=== PATIENT | female | born 1980 | race Caucasian/White ===

== ENCOUNTER 2016-06-05 13:15 | Observation (INO) | payer OTHER ==
[2016-06-05] MEDS ORDERED: ONDANSETRON 4 MG/2 ML VIAL IVP STA (13:43)
[2016-06-05] MEDS ORDERED: SODIUM CHLORIDE 0.9% 1,000 ML IV STA (13:43)
--- NOTE | 2016-06-05 13:45 | ED ---
Abdominal Pain HPI <Manan Hooper - Last Filed: 06/05/16 15:43> - General Source: patient, RN notes reviewed Mode of arrival: ambulatory Limitations: no limitations <Marcia Kerns - Last Filed: 06/05/16 15:47> - General Chief Complaint: Abdominal Pain Stated Complaint: Abd Pain Time Seen by Provider: 06/05/16 13:33 - History of Present Illness Initial Comments: 35-year-old female presents emergency Department chief complaint of right-sided abdominal pain. Patient states that this started this morning. Patient states she doesn't the Motrin did help with her pain but her pain continue to linger. Patient's pulse in the right side. Patient states that she does not believe that she is . Patient states she's had a little bit of nausea and burping with it. Patient states just started today. Patient denies any fever or chills. Patient states she was concerned due to the continued symptoms that she thought that she should be evaluated.Patient denies any recent fever, chills , shortness of breath, chest pain, back pain, vomiting, numbness or tingling, dysuria or hematuria, constipation or diarrhea, headaches or visual changes, or any other current symptoms. (Marcia Kerns) - Related Data Home Medications Medication Instructions Recorded Confirmed Cetirizine HCl [Zyrtec] 10 mg PO DAILY 03/05/16 06/05/16 Fluticasone Propionate [Flonase 1 spray EA NOSTRIL DAILY PRN 03/05/16 06/05/16 Allergy Relief] Lisinopril 40 mg PO DAILY 06/05/16 06/05/16 Naproxen [Naprosyn] 500 mg PO Q12HR PRN 06/05/16 06/05/16 Sertraline [Zoloft] 50 mg PO DAILY 06/05/16 06/05/16 metFORMIN HCL ER [Glucophage Xr] 1,000 mg PO AC-SUPPER 06/05/16 06/05/16 Allergies Allergy/AdvReac Type Severity Reaction Status Date / Time chick peas Allergy Swelling Uncoded 06/05/16 13:26 Review of Systems ROS Other: All systems not noted in ROS Statement are negative. <Manan Hooper - Last Filed: 06/05/16 15:43> ROS Other: All systems not noted in ROS Statement are negative. <Marcia Kerns - Last Filed: 06/05/16 15:47> ROS Statement: Those systems with pertinent positive or pertinent negative responses have been documented in the HPI. (Manan Hooper) (Marcia Kerns) Past Medical History Past Medical History: Diabetes Mellitus, Hypertension History of Any Multi-Drug Resistant Organisms: None Reported Additional Past Surgical History / Comment(s): foot surgery, Past Psychological History: Anxiety Smoking Status: Never smoker Past Alcohol Use History: None Reported Past Drug Use History: None Reported <Marcia Kerns - Last Filed: 06/05/16 15:47> General Exam <Manan Hooper - Last Filed: 06/05/16 15:43> Limitations: no limitations <Marcia Kerns - Last Filed: 06/05/16 15:47> - General Exam Comments Initial Comments: General: The patient is awake and alert, in no distress, and does not appear acutely ill. Eye: Pupils are equal, round and reactive to light, extra-ocular movements are intact; there is normal conjunctiva bilaterally. No signs of icterus. Ears, nose, mouth and throat: There are moist mucous membranes. Neck: The neck is supple, there is no tenderness. Cardiovascular: There is a regular rate and rhythm. No murmur, rub or gallop is appreciated. Respiratory: Lungs are clear to auscultation, respirations are non-labored, breath sounds are equal. No wheezes, stridor, rales, or rhonchi. Gastrointestinal: Soft, non-distended, minimal tenderness in left lower quadrant of the abdomen without masses or organomegaly noted. There is no rebound or guarding present. No CVA tenderness. Bowel sounds are unremarkable. Back: There is no tenderness to palpation in the midline. There is no obvious deformity. No rashes noted. Musculoskeletal: Normal ROM, no tenderness, There is no pedal edema. There is no calf tenderness or swelling. Sensation intact. Pulses equal bilaterally 2+. Neurological: CN II-XII intact, There are no obvious motor or sensory deficits. Coordination appears grossly intact. Speech is normal. Skin: Skin is warm and dry and no rashes or lesions are noted. Psychiatric: Cooperative, appropriate mood & affect, normal judgment. (Marcia Kerns) Medical Decision Making - Lab Data Result diagrams: 06/05/16 14:00 06/05/16 14:00 <Manan Hooper - Last Filed: 06/05/16 15:43> - Lab Data Result diagrams: 06/05/16 14:00 06/05/16 14:00 - Radiology Data Radiology results: report reviewed, image reviewed <Marcia Kerns - Last Filed: 06/05/16 15:47> - Medical Decision Making Patient reevaluated by myself, Dr. Hooper. Patient resting comfortably in bed. Patient does have mild tenderness right lower quadrant. Patient updated on results and plan. Case was discussed in detail with Dr. Luna, who will admit, nothing by mouth after midnight. (Manan Hooper) 35-year-old female presents emergency department chief complaint of right-sided abdominal pain. This time the patient does appear to have acute mild appendicitis. This time the case discussed with Dr. Luna and would like patient admitted started on antibiotics. We will put amputation and he'll admit discussed the patient is in agreement with the plan. (Marcia Kerns) - Lab Data Lab Results 06/05/16 06/05/16 06/05/16 Range/Units 14:00 14:00 14:00 WBC 14.8 H (3.8-10.6) k/uL RBC 4.72 (3.80-5.40) m/uL Hgb 15.0 (11.4-16.0) gm/dL Hct 42.2 (34.0-46.0) % MCV 89.4 (80.0-100.0) fL MCH 31.9 (25.0-35.0) pg MCHC 35.7 (31.0-37.0) g/dL RDW 13.3 (11.5-15.5) % Plt Count 191 (150-450) k/uL Neutrophils % 79 % Lymphocytes % 15 % Monocytes % 4 % Eosinophils % 1 % Basophils % 1 % Neutrophils # 11.7 H (1.3-7.7) k/uL Lymphocytes # 2.2 (1.0-4.8) k/uL Monocytes # 0.6 (0-1.0) k/uL Eosinophils # 0.2 (0-0.7) k/uL Basophils # 0.1 (0-0.2) k/uL Hyperchromasia Slight Sodium 141 (137-145) mmol/L Potassium 4.5 (3.5-5.1) mmol/L Chloride 105 (98-107) mmol/L Carbon Dioxide 23 (22-30) mmol/L Anion Gap 13 mmol/L BUN 9 (7-17) mg/dL Creatinine 0.61 (0.52-1.04) mg/dL Est GFR (MDRD) Af Amer >60 (>60 ml/min/1.73 sqM) Est GFR (MDRD) Non-Af >60 (>60 ml/min/1.73 sqM) Glucose 211 H (74-99) mg/dL Calcium 9.0 (8.4-10.2) mg/dL Total Bilirubin 0.7 (0.2-1.3) mg/dL AST 24 (14-36) U/L ALT 39 (9-52) U/L Alkaline Phosphatase 100 (38-126) U/L Total Protein 6.8 (6.3-8.2) g/dL Albumin 4.1 (3.5-5.0) g/dL Amylase <30 L (30-110) U/L Lipase 79 (23-300) U/L Urine Color Urine Appearance (Clear) Urine pH (5.0-8.0) Ur Specific Emerson (1.001-1.035) Urine Protein (Negative) Urine Glucose (UA) (Negative) Urine Ketones (Negative) Urine Blood (Negative) Urine Nitrate (Negative) Urine Bilirubin (Negative) Urine Urobilinogen (<2.0) mg/dL Ur Leukocyte Esterase (Negative) Urine RBC (0-5) /hpf Ur Squamous Epith Cells (0-4) /hpf Urine HCG, Qual Not Detected (Not Detectd) 06/05/16 Range/Units 14:00 WBC (3.8-10.6) k/uL RBC (3.80-5.40) m/uL Hgb (11.4-16.0) gm/dL Hct (34.0-46.0) % MCV (80.0-100.0) fL MCH (25.0-35.0) pg MCHC (31.0-37.0) g/dL RDW (11.5-15.5) % Plt Count (150-450) k/uL Neutrophils % % Lymphocytes % % Monocytes % % Eosinophils % % Basophils % % Neutrophils # (1.3-7.7) k/uL Lymphocytes # (1.0-4.8) k/uL Monocytes # (0-1.0) k/uL Eosinophils # (0-0.7) k/uL Basophils # (0-0.2) k/uL Hyperchromasia Sodium (137-145) mmol/L Potassium (3.5-5.1) mmol/L Chloride (98-107) mmol/L Carbon Dioxide (22-30) mmol/L Anion Gap mmol/L BUN (7-17) mg/dL Creatinine (0.52-1.04) mg/dL Est GFR (MDRD) Af Amer (>60 ml/min/1.73 sqM) Est GFR (MDRD) Non-Af (>60 ml/min/1.73 sqM) Glucose (74-99) mg/dL Calcium (8.4-10.2) mg/dL Total Bilirubin (0.2-1.3) mg/dL AST (14-36) U/L ALT (9-52) U/L Alkaline Phosphatase (38-126) U/L Total Protein (6.3-8.2) g/dL Albumin (3.5-5.0) g/dL Amylase (30-110) U/L Lipase (23-300) U/L Urine Color Colorless Urine Appearance Clear (Clear) Urine pH 5.0 (5.0-8.0) Ur Specific Emerson 1.001 (1.001-1.035) Urine Protein Negative (Negative) Urine Glucose (UA) Negative (Negative) Urine Ketones Negative (Negative) Urine Blood Small H (Negative) Urine Nitrate Negative (Negative) Urine Bilirubin Negative (Negative) Urine Urobilinogen <2.0 (<2.0) mg/dL Ur Leukocyte Esterase Negative (Negative) Urine RBC <1 (0-5) /hpf Ur Squamous Epith Cells <1 (0-4) /hpf Urine HCG, Qual (Not Detectd) (Manan Hooper) Disposition <Manan Hooper - Last Filed: 06/05/16 15:43> Time of Disposition: 15:47 Decision Date: 06/05/16 Decision Time: 15:47 <Marcia Kerns - Last Filed: 01/02/17 15:47> Clinical Impression: Acute appendicitis Disposition: ADMITTED IP TO THIS HOSP Condition: Stable
[2016-06-05 14:23] LABS: Appearance,Urine Clear (Clear); Bilirubin,Urine Negative (Negative); Glucose,Urine (UA) Negative (Negative); Ketones,Urine Negative (Negative); Leukocyte Esterase,Urine Negative (Negative); Nitrite,Urine Negative (Negative); Particle Count 552; Protein,Urine Negative (Negative); RBC,Urine <1 /hpf (0-5); Specific Gravity,Urine 1.001 (1.001-1.035); Squamous Epithelial Cell,Urine <1 /hpf (0-4); UA Billing (MACRO vs. MICRO) MICRO; Urobilinogen,Urine <2.0 mg/dL (<2.0)
[2016-06-05 14:24] LABS: Basophils # (A) 0.1 k/uL (0-0.2); Basophils % (A) 1 %; CH 33.3; CHCM 37.4; Eosinophils # (A) 0.2 k/uL (0-0.7); Eosinophils % (A) 1 %; HCT 42.2 % (34.0-46.0); Hyperchromasia Slight; Luc % (Auto) 1; Lymphocytes # (A) 2.2 k/uL (1.0-4.8); Lymphocytes % (A) 15 %; MCH 31.9 pg (25.0-35.0); MCHC 35.7 g/dL (31.0-37.0); MCV 89.4 fL (80.0-100.0); Mean Platelet Volume 7.2; Monocytes # (A) 0.6 k/uL (0-1.0); Monocytes % (A) 4 %; Neutrophils # (A) 11.7 k/uL (1.3-7.7); Neutrophils % (A) 79 %; RBC 4.72 m/uL (3.80-5.40); RDW 13.3 % (11.5-15.5); WBC 14.8 k/uL (3.8-10.6); WBC (Perox) 15.12
[2016-06-05] MEDS ORDERED: RX INFO: IV CONTRAST WAS GIVEN 1 EACH MISC MISCELLANE PRN (14:29)
[2016-06-05 14:30] LABS: ALT 39 U/L (9-52); AST 24 U/L (14-36); Alkaline Phosphatase 100 U/L (38-126); Amylase <30 U/L (30-110); Anion Gap 13 mmol/L; Blood Urea Nitrogen 9 mg/dL (7-17); Carbon Dioxide 23 mmol/L (22-30); Chloride 105 mmol/L (98-107); Glucose 211 mg/dL (74-99); Non-African American GFR(MDRD) >60 (>60 ml/min/1.73 sqM); Potassium 4.5 mmol/L (3.5-5.1); Sodium 141 mmol/L (137-145); Total Bilirubin 0.7 mg/dL (0.2-1.3); Total Protein 6.8 g/dL (6.3-8.2)
--- NOTE | 2016-06-05 15:31 | CT ---
EXAMINATION TYPE: CT abdomen pelvis w con DATE OF EXAM: 06/05/2016 3:07 PM COMPARISON: NONE HISTORY: 35 year-old female right sided abdominal pain and nausea TECHNIQUE: Contiguous axial scanning of the abdomen and pelvis following administration of 100 ml Omn ipaque 300 IV contrast. Delayed images through the kidneys and coronal/sagittal reconstructions perf ormed. CT DLP: 1959 mGycm Automated exposure control for dose reduction was used. FINDINGS: Heart is normal size without pericardial effusion. Nonspecific small 9 mm cyst in the left lower lobe . No pleural effusion. There appears to be low attenuation of the hepatic parenchyma in comparison to the spleen on portal v enous phase. The liver is enlarged measuring 21 cm craniocaudal. No focal liver lesion or biliary armando patel dilatation. Portal venous system is patent. Gallbladder, adrenal glands, kidneys, and pancreas appear within normal limits. Symmetric uptake and excretion of contrast by both kidneys. Spleen is enlarged measuring 15.2 cm craniocaudal. No dilated small bowel, free fluid, or free air. There is mild thickening of the appendix which is filled with fluid measuring up to 9 mm in caliber. There is also mild periappendiceal fat stranding extending inferiorly from the appendix, axial image 73 and 76. There is mild overall stool burden without pericolonic inflammatory change. No mesenteric or retroperitoneal lymphadenopathy. Bladder is urine distended. Uterus and ovaries are visualized. No abnormal fluid collection in the pe lvis or pelvic lymphadenopathy seen. Bones: There are mild degenerative changes at the hips and additional facet degenerative change in th e lower lumbar spine. No osseous destructive process. IMPRESSION: 1. FLUID-FILLED APPENDIX WITH MILD THICKENING AND MILD SURROUNDING FAT STRANDING. CORRELATE FOR MILD ACUTE APPENDICITIS. NO ABSCESS OR FREE AIR. 2. HEPATOMEGALY AND HEPATIC STEATOSIS. 3. MILD SPLENOMEGALY (15.2 CM). CLINICALLY CORRELATE. 4. THERE ARE SOME DEGENERATIVE CHANGES SEEN AT BOTH HIPS POSSIBLY SECONDARY TO PINCER-TYPE FEMORAL AC ETABULAR IMPINGEMENT SYNDROME. CLINICALLY CORRELATE.
[2016-06-05] MEDS ORDERED: HYDROmorphone 1 MG/ML 1 ML SYRINGE IVP STA (15:41)
[2016-06-05] MEDS ORDERED: AMPICILLIN-SULBACTAM 3 GM in SODIUM CHLORIDE 0.9% 100 ML IVPB STA (15:43)
[2016-06-05] MEDS ORDERED: ACETAMINOPHEN TAB 325 MG TAB PO PRN (15:44)
[2016-06-05] MEDS ORDERED: NALOXONE 0.4 MG/ML 1 ML VIAL IV PRN (15:44)
[2016-06-05] MEDS ORDERED: FLUTICASONE 50MCG/SPRAY NASAL 16GM EA NOSTRIL PRN (15:45)
[2016-06-05] MEDS ORDERED: NAPROXEN 250 MG TAB PO PRN (15:45)
[2016-06-05 16:42] LABS: Glucose,Whole Blood 142 mg/dL (75-99)
[2016-06-05] MEDS: metFORMIN 500 MG TAB PO SCH (17:45)
[2016-06-05] MEDS: SODIUM CHLORIDE 0.9% 1,000 ML IV SCH ×2 (17:48→23:15)
[2016-06-05] MEDS: INSULIN LISPRO (humaLOG) 300 UNIT/3 ML VIAL SQ SCH ×2 (17:48→20:06)
[2016-06-05] MEDS: HYDROmorphone 1 MG/ML 1 ML SYRINGE IV PRN (19:08)
[2016-06-05] MEDS: ONDANSETRON 4 MG/2 ML VIAL IVP PRN (19:08)
[2016-06-05 19:42] VITALS: RESP 16
[2016-06-05 19:56] LABS: Glucose,Whole Blood 196 mg/dL (75-99)
[2016-06-05] MEDS: FAMOTIDINE 20 MG TAB PO SCH (20:07)
[2016-06-05] MEDS ORDERED: METOCLOPRAMIDE 5 MG/ML 2 ML VIAL IVP STA (21:07)
[2016-06-05] MEDS: METOCLOPRAMIDE 5 MG/ML 2 ML VIAL IVP SCH (23:12)
[2016-06-05] MEDS: AMPICILLIN-SULBACTAM 3 GM in SODIUM CHLORIDE 0.9% 100 ML IVPB SCH (23:14)
[2016-06-06] MEDS: HYDROmorphone 1 MG/ML 1 ML SYRINGE IV PRN ×3 (00:03→08:54)
[2016-06-06 05:08] LABS: Hemoglobin A1C 6.2 % (4.2-6.1)
[2016-06-06] MEDS: METOCLOPRAMIDE 5 MG/ML 2 ML VIAL IVP SCH ×4 (05:13→23:07)
[2016-06-06 07:11] LABS: Glucose,Whole Blood 197 mg/dL (75-99)
[2016-06-06] MEDS: AMPICILLIN-SULBACTAM 3 GM in SODIUM CHLORIDE 0.9% 100 ML IVPB SCH ×3 (07:27→23:07)
[2016-06-06] MEDS: INSULIN LISPRO (humaLOG) 300 UNIT/3 ML VIAL SQ SCH ×4 (07:27→20:41)
[2016-06-06] MEDS: LISINOPRIL 20 MG TAB PO SCH (07:28)
[2016-06-06] MEDS: metFORMIN 500 MG TAB PO SCH ×2 (07:28→17:23)
[2016-06-06] MEDS: LORATADINE 10 MG TAB PO SCH (07:28)
[2016-06-06] MEDS: FAMOTIDINE 20 MG TAB PO SCH ×2 (07:28→20:41)
[2016-06-06] MEDS: SERTRALINE 50 MG TAB PO SCH (07:29)
[2016-06-06 07:53] LABS: Basophils # (A) 0.1 k/uL (0-0.2); Basophils % (A) 2 %; CH 32.7; CHCM 35.5; Eosinophils # (A) 0.1 k/uL (0-0.7); Eosinophils % (A) 2 %; HCT 38.8 % (34.0-46.0); HDW 3.29; HGB 13.1 gm/dL (11.4-16.0); Luc # (Auto) 0.15; Luc % (Auto) 2; Lymphocytes # (A) 2.3 k/uL (1.0-4.8); Lymphocytes % (A) 28 %; MCH 31.3 pg (25.0-35.0); MCHC 33.8 g/dL (31.0-37.0); MCV 92.7 fL (80.0-100.0); Mean Platelet Volume 7.4; Monocytes # (A) 0.5 k/uL (0-1.0); Monocytes % (A) 6 %; Neutrophils # (A) 5.1 k/uL (1.3-7.7); Neutrophils % (A) 61 %; RBC 4.19 m/uL (3.80-5.40); RDW 13.5 % (11.5-15.5); WBC 8.3 k/uL (3.8-10.6); WBC (Perox) 8.24
[2016-06-06 08:23] LABS: ALT 40 U/L (9-52); AST 18 U/L (14-36); Alkaline Phosphatase 80 U/L (38-126); Anion Gap 10 mmol/L; Blood Urea Nitrogen 11 mg/dL (7-17); Calcium 8.4 mg/dL (8.4-10.2); Carbon Dioxide 24 mmol/L (22-30); Chloride 106 mmol/L (98-107); Glucose 206 mg/dL (74-99); Non-African American GFR(MDRD) >60 (>60 ml/min/1.73 sqM); Potassium 4.4 mmol/L (3.5-5.1); Sodium 140 mmol/L (137-145); Total Bilirubin 0.6 mg/dL (0.2-1.3); Total Protein 5.8 g/dL (6.3-8.2)
--- NOTE | 2016-06-06 09:26 | P.GSHP ---
History of Present Illness H&P Date: 06/06/16 CHIEF COMPLAINT: Appendicitis. HISTORY OF PRESENT ILLNESS: The patient is a 35-year-old female who comes in with 24+hr history of right lower quadrant pain. She denies any previous pain like this before. Her history is significant for prior tubal ligation and ovarian cystectomy. She had leukocytosis. She also had a CT of the abdomen and pelvis that was consistent with acute appendicitis. PAST MEDICAL HISTORY: Please see list. PAST SURGICAL HISTORY: Please see list. MEDICATIONS: Please see list. ALLERGIES: Please see list. SOCIAL HISTORY: No illicit drug use FAMILY HISTORY: No reports of Crohn disease or ulcerative colitis. REVIEW OF ORGAN SYSTEMS: CONSTITUTIONAL: No reports of fevers or chills. PHYSICAL EXAM: VITAL SIGNS: Stable GENERAL: Well-developed pleasant in no acute distress. HEENT: No scleral icterus. Extraocular movements grossly intact. Moist buccal mucosa. NECK: Supple without lymphadenopathy. CHEST: Unlabored respirations. Equal bilateral excursions. CARDIOVASCULAR: Regular rate and rhythm. Distal 2+ pulses. ABDOMEN: Soft, nontender, nondistended. MUSCULOSKELETAL: No clubbing, cyanosis, or edema. ASSESSMENT: 1. Acute appendicitis. PLAN: 1. Recommend proceeding with a laparoscopic appendectomy possible open. Past Medical History Past Medical History: Diabetes Mellitus, Hypertension History of Any Multi-Drug Resistant Organisms: None Reported Past Surgical History: Section Additional Past Surgical History / Comment(s): tendon tear repair, 3 , tubal litigation, tubes and ovaries removed Additional Past Anesthesia/Blood Transfusion Reaction / Comment(s): gets angry when waking up after anesthetic Past Psychological History: Anxiety Smoking Status: Never smoker Past Alcohol Use History: None Reported Past Drug Use History: None Reported - Past Family History Mother Family Medical History: Hyperlipidemia Additional Family Medical History / Comment(s): hypothyroid Father Family Medical History: Diabetes Mellitus, Hypertension Medications and Allergies Home Medications Medication Instructions Recorded Confirmed Type Cetirizine HCl [Zyrtec] 10 mg PO DAILY 03/05/16 06/05/16 History Fluticasone Propionate [Flonase 1 spray EA NOSTRIL DAILY PRN 03/05/16 06/05/16 History Allergy Relief] Lisinopril 40 mg PO DAILY 06/05/16 06/05/16 History Naproxen [Naprosyn] 500 mg PO Q12HR PRN 06/05/16 06/05/16 History Sertraline [Zoloft] 50 mg PO DAILY 06/05/16 06/05/16 History metFORMIN HCL ER [Glucophage Xr] 1,000 mg PO AC-SUPPER 06/05/16 06/05/16 History Allergies Allergy/AdvReac Type Severity Reaction Status Date / Time chick peas Allergy Swelling Uncoded 06/05/16 13:26 Surgical - Exam Vital Signs Temp Pulse Resp BP Pulse Ox 97.1 F L 103 H 16 156/93 99 06/05/16 13:26 06/05/16 13:26 06/05/16 13:26 06/05/16 13:26 06/05/16 13:26 Results - Labs 06/06/16 07:27 06/06/16 07:23 Abnormal Lab Results - Last 24 Hours (Table) 06/05/16 06/05/16 06/06/16 Range/Units 16:38 19:55 07:10 Glucose (74-99) mg/dL POC Glucose (mg/dL) 142 H 196 H 197 H (75-99) mg/dL Total Protein (6.3-8.2) g/dL Albumin (3.5-5.0) g/dL 06/06/16 Range/Units 07:23 Glucose 206 H (74-99) mg/dL POC Glucose (mg/dL) (75-99) mg/dL Total Protein 5.8 L (6.3-8.2) g/dL Albumin 3.3 L (3.5-5.0) g/dL Diabetes panel 06/06/16 Range/Units 07:23 Sodium 140 (137-145) mmol/L Potassium 4.4 (3.5-5.1) mmol/L Chloride 106 (98-107) mmol/L Carbon Dioxide 24 (22-30) mmol/L BUN 11 (7-17) mg/dL Creatinine 0.65 (0.52-1.04) mg/dL Glucose 206 H (74-99) mg/dL Calcium 8.4 (8.4-10.2) mg/dL AST 18 (14-36) U/L ALT 40 (9-52) U/L Alkaline Phosphatase 80 (38-126) U/L Total Protein 5.8 L (6.3-8.2) g/dL Albumin 3.3 L (3.5-5.0) g/dL Calcium panel 06/06/16 Range/Units 07:23 Calcium 8.4 (8.4-10.2) mg/dL Albumin 3.3 L (3.5-5.0) g/dL Pituitary panel 06/06/16 Range/Units 07:23 Sodium 140 (137-145) mmol/L Potassium 4.4 (3.5-5.1) mmol/L Chloride 106 (98-107) mmol/L Carbon Dioxide 24 (22-30) mmol/L BUN 11 (7-17) mg/dL Creatinine 0.65 (0.52-1.04) mg/dL Glucose 206 H (74-99) mg/dL Calcium 8.4 (8.4-10.2) mg/dL Adrenal panel 06/06/16 Range/Units 07:23 Sodium 140 (137-145) mmol/L Potassium 4.4 (3.5-5.1) mmol/L Chloride 106 (98-107) mmol/L Carbon Dioxide 24 (22-30) mmol/L BUN 11 (7-17) mg/dL Creatinine 0.65 (0.52-1.04) mg/dL Glucose 206 H (74-99) mg/dL Calcium 8.4 (8.4-10.2) mg/dL Total Bilirubin 0.6 (0.2-1.3) mg/dL AST 18 (14-36) U/L ALT 40 (9-52) U/L Alkaline Phosphatase 80 (38-126) U/L Total Protein 5.8 L (6.3-8.2) g/dL Albumin 3.3 L (3.5-5.0) g/dL
[2016-06-06] MEDS: ONDANSETRON 4 MG/2 ML VIAL IVP PRN (11:12)
[2016-06-06] MEDS ORDERED: IV FLUID CONTINUATION 300 ML IV ONE (11:50)
[2016-06-06 12:19] LABS: Glucose,Whole Blood 200 mg/dL (75-99)
[2016-06-06] MEDS ORDERED: METOCLOPRAMIDE 5 MG/ML 2 ML VIAL IVP STA (12:27)
[2016-06-06] MEDS ORDERED: HEPARIN SODIUM,PORCINE 5,000 UNIT/ML 1 ML VIAL SQ ONE (12:42)
[2016-06-06] MEDS ORDERED: NEOSTIGMINE 1 MG/ML 10 ML VIAL ONE (12:48)
[2016-06-06] MEDS ORDERED: PROPOFOL 10 MG/ML 20 ML VIAL IV ONE (12:48)
[2016-06-06] MEDS ORDERED: fentaNYL (PF) 50 MCG/ML 2 ML AMP ONE (12:48)
[2016-06-06] MEDS ORDERED: MIDAZOLAM 2 MG/2 ML VIAL ONE (12:48)
[2016-06-06] MEDS ORDERED: ROCURONIUM BROMIDE 10 MG/ML 10 ML VIAL IV ONE (12:48)
[2016-06-06] MEDS ORDERED: SUCCINYLCHOLINE CHLORIDE VIAL 200 MG/10 ML VIAL IV ONE (12:48)
[2016-06-06] MEDS ORDERED: LIDOCAINE 1% INJ 10MG/ML (20 ML MDV) ONE (12:48)
[2016-06-06] MEDS ORDERED: GLYCOPYRROLATE 0.2 MG/ML 2 ML VIAL ONE (12:48)
[2016-06-06] MEDS: LACTATED RINGERS 1,000 ML IV ONE ×2 (13:01→15:33)
[2016-06-06] MEDS: ceFAZolin 2 GM in SODIUM CHLORIDE 0.9% 100 ML IVPB STA ×2 (13:01→15:33)
[2016-06-06] MEDS ORDERED: BUPIVACAIN-EPI 0.25%-1:200,000 30 ML VIAL SQ ONE (13:26)
--- NOTE | 2016-06-06 13:36 | P.OP ---
Date of Procedure: 06/06/16 Description of Procedure: SURGEON: MERLYN DRAPER MD LANDMEN: None. PREOPERATIVE DIAGNOSES: 1. Right lower quadrant abdominal pain. 2. Acute appendicitis. 3. Leukocytosis. 4. Diabetes type 2, [id number]. 5. Essential hypertension. 6. Obesity, BMI 34.5. 7. Anxiety. 8. Depression. 9. Seasonal ALLERGIES. POSTOPERATIVE DIAGNOSES: 1. Right lower quadrant abdominal pain. 2. Acute appendicitis without peritonitis. 3. Leukocytosis. 4. Diabetes type 2, [id number]. 5. Essential hypertension. 6. Obesity, BMI 34.5. 7. Anxiety. 8. Depression. 9. Seasonal ALLERGIES. PROCEDURES PERFORMED: 1. Laparoscopic appendectomy. ANESTHESIA: General with 30 mL 0.25% Marcaine with epinephrine. ESTIMATED BLOOD LOSS: 5 mL. SPECIMENS REMOVED: Appendix. COMPLICATIONS: None. OPERATIVE FINDINGS: 1. Acute appendicitis with dilation of the appendix. 2. Terminal ileum unremarkable. INDICATIONS: The patient is a 35-year-old female who presents with over a 24-hour history of right lower quadrant abdominal pain. CT of the abdomen and pelvis was obtained demonstrating findings consistent with acute appendicitis. Benefits and risks, including possibility of open technique were described at length. Informed consent was obtained. DESCRIPTION OR PROCEDURE: Patient was brought to the operating room, laid in supine position. After general induction, the abdomen was prepped and draped in standard sterile fashion. Prior to incision, a timeout protocol was confirmed with surgical team regarding patient's name including procedure to be performed. Preoperative antibiotics were given intraoperatively. Additionally, bilateral SCDs including heparin 5000 units was administered. A transverse infraumbilical incision was made after localizing the skin with anesthetic. A 0 degree 12 mm laparoscopic trocar entry was performed and entered into the peritoneal cavity. The abdomen was insufflated to 15 mmHg of pressure, which she tolerated well. Diagnostic laparoscopy demonstrated no injury to bowel, viscera or mesentery. A separate 5 mm port was placed at the pubis and left upper quadrant all under direct visualization. The patient was placed in Trendelenburg position with the right side up. The base of the cecum was without inflammation. The appendix was dilated consistent with acute appendicitis. A 45 mm Endo KIRTI echelon stapler was fired across using a shelby vascular load. The staple line was completely hemostatic. The specimen was removed from the abdominal cavity with a [place] through the 12 mm trocar. All instruments and pneumoperitoneum were evacuated from the abdominal cavity. The fascial defect was reapproximated using 0 Vicryl in a figure-of-8 fashion. A total of 30 mL 0.25% Marcaine with epinephrine was infiltrated in all wounds for postop analgesia. Dermabond was applied to the skin after reapproximating the incisions with 4-0 Monocryl as described. At the end of the procedure, needle, sponge, and instrument count was verified correct by rn surgical. The patient had tolerated the procedure well, was taken to the postanesthesia care unit in stable condition. Intraoperative abdominal films were described and discussed with her family who were overall pleased with her level of care. Length of surgery was 18 minutes. Patient was deemed an ASA 2.
--- NOTE | 2016-06-06 13:42 | P.DS ---
Providers Date of admission: 06/05/16 15:44 Expected date of discharge: 06/07/16 Attending physician: Makenna Persaud Primary care physician: Fadi Hernandez - Discharge Diagnosis(es) (1) Type 2 diabetes mellitus without complications Status: Chronic (2) Essential (primary) hypertension Status: Chronic (3) Obesity Status: Chronic (4) Body mass index (BMI) of 34.0-34.9 in adult Status: Chronic (5) Anxiety disorder Status: Chronic (6) Major depressive disorder, single episode Status: Chronic (7) Acute appendicitis Status: Acute Hospital Course: POSTOPERATIVE DIAGNOSES: 1. Right lower quadrant abdominal pain. 2. Acute appendicitis without peritonitis. 3. Leukocytosis. 4. Diabetes type 2, [id number]. 5. Essential hypertension. 6. Obesity, BMI 34.5. 7. Anxiety. 8. Depression. 9. Seasonal ALLERGIES. COURSE: The patient presents over a 24-hour history of right lower quadrant abdominal pain. CT of the abdomen and pelvis was obtained demonstrating findings consistent with acute appendicitis. Benefits and risks, including possibility of open technique were described at length. The patient was taken to the operating room. Postoperatively her pain was monitored. She also had postop nausea and vomiting. Prior to discharge, she was tolerating diet. Postoperative discharge instructions were reviewed. Pertinent Studies: CT of the abdomen and pelvis demonstrates acute appendicitis. Procedures: PROCEDURES PERFORMED: 1. Laparoscopic appendectomy. Patient Condition at Discharge: Stable Plan - Discharge Summary Discharge Medication List Cetirizine HCl [Zyrtec] 10 mg PO DAILY 03/05/16 [History] Fluticasone Propionate [Flonase Allergy Relief] 1 spray EA NOSTRIL DAILY PRN 07/20 [History] Lisinopril 40 mg PO DAILY 06/05/16 [History] Naproxen [Naprosyn] 500 mg PO Q12HR PRN 06/05/16 [History] Sertraline [Zoloft] 50 mg PO DAILY 06/05/16 [History] metFORMIN HCL ER [Glucophage Xr] 1,000 mg PO AC-SUPPER 06/05/16 [History] Cyclobenzaprine [Flexeril] 10 mg PO TID #12 tab 06/20/16 [Rx] traMADol HCl [Ultram] 50 mg PO Q6H PRN #12 tab 06/20/16 [Rx] Follow up Appointment(s)/Referral(s): aFdi Hernandez III, MD [Primary Care Provider] - 1-2 days (Office closed. Patient to call and schedule follow up appopintment.) Makenna Persaud MD [STAFF PHYSICIAN] - 06/13/16 11:20 am Patient Instructions/Handouts: Laparoscopic Appendectomy (DC) Activity/Diet/Wound Care/Special Instructions: No lifting over 4 pounds in 2 weeks. Do not return to work until cleared by surgeon. May shower. No bathtub soaks. Discharge Disposition: HOME SELF-CARE
[2016-06-06] MEDS ORDERED: KETOROLAC 30 MG/ML 1 ML VIAL IVP ONE (13:51)
[2016-06-06 14:00] LABS: Glucose,Whole Blood 235 mg/dL (75-99)
[2016-06-06] MEDS ORDERED: ACETAMINOPHEN IV (For NPO) 1,000 MG in EMPTY BAG 1 BAG IVPB ONE (14:00)
[2016-06-06] MEDS: SODIUM CHLORIDE 0.9% 1,000 ML IV SCH ×2 (15:32→20:52)
[2016-06-06 16:55] LABS: Glucose,Whole Blood 242 mg/dL (75-99)
[2016-06-06] MEDS: MAGNESIUM SULFATE-D5W PMX 1 GM in DEXTROSE/WATER 1 100ML.BAG IVPB SCH ×2 (19:16→20:42)
--- NOTE | 2016-06-06 19:19 | P.PN ---
Progress Note - Text Patient's pain is controlled. She reports some postop nausea. No emesis. She is tolerating liquid diet. Patient is clear for discharge. Follow-up as outpatient.
[2016-06-06] MEDS: HYDROcodone/APAP 5-325MG 1 EACH TAB PO PRN (20:45)
[2016-06-06 21:01] LABS: Glucose,Whole Blood 152 mg/dL (75-99)
[2016-06-07] MEDS: HYDROcodone/APAP 5-325MG 1 EACH TAB PO PRN ×2 (03:38→07:55)
[2016-06-07] MEDS: METOCLOPRAMIDE 5 MG/ML 2 ML VIAL IVP SCH (04:58)
[2016-06-07 06:51] LABS: Glucose,Whole Blood 203 mg/dL (75-99)
[2016-06-07] MEDS: INSULIN LISPRO (humaLOG) 300 UNIT/3 ML VIAL SQ SCH (07:51)
[2016-06-07] MEDS: metFORMIN 500 MG TAB PO SCH (07:55)
[2016-06-07] MEDS: SODIUM CHLORIDE 0.9% 1,000 ML IV SCH (08:00)
[2016-06-07] MEDS: FAMOTIDINE 20 MG TAB PO SCH (08:01)
[2016-06-07] MEDS: LORATADINE 10 MG TAB PO SCH (08:01)
[2016-06-07] MEDS: LISINOPRIL 20 MG TAB PO SCH (08:01)
[2016-06-07] MEDS: SERTRALINE 50 MG TAB PO SCH (08:02)
[2016-06-07] MEDS: AMPICILLIN-SULBACTAM 3 GM in SODIUM CHLORIDE 0.9% 100 ML IVPB SCH (10:19)
[2016-06-07 10:22] VITALS: BP 147/89; PULSE 70; TEMP 98.5
== END 2016-06-07 09:13 | disposition home or self-care (01) ==
LOC: EC 13:15 → 3SUR 15:44 → INTOOBSV 15:44
PROVIDERS: ADMIT Surgery Plastic and Reconstructive Surgery; ATTEND Surgery Plastic and Reconstructive Surgery
DX: K35.80 Unspecified acute appendicitis (principal); E11.9 Type 2 diabetes mellitus without complications; I10 Essential (primary) hypertension; E66.9 Obesity, unspecified; F41.9 Anxiety disorder, unspecified; F32.9 Major depressive disorder, single episode, unspecified; J30.2 Other seasonal allergic rhinitis; Z68.34 Body mass index [BMI] 34.0-34.9, adult; Z79.899 Other long term (current) drug therapy; Z79.84 Long term (current) use of oral hypoglycemic drugs; Z82.49 Family history of ischemic heart disease and other diseases of the circulatory system; Z83.3 Family history of diabetes mellitus
CPT/HCPCS: 96361 ×3; 96365 ×2; 96375 ×3; 99285 ×2; 36415; 81025 ×2; 88304; 80053 ×2; 82150; 83036; 83690; 83735; 85025 ×2; 81001; 87086; 74177; 44970; G0378 ×3; J2250; J0330; J1644; J2710; J2765 ×2; J2405 ×2; J2001; J3010; J1885; J1170 ×2; J3475; Q9967; J0295 ×2; J2704; 96366; 96376

== ENCOUNTER 2016-06-20 11:47 | Emergency (ER) | payer OTHER ==
[2016-06-20 12:03] VITALS: RESP 18
[2016-06-20] MEDS ORDERED: ORPHENADRINE 30 MG/ML 2 ML VIAL IM STA (13:06)
[2016-06-20] MEDS ORDERED: KETOROLAC 60 MG/2 ML VIAL IM STA (13:07)
--- NOTE | 2016-06-20 13:19 | ED ---
Fall HPI - General Chief Complaint: Fall Stated Complaint: Fell/back/arm pain/rib pain Time Seen by Provider: 06/20/16 12:57 Source: patient, RN notes reviewed, old records reviewed Mode of arrival: ambulatory - History of Present Illness Initial Comments: is a 35-year-old female presenting to the with skin complaint of right upper arm pain, right neck stiffness, and right rib pain with increased inspiration. Patient states that all the symptoms occurred after she fell on the ice today. Patient reports that she landed on the steps. She states that this happened earlier this morning. She reports that she had a recent appendectomy. Patient reports there've been no complications since her surgery. Patient also reports that she feels like she has bladder spasms. She states that this was only occurred today. Prior to the fall she denies any fever, chills, shortness of breath, chest pain, back pain, abdominal pain, nausea vomiting, numbness or tingling, dysuria or hematuria, constipation or diarrhea, headaches or visual changes, or any other current symptoms - Related Data Home Medications Medication Instructions Recorded Confirmed Cetirizine HCl [Zyrtec] 10 mg PO DAILY 03/05/16 06/20/16 Fluticasone Propionate [Flonase 1 spray EA NOSTRIL DAILY PRN 03/05/16 06/20/16 Allergy Relief] Lisinopril 40 mg PO DAILY 06/05/16 06/20/16 Naproxen [Naprosyn] 500 mg PO Q12HR PRN 06/05/16 06/20/16 Sertraline [Zoloft] 50 mg PO DAILY 06/05/16 06/20/16 metFORMIN HCL ER [Glucophage Xr] 1,000 mg PO AC-SUPPER 06/05/16 06/20/16 Hydrocodone/Acetaminophen [[place] 1 - 2 tab PO Q6HR PRN 06/20/16 06/20/16 5-325] Previous Rx's Medication Instructions Recorded Cyclobenzaprine [Flexeril] 10 mg PO TID #12 tab 06/20/16 traMADol HCl [Ultram] 50 mg PO Q6H PRN #12 tab 06/20/16 Allergies Allergy/AdvReac Type Severity Reaction Status Date / Time chick peas Allergy Swelling Uncoded 06/20/16 12:02 Review of Systems ROS Statement: Those systems with pertinent positive or pertinent negative responses have been documented in the HPI. ROS Other: All systems not noted in ROS Statement are negative. Past Medical History Past Medical History: Diabetes Mellitus, Hypertension History of Any Multi-Drug Resistant Organisms: None Reported Past Surgical History: Appendectomy, Section Additional Past Surgical History / Comment(s): tendon tear repair, 3 , tubal litigation, tubes and ovaries removed Additional Past Anesthesia/Blood Transfusion Reaction / Comment(s): gets angry when waking up after anesthetic Past Psychological History: Anxiety Smoking Status: Never smoker Past Alcohol Use History: None Reported Past Drug Use History: None Reported - Past Family History Mother Family Medical History: Hyperlipidemia Additional Family Medical History / Comment(s): hypothyroid Father Family Medical History: Diabetes Mellitus, Hypertension General Exam - General Exam Comments Initial Comments: Patient is a well-appearing 35-year-old female. She does not appear to be in any acute distress. Limitations: no limitations General appearance: alert, in no apparent distress Head exam: Present: atraumatic, normocephalic, normal inspection Eye exam: Present: normal appearance, PERRL, EOMI. Absent: scleral icterus, conjunctival injection, periorbital swelling ENT exam: Present: normal exam, mucous membranes moist Neck exam: Present: normal inspection, tenderness (Tenderness over the trapezius , specifically the right side. ), full ROM. Absent: meningismus, lymphadenopathy Respiratory exam: Present: normal lung sounds bilaterally, chest wall tenderness (patient reports mild right sided lower rib tenderness. ). Absent: respiratory distress, wheezes, rales, rhonchi, stridor Cardiovascular Exam: Present: regular rate, normal rhythm, normal heart sounds. Absent: systolic murmur, diastolic murmur, rubs, gallop, clicks GI/Abdominal exam: Present: soft, normal bowel sounds, other (Evidence of recent appendectomy surgical scars. They incision sites are healing well and no evidence of erythema or drainage. Patient has no tenderness over the abdomen.). Absent: distended, tenderness, guarding, rebound, rigid Extremities exam: Present: normal inspection, full ROM, normal capillary refill. Absent: tenderness, pedal edema, joint swelling, calf tenderness Left Shoulder Exam: Present: normal inspection, full ROM Upper Arm exam: Present: normal inspection, full ROM, tenderness (Reports tenderness over the bicep.) Elbow exam: Present: normal inspection, full ROM Forearm Wrist exam: Present: normal inspection, full ROM Hand Wrist exam: Present: normal inspection, full ROM Vascular: Present: normal capillary refill Back exam: Present: normal inspection, full ROM, other (Patient has tenderness over the trapezius bilaterally.) Neurological exam: Present: alert, oriented X3, CN II-XII intact, normal gait Psychiatric exam: Present: normal affect, normal mood Skin exam: Present: warm, dry, intact, normal color. Absent: rash Course Vital Signs 06/20/16 06/20/16 11:58 14:59 Temperature 97.3 F L 97.8 F Pulse Rate 79 68 Respiratory 18 18 Rate Blood Pressure 146/95 138/68 O2 Sat by Pulse 99 98 Oximetry Medical Decision Making - Medical Decision Making Patient is a 35-year-old female complaining of right arm pain pain right rib pain and bladder spasms for one day. Patient reports that all the symptoms happened prior to falling. She did have a recent appendectomy but denies any fever or chills or abdominal pain. She was given IM Norflex and Toradol. X- rays are obtained of the right arm and right chest x-ray with ribs. Patient does have normal breath sounds. Patient's urinalysis is negative for any signs of infectious process. There is 3+ glucose upper patient is diabetic and did not take her metformin today. Patient also x-rays were reviewed and are negative for any acute fracture. Patient will be discharged with a rib contusion and instructed to continue to take deep breaths to avoid getting a pneumonia. Patient will also be given a prescription for pain medications. Patient understands treatment plan will comply. - Lab Data Lab Results 06/20/16 Range/Units 13:15 Urine Color Light Yellow Urine Appearance Clear (Clear) Urine pH 5.0 (5.0-8.0) Ur Specific [place] 1.003 (1.001-1.035) Urine Protein Negative (Negative) Urine Glucose (UA) 3+ H (Negative) Urine Ketones Negative (Negative) Urine Blood Negative (Negative) Urine Nitrate Negative (Negative) Urine Bilirubin Negative (Negative) Urine Urobilinogen <2.0 (<2.0) mg/dL Ur Leukocyte Esterase Negative (Negative) - Radiology Data Radiology results: report reviewed Right humerus x-ray was reviewed and has no evidence of any acute fractures. Chest x-ray and rib x-ray show no evidence of any acute fractures or acute process. Disposition Clinical Impression: Fall, Rib contusion, Biceps strain Disposition: HOME SELF-CARE Condition: Good Instructions: Fall Prevention for Older Adults (ED), Rib Contusion (ED) Additional Instructions: Patient instructed take muscle relaxers and pain medication as directed. Follow -up with primary care symptoms continue to persist in 1-2 days. Return to the [facility] if any alarming signs or symptoms occur. Apply heat and ice to the affected areas. Prescriptions: Cyclobenzaprine [Flexeril] 10 mg PO TID #12 tab traMADol HCl [Ultram] 50 mg PO Q6H PRN #12 tab PRN Reason: Pain Referrals: Fadi Hernandez III, MD [Primary Care Provider] - 1-2 days Time of Disposition: 14:28
[2016-06-20 13:45] LABS: Appearance,Urine Clear (Clear); Bilirubin,Urine Negative (Negative); Glucose,Urine (UA) 3+ (Negative); Ketones,Urine Negative (Negative); Leukocyte Esterase,Urine Negative (Negative); Nitrite,Urine Negative (Negative); Protein,Urine Negative (Negative); Specific Gravity,Urine 1.003 (1.001-1.035); UA Billing (MACRO vs. MICRO) CHEM; Urobilinogen,Urine <2.0 mg/dL (<2.0)
--- NOTE | 2016-06-20 13:58 | XR ---
Right humerus HISTORY: Injury and pain 2 views of the right humerus No comparisons Bone mineralization, joint spaces and alignment are maintained IMPRESSION: No fracture or dislocation.
--- NOTE | 2016-06-20 14:02 | XR ---
Frontal chest x-ray with right RIBS HISTORY: Trauma and pain Frontal view of the chest and 4 views of the right ribs are submitted. Correlation to CT scan second June 2016 No displaced rib fracture is evident. There is a spinal curvature. Degenerative disc changes in the v isualized spine. Chest x-ray shows no acute abnormality. IMPRESSION: No acute abnormalities evident. Additional findings above, bone scan could be performed f or increased sensitivity as indicated.
[2016-06-20 15:00] VITALS: BP 138/68; PULSE 68; TEMP 97.8
== END 2016-06-20 15:00 | disposition home or self-care (01) ==
LOC: EC 11:47
DX: S46.211A Strain of muscle, fascia and tendon of other parts of biceps, right arm, initial encounter (principal); E11.9 Type 2 diabetes mellitus without complications; I10 Essential (primary) hypertension; F41.9 Anxiety disorder, unspecified; W00.0XXA Fall on same level due to ice and snow, initial encounter; Z79.899 Other long term (current) drug therapy; Z79.84 Long term (current) use of oral hypoglycemic drugs; Z91.018 Allergy to other foods
CPT/HCPCS: 99284; 96372 ×2; 81003; 71101; 73060; J2360; J1885

== ENCOUNTER 2016-06-23 17:48 | Emergency (ER) | payer OTHER ==
--- NOTE | 2016-06-23 20:10 | US ---
EXAMINATION TYPE: US venous doppler duplex UE RT DATE OF EXAM: 06/23/2016 7:49 PM COMPARISON: NONE CLINICAL HISTORY: [facility] Patient with pain, redness, and swelling at right forearm at former IV Site from hospitalization early June; patient also stated fell on ice last week with injury to right arm SIDE PERFORMED: right TECHNOLOGIST IMPRESSION: Right Arm: Negative for DVT. Right arm is positive for superficial thrombophlebitis as internal vein echoes are noted in right arm Cephalic Vein just distal to Brachial Fossa to upper arm at patient's c /o swelling and redness. At this location the Cephalic Vein is also noncompressible. Right arm Deep V eins in forearm are very small and are noted to stay separate to upper arm at axillary vein. IMPRESSION: The exam shows some superficial venous thrombus. No evidence of deep venous thrombosis in the right a rm.
--- NOTE | 2016-06-23 20:24 | ED ---
Extremity Problem HPI - General Chief complaint: Extremity Problem,Nontraumatic Stated complaint: RT ARM PAIN, SENT BY [facility] FOR POSS BLOODCLOT Time Seen by Provider: 06/23/16 20:04 Source: patient, RN notes reviewed Mode of arrival: ambulatory Limitations: no limitations - History of Present Illness Initial comments: Patient is 35-year-old female presents to the emergency room for evaluation of right arm pain and swelling. Patient states that she was here at the beginning of the month for appendicitis. Patient states she had an IV placed in her right arm. Patient states over the past 2 days she noticed swelling and pain at the same area where the IV was inserted. Patient states pain has been getting worse over the past 2 days. Patient states she went to [facility] and she was sent here to be ruled out for a blood clot in her right arm. Patient states the area on her feels very warm and tender. Patient denies numbness or tingling in her fingers. Patient denies any other symptoms or complaints at this time. Patient denies history of blood clots. Patient denies taking blood thinners. - Related Data Home Medications Medication Instructions Recorded Confirmed Cetirizine HCl [Zyrtec] 10 mg PO DAILY 03/05/16 06/23/16 Fluticasone Propionate [Flonase 1 spray EA NOSTRIL DAILY PRN 03/05/16 06/23/16 Allergy Relief] Lisinopril 40 mg PO DAILY 06/05/16 06/23/16 Naproxen [Naprosyn] 500 mg PO Q12HR PRN 06/05/16 06/23/16 Sertraline [Zoloft] 50 mg PO DAILY 06/05/16 06/23/16 metFORMIN HCL ER [Glucophage Xr] 1,000 mg PO AC-SUPPER 06/05/16 06/23/16 Previous Rx's Medication Instructions Recorded Cyclobenzaprine [Flexeril] 10 mg PO TID #12 tab 06/20/16 traMADol HCl [Ultram] 50 mg PO Q6H PRN #12 tab 06/20/16 Allergies Allergy/AdvReac Type Severity Reaction Status Date / Time chick peas Allergy Swelling Uncoded 06/23/16 18:29 Review of Systems ROS Statement: Those systems with pertinent positive or pertinent negative responses have been documented in the HPI. ROS Other: All systems not noted in ROS Statement are negative. Past Medical History Past Medical History: Diabetes Mellitus, Hypertension History of Any Multi-Drug Resistant Organisms: None Reported Past Surgical History: Appendectomy, Section Additional Past Surgical History / Comment(s): tendon tear repair, 3 , tubal ligation, tubes and ovaries removed Additional Past Anesthesia/Blood Transfusion Reaction / Comment(s): gets angry when waking up after anesthetic Past Psychological History: Anxiety Smoking Status: Former smoker Past Alcohol Use History: None Reported Past Drug Use History: None Reported - Past Family History Mother Family Medical History: Hyperlipidemia Additional Family Medical History / Comment(s): hypothyroid Father Family Medical History: Diabetes Mellitus, Hypertension General Exam - General Exam Comments Initial Comments: Sitting on exam chair in no acute distress. Limitations: no limitations General appearance: alert Head exam: Present: atraumatic Eye exam: Present: normal appearance ENT exam: Present: normal exam Neck exam: Present: normal inspection Respiratory exam: Present: normal lung sounds bilaterally. Absent: respiratory distress Cardiovascular Exam: Present: regular rate, normal rhythm, normal heart sounds Right Forearm Wrist exam: Present: full ROM, erythema (Erythema and edema over the proximal volar forearm. Tenderness on palpating over the area.). Absent: normal inspection Neuro motor exam: Present: wrist extension intact, thumb opposition intact, thumb IP flexion intact, thumb adduction intact, fingers 2-5 abduction intact Vascular: Present: normal capillary refill (Capillary refill less than 2 seconds.), radial pulse (2+), ulnar pulse (2+) Back exam: Present: normal inspection Neurological exam: Present: alert, oriented X3, CN II-XII intact, normal gait Psychiatric exam: Present: normal affect, normal mood Skin exam: Present: warm, dry. Absent: rash Course Vital Signs 06/23/16 06/23/16 18:25 20:29 Temperature 98.0 F 98 F Pulse Rate 88 80 Respiratory 18 20 Rate Blood Pressure 122/78 131/66 O2 Sat by Pulse 99 98 Oximetry Medical Decision Making - Medical Decision Making Patient is a 35-year-old female presents emergency room treatment evaluation of right arm pain and swelling. Patient was sent here from [facility] to rule out blood clot. Right arm penis Doppler ultrasound: Superficial venous thrombus. No evidence of deep venous thrombosis in the right arm. Advised patient to apply warm compresses and to take ibuprofen. Patient states she understands everything that was discussed with her. Return parameters discussed. Case discussed with Dr. Mazariegos. - Radiology Data Radiology results: report reviewed, image reviewed Disposition Clinical Impression: Superficial thrombophlebitis Disposition: HOME SELF-CARE Condition: Good Instructions: Superficial Thrombophlebitis (ED) Additional Instructions: Apply warm moist compresses. Take ibuprofen as needed for pain. Please follow up with primary care provider for reevaluation in 24-48 hours. If any new symptom arises, symptoms worsen or fever develops, return to ER as soon as possible. Referrals: Fadi Hernandez III, MD [Primary Care Provider] - 1-2 days Time of Disposition: 20:22
[2016-06-23 20:30] VITALS: BP 131/66; PULSE 80; RESP 20; TEMP 98
== END 2016-06-23 20:29 | disposition home or self-care (01) ==
LOC: EC 17:48
DX: I80.8 Phlebitis and thrombophlebitis of other sites (principal); Z79.899 Other long term (current) drug therapy; Z79.84 Long term (current) use of oral hypoglycemic drugs; F41.9 Anxiety disorder, unspecified; Z87.891 Personal history of nicotine dependence; I10 Essential (primary) hypertension; E11.9 Type 2 diabetes mellitus without complications
CPT/HCPCS: 99283

== ENCOUNTER 2016-07-05 07:38 | Day surgery (SDC) | payer OTHER ==
[2016-07-03 15:14] VITALS: BMI 35.5
[~2016-07-05 07:38] MED LIST: LACTATED RINGERS 1,000 ML IV SCH; LIDOCAINE 1% 20 ML VIAL (10MG/ML) FOR IV START INTRADERMA PRN
--- NOTE | 2016-07-05 07:51 | P.GSHP ---
History of Present Illness H&P Date: 07/05/16 CHIEF COMPLAINT: GERD HISTORY OF PRESENT ILLNESS: The patient is a 35-year-old female who presents reports gastroesophageal reflux disease. Upper endoscopy was offered for further evaluation and management. PAST MEDICAL HISTORY: Please see list. PAST SURGICAL HISTORY: Please see list. MEDICATIONS: Please see list. ALLERGIES: Please see list. SOCIAL HISTORY: No illicit drug use FAMILY HISTORY: No reports of Crohn disease or ulcerative colitis. REVIEW OF ORGAN SYSTEMS: CONSTITUTIONAL: No reports of fevers or chills. GI: Denies any blood in stools or constipation. PHYSICAL EXAM: VITAL SIGNS: Stable GENERAL: Well-developed and pleasant in no acute distress. HEENT: No scleral icterus. Extraocular movements grossly intact. Moist buccal mucosa. NECK: Supple without lymphadenopathy. CHEST: Unlabored respirations. Equal bilateral excursions. CARDIOVASCULAR: Regular rate and rhythm. Distal 2+ pulses. ABDOMEN: Soft, nondistended. MUSCULOSKELETAL: No clubbing, cyanosis, or edema. ASSESSMENT: 1. Gastroesophageal reflux disease PLAN: 1. Recommend proceeding with an upper endoscopy Past Medical History Past Medical History: Diabetes Mellitus, GERD/Reflux, Hypertension Additional Past Medical History / Comment(s): STATES HAS "SUPERFICIAL BLOOD CLOT IN RT ARM WHERE IV SITE WAS" History of Any Multi-Drug Resistant Organisms: None Reported Past Surgical History: Appendectomy, Section, Tubal Ligation Additional Past Surgical History / Comment(s): tendon tear repair LEFT FOOT, 3 c -section, SALPING/OOPHERECTOMY Past Anesthesia/Blood Transfusion Reactions: Postoperative Nausea & Vomiting ( PONV) Additional Past Anesthesia/Blood Transfusion Reaction / Comment(s): STATES gets angry when waking up after anesthetic Past Psychological History: Anxiety, Depression Smoking Status: Former smoker Past Alcohol Use History: None Reported Additional Past Alcohol Use History / Comment(s): QUIT SMOKING 2014, SMOKED LESS THAN 1PPD ON AND OFF SINCE AGE 18 (1998) Past Drug Use History: None Reported - Past Family History Mother Family Medical History: Hyperlipidemia Additional Family Medical History / Comment(s): hypothyroid Father Family Medical History: Diabetes Mellitus, Hypertension Sister(s) Family Medical History: Deep Vein Thrombosis (DVT), Pulmonary Embolus Medications and Allergies Home Medications Medication Instructions Recorded Confirmed Type Cetirizine HCl [Zyrtec] 10 mg PO DAILY 03/05/16 07/03/16 History Fluticasone Propionate [Flonase 1 spray EA NOSTRIL DAILY PRN 03/05/16 07/03/16 History Allergy Relief] Lisinopril 40 mg PO QAM 06/05/16 07/03/16 History Sertraline [Zoloft] 50 mg PO QAM 06/05/16 07/03/16 History metFORMIN HCL ER [Glucophage Xr] 1,000 mg PO AC-SUPPER 06/05/16 07/03/16 History Allergies Allergy/AdvReac Type Severity Reaction Status Date / Time adhesive tape Allergy BLISTERS Verified 07/03/16 15:04 hydrochlorothiazide AdvReac MUSCLE Verified 07/03/16 15:04 PAINS chick peas Allergy Swelling Uncoded 06/23/16 18:29
[2016-07-05 07:59] VITALS: TEMP 97.5
[2016-07-05 08:01] LABS: Glucose,Whole Blood 203 mg/dL (75-99)
[2016-07-05] MEDS ORDERED: MIDAZOLAM 2 MG/2 ML VIAL ONE (08:06)
[2016-07-05] MEDS ORDERED: fentaNYL (PF) 50 MCG/ML 2 ML AMP ONE (08:06)
[2016-07-05] MEDS ORDERED: PROPOFOL 10 MG/ML 20 ML VIAL IV ONE (08:06)
--- NOTE | 2016-07-05 08:19 | P.PCN ---
Date of Procedure: 07/05/16 Description of Procedure: PREOPERATIVE DIAGNOSIS: Gastroesophageal reflux disease. Morbid obesity. POSTOPERATIVE DIAGNOSIS: Morbid obesity. Gastritis. Gastroesophageal reflux disease. Gastric ulcer, superficial. Diaphragmatic hiatal hernia without obstruction. OPERATION: Esophagogastroduodenoscopy with biopsies along antrum. SURGEON: Makenna Persaud MD ANESTHESIA: MAC. INDICATIONS: The patient is a 35-year-old female who presents with a history of reflux disease. Benefits and risks of the procedure were described. Informed consent was obtained. DESCRIPTION: The patient was brought into the endoscopy suite and laid in the left lateral decubitus position. An Olympus gastroscope was passed along the posterior oropharynx down to the distal esophagus where the squamocolumnar junction was encountered at 38 cm from the incisors. The stomach was entered and no bile reflux was found. Additional findings are listed below. Biopsies with cold forceps were obtained of the antrum. The first through third portion of the duodenum was examined and unremarkable. Retroflexion of the scope confirmed Hill grade 4 lower esophageal valve. The squamocolumnar junction demostrated LA grade B erosive esophagitis. The stomach was desufflated. The patient tolerated the procedure well. FINDINGS: Squamocolumnar junction 38 cm from the incisors. Diaphragmatic hiatus at 39 cm. Hiatal hernia 1 cm. Hill grade 4 lower esophageal valve. LA grade B erosive esophagitis. No active duodenitis. Superficial gastric ulcer, antrum. RECOMMENDATIONS: Further recommendations pending results of pathology report. Upper endoscopy as needed. Plan - Discharge Summary Discharge Medication List Cetirizine HCl [Zyrtec] 10 mg PO DAILY 03/05/16 [History] Fluticasone Propionate [Flonase Allergy Relief] 1 spray EA NOSTRIL DAILY PRN 07/20 [History] Lisinopril 40 mg PO QAM 06/05/16 [History] Sertraline [Zoloft] 50 mg PO QAM 06/05/16 [History] metFORMIN HCL ER [Glucophage Xr] 1,000 mg PO AC-SUPPER 06/05/16 [History]
[2016-07-05 08:34] VITALS: RESP 16
[2016-07-05 08:53] VITALS: BP 122/79; PULSE 70
== END 2016-07-05 09:13 | disposition home or self-care (01) ==
LOC: ORWHC2ENDO 07:38
PROVIDERS: ATTEND Surgery Plastic and Reconstructive Surgery
DX: K29.50 Unspecified chronic gastritis without bleeding (principal); K22.10 Ulcer of esophagus without bleeding; K44.9 Diaphragmatic hernia without obstruction or gangrene; K25.9 Gastric ulcer, unspecified as acute or chronic, without hemorrhage or perforation; E66.01 Morbid (severe) obesity due to excess calories; Z68.35 Body mass index [BMI] 35.0-35.9, adult; Z87.891 Personal history of nicotine dependence; E11.9 Type 2 diabetes mellitus without complications; Z79.84 Long term (current) use of oral hypoglycemic drugs; I10 Essential (primary) hypertension; Z79.899 Other long term (current) drug therapy; F32.9 Major depressive disorder, single episode, unspecified; Z88.8 Allergy status to other drugs, medicaments and biological substances; Z91.018 Allergy to other foods; Z91.09 Other allergy status, other than to drugs and biological substances
CPT/HCPCS: 81025; 88305; 88342; 43239; J2250; J3010; J2704

== ENCOUNTER → 2017-01-17 | Outpatient (CLI) | payer OTHER ==
[2017-01-17 15:37] VITALS: BP 146/90; PULSE 93; RESP 16; TEMP 98.4; BMI 35.5
== END | disposition home or self-care (01) ==
LOC: BARWHC3 14:23
PROVIDERS: ATTEND Surgery Plastic and Reconstructive Surgery
DX: Z01.818 Encounter for other preprocedural examination (principal); E66.01 Morbid (severe) obesity due to excess calories; E88.81 Metabolic syndrome and other insulin resistance; D50.8 Other iron deficiency anemias; E44.0 Moderate protein-calorie malnutrition; E55.9 Vitamin D deficiency, unspecified; Z68.35 Body mass index [BMI] 35.0-35.9, adult; E11.9 Type 2 diabetes mellitus without complications; I11.9 Hypertensive heart disease without heart failure; F19.10 Other psychoactive substance abuse, uncomplicated; R53.83 Other fatigue; R06.83 Snoring
CPT/HCPCS: 99211

== ENCOUNTER → 2017-02-14 | Outpatient (CLI) | payer OTHER ==
[2017-02-14 13:51] VITALS: BP 128/94; PULSE 93; RESP 16; TEMP 98.4; BMI 35.8
--- NOTE | 2017-03-03 23:17 | P.PN ---
Progress Note - Text DATE OF SERVICE: 02/14/2017 CHIEF COMPLAINT: Bariatric evaluation. HISTORY OF PRESENT ILLNESS: Fozia Boucher is a 36-year-old female who initially presented to the bariatric center in January 2017. She has developed diabetes including hypertension and osteoarthritis as result of her obesity. At her height of 5 foot 5.25 inches, her highest weight was 239 pounds. Initial body mass index was 39.6. Today she comes weighing 217 pounds. Her present body mass index is 35.9. She has lost 22 pounds in the last 12 months on medical supervised weight loss. She has maintained 25% excess weight loss. [place] body weight is 149 pounds. She is 68 pounds overweight. She is on multiple medications to control her hypertension. Separately she has strong family history of morbid obesity also with her mother who has a gastric band. She reports severe gastroesophageal reflux disease. She is evaluating for a sleeve gastrectomy. PAST MEDICAL HISTORY: 1. Morbid obesity. 2. Body mass index initial of 39.6. 3. Diabetes type 2, [id number]. 4. Hypertensive heart disease. 5. Depression. 6. Seasonal ALLERGIES. 7. Panniculitis. 8. Gastroesophageal reflux disease. PAST SURGICAL HISTORY: 1. Appendectomy. 2. Tubal ligation. 3. 3. 4. Tendon repair. HOME MEDICATIONS: 1. Norvasc. 2. Zoloft. 3. Omeprazole. 4. Lisinopril. 5. Flonase. 6. Zyrtec. 7. Glipizide. ALLERGIES: 1. Adhesive tape. 2. Hydrochlorothiazide. SOCIAL HISTORY: Former tobacco use. No alcohol use. FAMILY HISTORY: Denies any DVTs, pulmonary embolisms in her family. Denies any ulcerative colitis disease or Crohn's. REVIEW OF ORGAN SYSTEMS: CONSTITUTIONAL: At her height of 5 foot 5.25 inches, her highest was 239 pounds. Initial body mass index was 39.6. Today she comes weighing 217 pounds. Her present body mass index is 35.9. [place] body weight is 149 pounds. She is 68 pounds overweight. HEENT: Denies any active troubles with vision or hearing. No dysphagia. ENDOCRINE: Has diabetes. No hypothyroidism. CARDIOVASCULAR: No reports of palpitations or heart attacks. No chest pain. RESPIRATORY: No recent asthma. No personal evaluation of sleep apnea. GI: Denies any bright red blood per rectum. Has gastroesophageal reflux disease. MUSCULOSKELETAL: Has generalized muscle aches. Has bilateral hip pain and knee pain. NEURO: No reports of headaches. No seizure disorder. No recent stroke. PSYCH: Has depression. No suicidal ideation. HEMATOLOGIC: Denies any abnormal bleeding or bruising. SKIN: Has panniculitis. No skin cancer. BREAST: No history of breast cancer. No history of breast lumps. PHYSICAL EXAM: VITAL SIGNS: Height 5 foot 5.25 inches, weight 217 pounds. BMI 35.9. Vital Signs Temp 98.4 F 02/14/17 13:36 Pulse 93 02/14/17 13:36 Resp 16 02/14/17 13:36 BP 128/94 02/14/17 13:36 Pulse Ox GENERAL: Well-developed female in no acute distress. HEENT: No scleral icterus. Extraocular movements grossly intact. Hears conversational speech. No nasal drainage. NECK: Supple without lymphadenopathy. CHEST: Nonlabored respirations with equal bilateral excursions. CARDIOVASCULAR: Regular rate. Distal 2+ pulses. ABDOMEN: Obese, soft, nontender, nondistended. MUSCULOSKELETAL: No clubbing, cyanosis, or edema. Gross strength 5/5 distal lower extremities. NEURO: No focal or lateralizing signs. Cranial nerves 2 through 12 grossly within normal limits. PSYCH: Appropriate affect. Alert and oriented to person, place and time. SKIN: Good skin turgor. Well perfused. LABS: Pending. EGD FINDINGS: Squamocolumnar junction 38 cm from the incisors. Diaphragmatic hiatus at 39 cm. Hiatal hernia 1 cm. Hill grade 4 lower esophageal valve. LA grade B erosive esophagitis. No active duodenitis. Superficial gastric ulcer, antrum. ASSESSMENT: 1. Morbid obesity. 2. Body mass index initial of 39.6 down to 35.9. 3. Diabetes type 2, [id number]. 4. Hypertensive heart disease. 5. Depression. 6. Seasonal ALLERGIES. 7. Panniculitis. 8. Gastroesophageal reflux disease. 9. Family history of morbid obesity. 10. Obstructive sleep apnea. 11. History of gastric ulcers. PLAN: 1. Recommend bariatric labs to evaluate for macro including micro-nutritional deficiencies. 2. She has a hiatal hernia for which she is fairly symptomatic. As she is evaluating for gastrectomy procedures she may benefit from initial repair as she is thinking between a sleeve and a gastric bypass. 3. With the severity of her reflux, she has potential of worsening reflux disease following a sleeve gastrectomy which was reviewed. 4. She tested positive for potential sleep apnea and recommended evaluation and management. 5. Recommend hiatal hernia repair given the severe symptomology of her reflux. Placement of mesh was reviewed. 6. DVT prophylaxis. 7. Antibiotic prophylaxis. 8. Inpatient hospitalization overnight for hiatal hernia repair with mesh placement. Thank you for this kind consultation.
== END ==
LOC: BARWHC3 13:20
PROVIDERS: ATTEND Surgery Plastic and Reconstructive Surgery
DX: E66.01 Morbid (severe) obesity due to excess calories (principal); E11.9 Type 2 diabetes mellitus without complications; I11.9 Hypertensive heart disease without heart failure; F32.9 Major depressive disorder, single episode, unspecified; J30.2 Other seasonal allergic rhinitis; M79.3 Panniculitis, unspecified; K21.9 Gastro-esophageal reflux disease without esophagitis; G47.33 Obstructive sleep apnea (adult) (pediatric); Z68.35 Body mass index [BMI] 35.0-35.9, adult
CPT/HCPCS: 99211

== ENCOUNTER → 2017-04-24 | Outpatient (CLI) | payer OTHER ==
[2017-04-24 14:40] LABS: EKG EKG PERFORMED
[2017-04-24 15:07] LABS: Basophils # (A) 0.1 k/uL (0-0.2); Basophils % (A) 1 %; CH 29.1; CHCM 34.5; Eosinophils # (A) 0.1 k/uL (0-0.7); Eosinophils % (A) 1 %; HCT 39.2 % (34.0-46.0); HDW 3.97; HGB 13.3 gm/dL (11.4-16.0); Luc # (Auto) 0.14; Luc % (Auto) 1; Lymphocytes # (A) 2.2 k/uL (1.0-4.8); Lymphocytes % (A) 23 %; MCH 28.8 pg (25.0-35.0); MCHC 33.9 g/dL (31.0-37.0); MCV 84.9 fL (80.0-100.0); Mean Platelet Volume 6.6; Monocytes # (A) 0.5 k/uL (0-1.0); Monocytes % (A) 5 %; Neutrophils # (A) 6.5 k/uL (1.3-7.7); Neutrophils % (A) 68 %; Poikilocytosis Slight; RBC 4.62 m/uL (3.80-5.40); RDW 14.1 % (11.5-15.5); WBC 9.6 k/uL (3.8-10.6); WBC (Perox) 9.97
[2017-04-24 15:30] LABS: ALT 40 U/L (9-52); AST 17 U/L (14-36); Alkaline Phosphatase 104 U/L (38-126); Anion Gap 9 mmol/L; Blood Urea Nitrogen 10 mg/dL (7-17); Carbon Dioxide 24 mmol/L (22-30); Chloride 103 mmol/L (98-107); Glucose 215 mg/dL (74-99); Non-African American GFR(MDRD) >60 (>60 ml/min/1.73 sqM); Potassium 4.3 mmol/L (3.5-5.1); Sodium 136 mmol/L (137-145); Total Bilirubin 0.4 mg/dL (0.2-1.3); Total Protein 6.6 g/dL (6.3-8.2)
== END | disposition home or self-care (01) ==
LOC: LABPAT 14:26
PROVIDERS: ATTEND Surgery Plastic and Reconstructive Surgery
DX: Z01.810 Encounter for preprocedural cardiovascular examination (principal); K44.9 Diaphragmatic hernia without obstruction or gangrene; Z01.812 Encounter for preprocedural laboratory examination
CPT/HCPCS: 36415; 80053; 85025; 93005

== ENCOUNTER → 2017-07-11 | Outpatient (CLI) | payer OTHER ==
[2017-07-11 13:57] VITALS: BP 135/89; PULSE 81; RESP 16; TEMP 98.7; BMI 37.0
--- NOTE | 2017-08-12 12:31 | P.PN ---
Subjective Progress Note Date: 07/11/17 DATE OF SERVICE: 07/11/2017 CHIEF COMPLAINT: Bariatric evaluation. HISTORY OF PRESENT ILLNESS: Fozia Boucher is a 36-year-old female who initially presented to the bariatric center in January 2017. Her last visit to the bariatric center was February 2017. She is now 5 months out. Since her last visit, she has gained 7 pounds. As a result of her morbid obesity, she has developed poorly controlled diabetes including hypertension and osteoarthritis as result of her obesity. At her height of 5 foot 5.25 inches, her highest weight was 239 pounds. Initial body mass index was 39.6. Today she comes weighing 224 pounds. Her present body mass index is 39.6. She has lost 15 pounds in the over 12 months on medical supervised weight loss. [place] body weight is 149 pounds. She is 75 pounds overweight. She is 2 months status post hiatal hernia repair. Despite her hiatal hernia repair, she still reports gastroesophageal reflux disease although improved. She also has baseline gastroparesis. Her symptoms are improved with Reglan. She still reports poorly controlled diabetes. PAST MEDICAL HISTORY: 1. Morbid obesity. 2. Body mass index initial of 39.6. 3. Diabetes type 2, [id number]. 4. Hypertensive heart disease. 5. Depression. 6. Seasonal ALLERGIES. 7. Panniculitis. 8. Gastroesophageal reflux disease. PAST SURGICAL HISTORY: 1. Appendectomy. 2. Tubal ligation. 3. 3. 4. Tendon repair. HOME MEDICATIONS: 1. Norvasc. 2. Zoloft. 3. Omeprazole. 4. Lisinopril. 5. Flonase. 6. Zyrtec. 7. Glipizide. ALLERGIES: 1. Adhesive tape. 2. Hydrochlorothiazide. SOCIAL HISTORY: Former tobacco use. No alcohol use. FAMILY HISTORY: Denies any DVTs, pulmonary embolisms in her family. Denies any ulcerative colitis disease or Crohn's. REVIEW OF ORGAN SYSTEMS: CONSTITUTIONAL: At her height of 5 foot 5.25 inches, her highest was 239 pounds. Initial body mass index was 39.6. Today she comes weighing 224 pounds. Her present body mass index is 37.0. [place] body weight is 149 pounds. She is 75 pounds overweight. Weight gain of 7 pounds in 5 months. HEENT: Denies any active troubles with vision or hearing. No dysphagia. ENDOCRINE: Has diabetes. No hypothyroidism. CARDIOVASCULAR: No reports of palpitations or heart attacks. No chest pain. RESPIRATORY: No recent asthma. No personal evaluation of sleep apnea. GI: Denies any bright red blood per rectum. Has gastroesophageal reflux disease. Has gastroparesis. MUSCULOSKELETAL: Has generalized muscle aches. Has bilateral hip pain and knee pain. NEURO: No reports of headaches. No seizure disorder. No recent stroke. PSYCH: Has depression. No suicidal ideation. HEMATOLOGIC: Denies any abnormal bleeding or bruising. SKIN: Has panniculitis. No skin cancer. BREAST: No history of breast cancer. No history of breast lumps. PHYSICAL EXAM: VITAL SIGNS: Height 5 foot 5.25 inches, weight 224 pounds. BMI 37.0. Vital Signs Temp 98.7 F 07/11/17 13:54 Pulse 81 07/11/17 13:54 Resp 16 07/11/17 13:54 BP 135/89 07/11/17 13:54 Pulse Ox GENERAL: Well-developed female in no acute distress. HEENT: No scleral icterus. Extraocular movements grossly intact. Hears conversational speech. No nasal drainage. NECK: Supple without lymphadenopathy. CHEST: Nonlabored respirations with equal bilateral excursions. CARDIOVASCULAR: Regular rate. Distal 2+ pulses. ABDOMEN: Obese, soft, nontender, nondistended. MUSCULOSKELETAL: No clubbing, cyanosis, or edema. Gross strength 5/5 distal lower extremities. NEURO: No focal or lateralizing signs. Cranial nerves 2 through 12 grossly within normal limits. PSYCH: Appropriate affect. Alert and oriented to person, place and time. SKIN: Good skin turgor. Well perfused. ASSESSMENT: 1. Morbid obesity. 2. Body mass index initial of 39.6 down to 37.0. 3. Diabetes type 2, [id number]. 4. Hypertensive heart disease. 5. Depression. 6. Seasonal ALLERGIES. 7. Panniculitis. 8. Gastroesophageal reflux disease. 9. Family history of morbid obesity. 10. Obstructive sleep apnea. 11. Gastroparesis PLAN: 1. Despite hiatal hernia repair, she still reports gastroesophageal reflux disease. This is secondary to her gastroparesis. She will continued with Reglan in the interim. 2. On review of her options, she is now considering the gastric bypass to address her reflux including gastroparesis and diabetes. 3. Recommend strict diabetic education as her blood sugars are over 200s.
== END | disposition home or self-care (01) ==
LOC: BARWHC3 13:01
PROVIDERS: ATTEND Surgery Plastic and Reconstructive Surgery
DX: E66.01 Morbid (severe) obesity due to excess calories (principal); E11.9 Type 2 diabetes mellitus without complications; F32.9 Major depressive disorder, single episode, unspecified; I11.0 Hypertensive heart disease with heart failure; J30.2 Other seasonal allergic rhinitis; M79.3 Panniculitis, unspecified; K21.9 Gastro-esophageal reflux disease without esophagitis; Z84.89 Family history of other specified conditions; G47.33 Obstructive sleep apnea (adult) (pediatric); K31.84 Gastroparesis; Z79.899 Other long term (current) drug therapy; Z79.51 Long term (current) use of inhaled steroids; Z79.84 Long term (current) use of oral hypoglycemic drugs; Z91.09 Other allergy status, other than to drugs and biological substances; Z88.8 Allergy status to other drugs, medicaments and biological substances; Z87.891 Personal history of nicotine dependence
CPT/HCPCS: 99211

== ENCOUNTER → 2017-07-16 | Outpatient (CLI) | payer OTHER ==
[2017-07-16 14:17] VITALS: BMI 36.8
== END | disposition home or self-care (01) ==
LOC: BARWHC3 08:45
PROVIDERS: ATTEND Surgery Plastic and Reconstructive Surgery
DX: E66.01 Morbid (severe) obesity due to excess calories (principal); Z68.36 Body mass index [BMI] 36.0-36.9, adult; Z71.3 Dietary counseling and surveillance
CPT/HCPCS: 97804

== ENCOUNTER → 2017-08-20 | Outpatient (CLI) | payer OTHER ==
--- NOTE | 2017-08-20 15:51 | CT ---
EXAMINATION TYPE: CT brain wo con DATE OF EXAM: 08/20/2017 COMPARISON: NONE HISTORY: Patient complains of chronic headaches. CT DLP: 811.7 mGycm. Automated Exposure Control for Dose Reduction was Utilized. TECHNIQUE: CT scan of the head is performed without contrast. FINDINGS: There is no acute intracranial hemorrhage, mass effect, or midline shift identified. The ventricles and sulci are within normal limits in size. The globes are intact and the visualized sin uses are clear. IMPRESSION: No acute intracranial hemorrhage, mass effect, or midline shift is seen.
== END | disposition home or self-care (01) ==
LOC: RADCTMAIN 15:17
PROVIDERS: ATTEND Family Medicine
DX: R51 Headache (principal)
CPT/HCPCS: 70450

== ENCOUNTER → 2017-12-12 | Outpatient (CLI) | payer OTHER ==
[2017-12-12 14:37] VITALS: BP 136/89; PULSE 77; RESP 16; TEMP 97.7
--- NOTE | 2017-12-12 15:40 | P.PN ---
Subjective Progress Note Date: 12/12/17 HPI: She has lost over 20 pounds. She has diabetic gastroparesis. She was placed on Adipex. Decreased risk of GERD. She had intolerance to cauliflower which caused indigestion. She was checked with her height of 5'5-1/4. Office notes reflect height of 62.5 inches and 206.2 pounds. Highest in office of 225 pounds. 10% weight loss requirement reviewed. PLAN: 1. She is looking to control for her diabetes and gastrectomy procedures are being reviewed. 2. Bypass and sleeve gastrectomy reviewed. 3. Expectations reviewed for surgery. 4. She is looking into the gastric bypass. Objective - Vital Signs Vital signs: Vital Signs Temp 97.7 F 12/12/17 14:28 Pulse 77 12/12/17 14:28 Resp 16 12/12/17 14:28 BP 136/89 12/12/17 14:28 Pulse Ox Intake & Output 12/11/17 12/12/17 12/12/17 18:59 06:59 18:59 Weight 92.108 kg
[2017-12-12 15:48] VITALS: BMI 33.5
== END | disposition home or self-care (01) ==
LOC: BARWHC3 14:12
PROVIDERS: ATTEND Surgery Plastic and Reconstructive Surgery
DX: E11.43 Type 2 diabetes mellitus with diabetic autonomic (poly)neuropathy (principal); K21.9 Gastro-esophageal reflux disease without esophagitis; K30 Functional dyspepsia; K90.49 Malabsorption due to intolerance, not elsewhere classified
CPT/HCPCS: 99211

== ENCOUNTER → 2018-04-03 | Outpatient (CLI) | payer OTHER ==
[2018-04-03 15:27] VITALS: BP 123/94; PULSE 71; RESP 16; TEMP 97.8; BMI 38.1
--- NOTE | 2018-04-03 15:43 | P.PN ---
Subjective Progress Note Date: 04/03/18 HPI: She reports fatigue and chronic nausea including right upper pain. She reports problems with her gallbladder. Highest 224 pounds. ABDOMEN: Pain along the right upper quadrant. ASSESSMENT: 1. Morbid obesity. 2. GERD. PLAN: 1. Consent reviewed in detail. 2. She reports gallbladder disorder. Will proceed with cholecystecomy. Objective - Vital Signs Vital signs: Vital Signs Temp 97.8 F 04/03/18 15:23 Pulse 71 04/03/18 15:23 Resp 16 04/03/18 15:23 BP 123/94 04/03/18 15:23 Pulse Ox Intake & Output 04/02/18 04/03/18 04/03/18 18:59 06:59 18:59 Weight 96.162 kg
== END | disposition home or self-care (01) ==
LOC: BARWHC3 14:14
PROVIDERS: ATTEND Surgery Plastic and Reconstructive Surgery
DX: E66.01 Morbid (severe) obesity due to excess calories (principal); K21.9 Gastro-esophageal reflux disease without esophagitis; K82.9 Disease of gallbladder, unspecified; R53.83 Other fatigue; R11.0 Nausea; R10.11 Right upper quadrant pain; Z68.38 Body mass index [BMI] 38.0-38.9, adult
CPT/HCPCS: 99211

== ENCOUNTER → 2018-04-05 | Outpatient (CLI) | payer OTHER ==
[2018-04-05 14:44] LABS: Basophils # (A) 0.1 k/uL (0-0.2); Basophils % (A) 1 %; Eosinophils # (A) 0.1 k/uL (0-0.7); Eosinophils % (A) 1 %; HCT 42.5 % (34.0-46.0); HGB 14.5 gm/dL (11.4-16.0); Lymphocytes # (A) 2.6 k/uL (1.0-4.8); Lymphocytes % (A) 26 %; Mean Platelet Volume 7.2; Monocytes # (A) 0.4 k/uL (0-1.0); Monocytes % (A) 4 %; Neutrophils # (A) 6.8 k/uL (1.3-7.7); Neutrophils % (A) 67 %; Platelet Count 173 k/uL (150-450); RBC 4.67 m/uL (3.80-5.40); RDW 13.4 % (11.5-15.5); WBC 10.1 k/uL (3.8-10.6)
[2018-04-05 14:58] LABS: ALT 31 U/L (9-52); AST 22 U/L (14-36); Albumin 4.3 g/dL (3.5-5.0); Alkaline Phosphatase 84 U/L (38-126); Anion Gap 13 mmol/L; Blood Urea Nitrogen 20 mg/dL (7-17); Calcium 9.9 mg/dL (8.4-10.2); Carbon Dioxide 23 mmol/L (22-30); Chloride 104 mmol/L (98-107); Glucose 265 mg/dL (74-99); Potassium 4.5 mmol/L (3.5-5.1); Sodium 140 mmol/L (137-145); Total Bilirubin 0.5 mg/dL (0.2-1.3)
== END | disposition home or self-care (01) ==
LOC: LABPAT 12:48
PROVIDERS: ATTEND Surgery Plastic and Reconstructive Surgery
DX: Z01.812 Encounter for preprocedural laboratory examination (principal)
CPT/HCPCS: 80053; 85025

== ENCOUNTER 2018-04-08 07:30 | Inpatient (IN) | payer OTHER ==
--- NOTE | 2018-04-07 19:11 | P.GSHP ---
History of Present Illness H&P Date: 04/08/18 DATE OF SERVICE: 04/08/2018 CHIEF COMPLAINT: Bariatric evaluation HISTORY OF PRESENT ILLNESS: Fozia Boucher is a 37-year-old female who as a result of her morbid obesity has developed poorly controlled diabetes including hypertension and osteoarthritis. At her height of 5 foot 5.25 inches, her highest weight was 239 pounds lifetime. Initial body mass index was 39.6. Today she comes weighing 212 pounds. Her highest body mass index was 39.6. She has lost 27 pounds. [place] body weight is 149 pounds. She reports fatigue and chronic nausea including right upper pain. She reports problems with her gallbladder. PAST MEDICAL HISTORY: 1. Morbid obesity. 2. Body mass index initial of 39.6. 3. Diabetes type 2, [id number]. 4. Hypertensive heart disease. 5. Depression. 6. Seasonal ALLERGIES. 7. Panniculitis. 8. Gastroesophageal reflux disease. PAST SURGICAL HISTORY: 1. Appendectomy. 2. Tubal ligation. 3. 3. 4. Tendon repair. HOME MEDICATIONS: 1. Norvasc. 2. Zoloft. 3. Omeprazole. 4. Lisinopril. 5. Flonase. 6. Zyrtec. 7. Glipizide. ALLERGIES: 1. Adhesive tape. 2. Hydrochlorothiazide. SOCIAL HISTORY: Former tobacco use. No alcohol use. FAMILY HISTORY: Denies any DVTs, pulmonary embolisms in her family. Denies any ulcerative colitis disease or Crohn's. REVIEW OF ORGAN SYSTEMS: CONSTITUTIONAL: At her height of 5 foot 5.25 inches, her highest weight was 239 pounds lifetime. Initial body mass index was 39.6. Her previous body mass index was 39.6. [place] body weight is 149 pounds. HEENT: Denies any active troubles with vision or hearing. No dysphagia. ENDOCRINE: Has diabetes. No hypothyroidism. CARDIOVASCULAR: No reports of palpitations or heart attacks. No chest pain. RESPIRATORY: No recent asthma. No personal evaluation of sleep apnea. GI: Denies any bright red blood per rectum. Has gastroesophageal reflux disease. Has gastroparesis. MUSCULOSKELETAL: Has generalized muscle aches. Has bilateral hip pain and knee pain. NEURO: No reports of headaches. No seizure disorder. No recent stroke. PSYCH: Has depression. No suicidal ideation. HEMATOLOGIC: Denies any abnormal bleeding or bruising. SKIN: Has panniculitis. No skin cancer. BREAST: No history of breast cancer. No history of breast lumps. PHYSICAL EXAM: VITAL SIGNS: Height 5 foot 5.25 inches, weight 212 pounds. BMI 35.0 Vital Signs Temp 97.8 F 04/03/18 15:23 Pulse 71 04/03/18 15:23 Resp 16 04/03/18 15:23 BP 123/94 04/03/18 15:23 Pulse Ox GENERAL: Well-developed female in no acute distress. HEENT: No scleral icterus. Extraocular movements grossly intact. Hears conversational speech. No nasal drainage. NECK: Supple without lymphadenopathy. CHEST: Nonlabored respirations with equal bilateral excursions. CARDIOVASCULAR: Regular rate. Distal 2+ pulses. ABDOMEN: Obese, soft, nondistended. Pain along the right upper quadrant. MUSCULOSKELETAL: No clubbing, cyanosis, or edema. Gross strength 5/5 distal lower extremities. NEURO: No focal or lateralizing signs. Cranial nerves 2 through 12 grossly within normal limits. PSYCH: Appropriate affect. Alert and oriented to person, place and time. SKIN: Good skin turgor. Well perfused. ASSESSMENT: 1. Morbid obesity. 2. Body mass index initial of 39.6, initial 3. Diabetes type 2, [id number]. 4. Hypertensive heart disease. 5. Depression. 6. Seasonal ALLERGIES. 7. Panniculitis. 8. Gastroesophageal reflux disease. 9. Family history of morbid obesity. 10. Obstructive sleep apnea. 11. Gastroparesis PLAN: 1. Consent reviewed in detail. 2. She reports gallbladder disorder. Will need potential cholecystecomy. 3. Bariatric options between a sleeve, band and a Tristen-en-Y gastric bypass were reviewed in detail. She is looking into the gastric bypass. Robotic assisted approach described. 4. An 8 page second-generation bariatric consent form was reviewed in detail including potential of bleeding, infection, leaks, adequate weight loss, nutritional deficiencies which he demonstrated understanding of the risks. 5. A 2 week high-protein low caloric 800 kcal diet described to address hepatomegaly. 6. Preoperative labs including complete metabolic panel and CBC with type and screen recommended. 7. DVT prophylaxis per [place] [facility]. 8. Antibiotic prophylaxis. 9. Inpatient hospitalization anticipated for more than 2 nights. 10. All questions and concerns were addressed with the patient. 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 History of Any Multi-Drug Resistant Organisms: None Reported Past Surgical History: Appendectomy, Section, Tubal Ligation Additional Past Surgical History / Comment(s): left foot tendon tear repair, 3 c -section, one ovary/tube removed, paraesophageal hernia repair Past Anesthesia/Blood Transfusion Reactions: Previous Problems w/ Anesthesia, Motion Sickness, Postoperative Nausea & Vomiting (PONV) Additional Past Anesthesia/Blood Transfusion Reaction / Comment(s): gets irritable when waking up after anesthetic, trouble urinating after anesthesia Smoking Status: Former smoker - Past Family History Mother Family Medical History: Hyperlipidemia Additional Family Medical History / Comment(s): hypothyroid Father Family Medical History: Diabetes Mellitus, Hypertension Sister(s) Family Medical History: Deep Vein Thrombosis (DVT), Pulmonary Embolus Medications and Allergies Home Medications Medication Instructions Recorded Confirmed Type Cetirizine HCl [Zyrtec] 10 mg PO DAILY PRN 03/05/16 04/05/18 History Lisinopril 40 mg PO QAM 06/05/16 04/05/18 History Sertraline [Zoloft] 50 mg PO QAM 06/05/16 04/05/18 History glipiZIDE [Glucotrol] 10 mg PO BID 01/17/17 04/05/18 History Metoprolol Succinate (ER) [Toprol 50 mg PO DAILY 05/01/17 04/05/18 History XL] sitaGLIPtin [Januvia] 100 mg PO DAILY 05/01/17 04/05/18 History Docusate [Colace] 100 mg PO DAILY PRN 04/02/18 04/05/18 History Allergies Allergy/AdvReac Type Severity Reaction Status Date / Time adhesive tape Allergy BLISTERS Verified 04/05/18 13:32 hydrochlorothiazide AdvReac MUSCLE Verified 04/05/18 13:32 PAINS chick peas Allergy Swelling Uncoded 04/05/18 13:32
[~2018-04-08 07:30] MED LIST changes: +HYDROmorphone 1 MG/ML 1 ML SYRINGE IVP PRN; -LACTATED RINGERS 1,000 ML IV SCH; +ONDANSETRON 4 MG/2 ML VIAL IVP ONE
[2018-04-08] MEDS ORDERED: CHLORHEXIDINE GLUCONATE 15 ML CUP MUCOUS MEM ONE (10:34)
[2018-04-08] MEDS ORDERED: PANTOPRAZOLE 40 MG/10 ML VIAL IV STA (10:34)
[2018-04-08] MEDS ORDERED: ENOXAPARIN 40 MG/0.4 ML SYRINGE SQ STA (10:34)
[2018-04-08] MEDS ORDERED: ceFAZolin IN SWFI 2 GM/20 ML SYRINGE IVP ONE (10:35)
[2018-04-08 10:52] LABS: Glucose,Whole Blood 218 mg/dL (75-99)
[2018-04-08] MEDS: LACTATED RINGERS 1,000 ML IV SCH (10:52)
[2018-04-08] MEDS ORDERED: DEXAMETHASONE SOD PHOSPHATE 10 MG/ML 1 ML VIAL IV ONE (10:55)
[2018-04-08] MEDS ORDERED: SCOPOLAMINE 1.5MG/72HR PATCH TRANSDERM ONE (10:56)
[2018-04-08] MEDS ORDERED: INSULIN ASPART 100 UNIT/ML 1 ML 10 ML VIAL SQ ONE ×2 (11:15→15:35)
[2018-04-08] MEDS ORDERED: KETAMINE 10 MG/ML 20 ML VIAL ONE (11:49)
[2018-04-08] MEDS ORDERED: SUCCINYLCHOLINE CHLORIDE 100 MG/5 ML SYR IV ONE (11:49)
[2018-04-08] MEDS ORDERED: HYDROmorphone (PF) 1 MG/ML ONE (11:49)
[2018-04-08] MEDS ORDERED: NEOSTIGMINE 1 MG/ML 10 ML VIAL ONE (11:49)
[2018-04-08] MEDS ORDERED: MIDAZOLAM 2 MG/2 ML VIAL ONE (11:49)
[2018-04-08] MEDS ORDERED: fentaNYL (PF) 50 MCG/ML 2 ML AMP ONE (11:49)
[2018-04-08] MEDS ORDERED: ROCURONIUM BROMIDE 10 MG/ML 10 ML VIAL IV ONE (11:49)
[2018-04-08] MEDS ORDERED: PROPOFOL 10 MG/ML 20 ML VIAL IV ONE (11:49)
[2018-04-08] MEDS ORDERED: LIDOCAINE 1% INJ 10MG/ML (20 ML MDV) ONE (11:49)
[2018-04-08] MEDS ORDERED: GLYCOPYRROLATE 0.2 MG/ML 2 ML VIAL ONE (11:49)
[2018-04-08] MEDS ORDERED: ePHEDrine SULFATE/0.9% NACL/PF 50 MG/5 ML SYRINGE IV ONE (11:49)
[2018-04-08] MEDS ORDERED: BUPIVACAIN-EPI 0.25%-1:200,000 30 ML VIAL SQ ONE (12:16)
[2018-04-08] MEDS ORDERED: LACTATED RINGERS 1,000 ML IV ONE (14:00)
[2018-04-08 15:46] LABS: Glucose,Whole Blood 319 mg/dL (75-99)
--- NOTE | 2018-04-08 15:48 | P.OP ---
Date of Procedure: 04/08/18 Description of Procedure: SURGEON: MERLYN DRAPER MD GREEN BUILDING ARCHITECT: 1. CRISTINE BURNETT PREOPERATIVE DIAGNOSES: 1. Morbid obesity due to excess calories. 2. Symptomatic gallstones POSTOPERATIVE DIAGNOSES: 1. Morbid obesity due to excess calories. 2. Symptomatic gallstones OPERATION: 1. Robotic-assisted da Mateo Xi laparoscopic cholecystectomy, multiport with FIREFLY 2. Robotic assisted da Mateo Xi laparoscopic Rubens-en-Y gastric bypass, 100 cm antecolic antegastric Rubens limb, with 25 mm EEA. 3. Intraoperative esophagogastrojejunoscopy. ANESTHESIA: GETA and local ESTIMATED BLOOD LOSS: 20 mL SPECIMENS REMOVED: Gallbladder COMPLICATIONS: NONE. INDICATIONS: The patient is a 37-year-old female who presents with history of long-standing morbid obesity. She now presents to undergo robotic assisted gastric bypass and cholecystectomy. A second-generation bariatric consent form was described in detail including the possibility of protein malnutrition, leaks , gastrojejunal stricture, venous thrombosis, need for further surgery for which she demonstrated understanding. Benefits and risks of the procedure were described at length. Informed consent was obtained. DESCRIPTION: The patient was brought into the operating room theater. She was placed supine. She had received Lovenox subcutaneously for DVT prophylaxis. Additionally she Peridex oral solution as an oral decontaminant was placed per anesthesia. After general induction, the abdomen was prepped and draped in standard sterile fashion. Ioban draping was placed along the abdomen. A robotic da Mateo Xi system was prepped and primed. The xiphoid to umbilicus was measured of 24 cm. Proposed port sites were marked with indelible marker along the anterior axillary line bilaterally, mid clavicular line bilaterally with each port marked 10 cm from each other. The retail event and sales assistant port was marked along the right lateral lower abdominal wall. The robotic stapler port was marked for the right midclavicular line including along the left midclavicular line. A 5 mm 0 degrees laparoscopic trocar entry was performed along the left upper quadrant. The abdomen was insufflated to 15 mmHg pressure, which she tolerated well. Diagnostic laparoscopy demonstrated no injury to bowel, viscera, or mesentery. The liver surface was sharp and unremarkable consistent with her 2 week high-protein low calorie diet. No large hiatal hernia was encountered. An 8 mm camera port was placed left lateral to the umbilicus at the epigastrium , 15 cm distal to the xiphoid. Next, 12-mm robot stapler port was placed along the right mid abdomen. An 12 mm port was exchanged along the left upper quadrant. An 8 mm port was placed on the left lateral abdominal wall under direct localization. Another 8-mm port was placed along the right upper lateral abdominal wall. Please note that the ports were placed 18 to 20 cm away from the target anatomy of the stomach. Care was taken to check that each robotic arm was safely away from collision with the bed or the patient. At the epigastrium, a medium sized Pool liver retractor was placed under direct visualization with the Iron Fly Winder placed under the right shoulder of the patient. The patient was repositioned in reverse Trendelenburg position at 14-degress after lowering the bed. The robot was docked over the patient. Using grasper for arm 3, a grasper for arm 1, including vessel sealer for arm 4 , the robotic system was docked and primed as described. Instruments were interchanged by the retail event and sales assistant including endoscissors, the needle escort car driver, and stapler. I had sat at the console. The patient was injected with indocyanine green. The gallbladder fundus was retracted over the dome of the liver. Initial attention was brought to the infundibulum which was gently retracted in the inferior lateral approach. Using a grasper, the cystic duct including the cystic artery was carefully skeletonized. FIREFLY was used to identify the cystic artery and cystic structures. Large PLASTIC clips were used throughout the entire case. Using a clip bag inspector 2 clips were placed proximally, and 1 clip was placed distally along the cystic duct and then cauterized with the cautery. Again care was taken to avoid any injury to the biliary tree as the common bile duct was clearly visualized during this portion of dissection. Next, the cystic artery was similarly clipped and cauterized. Electro-Bovie cautery was used to remove the gallbladder from the hepatic fossa. Hemostasis was checked and found to be adequate. The robot was undocked. The robotic arms were repositioned for the gastric bypass portion of the case. Next, the transverse mesocolon was reflected into the upper abdomen preparing for the jejunojejunostomy portion of the case. The ligament of Treitz was identified and measured 60 cm antegrade and marked using 3-0 Silk. The jejunum was divided at the 60 cm point using 45-mm white loads above the suture measurement. The biliopancreatic limb was held in place. The Rubens limb was measured 100 cm in an antegrade fashion to avoid tension along the proposed gastrojejunal anastomosis. At 100 cm along the anti-mesenteric border of the Rubens limb, a jejunojejunostomy was proposed whereby enterotomies were created along the biliopancreatic limb including the Rubens limb using a Bovie cautery. A stay suture of 3-0 Slik was placed to align and create the anastomosis. The enterotomies along the anti-mesenteric borders were created followed by unidirectional fire from the patient's right side using 2 - 45 mm white load XZERES technology robotic stapler. The jejunojejunostomy was found to be hemostatic. The enterotomy was closed after horizontal mattress stitch of 3-0 silk used to elevate the enterotomy followed by closure with the robotic stapler white load. The jejunal limb was temporarily tacked along the left upper quadrant. Attention was now brought to the creation of the gastrojejunostomy. Along the lesser curvature of the stomach between the second and third veins, dissection was made along the retrogastric space to allow first firing of the robotic staple. Blue loads of 6 - 45 mm staplers were used to divide the stomach to create the gastric pouch. The patient was then prepared for placement of a Orvil. The patient was Mallampati 2. A 25-mm Orvil was selected for placement by the nurse logging shovel operator. The Orvil tubing was placed anterior to the staple line of the gastric pouch and brought out through the left inferior lateral port. I re-scrubbed into the case. The robotic arms were temporarily undocked. The Orvil was then carefully and successfully navigated with the help of the nurse logging shovel operator into the gastric pouch. The sutures were identified and divided. The tubing was from the 25 mm anvil. As the Orvil had been placed, the blind jejunal limb was brought proximally into the upper abdomen. No torsion was found upon the Rubens limb. Mild tension was identified as the limb was brought along the upper abdomen. The blind jejunal limb was previously opened using endo -scissors with cautery. The 25-mm EEA stapler was brought through the left anterior lateral port site from the left side. The EEA stapler was brought through the open jejunal limb and its needle was deployed at the antimesenteric border where the anvil were mated for approximately 1 minute upon firing. The stapler was removed after irrigating the shaft of the instrument with warm normal saline. Donuts were found to be intact and on both sides. The da Mateo Xi robot arms were then re-docked. I sat at the console. The open jejunal limb defect was closed using 45 mm white loads after releasing any tension from the blind jejunal limb. Care was taken to avoid any long blind limb to avoid candycane syndrome. Reinforcement sutures were placed along the gastrojejunal anastomosis using 3-0 Vicryl. The Samson and jejunojejunostomy mesenteric defects were obliterated by her intra-abdominal fat. I then went to the head of the bed to perform the esophagogastrojejunoscopy and a leak test. An Olympus gastroscope was passed along the posterior oropharynx which was unremarkable for any injury to the vocal cords. The scope was passed down to the proximal portion of the pouch, whereby no active bleeding was encountered. Excellent visualization of the gastrojejunostomy anastomosis, including the Rubens limb was encountered with endoscopic image obtained. The anastomosis was found to be patent. The gastrointestinal tract was desufflated. No evidence of intraoperative leak was encountered as the gastric pouch and anastomosis were submerged under normal saline solution. The robot was then undocked. I then went back to the bedside of the patient, whereby with coordinated effort of the retail event and sales assistant, irrigation was aspirated from the upper abdominal cavity. Tisseel was placed circumferentially over the anastomosis of the gastrojejunostomy. The fascial defect of the EEA stapler was closed with her fascia and subcutaneous tissue. All instruments and pneumoperitoneum were evacuated from the abdominal cavity. The port correlating with the EEA stapler device was cleansed with normal saline solution and hydrogen peroxide. The rest of incisions were reapproximated using 4-0 Monocryl in an interrupted subcuticular fashion. Local anesthetic was infiltrated along the skin for postop analgesia. Liquid glue was applied to the skin. OptiFoam dressing was placed along the EEA stapler site. At the end of the procedure, needle, sponge and instrument count had been verified correct by the surgical asst. She had tolerated the procedure well and was extubated and taken to the postanesthesia unit in stable condition. Intraoperative findings were described to the patient's family who were very pleased with the level of care. Total console time 97 minutes for gastric bypass Total console time 22 minutes for cholecystectomy Operative Findings: 1. Biliopancreatic limb 60 cm 2. Bypass performed using 100 cm rubens limb secondary to avoid increased tension at 150 cm. 3. Sanford defect and jejunojejunostomy defect obliterated by moderate intra- abdominal fat. 4. Leak test negative with gastrojejunal anastomosis patent and hemostatic. 5. Reinforcement sutures were placed along the gastrojejunal anastomosis
[2018-04-08] MEDS ORDERED: NALOXONE 0.4 MG/ML 1 ML VIAL IV PRN (15:49)
[2018-04-08] MEDS ORDERED: ACETAMINOPHEN IV (For NPO) 1,000 MG in EMPTY BAG 1 BAG IVPB ONE (15:49)
[2018-04-08] MEDS ORDERED: diphenhydrAMINE 50 MG/ML 1 ML VIAL IVP PRN (15:49)
[2018-04-08] MEDS: ALBUTEROL NEBULIZED 2.5 MG/3 ML INHALATION SCH ×2 (17:10→19:48)
[2018-04-08 17:26] LABS: Glucose,Whole Blood 310 mg/dL (75-99)
[2018-04-08 18:26] VITALS: BMI 35.6
[2018-04-08 18:27] LABS: Hemoglobin A1C 7.5 % (4.0-6.0)
[2018-04-08] MEDS: AMPICILLIN-SULBACTAM 3 GM in SODIUM CHLORIDE 0.9% 100 ML IVPB SCH (18:31)
[2018-04-08] MEDS: 0.9% NACL WITH KCL 20 MEQ/L 1,000 ML IV SCH (18:32)
[2018-04-08] MEDS: SIMETHICONE 40 MG/0.6 ML DROPS 2,000 MG/30 ML BOTTLE PO SCH (18:34)
[2018-04-08] MEDS: INSULIN ASPART 100 UNIT/ML 1 ML 10 ML VIAL SQ SCH (19:32)
[2018-04-08 19:39] LABS: Glucose,Whole Blood 280 mg/dL (75-99)
[2018-04-08] MEDS: HYDROcodone/APAP 15 ML SOLUTION PO PRN (23:43)
[2018-04-09 00:02] LABS: Glucose,Whole Blood 281 mg/dL (75-99)
[2018-04-09] MEDS ORDERED: ONDANSETRON 4 MG/2 ML VIAL IVP PRN (00:56)
[2018-04-09] MEDS: INSULIN ASPART 100 UNIT/ML 1 ML 10 ML VIAL SQ SCH ×5 (01:17→23:52)
[2018-04-09] MEDS: SIMETHICONE 40 MG/0.6 ML DROPS 2,000 MG/30 ML BOTTLE PO SCH ×5 (01:17→23:52)
[2018-04-09] MEDS: AMPICILLIN-SULBACTAM 3 GM in SODIUM CHLORIDE 0.9% 100 ML IVPB SCH (01:17)
[2018-04-09] MEDS: 0.9% NACL WITH KCL 20 MEQ/L 1,000 ML IV SCH ×4 (01:18→20:13)
[2018-04-09] MEDS: HYDROcodone/APAP 15 ML SOLUTION PO PRN ×4 (02:45→20:13)
[2018-04-09] MEDS: LACTATED RINGERS 1,000 ML IV SCH (05:39)
[2018-04-09 06:07] LABS: Glucose,Whole Blood 249 mg/dL (75-99)
[2018-04-09 07:05] LABS: Basophils % (A) 0 %; Eosinophils % (A) 0 %; HCT 40.9 % (34.0-46.0); HGB 13.9 gm/dL (11.4-16.0); Lymphocytes # (A) 1.7 k/uL (1.0-4.8); Lymphocytes % (A) 11 %; MCH 30.8 pg (25.0-35.0); MCHC 33.9 g/dL (31.0-37.0); MCV 90.7 fL (80.0-100.0); Mean Platelet Volume 6.7; Monocytes # (A) 0.6 k/uL (0-1.0); Monocytes % (A) 4 %; Neutrophils # (A) 12.2 k/uL (1.3-7.7); Neutrophils % (A) 83 %; Platelet Count 169 k/uL (150-450); RBC 4.52 m/uL (3.80-5.40); RDW 13.6 % (11.5-15.5); WBC 14.7 k/uL (3.8-10.6)
[2018-04-09 07:21] LABS: Anion Gap 8 mmol/L; Blood Urea Nitrogen 9 mg/dL (7-17); Calcium 8.8 mg/dL (8.4-10.2); Carbon Dioxide 23 mmol/L (22-30); Chloride 108 mmol/L (98-107); Phosphorus 3.1 mg/dL (2.5-4.5); Sodium 139 mmol/L (137-145)
[2018-04-09] MEDS: ALBUTEROL NEBULIZED 2.5 MG/3 ML INHALATION SCH ×4 (07:56→19:33)
[2018-04-09] MEDS: METOPROLOL SUCCINATE (ER) 50 MG TAB.ER.24H PO SCH (09:29)
[2018-04-09] MEDS: LISINOPRIL 20 MG TAB PO SCH (09:29)
[2018-04-09] MEDS: PANTOPRAZOLE 40 MG/10 ML VIAL IV SCH (09:29)
[2018-04-09] MEDS: ENOXAPARIN 40 MG/0.4 ML SYRINGE SQ SCH (09:29)
[2018-04-09 12:22] LABS: Glucose,Whole Blood 266 mg/dL (75-99)
--- NOTE | 2018-04-09 14:46 | P.PN ---
<Bessy Sanders - Last Filed: 04/09/18 14:36> Subjective Progress Note Date: 04/09/18 37-year-old female seen at bedside. Patient indwelling Calderón catheter was removed early this morning and patient still has not voided yet abdomen is soft not distended surgical tenderness appropriate surgical dressing site dry patient states she doesn't feel like drinking. "Just have no appetite" no nausea sensation. Reports no nausea vomiting denies dizziness lightheadedness chest pain or shortness of breath states has been up ambulating in the room Afebrile white count 14.7 Done on April 08 Patient is postop Robotic-assisted da Mateo Xi laparoscopic cholecystectomy, multiport with FIREFLY Robotic assisted da Mateo Xi laparoscopic Tristen-en-Y gastric bypass, 100 cm antecolic antegastric Tristen limb, with 25 mm EEA. Intraoperative esophagogastrojejunoscopy. Objective - Vital Signs Vital signs: Vital Signs Temp 98.4 F 04/09/18 07:14 Pulse 85 04/09/18 12:30 Resp 16 04/09/18 12:30 BP 136/83 04/09/18 07:14 Pulse Ox 94 L 04/09/18 12:30 Intake & Output 04/08/18 04/09/18 04/09/18 18:59 06:59 18:59 Intake Total 1600 300 Output Total 670 1300 300 Balance 930 -1000 -300 Weight 94.3 kg 94.3 kg Intake: IV 1600 Intake, IV Titration 300 Amount 0.9% NaCl with KCl 20 Meq 300 /l 1,000 ml @ 100 mls/hr IV .Q10H [facility] Rx#: [id number] Output: Urine 650 1300 300 Uretheral (Calderón) 300 Estimated Blood Loss 20 Other: Voiding Method Indwelling Catheter Indwelling Catheter Indwelling Catheter - Exam Physical exam 37-year-old female sitting up in bed. Patient denies dizziness lightheadedness chest pain or shortness of breath states has been up ambulating in the room Lungs adequate air movement bilaterally on room air no shortness of breath no cough sats on room air 94% Heart S1-S2 audible regular heart rate in the 80s Abdomen obese soft nondistended surgical tenderness appropriate surgical dressing sites dry states not able to urinate reports of nausea sensation poor oral intake not passing gas no stool Extremity no edema - Labs CBC & Chem 7: 04/09/18 06:28 04/09/18 06:27 Labs: Abnormal Lab Results - Last 24 Hours (Table) 04/08/18 04/08/18 04/08/18 Range/Units 10:45 15:28 17:23 WBC (3.8-10.6) k/uL Neutrophils # (1.3-7.7) k/uL Chloride (98-107) mmol/L Creatinine (0.52-1.04) mg/dL POC Glucose (mg/dL) 319 H 310 H (75-99) mg/dL Hemoglobin A1c 7.5 H (4.0-6.0) % 04/08/18 04/08/18 04/09/18 Range/Units 19:26 23:51 05:54 WBC (3.8-10.6) k/uL Neutrophils # (1.3-7.7) k/uL Chloride (98-107) mmol/L Creatinine (0.52-1.04) mg/dL POC Glucose (mg/dL) 280 H 281 H 249 H (75-99) mg/dL Hemoglobin A1c (4.0-6.0) % 04/09/18 04/09/18 04/09/18 Range/Units 06:27 06:28 12:11 WBC 14.7 H (3.8-10.6) k/uL Neutrophils # 12.2 H (1.3-7.7) k/uL Chloride 108 H (98-107) mmol/L Creatinine 0.51 L (0.52-1.04) mg/dL POC Glucose (mg/dL) 266 H (75-99) mg/dL Hemoglobin A1c (4.0-6.0) % Assessment and Plan Assessment: Impression Morbid obesity due to excess calories Symptomatic gallstones Morbid obesity BMI 39 Type 2 diabetes [id number] Hypertensive heart disease Seasonal ALLERGIES Gastroesophageal reflux disease Family history of morbid obesity Obstructive sleep apnea Status post April 08 robotic-assisted lap cholecystectomy, Tristen-en-y gastric bypass for morbid obesity Plan Encourage ambulation Encourage the use of an incentive spirometer Pain control Continue postop bariatric care DVT and GI prophylaxis Bladder scan straight cath if greater than 700 Further recommendations pending The above impression and plan of care have been discussed and directed by signing physician. Bessy Sanders nurse practitioner acting as scribe for signing physician. <Makenna Persaud - Last Filed: 04/11/18 04:48> Objective - Vital Signs Vital signs: Vital Signs Temp 98.4 F 04/10/18 14:55 Pulse 97 04/10/18 14:55 Resp 15 04/10/18 14:55 BP 115/72 04/10/18 14:55 Pulse Ox 93 L 04/10/18 14:55 Intake & Output 04/10/18 04/10/18 04/11/18 06:59 18:59 06:59 Intake Total 1350 Output Total 650 Balance 700 Intake: IV 1000 0.9% NaCl with KCl 20 Meq 1000 /l 1,000 ml @ 100 mls/hr IV .Q10H [facility] Rx#: [id number] Intake, IV Titration 350 Amount 0.9% NaCl with KCl 20 Meq 350 /l 1,000 ml @ 100 mls/hr IV .Q10H [facility] Rx#: [id number] Output: Urine 650 Other: Voiding Method Toilet Toilet # Voids 1 3 - Labs CBC & Chem 7: 04/10/18 11:39 04/09/18 06:27 Labs: Abnormal Lab Results - Last 24 Hours (Table) 04/10/18 04/10/18 04/10/18 Range/Units 06:06 11:39 11:54 Plt Count 134 L (150-450) k/uL POC Glucose (mg/dL) 244 H 222 H (75-99) mg/dL 04/10/18 Range/Units 18:10 Plt Count (150-450) k/uL POC Glucose (mg/dL) 235 H (75-99) mg/dL
[2018-04-09 18:26] LABS: Glucose,Whole Blood 210 mg/dL (75-99)
[2018-04-10] LABS: Glucose,Whole Blood 231 mg/dL (75-99)
[2018-04-10] MEDS: HYDROcodone/APAP 15 ML SOLUTION PO PRN ×3 (02:40→13:34)
[2018-04-10] MEDS: 0.9% NACL WITH KCL 20 MEQ/L 1,000 ML IV SCH ×2 (05:25→14:24)
[2018-04-10] MEDS: LACTATED RINGERS 1,000 ML IV SCH (05:28)
[2018-04-10] MEDS: SIMETHICONE 40 MG/0.6 ML DROPS 2,000 MG/30 ML BOTTLE PO SCH ×3 (06:12→18:16)
[2018-04-10] MEDS: INSULIN ASPART 100 UNIT/ML 1 ML 10 ML VIAL SQ SCH ×3 (06:13→18:16)
[2018-04-10 06:18] LABS: Glucose,Whole Blood 244 mg/dL (75-99)
[2018-04-10] MEDS ORDERED: BISACODYL 5 MG TABLET.DR PO PRN (08:00)
[2018-04-10] MEDS: ENOXAPARIN 40 MG/0.4 ML SYRINGE SQ SCH (08:43)
[2018-04-10] MEDS: LISINOPRIL 20 MG TAB PO SCH (08:44)
[2018-04-10] MEDS: PANTOPRAZOLE 40 MG/10 ML VIAL IV SCH (08:44)
[2018-04-10] MEDS: METOPROLOL SUCCINATE (ER) 50 MG TAB.ER.24H PO SCH (08:44)
[2018-04-10] MEDS: ALBUTEROL NEBULIZED 2.5 MG/3 ML INHALATION SCH ×3 (08:50→16:48)
[2018-04-10 12:07] LABS: Glucose,Whole Blood 222 mg/dL (75-99)
[2018-04-10 12:10] LABS: Basophils % (A) 0 %; Eosinophils # (A) 0.1 k/uL (0-0.7); Eosinophils % (A) 1 %; HCT 36.3 % (34.0-46.0); HGB 12.4 gm/dL (11.4-16.0); Lymphocytes # (A) 1.8 k/uL (1.0-4.8); Lymphocytes % (A) 20 %; MCH 31.7 pg (25.0-35.0); MCHC 34.2 g/dL (31.0-37.0); MCV 92.5 fL (80.0-100.0); Mean Platelet Volume 6.7; Monocytes # (A) 0.5 k/uL (0-1.0); Monocytes % (A) 6 %; Neutrophils # (A) 6.7 k/uL (1.3-7.7); Neutrophils % (A) 72 %; Platelet Count 134 k/uL (150-450); RBC 3.92 m/uL (3.80-5.40); RDW 13.6 % (11.5-15.5); WBC 9.3 k/uL (3.8-10.6)
--- NOTE | 2018-04-10 12:46 | P.DS ---
Providers Date of admission: 04/08/18 10:18 Expected date of discharge: 04/10/18 Attending physician: Makenna Persaud Primary care physician: Fadi Yen [facility] Course: 37-year-old female presented to undergo an elective gastric bypass with symptomatic cholecystectomy done on April 08 patient has morbid obesity BMI 35.7 with symptomatic gallstones. result of her morbid obesity did develop type 2 diabetes hypertensive heart disease with esophageal reflex With obstructive sleep apnea the day of discharge patient was tolerating bariatric clear diet surgical dressings dry was up ambulating in the hallway passing gas no stool in urinating with no difficulty . Medication was effective for pain control and on room air sats are greater than 90% white count 9.3 Impression discharge diagnosis Robotic-assisted da Mateo Xi laparoscopic cholecystectomy, multiport with FIREFLY Robotic assisted da Mateo Xi laparoscopic Tristen-en-Y gastric bypass, 100 cm antecolic antegastric Tristen limb, with 25 mm EEA. . Intraoperative esophagogastrojejunoscopy. Morbid obesity due to excess calories Symptomatic gallstones Morbid obesity BMI 39 Type 2 diabetes [id number] Hypertensive heart disease Seasonal ALLERGIES Gastroesophageal reflux disease Family history of morbid obesity Obstructive sleep apnea Status post April 08 robotic-assisted lap cholecystectomy, Tristen-en-y gastric bypass for morbid obesity The above impression and plan of care have been discussed and directed by signing physician. Bessy Sanders nurse practitioner acting as scribe for signing physician. Plan - Discharge Summary Discharge Rx Participant: Yes New Discharge Prescriptions: New Bisacodyl [Dulcolax] 5 mg PO DAILY PRN #10 tablet. PRN Reason: Constipation HYDROcodone/APAP [Laneview Elixir 7.5-325Mg/15Ml] 15 ml PO Q4HR PRN #270 ml PRN Reason: Pain Omeprazole 40 mg PO DAILY #30 capsule. Ondansetron Odt [Zofran Odt] 4 mg PO Q8HR PRN #9 tab PRN Reason: Nausea Simethicone 40 mg/0.6 ml Drops [Mylicon Drops] 40 mg PO PCHS PRN #30 ml PRN Reason: Gas Continue Cetirizine HCl [Zyrtec] 10 mg PO DAILY PRN PRN Reason: Congestion Sertraline [Zoloft] 50 mg PO QAM Lisinopril 40 mg PO QAM sitaGLIPtin [Januvia] 100 mg PO DAILY Metoprolol Succinate (ER) [Toprol XL] 50 mg PO DAILY glipiZIDE [Glucotrol] 10 mg PO AC-BID Discontinued Docusate [Colace] 100 mg PO DAILY PRN PRN Reason: Constipation Discharge Medication List Cetirizine HCl [Zyrtec] 10 mg PO DAILY PRN 03/05/16 [History] Lisinopril 40 mg PO QAM 06/05/16 [History] Sertraline [Zoloft] 50 mg PO QAM 06/05/16 [History] Metoprolol Succinate (ER) [Toprol XL] 50 mg PO DAILY 05/01/17 [History] sitaGLIPtin [Januvia] 100 mg PO DAILY 05/01/17 [History] glipiZIDE [Glucotrol] 10 mg PO AC-BID 04/08/18 [History] Bisacodyl [Dulcolax] 5 mg PO DAILY PRN #10 tablet. 04/10/18 [Rx] HYDROcodone/APAP [Laneview Elixir 7.5-325Mg/15Ml] 15 ml PO Q4HR PRN #270 ml [Rx] Omeprazole 40 mg PO DAILY #30 capsule. 04/10/18 [Rx] Ondansetron Odt [Zofran Odt] 4 mg PO Q8HR PRN #9 tab 04/10/18 [Rx] Simethicone 40 mg/0.6 ml Drops [Mylicon Drops] 40 mg PO PCHS PRN #30 ml [Rx] Follow up Appointment(s)/Referral(s): [facility],. [NON-STAFF] - 04/12/18 10:00 am Patient Instructions/Handouts: Abdominal Binder (DC), Nutrition after Bariatric Surgery (DC), Tristen-en-Y Gastric Bypass (DC) Activity/Diet/Wound Care/Special Instructions: No lifting over 4 pounds in 4 weeks. May shower. No bathtub soaks. Check your blood sugar levels regularly. DO NOT TAKE BLOOD SUGAR MEDICATION FOR LEVELS UNDER 150. Discharge Disposition: HOME SELF-CARE
[2018-04-10] MEDS ORDERED: diphenhydrAMINE 25 MG CAP PO PRN (14:40)
[2018-04-10 14:56] VITALS: BP 115/72; PULSE 97; RESP 15; TEMP 98.4
[2018-04-10 18:21] LABS: Glucose,Whole Blood 235 mg/dL (75-99)
== END 2018-04-10 18:34 | disposition home or self-care (01) | DRG 621 ==
LOC: 2ORMAIN 10:18 → 4SSUR 15:15
PROVIDERS: ADMIT Surgery Plastic and Reconstructive Surgery; ATTEND Surgery Plastic and Reconstructive Surgery
PROC: 8E0W4CZ Robotic Assisted Procedure of Trunk Region, Percutaneous Endoscopic Approach (ICD-10-PCS; 2018-04-08)
PROC: 0DJ08ZZ Inspection of Upper Intestinal Tract, Via Natural or Artificial Opening Endoscopic (ICD-10-PCS; 2018-04-08)
PROC: 0D164ZA Bypass Stomach to Jejunum, Percutaneous Endoscopic Approach (ICD-10-PCS; principal; 2018-04-08 11:55)
PROC: 0FT44ZZ Resection of Gallbladder, Percutaneous Endoscopic Approach (ICD-10-PCS; 2018-04-08 11:55)
DX: E66.01 Morbid (severe) obesity due to excess calories (principal); E11.43 Type 2 diabetes mellitus with diabetic autonomic (poly)neuropathy; K31.84 Gastroparesis; I11.9 Hypertensive heart disease without heart failure; Z68.39 Body mass index [BMI] 39.0-39.9, adult; F32.9 Major depressive disorder, single episode, unspecified; G47.33 Obstructive sleep apnea (adult) (pediatric); J30.2 Other seasonal allergic rhinitis; K21.9 Gastro-esophageal reflux disease without esophagitis; K80.20 Calculus of gallbladder without cholecystitis without obstruction; M19.90 Unspecified osteoarthritis, unspecified site; M79.3 Panniculitis, unspecified; Z87.891 Personal history of nicotine dependence; Z79.84 Long term (current) use of oral hypoglycemic drugs; Z79.899 Other long term (current) drug therapy; Z98.51 Tubal ligation status; Z90.49 Acquired absence of other specified parts of digestive tract; Z88.8 Allergy status to other drugs, medicaments and biological substances; Z91.018 Allergy to other foods; Z91.048 Other nonmedicinal substance allergy status; Z83.3 Family history of diabetes mellitus; Z82.49 Family history of ischemic heart disease and other diseases of the circulatory system; Z87.898 Personal history of other specified conditions
CPT/HCPCS: 80051; 81025; 82310; 82565; 83036; 83735; 84100; 84520; 85025; 86850; 86900; 86901; 88304; 94640; 94760; 94762

== ENCOUNTER → 2018-04-19 | Outpatient (CLI) | payer OTHER ==
--- NOTE | 2018-04-19 13:00 | P.PN ---
Subjective Progress Note Date: 04/19/18 DATE OF SERVICE: 04/19/2018 CHIEF COMPLAINT: Status post gastric bypass HISTORY OF PRESENT ILLNESS: Fozia Boucher is a 37-year-old female who is status post gastric bypass 04/08/2018. She is 2 weeks post op. She is doing very well. Blood sugars are under 120 daily. She is no longer on insulin. At her height of 5 foot 5.25 inches, her highest weight was 239 pounds lifetime. Initial body mass index was 39.6. Today she comes weighing 200 pounds from 212 pounds, 2 weeks ago. She has lost 12 pounds in 2 weeks. Her highest body mass index was 39.6. She has lost 39 pounds lifetime. Riley body weight is 149 pounds. PHYSICAL EXAM: VITAL SIGNS: Height 5 foot 5.25 inches, weight 200 pounds. BMI 33.1 Vital Signs Temp 98.0 F 04/19/18 12:24 Pulse 79 04/19/18 12:24 Resp BP 124/85 04/19/18 12:24 Pulse Ox GENERAL: Well-developed female in no acute distress. HEENT: No scleral icterus. Extraocular movements grossly intact. Hears conversational speech. No nasal drainage. NECK: Supple without lymphadenopathy. CHEST: Nonlabored respirations with equal bilateral excursions. CARDIOVASCULAR: Regular rate. Distal 2+ pulses. ABDOMEN: Obese, soft, nondistended. Incisions are clean, dry, and intact. No infection. MUSCULOSKELETAL: No clubbing, cyanosis, or edema. NEURO: No focal or lateralizing signs. Cranial nerves 2 through 12 grossly within normal limits. PSYCH: Appropriate affect. Alert and oriented to person, place and time. SKIN: Good skin turgor. Well perfused. ASSESSMENT: 1. Morbid obesity. 2. Body mass index initial of 39.6, initial to 33.1 3. Diabetes type 2, [id number]. 4. Hypertensive heart disease. 5. Depression. 6. Seasonal ALLERGIES. 7. Panniculitis. 8. Gastroesophageal reflux disease. 9. Family history of morbid obesity. 10. Obstructive sleep apnea. 11. Gastroparesis 12. Status post gastric bypass. PLAN: 1. She is doing well. 2. Follow up 1 month postop.
[2018-04-19 13:47] VITALS: BP 124/85; PULSE 79; TEMP 98; BMI 33.0
== END ==
LOC: BARWHC3 12:13
PROVIDERS: ATTEND Surgery Plastic and Reconstructive Surgery
DX: Z48.815 Encounter for surgical aftercare following surgery on the digestive system (principal); E66.01 Morbid (severe) obesity due to excess calories; E11.43 Type 2 diabetes mellitus with diabetic autonomic (poly)neuropathy; K31.84 Gastroparesis; I11.9 Hypertensive heart disease without heart failure; F32.9 Major depressive disorder, single episode, unspecified; J30.2 Other seasonal allergic rhinitis; M79.3 Panniculitis, unspecified; K21.9 Gastro-esophageal reflux disease without esophagitis; G47.33 Obstructive sleep apnea (adult) (pediatric); Z68.33 Body mass index [BMI] 33.0-33.9, adult; Z98.84 Bariatric surgery status
CPT/HCPCS: 99211

== ENCOUNTER → 2018-05-08 | Outpatient (CLI) | payer OTHER ==
--- NOTE | 2018-05-08 16:12 | P.PN ---
Subjective Progress Note Date: 05/08/18 HPI: She reports burping. She has diarrhea. She is off her blood pressure medication. She is off her diabetic medication. ABDOMEN: No hernia. A/P: 1. Needs labs. 2. Change protein shake. 3. Follow up in 1 month. 4. EGD for stricture and dysphagia
[2018-05-08 18:10] VITALS: BP 127/86; PULSE 73; TEMP 97.9; BMI 31.4
== END | disposition home or self-care (01) ==
LOC: BARWHC3 14:46
PROVIDERS: ATTEND Surgery Plastic and Reconstructive Surgery
DX: R19.7 Diarrhea, unspecified (principal); E66.01 Morbid (severe) obesity due to excess calories; Z68.31 Body mass index [BMI] 31.0-31.9, adult
CPT/HCPCS: 97803; G0463; 99211

== ENCOUNTER → 2018-05-09 | Outpatient (CLI) | payer OTHER ==
[2018-05-09 10:35] LABS: HCT 41.5 % (34.0-46.0); HGB 14.7 gm/dL (11.4-16.0); MCH 31.6 pg (25.0-35.0); MCHC 35.3 g/dL (31.0-37.0); MCV 89.6 fL (80.0-100.0); Mean Platelet Volume 6.8; Platelet Count 171 k/uL (150-450); Poikilocytosis Slight; RBC 4.63 m/uL (3.80-5.40); RDW 14.8 % (11.5-15.5); WBC 7.5 k/uL (3.8-10.6)
[2018-05-09 10:51] LABS: Partial Thromboplastin Time 24.6 sec (22.0-30.0); Prothrombin Time 10.6 sec (9.0-12.0)
[2018-05-09 17:29] LABS: Parathyroid Hormone Intact 59.4 pg/mL (14.0-72.0)
[2018-05-09 18:40] LABS: Hemoglobin A1C 5.4 % (4.0-6.0)
[2018-05-09 18:58] LABS: Iron Saturation 32.83 (12.00-45.00)
[2018-05-09 18:59] LABS: Albumin 4.6 g/dL (3.80-4.90); Albumin/Globulin Ratio 2.71 (1.20-2.10); Anion Gap 9.7 mmol/L (4.00-12.00); Calcium 9.5 mg/dL (8.7-10.3); Carbon Dioxide 24.3 mmol/L (21.6-31.8); Globulin 1.7 g/dL (2.1-3.7); LDL Cholesterol,Calculated 54.2 mg/dL (0.0-131.0); Phosphorus 3.3 mg/dL (2.4-5.1); Total Bilirubin 0.8 mg/dL (0.3-1.2); Total Protein 6.3 g/dL (6.2-8.2); VLDL Calculation 23.8 mg/dL (5.00-40.00)
[2018-05-09 19:08] LABS: Vitamin D 25 Hydroxy 18.2 ng/mL (30.0-100.0)
[2018-05-09 19:09] LABS: Folate, Serum 13.1 ng/mL
== END | disposition home or self-care (01) ==
LOC: LABWHC1 09:31
PROVIDERS: ATTEND Surgery Plastic and Reconstructive Surgery
DX: E66.01 Morbid (severe) obesity due to excess calories (principal); E21.1 Secondary hyperparathyroidism, not elsewhere classified; E89.1 Postprocedural hypoinsulinemia; D50.9 Iron deficiency anemia, unspecified; K90.9 Intestinal malabsorption, unspecified; E55.9 Vitamin D deficiency, unspecified; K76.9 Liver disease, unspecified; N19 Unspecified kidney failure; K50.90 Crohn's disease, unspecified, without complications
CPT/HCPCS: 36415; 80053; 80061; 82306; 82525; 82607; 82728; 82746; 83036; 83540; 83550; 83735; 83970; 84100; 84134; 84255; 84425; 84443; 84590; 84630; 85027; 85610; 85730

== ENCOUNTER 2018-05-20 11:39 | Day surgery (SDC) | payer OTHER ==
[2018-05-17 08:47] VITALS: BMI 29.9
--- NOTE | 2018-05-19 17:14 | P.GSHP ---
History of Present Illness H&P Date: 05/20/18 CHIEF COMPLAINT: GERD HISTORY OF PRESENT ILLNESS: The patient is a 37-year-old female who presents reports gastroesophageal reflux disease. Upper endoscopy was offered for further evaluation and management. PAST MEDICAL HISTORY: Please see list. PAST SURGICAL HISTORY: Please see list. MEDICATIONS: Please see list. ALLERGIES: Please see list. SOCIAL HISTORY: No illicit drug use FAMILY HISTORY: No reports of Crohn disease or ulcerative colitis. REVIEW OF ORGAN SYSTEMS: CONSTITUTIONAL: No reports of fevers or chills. GI: Denies any blood in stools or constipation. PHYSICAL EXAM: VITAL SIGNS: Stable GENERAL: Well-developed and pleasant in no acute distress. HEENT: No scleral icterus. Extraocular movements grossly intact. Moist buccal mucosa. NECK: Supple without lymphadenopathy. CHEST: Unlabored respirations. Equal bilateral excursions. CARDIOVASCULAR: Regular rate and rhythm. Distal 2+ pulses. ABDOMEN: Soft, nondistended. MUSCULOSKELETAL: No clubbing, cyanosis, or edema. ASSESSMENT: 1. Gastroesophageal reflux disease PLAN: 1. 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, dysphagia, N/V recently History of Any Multi-Drug Resistant Organisms: None Reported Past Surgical History: Appendectomy, Bariatric Surgery, Section, Cholecystectomy, Tubal Ligation Additional Past Surgical History / Comment(s): left foot tendon tear repair, 3 c -section, one ovary/tube removed, paraesophageal hernia repair, gastric bypass 2017 Past Anesthesia/Blood Transfusion Reactions: Previous Problems w/ Anesthesia, Motion Sickness, Postoperative Nausea & Vomiting (PONV) Additional Past Anesthesia/Blood Transfusion Reaction / Comment(s): gets irritable when waking up after anesthetic, trouble urinating after anesthesia Smoking Status: Former smoker - Past Family History Mother Family Medical History: Hyperlipidemia Additional Family Medical History / Comment(s): hypothyroid Father Family Medical History: Diabetes Mellitus, Hypertension Sister(s) Family Medical History: Deep Vein Thrombosis (DVT), Pulmonary Embolus Medications and Allergies Home Medications Medication Instructions Recorded Confirmed Type Sertraline [Zoloft] 50 mg PO QAM 06/05/16 05/17/18 History Metoprolol Succinate (ER) [Toprol 25 mg PO DAILY 05/01/17 05/17/18 History XL] Omeprazole [PriLOSEC] 40 mg PO DAILY 05/17/18 05/17/18 History Allergies Allergy/AdvReac Type Severity Reaction Status Date / Time adhesive tape Allergy BLISTERS Verified 05/17/18 08:35 hydrochlorothiazide AdvReac MUSCLE Verified 05/17/18 08:35 PAINS ondansetron [From Zofran] AdvReac migraine Verified 05/17/18 08:47 headache chick peas Allergy Swelling Uncoded 05/17/18 08:35
[~2018-05-20 11:39] MED LIST changes: -HYDROmorphone 1 MG/ML 1 ML SYRINGE IVP PRN; +LACTATED RINGERS 1,000 ML IV SCH; -LIDOCAINE 1% 20 ML VIAL (10MG/ML) FOR IV START INTRADERMA PRN; -ONDANSETRON 4 MG/2 ML VIAL IVP ONE
[2018-05-20 12:06] VITALS: TEMP 97.6
[2018-05-20] MEDS ORDERED: LIDOCAINE 1% 20 ML VIAL (10MG/ML) FOR IV START INTRADERMA ONE (12:16)
[2018-05-20] MEDS ORDERED: PROPOFOL 10 MG/ML 20 ML VIAL IV ONE (12:27)
--- NOTE | 2018-05-20 12:49 | P.PCN ---
Date of Procedure: 05/20/18 Description of Procedure: PREOPERATIVE DIAGNOSIS: Dysphagia. Nausea with vomiting. POSTOPERATIVE DIAGNOSIS: Dysphagia. Nausea with vomiting. Gastrojejunal stricture without chronic ulcer without perforation OPERATION: Esophagogastrojejunoscopy with balloon dilatation from 10 to 15 mm. SURGEON: Makenna Persaud MD ANESTHESIA: MAC. INDICATIONS: The patient is a 37-year-old female who presents with a history of dysphagia, gastric bypass including dysphagia. Benefits and risks of the procedure were described. Informed consent was obtained. DESCRIPTION: The patient was brought into the endoscopy suite and laid in the left lateral decubitus position. After a timeout was confirmed, the procedure was initiated. An Olympus gastroscope was passed along the posterior oropharynx down to the distal esophagus where the squamocolumnar junction was unremarkable. The gastric pouch was entered. A gastrojejunal stricture of 10 mm was found as the adult gastroscope was 9.5 mm in size. A [employer] balloon dilator was placed through the scope. Final insufflation up to 20 mm was performed with a total of 2 minutes. The scope was advanced up to 60 cm from the incisors into the Tristen limb. The mucosa of the gastrojejunal anastomosis was intact. No chronic gastrojejunal marginal ulcer was encountered. No full-thickness injury was encountered. The GI tract was desufflated. The patient tolerated the procedure well. FINDINGS: Stricture of approximately 10 mm encountered. No chronic gastrojejunal ulceration encountered. Successful balloon dilatation to 15 mm. Gastric pouch 4 cm. RECOMMENDATIONS: Upper endoscopy as needed Plan - Discharge Summary New Discharge Prescriptions: No Action Sertraline [Zoloft] 50 mg PO QAM Metoprolol Succinate (ER) [Toprol XL] 25 mg PO DAILY Omeprazole [PriLOSEC] 40 mg PO DAILY Discharge Medication List Sertraline [Zoloft] 50 mg PO QAM 06/05/16 [History] Metoprolol Succinate (ER) [Toprol XL] 25 mg PO DAILY 05/01/17 [History] Omeprazole [PriLOSEC] 40 mg PO DAILY 05/17/18 [History]
[2018-05-20 13:22] VITALS: BP 122/78; PULSE 64; RESP 17
== END 2018-05-20 13:25 | disposition home or self-care (01) ==
LOC: ORWHC2ENDO 11:39
PROVIDERS: ATTEND Surgery Plastic and Reconstructive Surgery
DX: R13.10 Dysphagia, unspecified (principal); K31.89 Other diseases of stomach and duodenum; Z98.84 Bariatric surgery status; E11.9 Type 2 diabetes mellitus without complications; Z87.891 Personal history of nicotine dependence; Z79.899 Other long term (current) drug therapy; Z88.8 Allergy status to other drugs, medicaments and biological substances; Z91.018 Allergy to other foods
CPT/HCPCS: 81025; 43249; J2704; C1726

== ENCOUNTER → 2018-08-07 | Outpatient (CLI) | payer OTHER ==
[2018-08-07 13:01] VITALS: BP 137/91; PULSE 83; TEMP 97.6; BMI 28.5
--- NOTE | 2018-08-07 13:37 | P.PN ---
Subjective Progress Note Date: 08/07/18 DATE OF SERVICE: 08/07/2018 CHIEF COMPLAINT: Status post gastric bypass HISTORY OF PRESENT ILLNESS: Fozia Boucher is a 37-year-old female who is status post gastric bypass 04/08/2018. She is 4 month post op. No further reports of gastroesophageal reflux disease. She is off all diabetic medications. She is happy with her weight loss. She is down from dress size 18 to size 12. She is not taking Reglan or Omeprazole regularly. She reports foul smell and redness and pain along the belly button and skin apron. At her height of 5 foot 5.25 inches, her highest weight was 239 pounds lifetime. Initial body mass index was 39.6. Today she comes weighing 173 pounds from 190 pounds, 3 months ago. She has lost 17 pounds in 3 months. Her highest body mass index was 39.6. She has lost 66 pounds lifetime. [place] body weight is 149 pounds. Percent excess weight loss is 74 %. PHYSICAL EXAM: VITAL SIGNS: Height 5 foot 5.25 inches, weight 173 pounds. BMI 28.6 GENERAL: Well-developed female in no acute distress. HEENT: No scleral icterus. Extraocular movements grossly intact. Hears conversational speech. No nasal drainage. NECK: Supple without lymphadenopathy. CHEST: Nonlabored respirations with equal bilateral excursions. CARDIOVASCULAR: Regular rate. Distal 2+ pulses. ABDOMEN: Soft. Pannus hangs over 5 cm with redness along umbilicus and skin folds. No hernia MUSCULOSKELETAL: No clubbing, cyanosis, or edema. NEURO: No focal or lateralizing signs. Cranial nerves 2 through 12 grossly within normal limits. PSYCH: Appropriate affect. Alert and oriented to person, place and time. SKIN: Good skin turgor. Well perfused. ASSESSMENT: 1. Morbid obesity. 2. Body mass index initial of 39.6, initial to 28.6 3. Diabetes type 2, [id number], now resolved 4. Hypertensive heart disease. 5. Depression. 6. Seasonal ALLERGIES. 7. Panniculitis. 8. Gastroesophageal reflux disease. 9. Family history of morbid obesity. 10. Obstructive sleep apnea. 11. Gastroparesis 12. Status post gastric bypass. 13. Dysphagia PLAN: 1. Recommend bariatric labs. 2. She has no personal goals for her weight loss other than coming off her diabetic medications. Her diabetes is well controlled and she is off her diabetic medications. 3. She has panniculitis. Nystatin powder prescribed. Laboratory Last Values WBC 5.8 k/uL (3.8-10.6) 08/07/18 13:55 RBC 4.08 m/uL (3.80-5.40) 08/07/18 13:55 Hgb 12.1 gm/dL (11.4-16.0) 08/07/18 13:55 Hct 36.5 % (34.0-46.0) 08/07/18 13:55 MCV 89.5 fL (80.0-100.0) 08/07/18 13:55 MCH 29.7 pg (25.0-35.0) 08/07/18 13:55 MCHC 33.2 g/dL (31.0-37.0) 08/07/18 13:55 RDW 14.1 % (11.5-15.5) 08/07/18 13:55 Plt Count 221 k/uL (150-450) 08/07/18 13:55 Hypochromasia Slight 08/07/18 13:55 Poikilocytosis Moderate 08/07/18 13:55 PT 10.0 sec (9.0-12.0) 08/07/18 13:55 INR 0.9 (<1.2) 08/07/18 13:55 APTT 22.3 sec (22.0-30.0) 08/07/18 13:55 Sodium 142 mmol/L (135-145) 08/07/18 13:55 Potassium 4.1 mmol/L (3.5-5.5) 08/07/18 13:55 Chloride 110 mmol/L (96-109) H 08/07/18 13:55 Carbon Dioxide 27.7 mmol/L (21.6-31.8) 08/07/18 13:55 Anion Gap 4.30 mmol/L (4.00-12.00) 08/07/18 13:55 BUN 11.0 mg/dL (9.0-27.0) 08/07/18 13:55 Creatinine 0.6 mg/dL (0.6-1.5) 08/07/18 13:55 Est GFR (CKD-EPI)AfAm 135.9 (60.0-200.0) 08/07/18 13:55 Est GFR (CKD-EPI)NonAf 117.3 (60.0-200.0) 08/07/18 13:55 BUN/Creatinine Ratio 18.33 Ratio (12.00-20.00) 08/07/18 13:55 Glucose 120 mg/dL (70-110) H 08/07/18 13:[address] Glu mg/dL 82 08/07/18 13:55 Hemoglobin A1c 4.5 % (4.0-6.0) 08/07/18 13:55 Calcium 9.2 mg/dL (8.7-10.3) 08/07/18 13:55 Phosphorus 3.8 mg/dL (2.4-5.1) 08/07/18 13:55 Magnesium 2.1 mg/dL (1.5-2.4) 08/07/18 13:55 Iron 29 ug/dL (50-170) L 08/07/18 13:55 TIBC 280 ug/dL (228-460) 08/07/18 13:55 Iron Saturation 10.36 (12.00-45.00) L 08/07/18 13:55 Ferritin 13.1 ng/mL (10.0-291.0) 08/07/18 13:55 Total Bilirubin 0.6 mg/dL (0.3-1.2) 08/07/18 13:55 AST 58 U/L (13-35) H 08/07/18 13:55 ALT 133 U/L (8-44) H 08/07/18 13:55 Alkaline Phosphatase 131 U/L (41-126) H 08/07/18 13:55 Total Protein 6.1 g/dL (6.2-8.2) L 08/07/18 13:55 Albumin 4.20 g/dL (3.80-4.90) 08/07/18 13:55 Globulin 1.9 g/dL (1.6-3.3) 08/07/18 13:55 Albumin/Globulin Ratio 2.21 g/dL (1.60-3.17) 08/07/18 13:55 Prealbumin 15.0 mg/dL (18.0-42.0) L 08/07/18 13:55 Triglycerides 103.0 mg/dL (0.0-149.0) 08/07/18 13:55 Cholesterol 118 mg/dL (0-200) 08/07/18 13:55 LDL Cholesterol, Calc 57.4 mg/dL (0.0-131.0) 08/07/18 13:55 VLDL Cholesterol, Calc 20.60 mg/dL (5.00-40.00) 08/07/18 13:55 HDL Cholesterol 40.0 mg/dL (40.0-60.0) 08/07/18 13:55 Cholesterol/HDL Ratio 2.95 08/07/18 13:55 Vitamin A 35 ug/dL (38-106) L 08/07/18 13:55 Vitamin B1 57 ug/L (38-122) 08/07/18 13:55 Vitamin B12 529.0 pg/mL (200.0-944.0) 08/07/18 13:55 Vitamin D 25-Hydroxy 20.2 ng/mL (30.0-100.0) L 08/07/18 13:55 Folate 13.3 ng/mL 08/07/18 13:55 TSH 1.560 uIU/mL (0.350-5.500) 08/07/18 13:55 PTH Intact 51.9 pg/mL (14.0-72.0) 08/07/18 13:55 Copper 1282 ug/L (810-1990) 08/07/18 13:55 Selenium 96 mcg/L (63-160) 08/07/18 13:55 Zinc 95 ug/dL (60-130) 08/07/18 13:55 Iron is low Pre-albumin is low Vitamin A is low Vitamin D is low Objective - Vital Signs Vital signs: Vital Signs Temp 97.6 F 08/07/18 12:55 Pulse 83 08/07/18 12:55 Resp BP 137/91 08/07/18 12:55 Pulse Ox Intake & Output 08/06/18 08/07/18 08/07/18 18:59 06:59 18:59 Weight 78.471 kg - Labs CBC & Chem 7: 08/07/18 13:55 08/07/18 13:55
[2018-08-07 14:57] LABS: HCT 36.5 % (34.0-46.0); HGB 12.1 gm/dL (11.4-16.0); Hypochromasia Slight; MCH 29.7 pg (25.0-35.0); MCHC 33.2 g/dL (31.0-37.0); MCV 89.5 fL (80.0-100.0); Mean Platelet Volume 6.4; Platelet Count 221 k/uL (150-450); Poikilocytosis Moderate; RBC 4.08 m/uL (3.80-5.40); RDW 14.1 % (11.5-15.5); WBC 5.8 k/uL (3.8-10.6)
[2018-08-07 15:06] LABS: INR 0.9 (<1.2); Partial Thromboplastin Time 22.3 sec (22.0-30.0)
[2018-08-07 19:31] LABS: Parathyroid Hormone Intact 51.9 pg/mL (14.0-72.0)
[2018-08-07 19:35] LABS: Vitamin D 25 Hydroxy 20.2 ng/mL (30.0-100.0)
[2018-08-07 19:48] LABS: Albumin 4.2 g/dL (3.80-4.90); Albumin/Globulin Ratio 2.21 (1.60-3.17); Anion Gap 4.3 mmol/L (4.00-12.00); Calcium 9.2 mg/dL (8.7-10.3); Carbon Dioxide 27.7 mmol/L (21.6-31.8); Folate, Serum 13.3 ng/mL; Globulin 1.9 g/dL (1.6-3.3); Iron Saturation 10.36 (12.00-45.00); LDL Cholesterol,Calculated 57.4 mg/dL (0.0-131.0); Magnesium 2.1 mg/dL (1.5-2.4); Phosphorus 3.8 mg/dL (2.4-5.1); Potassium 4.1 mmol/L (3.5-5.5); Total Bilirubin 0.6 mg/dL (0.3-1.2); Total Protein 6.1 g/dL (6.2-8.2); VLDL Calculation 20.6 mg/dL (5.00-40.00)
[2018-08-07 21:35] LABS: Hemoglobin A1C 4.5 % (4.0-6.0)
[2018-08-08 15:43] LABS: Zinc, Serum 95 ug/dL (60-130)
[2018-08-09 09:39] LABS: Vitamin A 35 ug/dL (38-106)
[2018-08-09 21:26] LABS: Selenium 96 mcg/L (63-160)
[2018-08-12 08:45] LABS: Vit B1(Thiamine) 57 ug/L (38-122)
== END ==
LOC: BARWHC3 12:44
PROVIDERS: ATTEND Surgery Plastic and Reconstructive Surgery
DX: Z09 Encounter for follow-up examination after completed treatment for conditions other than malignant neoplasm (principal); E66.01 Morbid (severe) obesity due to excess calories; M79.3 Panniculitis, unspecified; I11.9 Hypertensive heart disease without heart failure; F32.9 Major depressive disorder, single episode, unspecified; J30.2 Other seasonal allergic rhinitis; K21.9 Gastro-esophageal reflux disease without esophagitis; K31.84 Gastroparesis; G47.33 Obstructive sleep apnea (adult) (pediatric); Z98.84 Bariatric surgery status; Z83.49 Family history of other endocrine, nutritional and metabolic diseases; Z68.28 Body mass index [BMI] 28.0-28.9, adult
CPT/HCPCS: 84255; 84134; 84425; 80061; 80053; 82607; 82728; 82525; 82746; 83540; 83550; 83735; 84100; 84443; 84590; 84630; 85027; 85610; 85730; 82306; 83970; 83036; 97803; G0463; 99211

== ENCOUNTER → 2018-11-13 | Outpatient (CLI) | payer OTHER ==
[2018-11-13 15:43] VITALS: BP 151/88; PULSE 89; TEMP 97.8; BMI 28.0
--- NOTE | 2018-11-13 16:21 | P.PN ---
Subjective Progress Note Date: 11/13/18 HPI: She has occasional dysphagia with dry foods. She reports blood sugar are under controlled. No GERD. She reports gasey foods. She also reports diarrhea. She has been eating various foods. ABDOMEN: Soft. She has panniculitis. ASSESSMENT: 1. Morbid obesity 2. Panniculitis PLAN: 1. Need food diary to identify triggers of food 2. Nystatin for panniculitis 3. Labs for today 4. Colonoscopy for colitis Objective - Vital Signs Vital signs: Vital Signs Temp 97.8 F 11/13/18 15:16 Pulse 89 11/13/18 15:16 Resp BP 151/88 11/13/18 15:16 Pulse Ox Intake & Output 11/12/18 11/13/18 11/13/18 18:59 06:59 18:59 Weight 76.975 kg
[2018-11-13 17:10] LABS: INR 0.9 (<1.2); Partial Thromboplastin Time 22.9 sec (22.0-30.0); Prothrombin Time 9.8 sec (9.0-12.0)
[2018-11-13 17:16] LABS: HCT 31.9 % (34.0-46.0); HGB 10.2 gm/dL (11.4-16.0); Hypochromasia Moderate; MCH 25.3 pg (25.0-35.0); MCHC 31.9 g/dL (31.0-37.0); MCV 79.1 fL (80.0-100.0); Platelet Count 247 k/uL (150-450); Poikilocytosis Slight; RBC 4.03 m/uL (3.80-5.40); RDW 15.4 % (11.5-15.5)
[2018-11-13 23:53] LABS: Vitamin D 25 Hydroxy 15.4 ng/mL (30.0-100.0)
[2018-11-14 00:04] LABS: Folate, Serum >24.0 ng/mL
[2018-11-14 00:05] LABS: African American GFR (CKD) 109.9 (60.0-200.0); Albumin 4.4 g/dL (3.80-4.90); Albumin/Globulin Ratio 2.2 (1.60-3.17); BUN/Creat Ratio 12.5 Ratio (12.00-20.00); Calcium 8.9 mg/dL (8.7-10.3); LDL Cholesterol,Calculated 71.4 mg/dL (0.0-131.0); Magnesium 2.1 mg/dL (1.5-2.4); Phosphorus 3.1 mg/dL (2.4-5.1); Potassium 3.9 mmol/L (3.5-5.5); Total Bilirubin 0.3 mg/dL (0.3-1.2); Total Protein 6.4 g/dL (6.2-8.2); VLDL Calculation 30.6 mg/dL (5.00-40.00)
[2018-11-14 00:08] LABS: Parathyroid Hormone Intact 97.7 pg/mL (14.0-72.0)
[2018-11-14 13:45] LABS: Zinc, Serum 54 ug/dL (60-130)
[2018-11-15 09:27] LABS: Vitamin A 36 ug/dL (38-106)
[2018-11-15 09:42] LABS: Vit B1(Thiamine) 68 ug/L (38-122)
[2018-11-16 19:21] LABS: Selenium 70 mcg/L (63-160)
== END | disposition home or self-care (01) ==
LOC: BARWHC3 14:44
PROVIDERS: ATTEND Surgery Plastic and Reconstructive Surgery
DX: E66.01 Morbid (severe) obesity due to excess calories (principal); M79.3 Panniculitis, unspecified; E21.1 Secondary hyperparathyroidism, not elsewhere classified; D50.9 Iron deficiency anemia, unspecified; K90.9 Intestinal malabsorption, unspecified; E55.9 Vitamin D deficiency, unspecified; K76.9 Liver disease, unspecified; N19 Unspecified kidney failure; K50.90 Crohn's disease, unspecified, without complications; Z68.28 Body mass index [BMI] 28.0-28.9, adult
CPT/HCPCS: 84255; 84134; 84425; 80061; 80053; 82607; 82728; 82525; 82746; 83540; 83550; 83735; 84100; 84443; 84590; 84630; 85027; 85610; 85730; 82306; 83970; 97803; 36415; G0463; 99211

== ENCOUNTER 2019-03-07 08:22 | Emergency (ER) | payer OTHER ==
[2019-03-07] MEDS ORDERED: SODIUM CHLORIDE 0.9% 1,000 ML IV STA (08:52)
[2019-03-07] MEDS ORDERED: MORPHINE SULFATE 4 MG/ML SYRINGE IV STA (08:52)
[2019-03-07] MEDS ORDERED: METOCLOPRAMIDE 5 MG/ML 2 ML VIAL IVP STA (08:52)
--- NOTE | 2019-03-07 08:56 | ED ---
General Adult HPI - General Chief complaint: Abdominal Pain Stated complaint: Abd Pain, Back Pain Time Seen by Provider: 03/07/19 08:37 Source: patient Mode of arrival: ambulatory Limitations: no limitations - History of Present Illness Initial comments: Dictation was produced using [employer] dictation software. please excuse any grammatical, word or spelling errors. Chief Complaint: 38-year-old female presents with abdominal pain. History of Present Illness: 8-year-old female she presents with abdominal pain. She has a history of bariatric surgery that was performed in April of last year. Primary surgeon is Dr. Luna. Since yesterday patient has been having diffuse abdominal pain worsen epigastric area. Patient did complain of some nausea however no vomiting. She did have a couple episodes of diarrhea. She localizes most of her pain to the epigastric area. She has not tried to tolerate by mouth after the onset of her symptoms. States her pain is constant with radiation to the back. States that the radiation episodes occur sporadically throughout the day. Denies any urinary symptoms. No fever, chills or night sweats. She has past medical history of fallopian tube removal, appendectomy, cholecystectomy and bariatric surgery. The ROS documented in this emergency department record has been reviewed and confirmed by me. Those systems with pertinent positive or negative responses have been documented in the HPI. All other systems are other negative and/or noncontributory. PHYSICAL EXAM: General Impression: Alert and oriented x3, mild distress secondary to pain HEENT: Normocephalic atraumatic, extra-ocular movements intact, pupils equal and reactive to light bilaterally, dry mucous membranes Cardiovascular: Heart regular rate and rhythm, S1&S2 audible, no murmurs, rubs or gallops Chest: Lungs clear to auscultation bilaterally, no rhonchi, no wheeze, no rales Abdomen: Bowel sounds present, abdomen soft, diffuse tenderness worse in the epigastric area, non-distended, no organomegaly, surgical site is clean dry and intact Musculoskeletal: Pulses present and equal in all extremities, no peripheral edema Motor: no focal deficits noted Neurological: CN II-XII grossly intact, no focal motor or sensory deficits noted Skin: Intact with no visualized rashes Psych: Normal affect and mood ED course: 38 yo female with past medical history of multiple abdominal surgeries presents with abdominal pain. Signs upon arrival are within acceptable limits. Laboratory evaluation obtained. No leukocytosis. Hemoglobin 8.6 which is slightly depressed from 4 months ago which was 10.2. Coag panel unremarkable. Metabolic panel is negative. Abdominal labs are negative. No Acidosis. Urinalysis negative. CT of the abdomen and pelvis was obtained with concern for possible ileus versus gastroenteritis. Patient tolerating by mouth at this time. Patient counseled on ileus management. She does have outpatient follow up with general surgeon. She and agreeable for discharge at this time. She is told to return to the emergency department with worsening pain, fevers, by mouth intolerance. Patient told to follow up with general surgeon upon discharge. Patient prescription for Colace. EKG interpretation: Ventricular rate 75, normal sinus rhythm, DC interval 150, care is 86, QTC 453. No DC prolongation, no QTC prolongation, no ST or T-wave changes noted. Overall, this EKG is unremarkable - Related Data Home Medications Medication Instructions Recorded Confirmed Ferrous Sulfate [Feosol] 325 mg PO DAILY 03/07/19 03/07/19 Multivitamins, Thera [Multivitamin 1 tab PO DAILY 03/07/19 03/07/19 (formulary)] Previous Rx's Medication Instructions Recorded Docusate [Colace] 100 mg PO BID 6 Days #12 capsule 03/07/19 Allergies Allergy/AdvReac Type Severity Reaction Status Date / Time adhesive tape Allergy BLISTERS Verified 03/07/19 08:53 hydrochlorothiazide AdvReac MUSCLE Verified 03/07/19 08:53 PAINS ondansetron [From Zofran] AdvReac migraine Verified 03/07/19 08:53 headache chick peas Allergy Swelling Uncoded 03/07/19 08:53 Review of Systems ROS Statement: Those systems with pertinent positive or pertinent negative responses have been documented in the HPI. ROS Other: All systems not noted in ROS Statement are negative. 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, dysphagia, N/V recently, "Internal Shingles" in Right ear (August 2017); hearing in Right ear has been affected) History of Any Multi-Drug Resistant Organisms: None Reported Past Surgical History: Appendectomy, Bariatric Surgery, Section, Cholecystectomy, Tubal Ligation Additional Past Surgical History / Comment(s): left foot tendon tear repair, 3 , one ovary/tube removed, paraesophageal hernia repair, gastric bypass 2017 Past Anesthesia/Blood Transfusion Reactions: Previous Problems w/ Anesthesia, Motion Sickness, Postoperative Nausea & Vomiting (PONV) Additional Past Anesthesia/Blood Transfusion Reaction / Comment(s): gets irritable when waking up after anesthetic, trouble urinating after anesthesia Past Psychological History: Anxiety Smoking Status: Former smoker Past Alcohol Use History: None Reported Past Drug Use History: None Reported - Past Family History Mother Family Medical History: Hyperlipidemia Additional Family Medical History / Comment(s): hypothyroid Father Family Medical History: Diabetes Mellitus, Hypertension Sister(s) Family Medical History: Deep Vein Thrombosis (DVT), Pulmonary Embolus General Exam Limitations: no limitations Course Vital Signs 03/07/19 03/07/19 08:33 08:36 Temperature 97.7 F 97.2 F L Pulse Rate 90 89 Respiratory 16 16 Rate Blood Pressure 140/88 145/100 O2 Sat by Pulse 100 99 Oximetry Medical Decision Making - Lab Data Result diagrams: 03/07/19 09:07 03/07/19 09:07 Lab Results 03/07/19 03/07/19 03/07/19 Range/Units 09:07 09:07 09:07 WBC 6.2 (3.8-10.6) k/uL RBC 3.77 L (3.80-5.40) m/uL Hgb 8.6 L (11.4-16.0) gm/dL Hct 28.3 L (34.0-46.0) % MCV 75.0 L (80.0-100.0) fL MCH 22.8 L (25.0-35.0) pg MCHC 30.4 L (31.0-37.0) g/dL RDW 15.9 H (11.5-15.5) % Plt Count 224 (150-450) k/uL Neutrophils % 74 % Lymphocytes % 21 % Monocytes % 4 % Eosinophils % 0 % Basophils % 0 % Neutrophils # 4.6 (1.3-7.7) k/uL Lymphocytes # 1.3 (1.0-4.8) k/uL Monocytes # 0.2 (0-1.0) k/uL Eosinophils # 0.0 (0-0.7) k/uL Basophils # 0.0 (0-0.2) k/uL Hypochromasia Marked Poikilocytosis Slight Microcytosis Slight PT 10.3 (9.0-12.0) sec INR 1.0 (<1.2) APTT 21.4 L (22.0-30.0) sec Sodium 140 (137-145) mmol/L Potassium 3.6 (3.5-5.1) mmol/L Chloride 107 (98-107) mmol/L Carbon Dioxide 22 (22-30) mmol/L Anion Gap 11 mmol/L BUN 9 (7-17) mg/dL Creatinine 0.68 (0.52-1.04) mg/dL Est GFR (CKD-EPI)AfAm >90 (>60 ml/min/1.73 sqM) Est GFR (CKD-EPI)NonAf >90 (>60 ml/min/1.73 sqM) Glucose 160 H (74-99) mg/dL Calcium 8.9 (8.4-10.2) mg/dL Total Bilirubin 0.5 (0.2-1.3) mg/dL AST 13 L (14-36) U/L ALT 25 (9-52) U/L Alkaline Phosphatase 119 (38-126) U/L Total Protein 7.2 (6.3-8.2) g/dL Albumin 4.3 (3.5-5.0) g/dL Lipase 122 (23-300) U/L Urine Color Urine Appearance (Clear) Urine pH (5.0-8.0) Ur Specific [place] (1.001-1.035) Urine Protein (Negative) Urine Glucose (UA) (Negative) Urine Ketones (Negative) Urine Blood (Negative) Urine Nitrite (Negative) Urine Bilirubin (Negative) Urine Urobilinogen (<2.0) mg/dL Ur Leukocyte Esterase (Negative) Urine HCG, Qual (Not Detectd) 03/07/19 03/07/19 Range/Units 11:55 11:55 WBC (3.8-10.6) k/uL RBC (3.80-5.40) m/uL Hgb (11.4-16.0) gm/dL Hct (34.0-46.0) % MCV (80.0-100.0) fL MCH (25.0-35.0) pg MCHC (31.0-37.0) g/dL RDW (11.5-15.5) % Plt Count (150-450) k/uL Neutrophils % % Lymphocytes % % Monocytes % % Eosinophils % % Basophils % % Neutrophils # (1.3-7.7) k/uL Lymphocytes # (1.0-4.8) k/uL Monocytes # (0-1.0) k/uL Eosinophils # (0-0.7) k/uL Basophils # (0-0.2) k/uL Hypochromasia Poikilocytosis Microcytosis PT (9.0-12.0) sec INR (<1.2) APTT (22.0-30.0) sec Sodium (137-145) mmol/L Potassium (3.5-5.1) mmol/L Chloride (98-107) mmol/L Carbon Dioxide (22-30) mmol/L Anion Gap mmol/L BUN (7-17) mg/dL Creatinine (0.52-1.04) mg/dL Est GFR (CKD-EPI)AfAm (>60 ml/min/1.73 sqM) Est GFR (CKD-EPI)NonAf (>60 ml/min/1.73 sqM) Glucose (74-99) mg/dL Calcium (8.4-10.2) mg/dL Total Bilirubin (0.2-1.3) mg/dL AST (14-36) U/L ALT (9-52) U/L Alkaline Phosphatase (38-126) U/L Total Protein (6.3-8.2) g/dL Albumin (3.5-5.0) g/dL Lipase (23-300) U/L Urine Color Yellow Urine Appearance Clear (Clear) Urine pH 6.0 (5.0-8.0) Ur Specific [place] >1.050 H (1.001-1.035) Urine Protein Negative (Negative) Urine Glucose (UA) Negative (Negative) Urine Ketones Negative (Negative) Urine Blood Negative (Negative) Urine Nitrite Negative (Negative) Urine Bilirubin Negative (Negative) Urine Urobilinogen <2.0 (<2.0) mg/dL Ur Leukocyte Esterase Negative (Negative) Urine HCG, Qual Not Detected (Not Detectd) Disposition Clinical Impression: Abdominal pain Disposition: HOME SELF-CARE Condition: Good Instructions (If sedation given, give patient instructions): Ileus (ED), Gastroenteritis (ED) Prescriptions: Docusate [Colace] 100 mg PO BID 6 Days #12 capsule Is patient prescribed a controlled substance at d/c from ED?: No Referrals: Fadi Hernandez III, MD [Primary Care Provider] - 1-2 days Makenna Persaud MD [Family Provider] - 1-2 days Time of Disposition: 13:04
[2019-03-07 09:25] LABS: Basophils % (A) 0 %; Eosinophils % (A) 0 %; HCT 28.3 % (34.0-46.0); HGB 8.6 gm/dL (11.4-16.0); Hypochromasia Marked; Lymphocytes # (A) 1.3 k/uL (1.0-4.8); Lymphocytes % (A) 21 %; MCH 22.8 pg (25.0-35.0); MCHC 30.4 g/dL (31.0-37.0); Mean Platelet Volume 5.9; Microcytosis Slight; Monocytes # (A) 0.2 k/uL (0-1.0); Monocytes % (A) 4 %; Neutrophils # (A) 4.6 k/uL (1.3-7.7); Neutrophils % (A) 74 %; Platelet Count 224 k/uL (150-450); Poikilocytosis Slight; RBC 3.77 m/uL (3.80-5.40); RDW 15.9 % (11.5-15.5); WBC 6.2 k/uL (3.8-10.6)
[2019-03-07 09:33] VITALS: TEMP 97.2
[2019-03-07 09:34] LABS: ALT 25 U/L (9-52); AST 13 U/L (14-36); African American GFR (CKD) >90 (>60 ml/min/1.73 sqM); Albumin 4.3 g/dL (3.5-5.0); Alkaline Phosphatase 119 U/L (38-126); Anion Gap 11 mmol/L; Blood Urea Nitrogen 9 mg/dL (7-17); Calcium 8.9 mg/dL (8.4-10.2); Carbon Dioxide 22 mmol/L (22-30); Chloride 107 mmol/L (98-107); Glucose 160 mg/dL (74-99); Potassium 3.6 mmol/L (3.5-5.1); Sodium 140 mmol/L (137-145); Total Bilirubin 0.5 mg/dL (0.2-1.3); Total Protein 7.2 g/dL (6.3-8.2)
[2019-03-07 09:49] LABS: Partial Thromboplastin Time 21.4 sec (22.0-30.0); Prothrombin Time 10.3 sec (9.0-12.0)
--- NOTE | 2019-03-07 10:41 | CT ---
EXAMINATION TYPE: CT abdomen pelvis w con DATE OF EXAM: 03/07/2019 COMPARISON: 06/05/2016 INDICATION: Abdominal pain with diarrhea. DLP: 1129.1 mGycm, Automated exposure control for dose reduction was used. CONTRAST: 100 mL of Isovue 300. Study performed without Oral Contrast TECHNIQUE: Axial images were obtained from above the diaphragm to the pubic rami in the axial plane a t 5 mm thick sections. Reconstructed images are reviewed on the computer in the coronal plane. FINDINGS: Limited CT sections are obtained the lung bases. The lung bases are clear. CT ABDOMEN: Liver: Normal Spleen: Normal Pancreas: Normal Adrenal glands: The adrenal glands are normal. Gallbladder: Not identified. Correlate with surgical history Kidneys: No masses are evident. No hydronephrosis is present. No cysts are present. No obstructing renal stones are evident. Delayed images were obtained through the kidneys which remain unremarkable . Aorta: Normal Inferior vena cava: Normal. CT PELVIS: Loops of bowel within the abdomen and pelvis are normal. This study is performed without oral con trast limiting bowel evaluation. Scattered air-fluid levels and fluid-filled small bowel loops are pr esent. Correlate for ileus. Post surgical changes are again left upper quadrant within small bowel. Appendix: Normal as visualized. Urinary bladder: Decompressed with limited evaluation Genitourinary structures: Uterus appears prominent. There may be a 1.4 cm cyst on the right ovary. No free fluid is within the pelvis. Osseous structures: No suspicious lytic or sclerotic lesions. Mild facet degenerative changes are low er lumbar spine. IMPRESSIONS: 1. Air-fluid levels with nondilated fluid-filled small bowel loops. Correlate for ileus. Gastroenter itis could be considered. 2. Otherwise, no suspicious acute changes within the abdomen and pelvis
[2019-03-07] MEDS ORDERED: MAG HYDROX/AL HYDROX/SIMETH 30 ML, HYOSCYAMINE ELIXIR 10 ML, CIMETIDINE HCL 300 MG, LID... PO STA ×4 (10:54)
[2019-03-07 12:28] LABS: Appearance,Urine Clear (Clear); Bilirubin,Urine Negative (Negative); Blood,Urine Negative (Negative); Color,Urine Yellow; Glucose,Urine (UA) Negative (Negative); Ketones,Urine Negative (Negative); Leukocyte Esterase,Urine Negative (Negative); Nitrite,Urine Negative (Negative); Protein,Urine Negative (Negative); Urobilinogen,Urine <2.0 mg/dL (<2.0)
[2019-03-07 12:38] LABS: Specific Gravity,Urine >1.050 (1.001-1.035)
[2019-03-07 13:18] VITALS: BP 140/78; PULSE 80; RESP 18
== END 2019-03-07 13:20 | disposition home or self-care (01) ==
LOC: EC 08:22
DX: R10.84 Generalized abdominal pain (principal); R71.8 Other abnormality of red blood cells; R11.0 Nausea; R19.7 Diarrhea, unspecified; M54.9 Dorsalgia, unspecified; Z87.891 Personal history of nicotine dependence; Z88.8 Allergy status to other drugs, medicaments and biological substances; Z91.018 Allergy to other foods; Z91.048 Other nonmedicinal substance allergy status; Z79.899 Other long term (current) drug therapy; Z87.19 Personal history of other diseases of the digestive system; Z90.49 Acquired absence of other specified parts of digestive tract; Z98.84 Bariatric surgery status; Z90.79 Acquired absence of other genital organ(s)
CPT/HCPCS: 36415; 93005; 80053; 83690; 85025; 85610; 85730; 81003; 81025; 74177; 99284; 96374; 96375; 96361; J2270; J2765; Q9967

== ENCOUNTER 2019-03-10 08:10 | Inpatient (IN) | payer OTHER ==
[2019-03-10] MEDS ORDERED: LORazepam 2 MG/ML INJ IV PRN (08:14)
[2019-03-10] MEDS ORDERED: NALOXONE 0.4 MG/ML 1 ML VIAL IV PRN (08:14)
[2019-03-10 08:46] LABS: Anisocytosis Slight; Basophils % (A) 1 %; Eosinophils # (A) 0.1 k/uL (0-0.7); Eosinophils % (A) 1 %; HCT 27.9 % (34.0-46.0); HGB 8.2 gm/dL (11.4-16.0); Hypochromasia Marked; Lymphocytes # (A) 1.3 k/uL (1.0-4.8); Lymphocytes % (A) 29 %; MCH 22.6 pg (25.0-35.0); MCHC 29.4 g/dL (31.0-37.0); MCV 76.6 fL (80.0-100.0); Mean Platelet Volume 7.6; Microcytosis Slight; Monocytes # (A) 0.2 k/uL (0-1.0); Monocytes % (A) 5 %; Neutrophils # (A) 2.7 k/uL (1.3-7.7); Neutrophils % (A) 62 %; Platelet Count 243 k/uL (150-450); Poikilocytosis Slight; RBC 3.65 m/uL (3.80-5.40); RDW 16.3 % (11.5-15.5); WBC 4.4 k/uL (3.8-10.6)
[2019-03-10] MEDS: SODIUM CHLORIDE 0.9% 2,000 ML IV SCH ×7 (08:47→23:14)
[2019-03-10 08:58] LABS: African American GFR (CKD) >90 (>60 ml/min/1.73 sqM); Anion Gap 8 mmol/L; Blood Urea Nitrogen 13 mg/dL (7-17); Calcium 8.9 mg/dL (8.4-10.2); Carbon Dioxide 25 mmol/L (22-30); Chloride 108 mmol/L (98-107); Glucose 151 mg/dL (74-99); Magnesium 2.2 mg/dL (1.6-2.3); Non-African American GFR(CKD) >90 (>60 ml/min/1.73 sqM); Potassium 3.3 mmol/L (3.5-5.1); Sodium 141 mmol/L (137-145)
[2019-03-10] MEDS ORDERED: PANTOPRAZOLE 40 MG/10 ML VIAL IV SCH (09:00)
[2019-03-10 10:31] VITALS: BMI 26.5
[2019-03-10] MEDS ORDERED: PROPOFOL 10 MG/ML 20 ML VIAL IV ONE (13:22)
[2019-03-10] MEDS ORDERED: LIDOCAINE 1% INJ 10MG/ML (20 ML MDV) ONE (13:22)
[2019-03-10] MEDS ORDERED: IV FLUID CONTINUATION 1,000 ML IV ONE (13:23)
[2019-03-10] MEDS ORDERED: LACTATED RINGERS 1,000 ML IV ONE (13:24)
--- NOTE | 2019-03-10 13:30 | P.GSHP ---
History of Present Illness H&P Date: 03/10/19 DATE OF SERVICE: 03/10/2019 CHIEF COMPLAINT: Status post gastric bypass HISTORY OF PRESENT ILLNESS: Fozia Boucher is a 37-year-old female who is status post gastric bypass 04/08/2018. She is 11 month post op. She initially presented to the emergency room 3 days ago with severe epigastric abdominal pain including pain extending to the back. She had missed multiple follow ups at the bariatric center despite being previously reached. She reports difficulty with oral intake including water. As a result, she came back to the ER with worsening abdominal pain including severe anemia. At her height of 5 foot 5.25 inches, her highest weight was 239 pounds lifetime. Initial body mass index was 39.6. Today she comes weighing 161 pounds from 169, 4 months ago. She has lost 8 pounds in 4 months. Her highest body mass index was 39.6. She has lost 78 pounds lifetime. [place] body weight is 149 pounds. Percent excess weight loss is over 80%. PAST MEDICAL HISTORY: 1. Morbid obesity. 2. Body mass index initial of 39.6. 3. Diabetes type 2, gls-ufumefh-mdrzyugzx, resolved 4. Hypertensive heart disease, resolved 5. Depression. 6. Seasonal ALLERGIES. 7. Panniculitis. 8. Gastroesophageal reflux disease. PAST SURGICAL HISTORY: 1. Appendectomy. 2. Tubal ligation. 3. 3. 4. Tendon repair. 5. Hiatal hernia repair 6. Gastric bypass HOME MEDICATIONS: ALLERGIES: 1. Adhesive tape. 2. Hydrochlorothiazide. SOCIAL HISTORY: Former tobacco use. No alcohol use. FAMILY HISTORY: Denies any DVTs, pulmonary embolisms in her family. Denies any ulcerative colitis disease or Crohn's. REVIEW OF ORGAN SYSTEMS: CONSTITUTIONAL: At her height of 5 foot 5.25 inches, her highest weight was 239 pounds lifetime. Initial body mass index was 39.6. Her previous body mass index was 39.6. [place] body weight is 149 pounds. HEENT: Denies any active troubles with vision or hearing. No dysphagia. ENDOCRINE: Has diabetes now resolved. No hypothyroidism. CARDIOVASCULAR: No reports of palpitations or heart attacks. No chest pain. RESPIRATORY: No recent asthma. No personal evaluation of sleep apnea. GI: Denies any bright red blood per rectum. Has gastroesophageal reflux disease now resolved. Has gastroparesis now resolved. Has change in bowel habits. MUSCULOSKELETAL: Has generalized muscle aches now improved. Has bilateral hip pain and knee pain now improved NEURO: No reports of headaches. No seizure disorder. No recent stroke. PSYCH: Has depression. No suicidal ideation. HEMATOLOGIC: Denies any abnormal bleeding or bruising. SKIN: Has panniculitis. No skin cancer. BREAST: No history of breast cancer. No history of breast lumps. PHYSICAL EXAM: VITAL SIGNS: Height 5 foot 5.25 inches, weight 162 pounds. BMI 26.5 GENERAL: Well-developed female in no acute distress. HEENT: No scleral icterus. Extraocular movements grossly intact. Hears conversational speech. No nasal drainage. Wears glasses. NECK: Supple without lymphadenopathy. CHEST: Nonlabored respirations with equal bilateral excursions. CARDIOVASCULAR: Regular rate. Distal 2+ pulses. ABDOMEN: Soft. Tender along epigastrium MUSCULOSKELETAL: No clubbing, cyanosis, or edema. NEURO: No focal or lateralizing signs. Cranial nerves 2 through 12 grossly within normal limits. PSYCH: Appropriate affect. Alert and oriented to person, place and time. SKIN: Pale in appearance. Good skin turgor. Well perfused. ASSESSMENT: 1. Gastrojejunal ulcer with stricture 2. Dysphagia 3. Epigastric abdominal pain 4. Gastroparesis 5. Status post gastric bypass. 6. Dysphagia 7. Moderate severe deficiency anemia PLAN: 1. Recommend immediate upper endoscopy for epigastric abdominal pain including gastrojejunal ulcer with stricture 2. IV fluid hydration 3. 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-n othing since, dysphagia, N/V recently, "Internal Shingles" in Right ear (August 2017); hearing in Right ear has been affected) History of Any Multi-Drug Resistant Organisms: None Reported Past Surgical History: Appendectomy, Bariatric Surgery, Section, Cholecystectomy, Tubal Ligation Additional Past Surgical History / Comment(s): left foot tendon tear repair, 3 , one ovary/tube removed, paraesophageal hernia repair, gastric bypass 2017 Past Anesthesia/Blood Transfusion Reactions: Previous Problems w/ Anesthesia, Motion Sickness, Postoperative Nausea & Vomiting (PONV) Additional Past Anesthesia/Blood Transfusion Reaction / Comment(s): gets irrita ble when waking up after anesthetic, trouble urinating after anesthesia Past Psychological History: Anxiety Smoking Status: Former smoker Past Alcohol Use History: None Reported Additional Past Alcohol Use History / Comment(s): quit smoking 3 yrs ago, smoked <ppd for 10 yrs. Past Drug Use History: None Reported - Past Family History Mother Family Medical History: Hyperlipidemia Additional Family Medical History / Comment(s): hypothyroid Father Family Medical History: Diabetes Mellitus, Hypertension Sister(s) Family Medical History: Deep Vein Thrombosis (DVT), Pulmonary Embolus Medications and Allergies Home Medications Medication Instructions Recorded Confirmed Type Acetaminophen Tab [Tylenol Tab] 650 mg PO Q4H PRN 03/10/19 03/10/19 History Calcium Carbonate [Tums] 1,000 mg PO TID PRN 03/10/19 03/10/19 History Allergies Allergy/AdvReac Type Severity Reaction Status Date / Time adhesive tape Allergy BLISTERS Verified 03/10/19 08:44 hydrochlorothiazide AdvReac MUSCLE Verified 03/10/19 08:44 PAINS ondansetron [From Zofran] AdvReac migraine Verified 03/10/19 08:44 headache chick peas Allergy Swelling Uncoded 03/07/19 08:53 Surgical - Exam Vital Signs Temp Pulse Resp BP Pulse Ox 97.8 F 95 16 140/92 100 03/10/19 08:13 03/10/19 08:13 03/10/19 08:13 03/10/19 08:13 03/10/19 08:13 Results - Labs 03/10/19 08:30 03/10/19 08:30 Abnormal Lab Results - Last 24 Hours (Table) 03/10/19 03/10/19 Range/Units 08:30 08:30 RBC 3.65 L (3.80-5.40) m/uL Hgb 8.2 L (11.4-16.0) gm/dL Hct 27.9 L (34.0-46.0) % MCV 76.6 L (80.0-100.0) fL MCH 22.6 L (25.0-35.0) pg MCHC 29.4 L (31.0-37.0) g/dL RDW 16.3 H (11.5-15.5) % Potassium 3.3 L (3.5-5.1) mmol/L Chloride 108 H (98-107) mmol/L Glucose 151 H (74-99) mg/dL Diabetes panel 03/10/19 Range/Units 08:30 Sodium 141 (137-145) mmol/L Potassium 3.3 L (3.5-5.1) mmol/L Chloride 108 H (98-107) mmol/L Carbon Dioxide 25 (22-30) mmol/L BUN 13 (7-17) mg/dL Creatinine 0.62 (0.52-1.04) mg/dL Glucose 151 H (74-99) mg/dL Calcium 8.9 (8.4-10.2) mg/dL Calcium panel 03/10/19 Range/Units 08:30 Calcium 8.9 (8.4-10.2) mg/dL Pituitary panel 03/10/19 Range/Units 08:30 Sodium 141 (137-145) mmol/L Potassium 3.3 L (3.5-5.1) mmol/L Chloride 108 H (98-107) mmol/L Carbon Dioxide 25 (22-30) mmol/L BUN 13 (7-17) mg/dL Creatinine 0.62 (0.52-1.04) mg/dL Glucose 151 H (74-99) mg/dL Calcium 8.9 (8.4-10.2) mg/dL Adrenal panel 03/10/19 Range/Units 08:30 Sodium 141 (137-145) mmol/L Potassium 3.3 L (3.5-5.1) mmol/L Chloride 108 H (98-107) mmol/L Carbon Dioxide 25 (22-30) mmol/L BUN 13 (7-17) mg/dL Creatinine 0.62 (0.52-1.04) mg/dL Glucose 151 H (74-99) mg/dL Calcium 8.9 (8.4-10.2) mg/dL Assessment and Plan (1) Gastrojejunal anastomotic stricture Current Visit: Yes Status: Acute Code(s): K91.89 - OTH POSTPROCEDURAL COMPLICATIONS AND DISORDERS OF DGSTV SYS SNOMED Code(s): 789120980 (2) Iron deficiency anemia due to chronic blood loss Current Visit: Yes Status: Acute Code(s): D50.0 - IRON DEFICIENCY ANEMIA SECONDARY TO BLOOD LOSS (CHRONIC) SNOMED Code(s): 984725157
--- NOTE | 2019-03-10 13:43 | P.PCN ---
Date of Procedure: 03/10/19 Description of Procedure: PREOPERATIVE DIAGNOSES: 1. Epigastric abdominal pain. 2. Nausea and vomiting. 3. History of gastric bypass. 4. History of gastric ulcers. POSTOPERATIVE DIAGNOSES: 1. Epigastric abdominal pain. 2. Nausea and vomiting. 3. Acute gastrojejunal ulcer without perforation PROCEDURE PERFORMED: Esophagogastrojejunoscopy. SURGEON: Makenna Persaud MD ANESTHESIA: MAC. INDICATIONS: The patient is a 38-year-old female with prior history of Tristen-en-Y gastric bypass. She presents with severe acute epigastric abdominal pain with risk of gastric ulcers including anemia. Upper endoscopy was offered for further evaluation and management. DESCRIPTION: Patient was brought to the endoscopy suite and laid in the left lateral decubitus position. After adequate IV sedation, a bite block was placed. An Olympus gastroscope was passed along the posterior oropharynx down to the distal esophagus where the squamocolumnar junction was found without erosive esophagitis. Along the anastomosis, marginal ulcer of 4 mm was identified. The scope was advanced 60 cm from the incisors. No evidence of foreign body was found. The GI tract was desufflated. The patient tolerated the procedure well. FINDINGS: 1. Acute gastrojejunal ulceration without hemorrhage or perforation 2. No foreign body found along the anastomosis. PLAN: 1. Start proton pump inhibitor including Carafate
[2019-03-10] MEDS ORDERED: SODIUM CHLORIDE 0.9% 1,000 ML with POTASSIUM CHLORIDE 40 MEQ IV SCH ×2 (13:45)
[2019-03-10] MEDS: 0.9% NACL WITH KCL 40 MEQ/L 1,000 ML IV SCH (15:15)
[2019-03-10] MEDS: HYDROmorphone 1 MG/ML 1 ML SYRINGE IVP PRN ×2 (16:06→21:57)
[2019-03-10] MEDS: PANTOPRAZOLE 40 MG TABLET PO SCH (16:07)
[2019-03-10] MEDS: SUCRALFATE 1 GM TAB PO SCH (16:07)
[2019-03-10] MEDS: POTASSIUM CITRATE 10 MEQ TABLET.ER PO SCH (17:29)
--- NOTE | 2019-03-10 18:48 | P.PN ---
Subjective Progress Note Date: 03/10/19 CHIEF COMPLAINT: Abdominal pain HISTORY OF PRESENT ILLNESS: The patient is a 38-year-old female who presented acutely with epigastric abdominal pain 3-4 days ago in the ER. She was admitted for persistent abdominal pain worsening. She reports unable to pass flatus and her pain has become 10 out of 10. She reports new abdominal distention. She reports nausea. After completion of her upper endoscopy, she still reports moderate pain despite finding of gastrojejunal ulcer. Separately, she reports heavy menses consistent with severe new anemia. ROS: Minimal flatus. No fevers or chills. No new chest pain. No productive sputum PHYSICAL EXAM: VITAL SIGNS: Reviewed CONSTITUTIONAL: Well developed and in no acute distress. EYES: Conjuctivae without sclera icterus. Extraocular movements grossly intact. HEAD, EARS, NOSE, THROAT: Moist buccal mucosa. Head is atraumatic, normocephalic. Hears conversational speech. No nasal drainage. NECK: Supple. No thyroidomegaly. RESPIRATORY: Non-labored respirations and equal bilateral excursions. CARDIOVASCULAR: Palpable 2+ radial pulses. Regular rate. Regular rhythm. ABDOMEN: Soft. Mildly distended. No diffuse peritonitis. MUSCULOSKELETAL: No gross deformity of the lower extremities noted. No clubbing. No cyanosis. SKIN: Good skin turgor. Well perfused. NEUROLOGIC: Cranial nerves I through XII grossly intact. No focal or later alizing signs. PSYCH: Appropriate affect. Alert and oriented to person, place and time. CLINCAL LABS: White blood cell count normal STUDIES: CT of the abdomen and pelvis of recent personal reviewed demonstrated minimal mesenteric swirl. No evidence of large bowel obstruction identified her small bowel obstruction identified. ASSESSMENT: 1. Gastrojejunal ulcer 2. New severe anemia, iron deficient secondary to menstrual blood loss 3. Generalized abdominal pain PLAN: 1. She has history of gastric bypass for risk of internal hernia. 2. Will repeat CT angiogram pelvis as her symptoms are worse. 3. Full inpatient admission for gastrojejunal ulcer and small bowel obstruction Objective - Vital Signs Vital signs: Vital Signs Temp 97.5 F L 03/10/19 14:14 Pulse 70 03/10/19 17:15 Resp 16 03/10/19 14:14 BP 144/71 03/10/19 17:15 Pulse Ox 100 03/10/19 14:14 Intake & Output 03/09/19 03/10/19 03/10/19 18:59 06:59 18:59 Intake Total 1125 Balance 1125 Weight 73.482 kg Intake: IV 125 Intake, IV Titration 1000 Amount Sodium Chloride 0.9% 2, 1000 000 ml @ 999 mls/hr IV . Q2H1M [facility] Rx#:[id number] Other: # Voids 1 - Labs CBC & Chem 7: 03/10/19 08:30 03/10/19 08:30 Labs: Abnormal Lab Results - Last 24 Hours (Table) 03/10/19 03/10/19 Range/Units 08:30 08:30 RBC 3.65 L (3.80-5.40) m/uL Hgb 8.2 L (11.4-16.0) gm/dL Hct 27.9 L (34.0-46.0) % MCV 76.6 L (80.0-100.0) fL MCH 22.6 L (25.0-35.0) pg MCHC 29.4 L (31.0-37.0) g/dL RDW 16.3 H (11.5-15.5) % Potassium 3.3 L (3.5-5.1) mmol/L Chloride 108 H (98-107) mmol/L Glucose 151 H (74-99) mg/dL Assessment and Plan (1) Gastrojejunal anastomotic stricture Current Visit: Yes Status: Acute Code(s): K91.89 - OTH POSTPROCEDURAL COMPLICATIONS AND DISORDERS OF DGSTV SYS SNOMED Code(s): 635101054 (2) Iron deficiency anemia due to chronic blood loss Current Visit: Yes Status: Acute Code(s): D50.0 - IRON DEFICIENCY ANEMIA SECONDARY TO BLOOD LOSS (CHRONIC) SNOMED Code(s): 497552826 (3) Gastrojejunal ulcer Current Visit: Yes Status: Acute Code(s): K28.9 - GASTROJEJUNAL ULCER, UNSP ACUTE OR CHR, W/O HEMOR OR PERF SNOMED Code(s): 26935204 (4) Small bowel obstruction Current Visit: Yes Status: Acute Code(s): K56.609 - UNSP INTESTNL OBST, UNSP TO PARTIAL VERSUS COMPLETE OBST SNOMED Code(s): 877007096
[2019-03-11] MEDS: SODIUM CHLORIDE 0.9% 2,000 ML IV SCH ×11 (00:52→22:30)
[2019-03-11] MEDS: HYDROmorphone 1 MG/ML 1 ML SYRINGE IVP PRN ×4 (02:31→21:37)
[2019-03-11] MEDS: 0.9% NACL WITH KCL 40 MEQ/L 1,000 ML IV SCH ×2 (07:06→16:45)
[2019-03-11] MEDS: PANTOPRAZOLE 40 MG TABLET PO SCH ×2 (07:23→17:02)
[2019-03-11] MEDS: SUCRALFATE 1 GM TAB PO SCH ×3 (07:23→17:02)
[2019-03-11] MEDS: POTASSIUM CITRATE 10 MEQ TABLET.ER PO SCH ×3 (07:23→18:19)
[2019-03-11] MEDS ORDERED: IOPAMIDOL CONTRAST (ORAL USE) VIAL PO PRN (08:27)
[2019-03-11] MEDS: ONDANSETRON 4 MG/2 ML VIAL IVP PRN ×2 (09:13→17:02)
--- NOTE | 2019-03-11 13:01 | P.PN ---
<Angelica Resendiz A - Last Filed: 03/11/19 12:55> Subjective Progress Note Date: 03/11/19 CHIEF COMPLAINT: Abdominal pain HISTORY OF PRESENT ILLNESS: Patient underwent EGD yesterday revealing acute gastrojejunal ulceration without hemorrhage or perforation. Patient was started on PPI and Carafate. Patient examined this morning at the bedside. She reports nausea and an episode of emesis this morning. She reports persistent abdominal pain. Her pain is mostly just above the umbilicus. She denies passing flatus or having bowel movements. PHYSICAL EXAM: VITAL SIGNS: Reviewed GENERAL: Well-developed in no acute distress. Pale. HEENT: No sclera icterus. Extraocular movements grossly intact. Moist buccal mucosa. Head is atraumatic, normocephalic. Hears conversational speech. No nasal drainage. NECK: Supple without lymphadenopathy. CHEST: Non-labored respirations and equal bilateral excursions. CARDIOVASCULAR: Regular rate with regular rhythm. Palpable 2+ radial pulses. ABDOMEN: Soft. Mildly distended. Tenderness upon palpation above umbilicus. Positive bowel sounds. No peritoneal signs. MUSCULOSKELETAL: No clubbing, cyanosis or edema. NEUROLOGIC: No focal or lateralizing signs. Cranial nerves II through XII grossly intact. PSYCH: Appropriate affect. Alert and oriented to person, place and time. SKIN: Well perfused. Good skin turgor. ASSESSMENT: 1. Gastrojejunal ulcer 2. New severe anemia, iron deficient secondary to menstrual blood loss 3. Generalized abdominal pain PLAN: 1. Liquid diet as tolerated. If patient continues to have episodes of emesis, downgrade diet to NPO with ice chips only 2. Monitor labs. Repeat CBC and BMP 3. Continue IV fluids 4. Continue Protonix and Carafate 5. Obtain CT abdomen pelvis with IV and oral contrast Nurse practitioner note has been reviewed by physician. Signing provider agrees with the documented findings, assessment, and plan of care. Objective - Vital Signs Vital signs: Vital Signs Temp 97.4 F L 03/11/19 07:00 Pulse 70 03/11/19 07:00 Resp 14 03/11/19 07:45 BP 137/76 03/11/19 07:00 Pulse Ox 100 03/11/19 07:00 Intake & Output 03/10/19 03/11/19 03/11/19 18:59 06:59 18:59 Intake Total 1125 Balance 1125 Weight 73.482 kg Intake: IV 125 Intake, IV Titration 1000 Amount Sodium Chloride 0.9% 2, 1000 000 ml @ 999 mls/hr IV . Q2H1M [facility] Rx#:[id number] Other: # Voids 1 - Labs CBC & Chem 7: 03/10/19 08:30 03/10/19 08:30 Assessment and Plan (1) Gastrojejunal ulcer Current Visit: Yes Status: Acute Code(s): K28.9 - GASTROJEJUNAL ULCER, UNSP ACUTE OR CHR, W/O HEMOR OR PERF SNOMED Code(s): 36873570 (2) Abdominal pain Current Visit: No Status: Acute Code(s): R10.9 - UNSPECIFIED ABDOMINAL PAIN SNOMED Code(s): 19650303 <Makenna Persaud N - Last Filed: 03/12/19 07:59> Subjective Patient seen and reevaluated in the evening. Patient has heavy hemorrhagic bleeding with history of heavy menstrual cycle. Hemoglobin had dropped [address] of the abdomen and pelvis studies reviewed now demonstrating possible internal hernia with dilated sigmoid colon. Otherwise, patient is wanting more to eat. Recommend full inpatient admission for internal hernia, acute blood loss anemia, internal hernia with bowel obstruction. Patient typed and screened for blood transfusion. Will need iron infusions. Likely surgical intervention for internal hernia with bowel obstruction. Consult gynecology for hemorrhagic bleeding advised. Objective - Vital Signs Vital signs: Vital Signs Temp 98.2 F 03/12/19 01:48 Pulse 65 03/12/19 01:48 Resp 18 03/12/19 01:48 BP 115/69 03/12/19 01:48 Pulse Ox 99 03/12/19 01:48 Intake & Output 03/11/19 03/12/19 03/12/19 18:59 06:59 18:59 Intake Total 600 Balance 600 Intake: Intake, IV Titration 600 Amount 0.9% NaCl with KCl 40 Meq 600 /l 1,000 ml @ 75 mls/hr IV .[id number] ALIA Rx#: [id number] Other: # Voids 2 - Labs CBC & Chem 7: 03/11/19 17:35 03/11/19 13:16 Labs: Abnormal Lab Results - Last 24 Hours (Table) 03/11/19 03/11/19 03/11/19 Range/Units 13:16 16:36 17:35 WBC 3.7 L 2.8 L (3.8-10.6) k/uL RBC 3.04 L 2.93 L (3.80-5.40) m/uL Hgb 6.7 L* D 6.5 L* (11.4-16.0) gm/dL Hct 23.3 L 23.0 L (34.0-46.0) % MCV 76.4 L 78.7 L (80.0-100.0) fL MCH 22.0 L 22.0 L (25.0-35.0) pg MCHC 28.8 L 28.0 L (31.0-37.0) g/dL RDW 16.0 H 16.4 H (11.5-15.5) % BUN 6 L (7-17) mg/dL Glucose 134 H (74-99) mg/dL Calcium 8.3 L (8.4-10.2) mg/dL Iron (50-170) ug/dL Iron Saturation (12.00-45.00) Ferritin (10.0-291.0) ng/mL 03/11/19 Range/Units 17:35 WBC (3.8-10.6) k/uL RBC (3.80-5.40) m/uL Hgb (11.4-16.0) gm/dL Hct (34.0-46.0) % MCV (80.0-100.0) fL MCH (25.0-35.0) pg MCHC (31.0-37.0) g/dL RDW (11.5-15.5) % BUN (7-17) mg/dL Glucose (74-99) mg/dL Calcium (8.4-10.2) mg/dL Iron 7 L (50-170) ug/dL Iron Saturation 2.45 L (12.00-45.00) Ferritin 8.4 L (10.0-291.0) ng/mL Assessment and Plan (1) Gastrojejunal anastomotic stricture Current Visit: Yes Status: Acute Code(s): K91.89 - OTH POSTPROCEDURAL COMPLICATIONS AND DISORDERS OF DGSTV SYS SNOMED Code(s): 879155874 (2) Iron deficiency anemia due to chronic blood loss Current Visit: Yes Status: Acute Code(s): D50.0 - IRON DEFICIENCY ANEMIA SECONDARY TO BLOOD LOSS (CHRONIC) SNOMED Code(s): 339453165 (3) Gastrojejunal ulcer Current Visit: Yes Status: Acute Code(s): K28.9 - GASTROJEJUNAL ULCER, UNSP ACUTE OR CHR, W/O HEMOR OR PERF SNOMED Code(s): 49970297 (4) Small bowel obstruction Current Visit: Yes Status: Acute Code(s): K56.609 - UNSP INTESTNL OBST, UNSP TO PARTIAL VERSUS COMPLETE OBST SNOMED Code(s): 717718693
[2019-03-11 13:58] LABS: African American GFR (CKD) >90 (>60 ml/min/1.73 sqM); Anion Gap 7 mmol/L; Blood Urea Nitrogen 6 mg/dL (7-17); Calcium 8.3 mg/dL (8.4-10.2); Carbon Dioxide 25 mmol/L (22-30); Chloride 105 mmol/L (98-107); Glucose 134 mg/dL (74-99); Non-African American GFR(CKD) >90 (>60 ml/min/1.73 sqM); Potassium 4.1 mmol/L (3.5-5.1); Sodium 137 mmol/L (137-145)
--- NOTE | 2019-03-11 14:40 | CT ---
EXAMINATION TYPE: CT abdomen pelvis w con DATE OF EXAM: 03/11/2019 COMPARISON: 03/07/2019 HISTORY: 38-year-old female Mid abdominal pain TECHNIQUE: Contiguous axial scanning of the abdomen and pelvis following administration of 100 ml Iso aleida 300 IV contrast. Delayed images through the kidneys and coronal/sagittal reconstructions perform ed. CT DLP: 1128.2 mGycm Automated exposure control for dose reduction was used. FINDINGS: Heart normal size without pericardial effusion. Lung bases clear without pleural effusion. Postsurgical changes of Tristen-en-Y gastric bypass. Prominent oral contrast distending the gastric pouch. No significant narrowing seen at the gastrojeju nostomy. No extension of contrast into the excluded portion of the stomach. Some focal fat along the anterior falciform ligament. Gallbladder surgically absent. Mild prominence to the biliary system likely chronic. It remains unchanged from the recent prior. Liver enlarged at 20.2 cm. Spleen is also enlarged at 15.9 cm craniocaudal on coronal series. Portal venous system is patent. Adrenal glands, kidneys, and pancreas show no gross body. No dilated small bowel, free fluid, or free air. Scattered nonenlarged mesenteric lymph nodes are unc hanged. A couple borderline sized lymph nodes left mid abdomen measure up to 8 mm. No dilated small bowel, free fluid, or free air. Surgical material in the right lower quadrant likely relating to prior appendectomy. Mild overall stool burden. The sigmoid colon is very redundant and narrows as it courses all the way to the right lower quadrant. Refer to coronal image 45, 44, and 35. This is a change in appearance as compared to 03/07/2019 and 06/05/2016. Bladder is nondistended. Uterus is retroverted. Suspect prior scar is. A tampon is present. [id number] right adnexal/cul-de-sac free fluid. Physiologic. Both ovaries are visualized. No pe lvic lymphadenopathy seen. Bones: Degenerative change of both hips and facet arthropathy lower lumbar spine. IMPRESSION: 1. VERY REDUNDANT SIGMOID COLON. IT IS NOW SEEN COURSING ALL THE WAY TO THE RIGHT LOWER QUADRANT WITH SEGMENTS OF NARROWING ALONG ITS COURSE (REFER TO CORONAL IMAGES 35, 44, AND 45). THIS IS A CHANGE COMPARED TO THE APPEARANCE ON 03/07/2019. CONSIDER A DEVELOPING INTERNAL HERNIA BUT WITHOUT EVIDENCE OF OBSTRUCTION. 2. HEPATOSPLENOMEGALY (LIVER 20.2 CM AND SPLEEN 15.9 CM). 3. STATUS POST TRISTEN-EN-Y GASTRIC BYPASS. PROMINENTLY DISTENDED GASTRIC POUCH THOUGH WITHOUT EVIDENT S TENOSIS AT THE GASTROJEJUNOSTOMY. 4. MILD TO MODERATE CUL-DE-SAC FREE FLUID PROBABLY PHYSIOLOGIC. RETROVERTED UTERUS.
[2019-03-11 16:54] LABS: Anisocytosis Slight; Basophils % (A) 1 %; Eosinophils % (A) 1 %; HCT 23.3 % (34.0-46.0); Hypochromasia Marked; Lymphocytes # (A) 1.3 k/uL (1.0-4.8); Lymphocytes % (A) 35 %; MCHC 28.8 g/dL (31.0-37.0); MCV 76.4 fL (80.0-100.0); Mean Platelet Volume 6.9; Microcytosis Slight; Monocytes # (A) 0.2 k/uL (0-1.0); Monocytes % (A) 5 %; Neutrophils # (A) 2.1 k/uL (1.3-7.7); Neutrophils % (A) 57 %; Platelet Count 167 k/uL (150-450); Poikilocytosis Slight; RBC 3.04 m/uL (3.80-5.40); WBC 3.7 k/uL (3.8-10.6)
[2019-03-11 16:56] LABS: HGB 6.7 gm/dL (11.4-16.0)
[2019-03-11 17:26] LABS: Poikilocytosis (M) Present; Rouleaux Present
[2019-03-11 17:43] LABS: Anisocytosis Slight; Hypochromasia Marked; MCV 78.7 fL (80.0-100.0); Mean Platelet Volume 6.5; Platelet Count 164 k/uL (150-450); Poikilocytosis Slight; RBC 2.93 m/uL (3.80-5.40); RDW 16.4 % (11.5-15.5); WBC 2.8 k/uL (3.8-10.6)
[2019-03-11 17:46] LABS: HGB 6.5 gm/dL (11.4-16.0)
[2019-03-12 00:47] LABS: Ferritin 8.4 ng/mL (10.0-291.0); Iron Saturation 2.45 (12.00-45.00)
[2019-03-12] MEDS: SODIUM CHLORIDE 0.9% 2,000 ML IV SCH ×8 (05:14→19:29)
[2019-03-12] MEDS: ONDANSETRON 4 MG/2 ML VIAL IVP PRN ×2 (08:03→17:45)
[2019-03-12] MEDS: SODIUM FERRIC GLUCONAT-SUCROSE 125 MG in SODIUM CHLORIDE 0.9% 100 ML IVPB SCH (08:03)
[2019-03-12] MEDS: POTASSIUM CITRATE 10 MEQ TABLET.ER PO SCH ×3 (08:03→17:46)
[2019-03-12] MEDS: SUCRALFATE 1 GM TAB PO SCH ×3 (08:03→17:46)
[2019-03-12] MEDS: PANTOPRAZOLE 40 MG TABLET PO SCH ×2 (08:03→17:47)
[2019-03-12] MEDS: 0.9% NACL WITH KCL 40 MEQ/L 1,000 ML IV SCH (08:04)
[2019-03-12] MEDS: HYDROmorphone 1 MG/ML 1 ML SYRINGE IVP PRN ×4 (08:04→22:28)
[2019-03-12] MEDS ORDERED: PHYTONADIONE ORAL 5 MG/5 ML ORAL.SYRG PO STA (10:18)
--- NOTE | 2019-03-12 11:12 | US ---
EXAMINATION TYPE: US transvaginal DATE OF EXAM: 03/12/2019 COMPARISON: NONE CLINICAL HISTORY: vaginal hemorrhage. Heavy bleeding. Left ovary removed. TECHNIQUE: Transvaginal (TV). EXAM MEASUREMENTS: Uterus: 8.7 x 6.1 x 8.1 cm Endometrial Stripe: .6 cm Right Ovary: 2.2 x 1.6 x 1.9 cm Left Ovary: Surgically absent cm 1. Uterus: Retroverted wnl 2. Endometrium: 2 mm of fluid seen within. 3. Right Ovary: Follicles seen. 4. Left Ovary: Surgically absent 5. Bilateral Adnexa: wnl 6. Posterior cul-de-sac: Small amount of fluid seen. IMPRESSION: 1. Heterogenous endometrium with central fluid related to this patient's dysfunctional uterine bleedi ng. Overall the endometrium however is within normal limits of size. 2. Small amount of free fluid in the posterior cul-de-sac, likely physiologic. 3. Surgical absence of the left ovary.
[2019-03-12 12:14] LABS: Anisocytosis Slight; HCT 21.8 % (34.0-46.0); Hypochromasia Marked; MCH 23.1 pg (25.0-35.0); MCHC 29.8 g/dL (31.0-37.0); MCV 77.6 fL (80.0-100.0); Mean Platelet Volume 6.3; Microcytosis Slight; Platelet Count 188 k/uL (150-450); Poikilocytosis Slight; RDW 16.1 % (11.5-15.5); WBC 3.7 k/uL (3.8-10.6)
[2019-03-12 12:20] LABS: HGB 6.5 gm/dL (11.4-16.0)
[2019-03-12 12:23] LABS: African American GFR (CKD) >90 (>60 ml/min/1.73 sqM); Anion Gap 5 mmol/L; Blood Urea Nitrogen 10 mg/dL (7-17); Calcium 8.8 mg/dL (8.4-10.2); Carbon Dioxide 26 mmol/L (22-30); Chloride 107 mmol/L (98-107); Glucose 112 mg/dL (74-99); Non-African American GFR(CKD) >90 (>60 ml/min/1.73 sqM); Potassium 4.3 mmol/L (3.5-5.1); Sodium 138 mmol/L (137-145)
[2019-03-12] MEDS: NORGESTIMATE-ETHINYL ESTRADIOL 1 EACH TABLET PO SCH ×2 (13:11→19:44)
--- NOTE | 2019-03-12 13:12 | P.PN ---
<Angelica Resendiz A - Last Filed: 03/12/19 13:09> Subjective Progress Note Date: 03/12/19 CHIEF COMPLAINT: Abdominal pain HISTORY OF PRESENT ILLNESS: Patient s/p EGD revealing acute gastrojejunal ulceration without hemorrhage or perforation. Patient was started on PPI and Carafate. Patient examined this morning at the bedside. She continues to report abdominal pain. She has been tolerating small amounts of regular diet. Denies further episodes of emesis. She reports continued heavy menstrual bleeding but states it is slightly improved from yesterday. Hemoglobin yesterday is 6.5. Patient received a dose of Vitamin K per Dr. Persaud. She is also receiving IV iron. PHYSICAL EXAM: VITAL SIGNS: Reviewed GENERAL: Well-developed in no acute distress. Pale. HEENT: No sclera icterus. Extraocular movements grossly intact. Moist buccal mucosa. Head is atraumatic, normocephalic. Hears conversational speech. No nasal drainage. NECK: Supple without lymphadenopathy. CHEST: Non-labored respirations and equal bilateral excursions. CARDIOVASCULAR: Regular rate with regular rhythm. Palpable 2+ radial pulses. ABDOMEN: Soft. Mildly distended. Tenderness upon palpation above umbilicus. Positive bowel sounds. No peritoneal signs. MUSCULOSKELETAL: No clubbing, cyanosis or edema. NEUROLOGIC: No focal or lateralizing signs. Cranial nerves II through XII grossly intact. PSYCH: Appropriate affect. Alert and oriented to person, place and time. SKIN: Well perfused. Good skin turgor. ASSESSMENT: 1. Gastrojejunal ulcer 2. New severe anemia, iron deficient secondary to menstrual blood loss 3. Generalized abdominal pain 4. Possible internal hernia PLAN: 1. Continue diet as tolerated 2. Monitor labs. Repeat hemoglobin. 3. Consult OBGYN for further evaluation of heavy menstrual bleeding 4. Continue Protonix and Carafate 5. Patient is tentatively scheduled for robotic lysis of adhesions, possible open tomorrow with Dr. Persaud Nurse practitioner note has been reviewed by physician. Signing provider agrees with the documented findings, assessment, and plan of care. Objective - Vital Signs Vital signs: Vital Signs Temp 98.5 F 03/12/19 07:00 Pulse 74 03/12/19 07:00 Resp 12 03/12/19 07:50 BP 123/80 03/12/19 07:00 Pulse Ox 98 03/12/19 07:00 Intake & Output 03/11/19 03/12/19 03/12/19 18:59 06:59 18:59 Intake Total 600 Balance 600 Intake: Intake, IV Titration 600 Amount 0.9% NaCl with KCl 40 Meq 600 /l 1,000 ml @ 75 mls/hr IV .[id number] [facility] Rx#: [id number] Other: # Voids 2 - Labs CBC & Chem 7: 03/12/19 11:33 03/12/19 11:33 Labs: Abnormal Lab Results - Last 24 Hours (Table) 03/11/19 03/11/19 03/11/19 Range/Units 13:16 16:36 17:35 WBC 3.7 L 2.8 L (3.8-10.6) k/uL RBC 3.04 L 2.93 L (3.80-5.40) m/uL Hgb 6.7 L* D 6.5 L* (11.4-16.0) gm/dL Hct 23.3 L 23.0 L (34.0-46.0) % MCV 76.4 L 78.7 L (80.0-100.0) fL MCH 22.0 L 22.0 L (25.0-35.0) pg MCHC 28.8 L 28.0 L (31.0-37.0) g/dL RDW 16.0 H 16.4 H (11.5-15.5) % BUN 6 L (7-17) mg/dL Glucose 134 H (74-99) mg/dL Calcium 8.3 L (8.4-10.2) mg/dL Iron (50-170) ug/dL Iron Saturation (12.00-45.00) Ferritin (10.0-291.0) ng/mL 03/11/19 Range/Units 17:35 WBC (3.8-10.6) k/uL RBC (3.80-5.40) m/uL Hgb (11.4-16.0) gm/dL Hct (34.0-46.0) % MCV (80.0-100.0) fL MCH (25.0-35.0) pg MCHC (31.0-37.0) g/dL RDW (11.5-15.5) % BUN (7-17) mg/dL Glucose (74-99) mg/dL Calcium (8.4-10.2) mg/dL Iron 7 L (50-170) ug/dL Iron Saturation 2.45 L (12.00-45.00) Ferritin 8.4 L (10.0-291.0) ng/mL Assessment and Plan (1) Gastrojejunal ulcer Current Visit: Yes Status: Acute Code(s): K28.9 - GASTROJEJUNAL ULCER, UNSP ACUTE OR CHR, W/O HEMOR OR PERF SNOMED Code(s): 21877853 (2) Abdominal pain Current Visit: No Status: Acute Code(s): R10.9 - UNSPECIFIED ABDOMINAL PAIN SNOMED Code(s): 54332179 <Makenna Persaud - Last Filed: 03/12/19 16:01> Subjective Patient seen and evaluated. In fact she reports feeling better today than yesterday. She does still report abdominal pain. Consultation to gynecology obtained with pelvic ultrasound. With history of prolonged malnutrition vitamin K started. Computed tomography scan demonstrated internal hernia with cause of abdominal pain, hence laparoscopic lysis of adhesions possible bowel resection was reviewed with her including possible open technique. Recommend blood transfusion for surgery for tomorrow and iron infusions Objective - Vital Signs Vital signs: Vital Signs Temp 98 F 03/12/19 15:49 Pulse 73 03/12/19 15:49 Resp 12 03/12/19 15:49 BP 134/80 03/12/19 15:49 Pulse Ox 100 03/12/19 15:49 Intake & Output 03/11/19 03/12/19 03/12/19 18:59 06:59 18:59 Intake Total 600 Balance 600 Intake: Intake, IV Titration 600 Amount 0.9% NaCl with KCl 40 Meq 600 /l 1,000 ml @ 75 mls/hr IV .[id number] [facility] Rx#: [id number] Other: # Voids 2 - Labs CBC & Chem 7: 03/12/19 11:33 03/12/19 11:33 Labs: Abnormal Lab Results - Last 24 Hours (Table) 03/11/19 03/11/19 03/11/19 Range/Units 16:36 17:35 17:35 WBC 3.7 L 2.8 L (3.8-10.6) k/uL RBC 3.04 L 2.93 L (3.80-5.40) m/uL Hgb 6.7 L* D 6.5 L* (11.4-16.0) gm/dL Hct 23.3 L 23.0 L (34.0-46.0) % MCV 76.4 L 78.7 L (80.0-100.0) fL MCH 22.0 L 22.0 L (25.0-35.0) pg MCHC 28.8 L 28.0 L (31.0-37.0) g/dL RDW 16.0 H 16.4 H (11.5-15.5) % Glucose (74-99) mg/dL Iron 7 L (50-170) ug/dL Iron Saturation 2.45 L (12.00-45.00) Ferritin 8.4 L (10.0-291.0) ng/mL 03/12/19 03/12/19 Range/Units 11:33 11:33 WBC 3.7 L (3.8-10.6) k/uL RBC 2.80 L (3.80-5.40) m/uL Hgb 6.5 L* (11.4-16.0) gm/dL Hct 21.8 L (34.0-46.0) % MCV 77.6 L (80.0-100.0) fL MCH 23.1 L (25.0-35.0) pg MCHC 29.8 L (31.0-37.0) g/dL RDW 16.1 H (11.5-15.5) % Glucose 112 H (74-99) mg/dL Iron (50-170) ug/dL Iron Saturation (12.00-45.00) Ferritin (10.0-291.0) ng/mL Assessment and Plan (1) Gastrojejunal anastomotic stricture Current Visit: Yes Status: Acute Code(s): K91.89 - OTH POSTPROCEDURAL COMPLICATIONS AND DISORDERS OF DGSTV SYS SNOMED Code(s): 651629772 (2) Iron deficiency anemia due to chronic blood loss Current Visit: Yes Status: Acute Code(s): D50.0 - IRON DEFICIENCY ANEMIA SECONDARY TO BLOOD LOSS (CHRONIC) SNOMED Code(s): 945946223 (3) Gastrojejunal ulcer Current Visit: Yes Status: Acute Code(s): K28.9 - GASTROJEJUNAL ULCER, UNSP ACUTE OR CHR, W/O HEMOR OR PERF SNOMED Code(s): 55037961 (4) Small bowel obstruction Current Visit: Yes Status: Acute Code(s): K56.609 - UNSP INTESTNL OBST, UNSP TO PARTIAL VERSUS COMPLETE OBST SNOMED Code(s): 616080877
--- NOTE | 2019-03-12 17:02 | P.OBCN ---
History of Present Illness Consult date: 03/12/19 Requesting physician: Makenna Persaud Reason for consult: menorrhagia Chief complaint: Severe abdominal pain. Heavy menstrual bleeding History of present illness: This is a 38 year old 3 para 3 woman she was admitted after several day history of worsening upper abdominal pain and difficulty eating. She has a history of a Tristen-en-Y procedure 1 year ago. During her evaluation for her pain she was found to be significantly anemic. Her initial admission hemoglobin was 8.2 and dropped the following day to 6.5. The patient reports she is currently menstruating on day 5 of this cycle. She was a long-standing history of heavy problematic menses for which she follows with Dr. Jenkins. They have discussed treatment options in the past. Periods occur every 28-30 days and last between 7 and 10 days. 4 or 5 days of those are extremely heavy requiring frequent changing of maxi pads and super tampons. She often bleeds through her clothing. She does not have breakthrough bleeding or spotting at other times of her cycle. She denies blood in the stool or urine. Her current menstrual flow she says is typical for her but she is feeling more exhausted than usual. Her bleeding today is less than it was yesterday. Her gynecologic history is significant for 3 previous low transverse sections the most recent was in 2011. She had a tubal ligation at that time. Later in 2011 she underwent an additional gynecologic procedure with removal of her left fallopian tube and left ovary. She believes this is because of her heavy bleeding and findings of fibroids possible ovarian cysts. Pelvic ultrasound done today shows uterus measuring 8.7 x 6.1 x 8.1 cm with an endometrial stripe thickness of 0.6 cm. Left ovary is surgically absent and the right ovary is small and normal. There is some physiologic fluid in the abdomen. Review of Systems Constitutional: Reports fatigue, Denies chills, Denies fever Breasts: absent: masses Cardiovascular: Reports lightheadedness, Denies chest pain, Denies shortness of breath Respiratory: Denies cough Gastrointestinal: Reports as per HPI, Reports abdominal pain, Reports heartburn, Reports nausea, Denies constipation, Denies diarrhea Genitourinary: Reports as per HPI, Reports dysmenorrhea, Reports menorrhagia, Denies dysuria, Denies genital sores, Denies hematuria, Denies vaginal discharge Menstruation: Reports as per HPI Musculoskeletal: Denies low back pain Neurological: Denies headaches Hematologic/Lymphatic: Denies easy bruising Past Medical History Past Medical History: Diabetes Mellitus, Deep Vein Thrombosis (DVT), GERD/Reflux, Hypertension Additional Past Medical History / Comment(s): 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- nothing since, dysphagia, N/V recently, "Internal Shingles" in Right ear (August 2017); hearing in Right ear has been affected) History of Any Multi-Drug Resistant Organisms: None Reported Past Surgical History: Appendectomy, Bariatric Surgery, Section, Cholecystectomy, Tubal Ligation Additional Past Surgical History / Comment(s): left foot tendon tear repair, 3 , one ovary/tube removed, paraesophageal hernia repair, gastric bypass 2017 Past Anesthesia/Blood Transfusion Reactions: Previous Problems w/ Anesthesia, Motion Sickness, Postoperative Nausea & Vomiting (PONV) Additional Past Anesthesia/Blood Transfusion Reaction / Comm: gets irritable when waking up after anesthetic, trouble urinating after anesthesia Past Psychological History: Anxiety Smoking Status: Former smoker Past Alcohol Use History: None Reported Additional Past Alcohol Use History / Comment(s): quit smoking 3 yrs ago, smoked <ppd for 10 yrs. Past Drug Use History: None Reported - Past Family History Mother Family Medical History: Hyperlipidemia Additional Family Medical History / Comment(s): hypothyroid Father Family Medical History: Diabetes Mellitus, Hypertension Sister(s) Family Medical History: Deep Vein Thrombosis (DVT), Pulmonary Embolus Medications and Allergies Home Medications Medication Instructions Recorded Confirmed Type Acetaminophen Tab [Tylenol Tab] 650 mg PO Q4H PRN 03/10/19 03/10/19 History Calcium Carbonate [Tums] 1,000 mg PO TID PRN 03/10/19 03/10/19 History Allergies Allergy/AdvReac Type Severity Reaction Status Date / Time adhesive tape Allergy BLISTERS Verified 03/10/19 08:44 hydrochlorothiazide AdvReac MUSCLE Verified 03/10/19 08:44 PAINS ondansetron [From Zofran] AdvReac migraine Verified 03/10/19 08:44 headache chick peas Allergy Swelling Uncoded 03/07/19 08:53 Exam Vital Signs Temp Pulse Resp BP Pulse Ox 03/12/19 15:49 98 F 73 12 134/80 100 03/12/19 07:50 12 03/12/19 07:00 98.5 F 74 12 123/80 98 03/12/19 01:48 98.2 F 65 18 115/69 99 03/11/19 18:57 97.7 F 68 18 107/54 99 Intake and Output 03/12/19 03/12/19 03/12/19 06:59 14:59 22:59 Intake Total 600 Balance 600 Intake: Intake, IV Titration 600 Amount 0.9% NaCl with KCl 40 Meq 600 /l 1,000 ml @ 75 mls/hr IV .[id number] [facility] Rx#: [id number] Other: # Voids 3 Targeted physical examination is performed. This is a pale appearing but pleasant female in no apparent distress. HEENT exam is visually unremarkable. Her breathing is unlabored and her heart is a regular rate and rhythm, not tachycardic. The abdomen is soft with surgical scars consistent wi th her history. She has some generalized upper abdominal and epigastric pain. There is no rebound no guarding and no flank pain. On pelvic examination she has on the pad and tampon in place with no active bleeding noted. Bimanual exam is deferred secondary to recent transvaginal ultrasound. The extremities are free of any edema, redness or pain. Her mood and affect are normal. Neurologically she is grossly intact. Results Result Diagrams: 03/12/19 11:33 03/12/19 11:33 Abnormal Lab Results - Last 24 Hours (Table) 03/11/19 03/11/19 03/11/19 Range/Units 16:36 17:35 17:35 WBC 3.7 L 2.8 L (3.8-10.6) k/uL RBC 3.04 L 2.93 L (3.80-5.40) m/uL Hgb 6.7 L* D 6.5 L* (11.4-16.0) gm/dL Hct 23.3 L 23.0 L (34.0-46.0) % MCV 76.4 L 78.7 L (80.0-100.0) fL MCH 22.0 L 22.0 L (25.0-35.0) pg MCHC 28.8 L 28.0 L (31.0-37.0) g/dL RDW 16.0 H 16.4 H (11.5-15.5) % Glucose (74-99) mg/dL Iron 7 L (50-170) ug/dL Iron Saturation 2.45 L (12.00-45.00) Ferritin 8.4 L (10.0-291.0) ng/mL 03/12/19 03/12/19 Range/Units 11:33 11:33 WBC 3.7 L (3.8-10.6) k/uL RBC 2.80 L (3.80-5.40) m/uL Hgb 6.5 L* (11.4-16.0) gm/dL Hct 21.8 L (34.0-46.0) % MCV 77.6 L (80.0-100.0) fL MCH 23.1 L (25.0-35.0) pg MCHC 29.8 L (31.0-37.0) g/dL RDW 16.1 H (11.5-15.5) % Glucose 112 H (74-99) mg/dL Iron (50-170) ug/dL Iron Saturation (12.00-45.00) Ferritin (10.0-291.0) ng/mL CT scan - abdomen: report reviewed CT scan - pelvis: report reviewed US - abdomen: report reviewed Assessment and Plan (1) Acute blood loss anemia Current Visit: Yes Status: Acute Code(s): D62 - ACUTE POSTHEMORRHAGIC ANEMIA SNOMED Code(s): 014059246 (2) Iron deficiency anemia due to chronic blood loss Current Visit: Yes Status: Acute Code(s): D50.0 - IRON DEFICIENCY ANEMIA SECONDARY TO BLOOD LOSS (CHRONIC) SNOMED Code(s): 760445877 (3) Menometrorrhagia Narrative/Plan: This is a 38-year-old 3 para 3 woman with chronic menometrorrhagia, currently bleeding. We reviewed her normal pelvic ultrasound. She is started on 35 g oral contraceptive pill twice a day 3 days then to continue on daily. She reports her bleeding is less than yesterday and her usual menstrual cycle typically is 7-9 days total, currently day 5. I anticipate her bleeding to continue to improve however she will need a long-term plan. Her primary g ynecologist has discussed with her options and I do believe she is a good candidate for a NovaSure endometrial ablation procedure at some point. If there are no other medical contraindications she can continue on the oral contraceptive pill for cycle management in the short-term which should give her some significant relief. There is a slight increased risk of thrombosis on higher dose estrogens and DVT prophylaxis should be maintained during her hospital stay. I will continue to follow along during her hospital stay. Patient has stated to contact me if you have any further questions regarding my recommendations. Current Visit: Yes Status: Acute Code(s): N92.1 - EXCESSIVE AND FREQUENT MENSTRUATION WITH IRREGULAR CYCLE SNOMED Code(s): 714407507 (4) Abdominal pain Current Visit: No Status: Acute Code(s): R10.9 - UNSPECIFIED ABDOMINAL PAIN SNOMED Code(s): 43058521
--- NOTE | 2019-03-12 18:12 | P.PN ---
Progress Note - Text Progress Note Date: 03/12/[address] Mendoza. Patient has acute blood loss anemia and still has moderate bleeding from her menstrual cycle. In agreement for ablation prior to laparoscopy and possible open surgery. In the meantime, blood transfusion for symptomatic, acute blood anemia Hgb < 7 with pre-op Hgb less than 9. Will continue with iron infusions as well. Robotic lysis of adhesions deferred pending endometrial ablation and blood transfusion.
[2019-03-12 20:20] LABS: Partial Thromboplastin Time 25.6 sec (22.0-30.0); Prothrombin Time 10.4 sec (9.0-12.0)
[2019-03-12] MEDS ORDERED: ONDANSETRON 4 MG/2 ML VIAL IVP ONE (21:38)
[2019-03-12] MEDS ORDERED: HYDROmorphone 0.5 MG/0.5 ML SYRINGE IVP PRN (21:38)
[2019-03-12] MEDS ORDERED: DEXAMETHASONE SOD PHOSPHATE 10 MG/ML 1 ML VIAL IV ONE (21:38)
[2019-03-12] MEDS ORDERED: SODIUM CHLORIDE 0.9% 2,000 ML IV ONE (22:24)
[2019-03-12] MEDS: METOCLOPRAMIDE 5 MG/ML 2 ML VIAL IVP PRN (22:36)
[2019-03-12] MEDS: LACTATED RINGERS 1,000 ML IV SCH (22:40)
[2019-03-13] MEDS: SODIUM CHLORIDE 0.9% 2,000 ML IV SCH ×4 (03:17→08:58)
[2019-03-13] MEDS: HYDROmorphone 1 MG/ML 1 ML SYRINGE IVP PRN ×4 (07:38→22:44)
[2019-03-13] MEDS: ONDANSETRON 4 MG/2 ML VIAL IVP PRN ×2 (07:40→22:44)
--- NOTE | 2019-03-13 08:26 | P.PN ---
Subjective Progress Note Date: 03/13/19 Principal diagnosis: Abdominal pain, menorrhagia She reports significant decrease in bleeding overnight. Scant blood on her pad this morning which was in place the entire night. She denies cramping. Still having consistent up or abdominal pain however reports she is quite hungry. Mild nausea but no episodes of vomiting. Objective - Vital Signs Vital signs: Vital Signs Temp 98.3 F 03/13/19 07:59 Pulse 90 03/13/19 07:59 Resp 16 03/13/19 07:59 BP 133/63 03/13/19 07:59 Pulse Ox 100 03/13/19 07:59 Intake & Output 03/12/19 03/13/19 03/13/19 18:59 06:59 18:59 Intake Total 2310 Balance 2310 Intake: Intake, IV Titration 2000 Amount Sodium Chloride 0.9% 2, 2000 000 ml @ 999 mls/hr IV . Q2H1M [facility] Rx#:[id number] Blood Product 310 Rc As-1 Unit 310 [id number] Other: Voiding Method Toilet # Voids 3 - Constitutional General appearance: Present: average body habitus, cooperative, no acute distress - Gastrointestinal General gastrointestinal: Absent: distended, tenderness - Genitourinary Genitourinary Comment(s): Scant vaginal bleeding on pad - Psychiatric Psychiatric: Present: appropriate affect - Labs CBC & Chem 7: 03/12/19 11:33 03/12/19 11:33 Labs: Abnormal Lab Results - Last 24 Hours (Table) 03/11/19 03/12/19 03/12/19 Range/Units 17:35 11:33 11:33 WBC 3.7 L (3.8-10.6) k/uL RBC 2.80 L (3.80-5.40) m/uL Hgb 6.5 L* (11.4-16.0) gm/dL Hct 21.8 L (34.0-46.0) % MCV 77.6 L (80.0-100.0) fL MCH 23.1 L (25.0-35.0) pg MCHC 29.8 L (31.0-37.0) g/dL RDW 16.1 H (11.5-15.5) % Glucose 112 H (74-99) mg/dL Crossmatch See Detail Assessment and Plan (1) Acute blood loss anemia Current Visit: Yes Status: Acute Code(s): D62 - ACUTE POSTHEMORRHAGIC ANEMIA SNOMED Code(s): 771222324 (2) Iron deficiency anemia due to chronic blood loss Current Visit: Yes Status: Acute Code(s): D50.0 - IRON DEFICIENCY ANEMIA SECONDARY TO BLOOD LOSS (CHRONIC) SNOMED Code(s): 084386587 (3) Menometrorrhagia Current Visit: Yes Status: Acute Code(s): N92.1 - EXCESSIVE AND FREQUENT MENSTRUATION WITH IRREGULAR CYCLE SNOMED Code(s): 663266962 (4) Abdominal pain Current Visit: No Status: Acute Code(s): R10.9 - UNSPECIFIED ABDOMINAL PAIN SNOMED Code(s): 32587587 Plan: Significant improvement in vaginal bleeding overnight on oral estrogen and progesterone. No current active heavy bleeding. Hemoglobin pending for this a.m. She is asymptomatic at this time with ambulation and vital signs are stable. I discussed with her endometrial ablation for retirement control of her menorrhagia. Procedure and anticipated recovery were reviewed. Risks include ongoing bleeding, infection, uterine perforation with possible damage to pelvic and/or abdominal structures.
[2019-03-13] MEDS: PANTOPRAZOLE 40 MG TABLET PO SCH ×2 (08:51→17:54)
[2019-03-13] MEDS: SUCRALFATE 1 GM TAB PO SCH ×3 (08:51→17:54)
[2019-03-13] MEDS: NORGESTIMATE-ETHINYL ESTRADIOL 1 EACH TABLET PO SCH (08:52)
[2019-03-13] MEDS: POTASSIUM CITRATE 10 MEQ TABLET.ER PO SCH ×3 (08:52→17:54)
[2019-03-13] MEDS: SODIUM FERRIC GLUCONAT-SUCROSE 125 MG in SODIUM CHLORIDE 0.9% 100 ML IVPB SCH (09:15)
[2019-03-13 09:23] LABS: Anisocytosis Slight; HCT 26.3 % (34.0-46.0); HGB 7.7 gm/dL (11.4-16.0); Hypochromasia Marked; MCHC 29.2 g/dL (31.0-37.0); MCV 78.8 fL (80.0-100.0); Mean Platelet Volume 6.6; Microcytosis Slight; Platelet Count 191 k/uL (150-450); Poikilocytosis Moderate; RBC 3.34 m/uL (3.80-5.40); RDW 16.8 % (11.5-15.5); WBC 4.4 k/uL (3.8-10.6)
--- NOTE | 2019-03-13 14:09 | P.PN ---
<Angelica Resendiz - Last Filed: 03/13/19 13:51> Subjective Progress Note Date: 03/13/19 CHIEF COMPLAINT: Abdominal pain HISTORY OF PRESENT ILLNESS: Patient examined this morning at the bedside with Dr. Persaud. Patient reports nausea overnight but denies emesis. She is requesting to have her diet advanced however she continues to report abdominal pain. Patient received 1 unit RBC yesterday. Repeat hemoglobin is 7.7. Patient continues to have heavy menstrual bleeding but she does state it has improved some in comparison to yesterday. PHYSICAL EXAM: VITAL SIGNS: Reviewed GENERAL: Well-developed in no acute distress. HEENT: No sclera icterus. Extraocular movements grossly intact. Moist buccal mucosa. Head is atraumatic, normocephalic. Hears conversational speech. No nasal drainage. NECK: Supple without lymphadenopathy. CHEST: Non-labored respirations and equal bilateral excursions. CARDIOVASCULAR: Regular rate with regular rhythm. Palpable 2+ radial pulses. ABDOMEN: Soft. Nondistended. Tenderness upon palpation above umbilicus. Pos itive bowel sounds. No peritoneal signs. MUSCULOSKELETAL: No clubbing, cyanosis or edema. NEUROLOGIC: No focal or lateralizing signs. Cranial nerves II through XII grossly intact. PSYCH: Appropriate affect. Alert and oriented to person, place and time. SKIN: Well perfused. Good skin turgor. ASSESSMENT: 1. Gastrojejunal ulcer, s/p EGD 2. New severe anemia, iron deficient secondary to menstrual blood loss 3. Generalized abdominal pain 4. Internal hernia PLAN: 1. NPO 2. Monitor hemoglobin 3. Continue Protonix and Carafate 4. Patient scheduled for diagnostic hysteroscopy, dilation and curretage, and endometrial ablation today with Dr. Mendoza 5. May have ice chips and popsicles after procedure with Dr. Mendoza. Do not advance diet unless approved by Dr. Persaud 6. Patient will tentatively be scheduled for robotic lysis of adhesions, possible open on Sunday with Dr. Persaud Nurse practitioner note has been reviewed by physician. Signing provider agrees with the documented findings, assessment, and plan of care. Objective - Vital Signs Vital signs: Vital Signs Temp 98.3 F 03/13/19 07:59 Pulse 90 03/13/19 07:59 Resp 16 03/13/19 07:59 BP 133/63 03/13/19 07:59 Pulse Ox 100 03/13/19 07:59 Intake & Output 03/12/19 03/13/19 03/13/19 18:59 06:59 18:59 Intake Total 2310 Balance 2310 Intake: Intake, IV Titration 2000 Amount Sodium Chloride 0.9% 2, 2000 000 ml @ 999 mls/hr IV . Q2H1M [facility] Rx#:[id number] Blood Product 310 Rc As-1 Unit 310 [id number] Other: Voiding Method Toilet Toilet # Voids 3 1 - Labs CBC & Chem 7: 03/13/19 08:58 03/12/19 11:33 Labs: Abnormal Lab Results - Last 24 Hours (Table) 03/11/19 03/13/19 Range/Units 17:35 08:58 RBC 3.34 L (3.80-5.40) m/uL Hgb 7.7 L (11.4-16.0) gm/dL Hct 26.3 L (34.0-46.0) % MCV 78.8 L (80.0-100.0) fL MCH 23.0 L (25.0-35.0) pg MCHC 29.2 L (31.0-37.0) g/dL RDW 16.8 H (11.5-15.5) % Crossmatch See Detail Assessment and Plan (1) Gastrojejunal ulcer Current Visit: Yes Status: Acute Code(s): K28.9 - GASTROJEJUNAL ULCER, UNSP ACUTE OR CHR, W/O HEMOR OR PERF SNOMED Code(s): 15451557 (2) Abdominal pain Current Visit: No Status: Acute Code(s): R10.9 - UNSPECIFIED ABDOMINAL PAIN SNOMED Code(s): 05643945 <Makenna Persaud N - Last Filed: 03/13/19 18:12> Subjective As above. With patient persistent bleeding and possible need for open surgery, ablation advised. Will monitor for 24 hours for improvement of bleeding prior to exploratory laparotomy following ablation of the uterus Objective - Vital Signs Vital signs: Vital Signs Temp 97.5 F L 03/13/19 16:40 Pulse 62 03/13/19 17:18 Resp 16 03/13/19 17:18 BP 129/87 03/13/19 17:18 Pulse Ox 97 03/13/19 17:18 Intake & Output 03/12/19 03/13/19 03/13/19 18:59 06:59 18:59 Intake Total 2310 700 Output Total 60 Balance 2310 640 Intake: IV 700 Intake, IV Titration 2000 Amount Sodium Chloride 0.9% 2, 2000 000 ml @ 999 mls/hr IV . Q2H1M [facility] Rx#:[id number] Blood Product 310 Rc As-1 Unit 310 [id number] Output: Urine 50 Estimated Blood Loss 10 Other: Voiding Method Toilet Toilet # Voids 3 1 - Labs CBC & Chem 7: 03/13/19 08:58 03/12/19 11:33 Labs: Abnormal Lab Results - Last 24 Hours (Table) 03/11/19 03/13/19 Range/Units 17:35 08:58 RBC 3.34 L (3.80-5.40) m/uL Hgb 7.7 L (11.4-16.0) gm/dL Hct 26.3 L (34.0-46.0) % MCV 78.8 L (80.0-100.0) fL MCH 23.0 L (25.0-35.0) pg MCHC 29.2 L (31.0-37.0) g/dL RDW 16.8 H (11.5-15.5) % Crossmatch See Detail Assessment and Plan (1) Gastrojejunal anastomotic stricture Current Visit: Yes Status: Acute Code(s): K91.89 - OTH POSTPROCEDURAL COMPLICATIONS AND DISORDERS OF DGSTV SYS SNOMED Code(s): 701688730 (2) Iron deficiency anemia due to chronic blood loss Current Visit: Yes Status: Acute Code(s): D50.0 - IRON DEFICIENCY ANEMIA SECONDARY TO BLOOD LOSS (CHRONIC) SNOMED Code(s): 601311469 (3) Gastrojejunal ulcer Current Visit: Yes Status: Acute Code(s): K28.9 - GASTROJEJUNAL ULCER, UNSP ACUTE OR CHR, W/O HEMOR OR PERF SNOMED Code(s): 86661825 (4) Small bowel obstruction Current Visit: Yes Status: Acute Code(s): K56.609 - UNSP INTESTNL OBST, UNSP TO PARTIAL VERSUS COMPLETE OBST SNOMED Code(s): 638145040
[2019-03-13] MEDS: METOCLOPRAMIDE 5 MG/ML 2 ML VIAL IVP PRN (14:36)
[2019-03-13] MEDS ORDERED: IV FLUID CONTINUATION 1,000 ML IV ONE (15:04)
[2019-03-13] MEDS ORDERED: LIDOCAINE 1% 20 ML VIAL (10MG/ML) FOR IV START INTRADERMA ONE (15:08)
[2019-03-13] MEDS: LACTATED RINGERS 1,000 ML IV ONE (15:15)
[2019-03-13] MEDS: ONDANSETRON 4 MG/2 ML VIAL IVP ONE (15:22)
[2019-03-13] MEDS: DEXAMETHASONE SOD PHOSPHATE 10 MG/ML 1 ML VIAL IV ONE (15:23)
[2019-03-13] MEDS: SCOPOLAMINE 1.5MG/72HR PATCH TRANSDERM ONE (15:23)
[2019-03-13] MEDS ORDERED: LIDOCAINE 1%-EPI 1:100,000 20 ML VIAL SQ ONE ×2 (15:30)
[2019-03-13] MEDS ORDERED: LIDOCAINE 1% INJ 10MG/ML (20 ML MDV) ONE (15:59)
[2019-03-13] MEDS ORDERED: PROPOFOL 10 MG/ML 20 ML VIAL IV ONE (15:59)
[2019-03-13] MEDS ORDERED: fentaNYL (PF) 50 MCG/ML 2 ML AMP ONE (15:59)
[2019-03-13] MEDS ORDERED: SUCCINYLCHOLINE CHLORIDE 100 MG/5 ML SYR IV ONE (15:59)
[2019-03-13] MEDS ORDERED: MIDAZOLAM 2 MG/2 ML VIAL ONE (15:59)
[2019-03-13] MEDS ORDERED: LACTATED RINGERS 1,000 ML IV ONE (16:19)
--- NOTE | 2019-03-13 16:47 | P.OP ---
Date of Procedure: 03/13/19 Preoperative Diagnosis: Menometrorrhagia Acute blood loss anemia Upper abdominal pain Possible bowel obstruction Postoperative Diagnosis: Same Procedure(s) Performed: Diagnostic hysteroscopy with dilation and curettage, NovaSure endometrial ablation Anesthesia: STEPHANIE Surgeon: Taylor Mendoza Estimated Blood Loss (ml): 10 IV fluids (ml): 400 Urine output (ml): 50 Pathology: other (Endometrial curettings) Condition: stable Disposition: PACU Operative Findings: Retroverted uterus. Fluffy endometrium with moderate clot and debris obscuring visualization of the bilateral tubal ostia Description of Procedure: After the patient and her family were met in the preoperative holding area and the procedure was again reviewed in detail and all questions were answered, she was taken the operating room anesthetic was administered without incident. test was confirmed negative. Appropriate timeout procedure was undertaken. She was positioned, prepped and draped in the dorsal lithotomy position. Exam under anesthetic was undertaken. Bladder was drained for approximately 50 mL of clear urine. The cervix was grasped with single-tooth tenaculum and the uterus was sounded to approximately 9 cm. The cervix was sequentially dilated with Hegar dilators to allow for passage of the diagnostic hysteroscope. Hysteroscope was introduced and a very fluffy endometrium with some debris was noted. No active bleeding was appreciated. The hysteroscope was removed and the cervix was further dilated to allow for passage of a small sharp banjo curet. Circumferential curettage was undertaken to obtain a automotive leasing sales representative specimen. The curet was removed and the NovaSure endometrial ablation device was inserted. The length of the uterus was 5.5 cm width was 4.7 centimeters. The cavity assessment test was passed and the device was enabled. Treatment cycle timeout was 87 seconds with a power of 142 W. The device did stop working at the several occasions due to vacuum malfunction. Each time the vacuum appeared to be working appropriately and the device was re-enabled and the treatment cycle continued. After approximately 90 seconds of the device was removed and the diagnostic hysteroscope was reintroduced. Complete and appropriate desiccation of the endometrium was appreciated. Hysteroscope was removed. Paracervical block was placed in the cervix for postoperative pain control. Cervix was inspected and no bleeding was noted from the cervix with a tenaculum sites. Speculum was removed. Patient was awoken from anesthetic without incident and transported recovery area in stable condition. All counts reported to me as correct by the operating room staff.
[2019-03-13] MEDS: LACTATED RINGERS 1,000 ML IV SCH (18:12)
[2019-03-14] MEDS: HYDROmorphone 1 MG/ML 1 ML SYRINGE IVP PRN ×4 (03:02→22:15)
[2019-03-14] MEDS: PANTOPRAZOLE 40 MG TABLET PO SCH ×2 (07:20→19:26)
[2019-03-14] MEDS: SUCRALFATE 1 GM TAB PO SCH ×3 (07:20→19:26)
[2019-03-14 07:59] LABS: Anisocytosis Slight; Basophils % (A) 1 %; Eosinophils % (A) 0 %; HCT 27.4 % (34.0-46.0); HGB 8.3 gm/dL (11.4-16.0); Hypochromasia Marked; Lymphocytes % (A) 31 %; MCH 23.6 pg (25.0-35.0); MCHC 30.2 g/dL (31.0-37.0); Microcytosis Slight; Monocytes # (A) 0.4 k/uL (0-1.0); Monocytes % (A) 6 %; Neutrophils # (A) 3.7 k/uL (1.3-7.7); Neutrophils % (A) 59 %; Platelet Count 201 k/uL (150-450); Poikilocytosis Moderate; RBC 3.51 m/uL (3.80-5.40); RDW 16.6 % (11.5-15.5); WBC 6.2 k/uL (3.8-10.6)
[2019-03-14] MEDS: POTASSIUM CITRATE 10 MEQ TABLET.ER PO SCH ×3 (08:55→21:32)
--- NOTE | 2019-03-14 09:59 | P.PN ---
Progress Note - Text Progress Note Date: 03/14/19 Fozia reports she is feeling well this morning. Minimal cramping or pelvic pain. Scant vaginal discharge, no active bleeding. Operative findings reviewed with the patient in detail. Anticipated postprocedure bleeding profile in the short and long-term reviewed. Recommend she follow up with me in 3-4 weeks in the office. No intercourse, nothing in the vagina for 4 weeks.
[2019-03-14] MEDS: SODIUM FERRIC GLUCONAT-SUCROSE 125 MG in SODIUM CHLORIDE 0.9% 100 ML IVPB SCH (11:00)
[2019-03-14] MEDS ORDERED: IV FLUID CONTINUATION 1,000 ML IV ONE (15:19)
[2019-03-14] MEDS: DEXAMETHASONE SOD PHOSPHATE 10 MG/ML 1 ML VIAL IV ONE (15:35)
[2019-03-14] MEDS: ONDANSETRON 4 MG/2 ML VIAL IVP ONE (15:35)
[2019-03-14] MEDS: SCOPOLAMINE 1.5MG/72HR PATCH TRANSDERM ONE (15:35)
[2019-03-14] MEDS: LACTATED RINGERS 1,000 ML IV ONE (15:35)
[2019-03-14] MEDS ORDERED: MIDAZOLAM 2 MG/2 ML VIAL IVP ONE ×2 (15:47→15:50)
--- NOTE | 2019-03-14 15:53 | P.HPADDEND ---
H&P Addendum H&P Addendum Date: 03/14/19 Patient hemoglobin improved after ablation. Abdominal pain and pelvic pain improved. We'll proceed with robotic lysis of adhesions for internal hernia and small bowel obstruction.
[2019-03-14] MEDS ORDERED: SUCCINYLCHOLINE CHLORIDE 100 MG/5 ML SYR IV ONE (15:59)
[2019-03-14] MEDS ORDERED: PROPOFOL 10 MG/ML 20 ML VIAL IV ONE (15:59)
[2019-03-14] MEDS ORDERED: ROCURONIUM BROMIDE 10 MG/ML 10 ML VIAL IV ONE (15:59)
[2019-03-14] MEDS ORDERED: HYDROmorphone (PF) 1 MG/ML ONE (15:59)
[2019-03-14] MEDS ORDERED: ROPIVACAINE 5 MG/ML 30 ML VIAL ONE (15:59)
[2019-03-14] MEDS ORDERED: LIDOCAINE 1% INJ 10MG/ML (20 ML MDV) ONE (15:59)
[2019-03-14] MEDS ORDERED: NEOSTIGMINE 1 MG/ML 10 ML VIAL ONE (15:59)
[2019-03-14] MEDS ORDERED: GLYCOPYRROLATE 0.2 MG/ML 2 ML VIAL ONE (15:59)
[2019-03-14] MEDS ORDERED: LABETALOL 5 MG/ML VIAL MDV ONE (15:59)
[2019-03-14] MEDS ORDERED: fentaNYL (PF) 50 MCG/ML 2 ML AMP ONE (15:59)
[2019-03-14] MEDS ORDERED: MIDAZOLAM 2 MG/2 ML VIAL ONE (15:59)
[2019-03-14] MEDS ORDERED: SODIUM CHLORIDE 0.9% 50 ML with ceFAZolin 2,000 MG IV ONE ×2 (16:31)
[2019-03-14] MEDS ORDERED: LIDOCAINE 1%-EPI 1:100,000 20 ML VIAL SQ ONE (16:34)
[2019-03-14] MEDS ORDERED: LACTATED RINGERS 1,000 ML IV ONE (16:43)
[2019-03-14] MEDS ORDERED: HYDROcodone/APAP 5-325MG 1 EACH TAB PO PRN (18:29)
[2019-03-14] MEDS ORDERED: ACETAMINOPHEN IV (For NPO) 1,000 MG in EMPTY BAG 1 BAG IVPB ONE (18:29)
--- NOTE | 2019-03-14 18:44 | P.OP ---
Date of Procedure: 03/14/19 Description of Procedure: SURGEON: MERLYN DRAPER MD PREOPERATIVE DIAGNOSES: 1. Epigastric abdominal pain 2. Abnormal computed tomography scan with internal hernia 3. History of gastric bypass 4. Small bowel obstruction 5. Acute blood loss anemia due to metromenorrhagia 6. 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 Epigastric abdominal pain 2. Abnormal computed tomography scan with internal hernia 3. History of gastric bypass 4. Small bowel obstruction 5. Acute blood loss anemia due to metromenorrhagia 6. Internal hernia with small bowel volvulus 7. Sigmoid volvulus 8. 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 Robotic-assisted da Mateo Xi laparoscopic with extensive lysis of adhesions over 1 hr minutes. ESTIMATED BLOOD LOSS: 5 mL. SPECIMENS REMOVED: None. COMPLICATIONS: None. OPERATIVE FINDINGS: 1. No ventral hernias identified. 2. Adhesions along the epigastrium, left upper quarant 3. Long mesentery of the small bowel with small bowel volvulus reduced 4. Complete scarring of Sanford defect and jejunojejunostomy mesenteric defect 5. Adhesion of gastrojejunal anastomosis to the anterior abdominal wall released 6. Moderate gaseous distention of sigmoid colon, redundant with sigmoid volvulus reduced 7. Abnormal adhesions of biliopancreatic limb jejunostomy to rubens limb divided 8. Normal terminal ileum and cecum unremarkable. INDICATIONS: The patient is a 38-year-old female who presents with epigastric abdominal pain including left upper quadrant abdominal pain. Surgical intervention with diagnostic laparoscopy, lysis of adhesions were described. Informed consent was obtained. Robotic assisted laparoscopic approach was described. Benefits and risks of the procedure including but not limited to bleeding, infection, injury to the small bowel was described. Informed consent was obtained. DESCRIPTION OF PROCEDURE: Patient was brought to the operating room, placed in supine position. After general induction, the abdomen had been prepped and draped in standard sterile fashion. The robotic da Mateo XI system was primed. After a timeout protocol was performed, the patient had been prepped and draped in standard sterile fashion. The robot was docked along the right lateral abdomen. The patient was repositioned in with right side up. Please note prior to docking of the robot; however, a 5 mm 0 degrees laparoscopic trocar entry was performed along the left upper quadrant. The abdomen was insufflated to 15 mmHg pressure which she tolerated well. Diagnostic laparoscopy was performed. Next, three 8 mm robotic ports were placed along the right lateral abdominal wall. The camera 8-mm port was maintained along mid-lateral abdomen. Please note that the ports were placed at least 10 to 15 cm away from the target anatomy. Instruments including graspers and vessel sealer were interchanged by the assistant professor of communication. I had sat at the console. No evidence of incisional hernia was identified. The rest of the abdomen was unremarkable for small bowel pathology. The small bowel from the rubens limb to distal ileum was inspected. The small bowel was investigated from the terminal ileum to the ligament of Treitz with finding of redundant mesentery with active small bowel volvulus involving the jejunum to the jejunojejunostomy mesenteric defect. Abnormal adhesions to the jejunojejunostomy was identified and divided. The mesentery small bowel volvulus were reduced. Adhesions along the epigastrium linvolving the transverse colon to the rubens limb with an active internal hernia was lysed using vessel sealer. No herniation of bowel was found along the Sanford defect or jejunojejunostomy mesenteric defect. Adhesion of gastrojejunal anastomosis to the anterior abdominal wall was released. Moderate gaseous distention of sigmoid colon was identified with an active sigmoid volvulus similarly reduced secondary to highly redundant colon. The terminal ileum and cecum was unremarkable. Extensive lysis of adhesions over 1 hr was performed. The small bowel was viable.The robot was undocked. All pneumoperitoneum instruments were evacuated from the abdominal cavity. The incisions were reapproximated using 4-0 Monocryl in an interrupted subcuticular fashion. Please note along the trocar sites, local anesthetic was placed as a field block prior to insertion of all instruments. Exofin was applied to the skin. At the end of the procedure needle, sponge, and instrument count had been verified correct by the surgical resident. The patient was transferred to postanesthesia care unit in stable condition.
[2019-03-14] MEDS: LACTATED RINGERS 1,000 ML IV SCH (21:27)
[2019-03-14] MEDS: SODIUM CHLORIDE 0.9% 1,000 ML IV SCH (21:32)
[2019-03-15] MEDS: BENZOCAINE/MENTHOL LOZENG 1 EACH LOZENGE MUCOUS MEM PRN ×2 (00:20→08:21)
[2019-03-15] MEDS: HYDROmorphone 1 MG/ML 1 ML SYRINGE IVP PRN ×3 (02:14→10:45)
[2019-03-15 06:49] LABS: Anisocytosis Slight; Basophils % (A) 0 %; Eosinophils % (A) 0 %; HCT 28.2 % (34.0-46.0); HGB 8.6 gm/dL (11.4-16.0); Hypochromasia Marked; Lymphocytes % (A) 27 %; MCH 23.8 pg (25.0-35.0); MCHC 30.3 g/dL (31.0-37.0); MCV 78.5 fL (80.0-100.0); Mean Platelet Volume 6.1; Microcytosis Slight; Monocytes # (A) 0.4 k/uL (0-1.0); Monocytes % (A) 5 %; Neutrophils # (A) 4.8 k/uL (1.3-7.7); Neutrophils % (A) 65 %; Platelet Count 213 k/uL (150-450); Poikilocytosis Moderate; RDW 16.9 % (11.5-15.5); WBC 7.3 k/uL (3.8-10.6)
--- NOTE | 2019-03-15 06:58 | US ---
EXAMINATION TYPE: US venous doppler duplex UE RT DATE OF EXAM: 03/14/2019 COMPARISON: US 2017 CLINICAL HISTORY: r/o dvt. R/O DVT. Hx clot in cephalic vein. Patient does not take blood thinners. SIDE PERFORMED: Right Right Arm: Internal echoes seen within cephalic vein mid forearm extending to elbow area. Vein does n ot compress in this segment. Radial and ulnar veins stay separate to upper arm. No evidence of DVT in veins imaged. There is venous flow demonstrated in the right subclavian axillary and brachial veins. IMPRESSION: There is minimal superficial vein thrombosis in the cephalic vein. No evidence of deep ve nous thrombosis in the right arm.
[2019-03-15 07:00] LABS: African American GFR (CKD) >90 (>60 ml/min/1.73 sqM); Anion Gap 8 mmol/L; Blood Urea Nitrogen 6 mg/dL (7-17); Calcium 9.1 mg/dL (8.4-10.2); Carbon Dioxide 26 mmol/L (22-30); Chloride 105 mmol/L (98-107); Glucose 94 mg/dL (74-99); Non-African American GFR(CKD) >90 (>60 ml/min/1.73 sqM); Potassium 3.8 mmol/L (3.5-5.1); Sodium 139 mmol/L (137-145)
[2019-03-15 07:37] VITALS: BP 153/79; PULSE 86; RESP 16; TEMP 97.8
[2019-03-15] MEDS: PANTOPRAZOLE 40 MG TABLET PO SCH (08:21)
[2019-03-15] MEDS: SUCRALFATE 1 GM TAB PO SCH ×2 (08:21→13:15)
[2019-03-15] MEDS: POTASSIUM CITRATE 10 MEQ TABLET.ER PO SCH ×2 (08:21→13:15)
[2019-03-15] MEDS: SODIUM CHLORIDE 0.9% 1,000 ML IV SCH (08:25)
[2019-03-15] MEDS ORDERED: NORGESTIMATE-ETHINYL ESTRADIOL 1 EACH TABLET PO SCH (09:00)
[2019-03-15] MEDS ORDERED: ENOXAPARIN 40 MG/0.4 ML SYRINGE SQ SCH (09:00)
[2019-03-15] MEDS: SODIUM FERRIC GLUCONAT-SUCROSE 125 MG in SODIUM CHLORIDE 0.9% 100 ML IVPB SCH (09:15)
--- NOTE | 2019-03-15 11:30 | P.DS ---
Providers Date of admission: 03/12/19 10:31 Attending physician: Makenna Persaud Consults: 03/12/19 08:10 Consult Physician Routine Consulting Provider: Taylor Mendoza Consult Reason/Comments: Acute anemia with vaginal bleeding Do you want consulting provider notified?: Yes Primary care physician: Fadi Yen David - Discharge Diagnosis(es) (1) Gastrojejunal anastomotic stricture Status: Acute (2) Iron deficiency anemia due to chronic blood loss Status: Acute (3) Gastrojejunal ulcer Status: Acute (4) Small bowel obstruction Status: Acute (5) History of gastric bypass Status: Acute (6) Small bowel volvulus Status: Acute (7) Sigmoid volvulus Status: Acute (8) Peritoneal adhesions with obstruction Status: Acute (9) Abdominal pain Status: Acute (10) Acute blood loss anemia Status: Acute (11) Menometrorrhagia Status: Acute (12) Blood transfusion during current hospitalization Status: Acute Hospital Course: POSTOPERATIVE DIAGNOSES: 1. Epigastric abdominal pain 2. Abnormal computed tomography scan with internal hernia 3. History of gastric bypass 4. Small bowel obstruction 5. Acute blood loss anemia due to metromenorrhagia 6. Internal hernia with small bowel volvulus 7. Sigmoid volvulus 8. 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 Urinating. Abdominal pain improved. She is urinating. Hgb improved. Agreeable for discharge COURSE: The patient is a 38-year-old female who presented acutely with epigastric abdominal pain 3-4 days prior to going to the ER. She was admitted for persistent abdominal pain worsening. She had upper endoscopy showing gastrojejunal ulcer. She developed acute blood loss anemia from heavy menses. She had uterine ablation by the it application architect. She had additional studies showing internal hernia with small bowel obstruction. She underwent lysis of adhesions with reduction of small bowel volvulus, sigmoid volvulus and adhesions. Prior to discharge, she was tolerating diet and passing flatus. She was feeling much better. PHYSICAL EXAM: VITAL SIGNS: Reviewed CONSTITUTIONAL: Well developed and in no acute distress. EYES: Conjuctivae without sclera icterus. Extraocular movements grossly intact. HEAD, EARS, NOSE, THROAT: Moist buccal mucosa. Head is atraumatic, normocephalic. Hears conversational speech. No nasal drainage. NECK: Supple. No thyroidomegaly. RESPIRATORY: Non-labored respirations and equal bilateral excursions. CARDIOVASCULAR: Palpable 2+ radial pulses. Regular rate. Regular rhythm. ABDOMEN: Incisions, clean dry and intact MUSCULOSKELETAL: No gross deformity of the lower extremities noted. No clubbing. No cyanosis. SKIN: Good skin turgor. Well perfused. NEUROLOGIC: Cranial nerves I through XII grossly intact. No focal or lateralizing signs. PSYCH: Appropriate affect. Alert and oriented to person, place and time. ASSESSMENT: 1. Gastrojejunal ulcer 2. New severe anemia, iron deficient secondary to menstrual blood loss 3. Generalized abdominal pain PLAN: 1. Discharge with follow up in the bariatric center in 5 days. Vital Signs Temp 97.8 F 03/15/19 07:00 Pulse 86 03/15/19 07:00 Resp 16 03/15/19 07:00 BP 153/79 03/15/19 07:00 Pulse Ox 100 03/15/19 07:00 Intake & Output 03/14/19 03/15/19 03/15/19 18:59 06:59 18:59 Intake Total 1650 925 Output Total 555 1525 Balance 1095 -600 Weight 73.482 kg Intake: IV 1650 Intake, IV Titration 925 Amount ACETAMINOPHEN IV (For NPO 100 ) 1,000 mg In Empty Bag 1 bag @ 400 mls/hr IVPB ONCE ONE Rx#:[id number] Sodium Chloride 0.9% 1, 825 000 ml @ 75 mls/hr IV . [id number] Rx#:[id number] Output: Urine 550 1525 Estimated Blood Loss 5 Other: Voiding Method Toilet Indwelling Catheter # Voids 2 Laboratory Last Values WBC 7.3 k/uL (3.8-10.6) 03/15/19 06:18 RBC 3.60 m/uL (3.80-5.40) L 03/15/19 06:18 Hgb 8.6 gm/dL (11.4-16.0) L 03/15/19 06:18 Hct 28.2 % (34.0-46.0) L 03/15/19 06:18 MCV 78.5 fL (80.0-100.0) L 03/15/19 06:18 MCH 23.8 pg (25.0-35.0) L 03/15/19 06:18 MCHC 30.3 g/dL (31.0-37.0) L 03/15/19 06:18 RDW 16.9 % (11.5-15.5) H 03/15/19 06:18 Plt Count 213 k/uL (150-450) 03/15/19 06:18 Neutrophils % 65 % 03/15/19 06:18 Lymphocytes % 27 % 03/15/19 06:18 Monocytes % 5 % 03/15/19 06:18 Eosinophils % 0 % 03/15/19 06:18 Basophils % 0 % 03/15/19 06:18 Neutrophils # 4.8 k/uL (1.3-7.7) 03/15/19 06:18 Lymphocytes # 2.0 k/uL (1.0-4.8) 03/15/19 06:18 Monocytes # 0.4 k/uL (0-1.0) 03/15/19 06:18 Eosinophils # 0.0 k/uL (0-0.7) 03/15/19 06:18 Basophils # 0.0 k/uL (0-0.2) 03/15/19 06:18 Manual Slide Review Performed 03/11/19 16:36 Hypochromasia Marked 03/15/19 06:18 Poikilocytosis Moderate 03/15/19 06:18 Poikilocytosis (manual Present 03/11/19 16:36 Anisocytosis Slight 03/15/19 06:18 Microcytosis Slight 03/15/19 06:18 Rouleaux Present 03/11/19 16:36 PT 10.4 sec (9.0-12.0) 03/12/19 19:08 INR 1.0 (<1.2) 03/12/19 19:08 APTT 25.6 sec (22.0-30.0) 03/12/19 19:08 Fibrinogen 263 mg/dL (200-500) 03/12/19 19:08 Sodium 139 mmol/L (137-145) 03/15/19 06:18 Potassium 3.8 mmol/L (3.5-5.1) 03/15/19 06:18 Chloride 105 mmol/L (98-107) 03/15/19 06:18 Carbon Dioxide 26 mmol/L (22-30) 03/15/19 06:18 Anion Gap 8 mmol/L 03/15/19 06:18 BUN 6 mg/dL (7-17) L 03/15/19 06:18 Creatinine 0.63 mg/dL (0.52-1.04) 03/15/19 06:18 Est GFR (CKD-EPI)AfAm >90 (>60 ml/min/1.73 sqM) 03/15/19 06:18 Est GFR (CKD-EPI)NonAf >90 (>60 ml/min/1.73 sqM) 03/15/19 06:18 Glucose 94 mg/dL (74-99) 03/15/19 06:18 Calcium 9.1 mg/dL (8.4-10.2) 03/15/19 06:18 Magnesium 2.2 mg/dL (1.6-2.3) 03/10/19 08:30 Iron 7 ug/dL (50-170) L 03/11/19 17:35 TIBC 286 ug/dL (228-460) 03/11/19 17:35 Iron Saturation 2.45 (12.00-45.00) L 03/11/19 17:35 Ferritin 8.4 ng/mL (10.0-291.0) L 03/11/19 17:35 Urine HCG, Qual Not Detected (Not Detectd) 03/13/19 11:00 Blood Type A Positive 03/11/19 17:35 Blood Type Recheck A Pos 03/11/19 17:35 Bld Type Recheck Status No 03/11/19 17:35 Antibody Screen NEGATIVE 03/11/19 17:35 Crossmatch See Detail 03/11/19 17:35 Spec Expiration Date 03/14/2019 - 8676 03/11/19 17:35 Procedures: OPERATION: 1. Robotic-assisted da Mateo Xi laparoscopic with extensive lysis of adhesions over 1 hr minutes. ESTIMATED BLOOD LOSS: 5 mL. SPECIMENS REMOVED: None. COMPLICATIONS: None. Patient Condition at Discharge: Stable Plan - Discharge Summary Discharge Rx Participant: Yes New Discharge Prescriptions: New Bisacodyl [Dulcolax] 5 mg PO DAILY PRN #10 tablet. PRN Reason: Constipation Simethicone 40 mg/0.6 ml Drops [Mylicon Drops] 40 mg PO PCHS PRN #30 ml PRN Reason: Gas Ondansetron Odt [Zofran Odt] 4 mg PO Q8HR PRN #9 tab PRN Reason: Nausea HYDROcodone/APAP 5-325MG [[place] 5-325] 1 tab PO Q6HR PRN 3 Days #10 tab PRN Reason: Pain Omeprazole 40 mg PO DAILY #30 capsule. Acetaminophen Tab [Tylenol Tab] 500 mg PO Q6H PRN #30 tablet PRN Reason: Pain Continue Calcium Carbonate [Tums] 1,000 mg PO TID PRN PRN Reason: Heartburn Discontinued Acetaminophen Tab [Tylenol Tab] 650 mg PO Q4H PRN PRN Reason: Pain Or Fever > 100.5 Discharge Medication List Calcium Carbonate [Tums] 1,000 mg PO TID PRN 03/10/19 [History] Acetaminophen Tab [Tylenol Tab] 500 mg PO Q6H PRN #30 tablet 03/15/19 [Rx] Bisacodyl [Dulcolax] 5 mg PO DAILY PRN #10 tablet. 03/15/19 [Rx] HYDROcodone/APAP 5-325MG [[place] 5-325] 1 tab PO Q6HR PRN 3 Days #10 tab 03/15/19 [Rx] Omeprazole 40 mg PO DAILY #30 capsule. 03/15/19 [Rx] Ondansetron Odt [Zofran Odt] 4 mg PO Q8HR PRN #9 tab 03/15/19 [Rx] Simethicone 40 mg/0.6 ml Drops [Mylicon Drops] 40 mg PO PCHS PRN #30 ml 03/15/19 [Rx] Follow up Appointment(s)/Referral(s): Taylor Mendoza MD [STAFF PHYSICIAN] - 4 Weeks (office closed at time of discharge please call to make appointment) Makenna Persaud MD [STAFF PHYSICIAN] [facility] [place] [place] - 03/19/19 (Keep your current appointment) Patient Instructions/Handouts: *[facility] - ([facility]) Endometrial Ablation Post-Op Instructions, Lysis of Abdominal Adhesions (DC), Lysis of Abdominal Adhesions (IP), Endometrial Ablation (DC) Activity/Diet/Wound Care/Special Instructions: May shower. No bathtubs soaks for 10 days, March 25, 2019. No lifting over 10 pounds for 10 days, March 25, 2019. Advance diet as tolerated. Discharge Disposition: HOME SELF-CARE
[2019-03-15 14:11] LABS: Hemoglobin A1C 5.4 % (4.0-6.0)
--- NOTE | 2019-03-19 14:15 | CDI ---
Documentation Clarification Form Date: 03/19/2019 1:57:53 PM From: CHEO Dejesus; Lisa Chaudhry, Physician Office Specialist Phone: If you have any questions about this query, please contact Lisa Chaudhry, at [phone] between 8 am and 5 pm. Admit Date: 03/12/2019 10:31:00 AM Patient Name: Fozia Boucher Visit Number: [id number] Discharge Date: 03/15/2019 1:43:00 PM ATTENTION: The Clinical Documentation Specialists (CDI) and [facility] Coding Staff appreciate your assistance in clarifying documentation. Please respond to the clarification below the line at the bottom and electronically sign. The CDI & [facility] Coding staff will review the response and follow-up if needed. Please note: Queries are made part of the Legal Health Record. If you have any questions, please contact the author of this message via ITS. Dr. Makenna Persaud The patient presented with a gastrojejunal ulcer with stricture. History/Risk Factors: Status post bariatric surgery. Clinical Indicators: Dysphagia, epigastric abdominal pain. Vital Signs: temp 97.8, pulse 95, resp 16 BP 140/92 Treatment: Lysis of adhesions/released gastrojejunal anastomosis from abdominal wall. In your professional opinion, can you please clarify? Gastrojejunal ulcer is complication of bariatric surgery Other, please specify Unable to determine Gastrojejunal ulcer is inherent to gastric bypass patient's especially with prior history of gastric ulcers, NSAID use, H. pylori, and over-acid production. In this case, her ulcer is not a complication of surgery KM 03/19/19 17:48 MTDD
== END 2019-03-15 13:43 | disposition home or self-care (01) | DRG 326 ==
LOC: EC 08:10 → EDSTATUS 09:22 → 4SSUR 09:26 → OBSVTOIN 03-12 10:31
PROVIDERS: ADMIT Surgery Plastic and Reconstructive Surgery; ATTEND Surgery Plastic and Reconstructive Surgery
PROC: 0DJ08ZZ Inspection of Upper Intestinal Tract, Via Natural or Artificial Opening Endoscopic (ICD-10-PCS; 2019-03-10)
PROC: 30233N1 Transfusion of Nonautologous Red Blood Cells into Peripheral Vein, Percutaneous Approach (ICD-10-PCS; 2019-03-12)
PROC: 0U5B8ZZ Destruction of Endometrium, Via Natural or Artificial Opening Endoscopic (ICD-10-PCS; 2019-03-13)
PROC: 0DN Gastrointestinal System, Release (ICD-10-PCS; principal; 2019-03-14 16:45)
PROC: 0DNL4ZZ Release Transverse Colon, Percutaneous Endoscopic Approach (ICD-10-PCS; principal; 2019-03-14 16:45)
PROC: 0DN84ZZ Release Small Intestine, Percutaneous Endoscopic Approach (ICD-10-PCS; principal; 2019-03-14 16:45)
PROC: 0DNN4ZZ Release Sigmoid Colon, Percutaneous Endoscopic Approach (ICD-10-PCS; principal; 2019-03-14 16:45)
DX: K28.3 Acute gastrojejunal ulcer without hemorrhage or perforation (principal); K56.2 Volvulus; D62 Acute posthemorrhagic anemia; K56.50 Intestinal adhesions [bands], unspecified as to partial versus complete obstruction; D53.9 Nutritional anemia, unspecified; E11.43 Type 2 diabetes mellitus with diabetic autonomic (poly)neuropathy; K31.84 Gastroparesis; F41.9 Anxiety disorder, unspecified; I11.9 Hypertensive heart disease without heart failure; K21.9 Gastro-esophageal reflux disease without esophagitis; K46.9 Unspecified abdominal hernia without obstruction or gangrene; N85.4 Malposition of uterus; R13.10 Dysphagia, unspecified; Z82.49 Family history of ischemic heart disease and other diseases of the circulatory system; Z83.3 Family history of diabetes mellitus; Z87.11 Personal history of peptic ulcer disease; Z87.891 Personal history of nicotine dependence; Z90.721 Acquired absence of ovaries, unilateral; Z98.84 Bariatric surgery status; Z90.49 Acquired absence of other specified parts of digestive tract; Z98.51 Tubal ligation status
CPT/HCPCS: 36415; 43239; 64488; 74177; 76830; 80048; 81025; 82728; 83036; 83540; 83550; 83735; 85025; 85027; 85384; 85610; 85730; 86850; 86900; 86901; 86920; 88305

== ENCOUNTER → 2019-03-19 | Outpatient (CLI) | payer OTHER ==
--- NOTE | 2019-03-08 11:52 | P.PN ---
Progress Note - Text Progress Note Date: 03/08/19 Patient called regarding epigastric abdominal pain to back ongoing for several days. Diarrhea on going for months. Patient failed to follow up from outpatient visit since November, 4 months ago. She went to ER Mar 07, yesterday, told she had ileus versus enteritis. Told her to keep hydrated. Will likely need upper endoscopy for gastrojejunal ulcer and stricture by clinical history. She is directed to proceed to the ER for work-up of abdominal pain and scope
[2019-03-19 14:59] VITALS: BP 144/89; PULSE 99; TEMP 98; BMI 26.7
--- NOTE | 2019-03-19 15:38 | P.PN ---
Subjective Progress Note Date: 03/19/19 HPI: She has severe irion deficiency with picca of ice and salt. She reports no further abdominal papin. She is passing flatus and having bowel movements. Recommend iron infusion. She will follow up with mill dresser. Follow up April Objective - Vital Signs Vital signs: Vital Signs Temp 98.0 F 03/19/19 14:51 Pulse 99 03/19/19 14:51 Resp BP 144/89 03/19/19 14:51 Pulse Ox Intake & Output 03/18/19 03/19/19 03/19/19 18:59 06:59 18:59 Weight 73.482 kg
== END | disposition home or self-care (01) ==
LOC: BARWHC3 14:02
PROVIDERS: ATTEND Surgery Plastic and Reconstructive Surgery
DX: E66.01 Morbid (severe) obesity due to excess calories (principal); K28.9 Gastrojejunal ulcer, unspecified as acute or chronic, without hemorrhage or perforation; K92.89 Other specified diseases of the digestive system; E61.1 Iron deficiency; R19.7 Diarrhea, unspecified; Z68.26 Body mass index [BMI] 26.0-26.9, adult
CPT/HCPCS: 97803; G0463; 99211

== ENCOUNTER 2019-03-20 07:14 | Inpatient (IN) | payer OTHER ==
[2019-03-20] MEDS ORDERED: MORPHINE SULFATE 4 MG/ML SYRINGE IV STA (07:32)
[2019-03-20] MEDS ORDERED: SODIUM CHLORIDE 0.9% 1,000 ML IV STA (07:32)
[2019-03-20] MEDS ORDERED: ONDANSETRON ODT 8 MG TAB.RAPDIS PO STA (07:32)
[2019-03-20] MEDS ORDERED: HYDROmorphone 1 MG/ML 1 ML SYRINGE IVP STA (07:43)
[2019-03-20] MEDS ORDERED: MAG HYDROX/AL HYDROX/SIMETH 30 ML, HYOSCYAMINE ELIXIR 10 ML, CIMETIDINE HCL 300 MG, LID... PO STA ×4 (07:48)
--- NOTE | 2019-03-20 07:50 | ED ---
General Adult HPI - General Chief complaint: Abdominal Pain Stated complaint: Abd Pain, Vomiting, Post Op Time Seen by Provider: 03/20/19 07:32 Source: patient, family Mode of arrival: ambulatory Limitations: no limitations - History of Present Illness Initial comments: Dictation was produced using Sponge dictation software. please excuse any grammatical, word or spelling errors. Chief Complaint: 38-year-old female with past medical history diabetes, bariatric surgery, peptic ulcer disease presents today with abdominal pain. History of Present Illness: 88-year-old female presents today with worsening abdominal pain. Patient has chronic abdominal pain. Patient recently had robotic laparoscopic surgery for intra-abdominal adhesions. She is also recently had uterine ablation for dysfunctional uterine bleeding. Patient is approximately one week postop from both procedures. Chart review shows that patient had robotic laparoscopic assisted surgery for internal hernia. Patient states that the surgery did not help with her symptoms. Patient's symptoms were allegedly believed to be secondary to multiple intra-abdominal abnormalities. Patient reports that her symptoms improved slightly after the surgery. Patient also had EGD showing gastrojejunal ulcers. She states that she continues to have recurrence of pain to the epigastric area. She is pain is constant without any radiation. She states that she feels like there is air trapped in her belly. Patient also had EGD showing acute gastrojejunal ulcer perforation. The ROS documented in this emergency department record has been reviewed and confirmed by me. Those systems with pertinent positive or negative responses have been documented in the HPI. All other systems are other negative and/or noncontributory. PHYSICAL EXAM: General Impression: Alert and oriented x3, acute distress secondary to pain HEENT: Normocephalic atraumatic, extra-ocular movements intact, pupils equal and reactive to light bilaterally, mucous membranes moist. Cardiovascular: Heart regular rate and rhythm, S1&S2 audible, no murmurs, rubs or gallops Chest: Lungs clear to auscultation bilaterally, no rhonchi, no wheeze, no rales Abdomen: Bowel sounds present, abdomen soft, epigastric tenderness, worse with palpation, tympany to percussion focal to the epigastric area. Musculoskeletal: Pulses present and equal in all extremities, no peripheral edema Motor: no focal deficits noted Neurological: CN II-XII grossly intact, no focal motor or sensory deficits noted Skin: Intact with no visualized rashes Psych: Normal affect and mood ED course: 38 y Old female presents with persistent abdominal pain localized to the epigastric area. Patient is 7 days postop from EGD and robotic laparoscopic assisted surgery. Ends upon arrival shows heart rate of 1 week, worse vital signs within acceptable limits. Patient was found to have multiple findings. Received a call from patient's surgeon Dr. Luna who requests that patient should get a CT via bariatric protocol and that patient should have 2 L normal saline bolus. Dr. Persaud also expresses that she has a low threshold for admission for the patient. Laboratory evaluation obtained. Mild leukocytosis of 13.0. Unclear etiology of what is causing leukocytosis of her likely secondary to stress. Coag panel unremarkable. Metabolic panel shows mild anion gap acidosis likely secondary to starvation acidosis. Rest of labs are grossly unremarkable. Urinalysis is negative. CT of the abdomen and pelvis shows ileus versus small bowel instruction without any clear transition point. These findings were discussed with Dr. Luna. Patient will be admitted. She is nothing by mouth at this time. Patient given maintenance IV fluids. Patient is understandable agreeable to disposition. EKG interpretation: Ventricular rate 89, normal sinus rhythm,. Interval 140, care is 86, QTC 467. No WA prolongation, no QTC prolongation, no ST or T-wave changes noted. EKG compared to 03/07/2019 showing no changes. Overall, this EKG is unremarkable - Related Data Home Medications Medication Instructions Recorded Confirmed Multivitamins, Thera [Multivitamin 1 tab PO DAILY 03/20/19 03/20/19 (formulary)] Omeprazole Magnesium [PriLOSEC OTC] 20 mg PO HS 03/20/19 03/20/19 Previous Rx's Medication Instructions Recorded Acetaminophen Tab [Tylenol Tab] 500 mg PO Q6H PRN #30 tablet 03/15/19 Ondansetron Odt [Zofran Odt] 4 mg PO Q8HR PRN #9 tab 03/15/19 Allergies Allergy/AdvReac Type Severity Reaction Status Date / Time adhesive tape Allergy BLISTERS Verified 03/20/19 08:45 hydrochlorothiazide AdvReac MUSCLE Verified 03/20/19 08:45 PAINS chick peas Allergy Swelling Uncoded 03/20/19 08:45 Review of Systems ROS Statement: Those systems with pertinent positive or pertinent negative responses have been documented in the HPI. ROS Other: All systems not noted in ROS Statement are negative. Past Medical History Past Medical History: Diabetes Mellitus, Deep Vein Thrombosis (DVT), GERD/Reflux, Hypertension Additional Past Medical History / Comment(s): 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- nothing since, dysphagia, N/V recently, "Internal Shingles" in Right ear (August 2017); hearing in Right ear has been affected) History of Any Multi-Drug Resistant Organisms: None Reported Past Surgical History: Appendectomy, Bariatric Surgery, Section, Cholecystectomy, Tubal Ligation Additional Past Surgical History / Comment(s): left foot tendon tear repair, 3 , one ovary/tube removed, paraesophageal hernia repair, gastric bypass 2017. March 2019: Uterine ablation & Lysis of abdominal adhesions Past Anesthesia/Blood Transfusion Reactions: Previous Problems w/ Anesthesia, Motion Sickness, Postoperative Nausea & Vomiting (PONV) Additional Past Anesthesia/Blood Transfusion Reaction / Comment(s): gets irritable when waking up after anesthetic, trouble urinating after anesthesia Past Psychological History: Anxiety Smoking Status: Former smoker Past Alcohol Use History: None Reported Past Drug Use History: None Reported - Past Family History Mother Family Medical History: Hyperlipidemia Additional Family Medical History / Comment(s): hypothyroid Father Family Medical History: Diabetes Mellitus, Hypertension Sister(s) Family Medical History: Deep Vein Thrombosis (DVT), Pulmonary Embolus General Exam Limitations: no limitations Course Vital Signs 03/20/19 03/20/19 07:22 08:44 Temperature 97.4 F L Pulse Rate 108 H 87 Respiratory 22 18 Rate Blood Pressure 130/87 138/96 O2 Sat by Pulse 100 100 Oximetry Medical Decision Making - Lab Data Result diagrams: 03/20/19 07:52 03/20/19 07:52 Lab Results 03/20/19 03/20/19 03/20/19 Range/Units 07:52 07:52 07:52 WBC 13.0 H (3.8-10.6) k/uL RBC 5.14 (3.80-5.40) m/uL Hgb 12.3 D (11.4-16.0) gm/dL Hct 42.7 (34.0-46.0) % MCV 83.2 (80.0-100.0) fL MCH 23.9 L (25.0-35.0) pg MCHC 28.7 L (31.0-37.0) g/dL RDW 22.3 H (11.5-15.5) % Plt Count 242 (150-450) k/uL Neutrophils % 85 % Lymphocytes % 10 % Monocytes % 3 % Eosinophils % 0 % Basophils % 1 % Neutrophils # 11.1 H (1.3-7.7) k/uL Lymphocytes # 1.3 (1.0-4.8) k/uL Monocytes # 0.4 (0-1.0) k/uL Eosinophils # 0.1 (0-0.7) k/uL Basophils # 0.1 (0-0.2) k/uL Hypochromasia Marked Poikilocytosis Slight Anisocytosis Moderate Microcytosis Slight PT 10.0 (9.0-12.0) sec INR 0.9 (<1.2) APTT 22.7 (22.0-30.0) sec Sodium 144 (137-145) mmol/L Potassium 4.3 (3.5-5.1) mmol/L Chloride 110 H (98-107) mmol/L Carbon Dioxide 20 L (22-30) mmol/L Anion Gap 14 mmol/L BUN 12 (7-17) mg/dL Creatinine 0.63 (0.52-1.04) mg/dL Est GFR (CKD-EPI)AfAm >90 (>60 ml/min/1.73 sqM) Est GFR (CKD-EPI)NonAf >90 (>60 ml/min/1.73 sqM) Glucose 216 H (74-99) mg/dL Calcium 9.9 (8.4-10.2) mg/dL Total Bilirubin 1.0 (0.2-1.3) mg/dL AST 28 (14-36) U/L ALT 77 H (9-52) U/L Alkaline Phosphatase 177 H (38-126) U/L Troponin I (0.000-0.034) ng/mL Total Protein 8.3 H (6.3-8.2) g/dL Albumin 5.0 (3.5-5.0) g/dL Lipase 148 (23-300) U/L Urine Color Urine Appearance (Clear) Urine pH (5.0-8.0) Ur Specific [place] (1.001-1.035) Urine Protein (Negative) Urine Glucose (UA) (Negative) Urine Ketones (Negative) Urine Blood (Negative) Urine Nitrite (Negative) Urine Bilirubin (Negative) Urine Urobilinogen (<2.0) mg/dL Ur Leukocyte Esterase (Negative) Urine RBC (0-5) /hpf Urine WBC (0-5) /hpf Ur Squamous Epith Cells (0-4) /hpf Calcium Oxalate Crystal (None) /hpf Amorphous Sediment (None) /hpf Urine Bacteria (None) /hpf Hyaline Casts (0-2) /lpf Urine Mucus (None) /hpf Urine HCG, Qual (Not Detectd) 03/20/19 03/20/19 03/20/19 Range/Units 07:52 07:58 07:58 WBC (3.8-10.6) k/uL RBC (3.80-5.40) m/uL Hgb (11.4-16.0) gm/dL Hct (34.0-46.0) % MCV (80.0-100.0) fL MCH (25.0-35.0) pg MCHC (31.0-37.0) g/dL RDW (11.5-15.5) % Plt Count (150-450) k/uL Neutrophils % % Lymphocytes % % Monocytes % % Eosinophils % % Basophils % % Neutrophils # (1.3-7.7) k/uL Lymphocytes # (1.0-4.8) k/uL Monocytes # (0-1.0) k/uL Eosinophils # (0-0.7) k/uL Basophils # (0-0.2) k/uL Hypochromasia Poikilocytosis Anisocytosis Microcytosis PT (9.0-12.0) sec INR (<1.2) APTT (22.0-30.0) sec Sodium (137-145) mmol/L Potassium (3.5-5.1) mmol/L Chloride (98-107) mmol/L Carbon Dioxide (22-30) mmol/L Anion Gap mmol/L BUN (7-17) mg/dL Creatinine (0.52-1.04) mg/dL Est GFR (CKD-EPI)AfAm (>60 ml/min/1.73 sqM) Est GFR (CKD-EPI)NonAf (>60 ml/min/1.73 sqM) Glucose (74-99) mg/dL Calcium (8.4-10.2) mg/dL Total Bilirubin (0.2-1.3) mg/dL AST (14-36) U/L ALT (9-52) U/L Alkaline Phosphatase (38-126) U/L Troponin I <0.012 (0.000-0.034) ng/mL Total Protein (6.3-8.2) g/dL Albumin (3.5-5.0) g/dL Lipase (23-300) U/L Urine Color Yellow Urine Appearance Cloudy H (Clear) Urine pH 5.0 (5.0-8.0) Ur Specific [place] 1.028 (1.001-1.035) Urine Protein 1+ H (Negative) Urine Glucose (UA) Trace H (Negative) Urine Ketones Trace H (Negative) Urine Blood Moderate H (Negative) Urine Nitrite Negative (Negative) Urine Bilirubin Negative (Negative) Urine Urobilinogen 3.0 (<2.0) mg/dL Ur Leukocyte Esterase Negative (Negative) Urine RBC 5 (0-5) /hpf Urine WBC 3 (0-5) /hpf Ur Squamous Epith Cells 2 (0-4) /hpf Calcium Oxalate Crystal Rare H (None) /hpf Amorphous Sediment Rare H (None) /hpf Urine Bacteria Rare H (None) /hpf Hyaline Casts 3 H (0-2) /lpf Urine Mucus Many H (None) /hpf Urine HCG, Qual Not Detected (Not Detectd) Disposition Clinical Impression: Ileus Disposition: ADMITTED IP TO THIS [facility] Condition: Fair Referrals: Fadi Hernandez III, MD [Primary Care Provider] - 1-2 days Decision Time: 10:24
[2019-03-20] MEDS ORDERED: MAG HYDROX/AL HYDROX/SIMETH 30 ML, HYOSCYAMINE ELIXIR 10 ML, LIDOCAINE VISCOUS 2% 10 ML PO STA ×3 (07:56)
[2019-03-20 08:10] LABS: Anisocytosis Moderate; Basophils # (A) 0.1 k/uL (0-0.2); Basophils % (A) 1 %; Eosinophils # (A) 0.1 k/uL (0-0.7); Eosinophils % (A) 0 %; HCT 42.7 % (34.0-46.0); Hypochromasia Marked; Lymphocytes # (A) 1.3 k/uL (1.0-4.8); Lymphocytes % (A) 10 %; MCH 23.9 pg (25.0-35.0); MCHC 28.7 g/dL (31.0-37.0); MCV 83.2 fL (80.0-100.0); Mean Platelet Volume 6.8; Microcytosis Slight; Monocytes # (A) 0.4 k/uL (0-1.0); Monocytes % (A) 3 %; Neutrophils # (A) 11.1 k/uL (1.3-7.7); Neutrophils % (A) 85 %; Platelet Count 242 k/uL (150-450); Poikilocytosis Slight; RBC 5.14 m/uL (3.80-5.40); RDW 22.3 % (11.5-15.5)
[2019-03-20 08:13] LABS: HGB 12.3 gm/dL (11.4-16.0)
[2019-03-20 08:20] LABS: INR 0.9 (<1.2); Partial Thromboplastin Time 22.7 sec (22.0-30.0)
[2019-03-20] MEDS ORDERED: METOCLOPRAMIDE 5 MG/ML 2 ML VIAL IVP STA (08:20)
[2019-03-20 08:22] LABS: ALT 77 U/L (9-52); AST 28 U/L (14-36); African American GFR (CKD) >90 (>60 ml/min/1.73 sqM); Alkaline Phosphatase 177 U/L (38-126); Anion Gap 14 mmol/L; Blood Urea Nitrogen 12 mg/dL (7-17); Calcium 9.9 mg/dL (8.4-10.2); Carbon Dioxide 20 mmol/L (22-30); Chloride 110 mmol/L (98-107); Glucose 216 mg/dL (74-99); Potassium 4.3 mmol/L (3.5-5.1); Sodium 144 mmol/L (137-145); Total Protein 8.3 g/dL (6.3-8.2)
[2019-03-20 08:27] LABS: Amorphous Sediment,Urine Rare /hpf; Appearance,Urine Cloudy (Clear); Bacteria,Urine Rare /hpf; Bilirubin,Urine Negative (Negative); Blood,Urine Moderate (Negative); Calcium Oxalate Crystals,Urine Rare /hpf; Color,Urine Yellow; Glucose,Urine (UA) Trace (Negative); Hyaline Casts,Urine 3 /lpf (0-2); Ketones,Urine Trace (Negative); Leukocyte Esterase,Urine Negative (Negative); Mucus,Urine Many /hpf; Nitrite,Urine Negative (Negative); Protein,Urine 1+ (Negative); RBC,Urine 5 /hpf (0-5); Specific Gravity,Urine 1.028 (1.001-1.035); Squamous Epithelial Cell,Urine 2 /hpf (0-4); WBC,Urine 3 /hpf (0-5)
[2019-03-20] MEDS ORDERED: IOPAMIDOL CONTRAST (ORAL USE) VIAL PO PRN (08:38)
--- NOTE | 2019-03-20 10:03 | CT ---
EXAMINATION TYPE: CT abdomen pelvis w con DATE OF EXAM: 03/20/2019 COMPARISON: 03/11/2019 INDICATION: Mid abdominal pain. Bariatric prep. (3ml of oral contrast) DLP: 1110.1 mGycm, Automated exposure control for dose reduction was used. CONTRAST: 100 mL of Isovue 300. Study performed without Oral Contrast TECHNIQUE: Axial images were obtained from above the diaphragm to the pubic rami in the axial plane a t 5 mm thick sections. Reconstructed images are reviewed on the computer in the coronal plane. FINDINGS: Patient is status post gastric sleeve. Limited CT sections are obtained the lung bases. The lung bases are clear. CT ABDOMEN: Liver: Normal Spleen: Spleen is enlarged measuring 15.7 cm. Pancreas: Normal Adrenal glands: The adrenal glands are normal. Gallbladder: Normal Kidneys: No masses are evident. No hydronephrosis is present. No cysts are present. Delayed images were obtained through the kidneys, which remain unremarkable. Aorta: Vascular calcification is within the aorta. Inferior vena cava: Normal. CT PELVIS: Free fluid is within the pelvis. There are multiple dilated small bowel loops containing fluid. This extends to the distal small bowel . Fluid-filled colon is present. Findings could be related to ileus or partial small bowel obstructio n. This is an interval change from 03/11/2019. Very little oral contrast passes beyond the proximal st omach. Appendix: The appendix appears to be surgically absent. Urinary bladder: Decompressed, Limited evaluation Genitourinary structures: Uterus is prominent. There is thick low density endometrial. Correlate with the menstrual cycle stage. Osseous structures: No suspicious lytic or sclerotic lesions. IMPRESSIONS: 1. Clinical correlation recommended for ileus versus partial small bowel obstruction. Gastroenteriti s could be considered in the proper clinical setting. Report called and case discussed with the [facility] room physician by Dr. Saucedo by telephone at [phone] hours 03/20/2019
[2019-03-20] MEDS ORDERED: NALOXONE 0.4 MG/ML 1 ML VIAL IV PRN ×3 (10:20→20:45)
[2019-03-20] MEDS ORDERED: SODIUM CHLORIDE 0.9% 1,000 ML IV ONE ×4 (10:51→20:46)
--- NOTE | 2019-03-20 10:55 | P.GSHP ---
History of Present Illness H&P Date: 03/20/19 DATE OF SERVICE: 03/20/2019 CHIEF COMPLAINT: Small bowel obstruction HISTORY OF PRESENT ILLNESS: Fozia Boucher is a 38-year-old female who is status post lysis of adhesions 03/14/2019. She was recently admitted 2 weeks ago for gastrojejunal ulcer and menorrhagia with acute blood loss anemia. She was discharged 6 days ago and was doing well. She was passing flatus and having bowel movements. In fact she was seen in the bariatric center yesterday where she denied any abdominal pain. No reports of nausea and vomiting at her recent appointment. She reports leaving her appointment and later on the evening after 9 pm eating a pepperoni pizza. She reports acute onset epigastric crampy left upper quadrant abdominal pain similar to her prior admission. She has abdominal bloat with intractable bilious emesis. She is not able to pass flatus. Additional studies including computed tomography scan now demonstrates small bowel obstruction hence her admission. PAST MEDICAL HISTORY: 1. Morbid obesity. 2. Body mass index initial of 39.6. 3. Diabetes type 2, [id number], resolved 4. Hypertensive heart disease, resolved 5. Depression. 6. Seasonal ALLERGIES. 7. Panniculitis. 8. Gastroesophageal reflux disease. PAST SURGICAL HISTORY: 1. Appendectomy. 2. Tubal ligation. 3. 3. 4. Tendon repair. 5. Hiatal hernia repair 6. Gastric bypass 7. Cholecystectomy 8. EGD 9. Lysis of adhesions. HOME MEDICATIONS: See list ALLERGIES: See list SOCIAL HISTORY: Former tobacco use. No alcohol use. FAMILY HISTORY: Denies any DVTs, pulmonary embolisms in her family. Denies any ulcerative colitis disease or Crohn's. REVIEW OF ORGAN SYSTEMS: CONSTITUTIONAL: At her height of 5 foot 5.25 inches, her highest weight was 239 pounds lifetime. Initial body mass index was 39.6. Her previous body mass index was 39.6. [place] body weight is 149 pounds. HEENT: Denies any active troubles with vision or hearing. No dysphagia. ENDOCRINE: Has diabetes now resolved. No hypothyroidism. CARDIOVASCULAR: No reports of palpitations or heart attacks. No chest pain. RESPIRATORY: No recent asthma. No personal evaluation of sleep apnea. GI: Denies any bright red blood per rectum. Has gastroesophageal reflux disease now resolved. Has gastroparesis now resolved. Has change in bowel habits. MUSCULOSKELETAL: Has generalized muscle aches now improved. Has bilateral hip pain and knee pain now improved NEURO: No reports of headaches. No seizure disorder. No recent stroke. PSYCH: Has depression. No suicidal ideation. HEMATOLOGIC: Denies any abnormal bleeding or bruising. SKIN: Has panniculitis. No skin cancer. BREAST: No history of breast cancer. No history of breast lumps. PHYSICAL EXAM: VITAL SIGNS: Height 5 foot 5.25 inches, weight 162 pounds. BMI 26.5 GENERAL: Well-developed female in no acute distress. HEENT: No scleral icterus. Extraocular movements grossly intact. Hears conversational speech. No nasal drainage. Wears glasses. NECK: Supple without lymphadenopathy. CHEST: Nonlabored respirations with equal bilateral excursions. CARDIOVASCULAR: Regular rate. Distal 2+ pulses. ABDOMEN: Soft. Tender diffusely. Abdominal distention. MUSCULOSKELETAL: No clubbing, cyanosis, or edema. NEURO: No focal or lateralizing signs. Cranial nerves 2 through 12 grossly within normal limits. PSYCH: Appropriate affect. Alert and oriented to person, place and time. SKIN: Pale in appearance. Good skin turgor. Well perfused. STUDIES: CT of the abdomen and pelvis independently reviewed now demonstrating new small bowel obstruction with diffuse gas pattern ASSESSMENT: 1. Small bowel obstruction. PLAN: 1. Exploratory laparotmy described with possible small bowel resection reviewed including benefits and risks. 2. Inpatient hospitalization reviewed. Past Medical History Past Medical History: Diabetes Mellitus, Deep Vein Thrombosis (DVT), GERD/Reflux, Hypertension Additional Past Medical History / Comment(s): 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-nothing since, dysphagia, N/V recently, "Internal Shingles" in Right ear (August 2017); hearing in Right ear has been affected) History of Any Multi-Drug Resistant Organisms: None Reported Past Surgical History: Appendectomy, Bariatric Surgery, Section, Cholecystectomy, Tubal Ligation Additional Past Surgical History / Comment(s): left foot tendon tear repair, 3 , one ovary/tube removed, paraesophageal hernia repair, gastric bypass 2017. March 2019: Uterine ablation & Lysis of abdominal adhesions Past Anesthesia/Blood Transfusion Reactions: Previous Problems w/ Anesthesia, Motion Sickness, Postoperative Nausea & Vomiting (PONV) Additional Past Anesthesia/Blood Transfusion Reaction / Comment(s): gets irritable when waking up after anesthetic, trouble urinating after anesthesia Past Psychological History: Anxiety Smoking Status: Former smoker Past Alcohol Use History: None Reported Past Drug Use History: None Reported - Past Family History Mother Family Medical History: Hyperlipidemia Additional Family Medical History / Comment(s): hypothyroid Father Family Medical History: Diabetes Mellitus, Hypertension Sister(s) Family Medical History: Deep Vein Thrombosis (DVT), Pulmonary Embolus Medications and Allergies Home Medications Medication Instructions Recorded Confirmed Type Acetaminophen Tab [Tylenol Tab] 500 mg PO Q6H PRN #30 tablet 03/15/19 03/20/19 Rx Ondansetron Odt [Zofran Odt] 4 mg PO Q8HR PRN #9 tab 03/15/19 03/20/19 Rx Multivitamins, Thera [Multivitamin 1 tab PO DAILY 03/20/19 03/20/19 History (formulary)] Omeprazole Magnesium [PriLOSEC OTC] 20 mg PO HS 03/20/19 03/20/19 History Allergies Allergy/AdvReac Type Severity Reaction Status Date / Time adhesive tape Allergy BLISTERS Verified 03/20/19 08:45 hydrochlorothiazide AdvReac MUSCLE Verified 03/20/19 08:45 PAINS chick peas Allergy Swelling Uncoded 03/20/19 08:45 Surgical - Exam Vital Signs Temp Pulse Resp BP Pulse Ox 97.4 F L 108 H 22 130/87 100 03/20/19 07:22 03/20/19 07:22 03/20/19 07:22 03/20/19 07:22 03/20/19 07:22 Results - Labs 03/20/19 07:52 03/20/19 07:52 Abnormal Lab Results - Last 24 Hours (Table) 03/20/19 03/20/19 03/20/19 Range/Units 07:52 07:52 07:58 WBC 13.0 H (3.8-10.6) k/uL MCH 23.9 L (25.0-35.0) pg MCHC 28.7 L (31.0-37.0) g/dL RDW 22.3 H (11.5-15.5) % Neutrophils # 11.1 H (1.3-7.7) k/uL Chloride 110 H (98-107) mmol/L Carbon Dioxide 20 L (22-30) mmol/L Glucose 216 H (74-99) mg/dL ALT 77 H (9-52) U/L Alkaline Phosphatase 177 H (38-126) U/L Total Protein 8.3 H (6.3-8.2) g/dL Urine Appearance Cloudy H (Clear) Urine Protein 1+ H (Negative) Urine Glucose (UA) Trace H (Negative) Urine Ketones Trace H (Negative) Urine Blood Moderate H (Negative) Calcium Oxalate Crystal Rare H (None) /hpf Amorphous Sediment Rare H (None) /hpf Urine Bacteria Rare H (None) /hpf Hyaline Casts 3 H (0-2) /lpf Urine Mucus Many H (None) /hpf Diabetes panel 03/20/19 Range/Units 07:52 Sodium 144 (137-145) mmol/L Potassium 4.3 (3.5-5.1) mmol/L Chloride 110 H (98-107) mmol/L Carbon Dioxide 20 L (22-30) mmol/L BUN 12 (7-17) mg/dL Creatinine 0.63 (0.52-1.04) mg/dL Glucose 216 H (74-99) mg/dL Calcium 9.9 (8.4-10.2) mg/dL AST 28 (14-36) U/L ALT 77 H (9-52) U/L Alkaline Phosphatase 177 H (38-126) U/L Total Protein 8.3 H (6.3-8.2) g/dL Albumin 5.0 (3.5-5.0) g/dL Calcium panel 03/20/19 Range/Units 07:52 Calcium 9.9 (8.4-10.2) mg/dL Albumin 5.0 (3.5-5.0) g/dL Pituitary panel 03/20/19 Range/Units 07:52 Sodium 144 (137-145) mmol/L Potassium 4.3 (3.5-5.1) mmol/L Chloride 110 H (98-107) mmol/L Carbon Dioxide 20 L (22-30) mmol/L BUN 12 (7-17) mg/dL Creatinine 0.63 (0.52-1.04) mg/dL Glucose 216 H (74-99) mg/dL Calcium 9.9 (8.4-10.2) mg/dL Adrenal panel 10/17/19 Range/Units 07:52 Sodium 144 (137-145) mmol/L Potassium 4.3 (3.5-5.1) mmol/L Chloride 110 H (98-107) mmol/L Carbon Dioxide 20 L (22-30) mmol/L BUN 12 (7-17) mg/dL Creatinine 0.63 (0.52-1.04) mg/dL Glucose 216 H (74-99) mg/dL Calcium 9.9 (8.4-10.2) mg/dL Total Bilirubin 1.0 (0.2-1.3) mg/dL AST 28 (14-36) U/L ALT 77 H (9-52) U/L Alkaline Phosphatase 177 H (38-126) U/L Total Protein 8.3 H (6.3-8.2) g/dL Albumin 5.0 (3.5-5.0) g/dL
[2019-03-20] MEDS: PANTOPRAZOLE 40 MG/10 ML VIAL IV SCH (11:27)
[2019-03-20] MEDS: SODIUM CHLORIDE 0.9% 1,000 ML IV SCH ×2 (11:30→21:45)
[2019-03-20] MEDS ORDERED: HYDROmorphone 0.5 MG/0.5 ML SYRINGE IVP PRN (13:35)
[2019-03-20] MEDS ORDERED: ONDANSETRON 4 MG/2 ML VIAL IVP PRN ×2 (13:42→16:00)
[2019-03-20] MEDS ORDERED: DEXAMETHASONE SOD PHOS (MDV) 100 MG/10 ML VIAL IVP ONE (16:16)
[2019-03-20] MEDS ORDERED: IV FLUID CONTINUATION 500 ML IV ONE (16:16)
[2019-03-20] MEDS ORDERED: SCOPOLAMINE 1.5MG/72HR PATCH TRANSDERM ONE (16:17)
[2019-03-20] MEDS ORDERED: ONDANSETRON 4 MG/2 ML VIAL IVP ONE ×2 (16:17→18:59)
[2019-03-20] MEDS ORDERED: fentaNYL (PF) 50 MCG/ML 2 ML AMP ONE (16:31)
[2019-03-20] MEDS ORDERED: GLYCOPYRROLATE 0.2 MG/ML 2 ML VIAL ONE (16:31)
[2019-03-20] MEDS ORDERED: HEPARIN SODIUM,PORCINE 5,000 UNIT/ML 1 ML VIAL ONE (16:31)
[2019-03-20] MEDS ORDERED: NEOSTIGMINE 1 MG/ML 10 ML VIAL ONE (16:31)
[2019-03-20] MEDS ORDERED: LIDOCAINE 1% INJ 10MG/ML (20 ML MDV) ONE (16:31)
[2019-03-20] MEDS ORDERED: ROCURONIUM BROMIDE 10 MG/ML 10 ML VIAL IV ONE (16:31)
[2019-03-20] MEDS ORDERED: HYDROmorphone (PF) 1 MG/ML ONE (16:31)
[2019-03-20] MEDS ORDERED: MIDAZOLAM 2 MG/2 ML VIAL ONE (16:31)
[2019-03-20] MEDS ORDERED: SUCCINYLCHOLINE CHLORIDE 100 MG/5 ML SYR IV ONE (16:31)
[2019-03-20] MEDS ORDERED: PROPOFOL 10 MG/ML 20 ML VIAL IV ONE (16:31)
[2019-03-20] MEDS ORDERED: LACTATED RINGERS 1,000 ML IV ONE ×2 (17:26)
[2019-03-20] MEDS ORDERED: HYDROmorphone 1 MG/ML 1 ML SYRINGE IVP ONE ×2 (19:00→19:14)
[2019-03-20] MEDS ORDERED: ACETAMINOPHEN IV (For NPO) 1,000 MG in EMPTY BAG 1 BAG IVPB ONE (19:23)
[2019-03-20] MEDS ORDERED: diphenhydrAMINE 50 MG/ML 1 ML VIAL IVP PRN (19:23)
--- NOTE | 2019-03-20 19:32 | P.OP ---
Date of Procedure: 03/20/19 Description of Procedure: SURGEON: MERLYN DRAPER MD PREOPERATIVE DIAGNOSES: 1. Small bowel obstruction 2. Abnormal computed tomography scan with internal hernia 3. History of gastric bypass 4. History of prior surgery with risk of peritoneal adhesion 5. Iron deficiency anemia POSTOPERATIVE DIAGNOSES: 1. Small bowel obstruction 2. Abnormal computed tomography scan with internal hernia 3. History of gastric bypass 4. History of prior surgery with risk of peritoneal adhesion 5. Iron deficiency anemia 6. Small bowel volvulus due to internal hernia OPERATION: 1. Open laparotomy for reduction of small bowel volvulus and internal hernia, Sanford's and jejunojejunostomy defects 2. Application of PREVENA incisional wound VAC system, 20 cm ESTIMATED BLOOD LOSS: 50 mL. SPECIMENS REMOVED: None COMPLICATIONS: None. OPERATIVE FINDINGS: 1. Internal hernia involving Petersons defect and jejunojejunostomy defect 2. Small bowel volvulus reduced with laparotomy with all bowel viable INDICATIONS: The patient is a 38-year-old female who presents with small bowel obstruction including computed tomography scan consistent with internal hernia. Clinical symptoms were consistent with bowel obstruction. Surgical intervention with lysis of adhesions possible bowel resection and possible laparotomy were described. Informed consent was obtained. Robotic assisted laparoscopic approach was described. Benefits and risks of the procedure including but not limited to bleeding, infection, need for further surgery was described. Informed consent was obtained. DESCRIPTION OF PROCEDURE: Patient was brought to the operating room, placed in supine position. After general induction, the abdomen had been prepped and draped in standard sterile fashion using Ioban dresssing. A midline incision from the xiphoid to the lower abdomen was made using #10 blade. The midline was entered via the peritoneum. A Bookwalter system was placed for optimal exposure of the field. Along the midline, the mesentery of the small bowel to jejunum was twisted more than 180 in a clockwise direction consistent with small bowel volvulus involving the jejunojejunostomy defect. From the ileocecal valve proximally the small bowel was found twisted in an internal hernia found along the jejunojejunostomy defect. The small bowel was viable as it was reduced from the internal hernia. Two defects were confirmed including the Petersons defect and jejunojejunostomy defect. The defects were oversewn using 3-0 silk from the root of the jejunum mesentery to the window of the transverse mesocolon, Tristen limb, and separately of the jejunojejunostomy. Hemostasis was checked. The midline incision was closed using #1 double stranded PDS. The midline skin was re-approximated running suture of 3-0 Vicryl. The skin was cleansed using dilute hydrogen peroxide. A PREVENA 20-cm incisional wound VAC system was placed. An abdominal binder was placed. At the end of the procedure needle, sponge, and instrument count had been verified correct by the neurosurgical nurse. The patient was transferred to postanesthesia care unit in stable condition.
[2019-03-20] MEDS: LACTATED RINGERS 1,000 ML IV SCH (21:27)
[2019-03-20] MEDS: HYDROmorphone PCA 10 MG/50 ML BAG IV PRN (21:31)
[2019-03-20] MEDS: SIMETHICONE 40 MG/0.6 ML DROPS 2,000 MG/30 ML BOTTLE PO SCH (21:46)
[2019-03-20] MEDS: SODIUM FERRIC GLUCONAT-SUCROSE 125 MG in SODIUM CHLORIDE 0.9% 100 ML IVPB SCH (22:11)
[2019-03-20] MEDS: HEPARIN SODIUM,PORCINE 5,000 UNIT/ML 1 ML VIAL SQ SCH (23:18)
[2019-03-21] MEDS: 0.9% NACL WITH KCL 20 MEQ/L 1,000 ML IV SCH ×2 (00:20→03:38)
[2019-03-21] MEDS: SIMETHICONE 40 MG/0.6 ML DROPS 2,000 MG/30 ML BOTTLE PO SCH ×5 (00:51→23:46)
[2019-03-21] MEDS: ONDANSETRON 4 MG/2 ML VIAL IVP SCH ×5 (00:51→23:46)
[2019-03-21] MEDS: SODIUM CHLORIDE 0.9% 1,000 ML IV SCH ×5 (03:38→21:54)
[2019-03-21] MEDS ORDERED: 0.9% NACL WITH KCL 20 MEQ/L 1,000 ML IV SCH (08:00)
[2019-03-21] MEDS: HYDROmorphone 1 MG/ML 1 ML SYRINGE IVP PRN ×2 (08:11→10:47)
[2019-03-21] MEDS: HEPARIN SODIUM,PORCINE 5,000 UNIT/ML 1 ML VIAL SQ SCH ×2 (08:13→21:45)
[2019-03-21] MEDS: PANTOPRAZOLE 40 MG/10 ML VIAL IV SCH (08:13)
[2019-03-21 08:54] LABS: Anisocytosis Moderate; Basophils % (A) 0 %; Eosinophils # (A) 0.2 k/uL (0-0.7); Eosinophils % (A) 2 %; HCT 36.6 % (34.0-46.0); HGB 10.7 gm/dL (11.4-16.0); Hypochromasia Marked; Lymphocytes # (A) 1.6 k/uL (1.0-4.8); Lymphocytes % (A) 15 %; MCH 25.1 pg (25.0-35.0); MCHC 29.1 g/dL (31.0-37.0); MCV 86.1 fL (80.0-100.0); Macrocytosis Slight; Mean Platelet Volume 7.4; Monocytes # (A) 0.6 k/uL (0-1.0); Monocytes % (A) 5 %; Neutrophils # (A) 8.5 k/uL (1.3-7.7); Neutrophils % (A) 77 %; Platelet Count 206 k/uL (150-450); Poikilocytosis Slight; RBC 4.25 m/uL (3.80-5.40); RDW 22.5 % (11.5-15.5)
[2019-03-21 09:11] LABS: African American GFR (CKD) >90 (>60 ml/min/1.73 sqM); Anion Gap 8 mmol/L; Blood Urea Nitrogen 5 mg/dL (7-17); Calcium 8.1 mg/dL (8.4-10.2); Carbon Dioxide 18 mmol/L (22-30); Chloride 113 mmol/L (98-107); Magnesium 1.8 mg/dL (1.6-2.3); Phosphorus 3.6 mg/dL (2.5-4.5); Potassium 4.4 mmol/L (3.5-5.1); Sodium 139 mmol/L (137-145)
[2019-03-21] MEDS: SODIUM FERRIC GLUCONAT-SUCROSE 125 MG in SODIUM CHLORIDE 0.9% 100 ML IVPB SCH (09:26)
--- NOTE | 2019-03-21 10:11 | P.PN ---
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 she has more post-op pain. hgb improved Objective - Vital Signs Vital signs: Vital Signs Temp 97.9 F 03/21/19 07:18 Pulse 101 H 03/21/19 07:18 Resp 12 03/21/19 07:18 BP 148/95 03/21/19 07:18 Pulse Ox 96 03/21/19 07:18 Intake & Output 03/20/19 03/21/19 03/21/19 18:59 06:59 18:59 Intake Total 1200 150 300 Output Total 450 750 60 Balance 750 -600 240 Weight 73.482 kg Intake: IV 1200 150 Oral 300 Output: Urine 400 750 60 Uretheral (Calderón) 700 Estimated Blood Loss 50 Other: Voiding Method Indwelling Catheter # Voids 2 - Labs CBC & Chem 7: 03/21/19 08:06 03/21/19 08:06 Labs: Abnormal Lab Results - Last 24 Hours (Table) 03/21/19 03/21/19 Range/Units 08:06 08:06 WBC 11.0 H (3.8-10.6) k/uL Hgb 10.7 L (11.4-16.0) gm/dL MCHC 29.1 L (31.0-37.0) g/dL RDW 22.5 H (11.5-15.5) % Neutrophils # 8.5 H (1.3-7.7) k/uL Chloride 113 H (98-107) mmol/L Carbon Dioxide 18 L (22-30) mmol/L BUN 5 L (7-17) mg/dL Creatinine 0.49 L (0.52-1.04) mg/dL Calcium 8.1 L (8.4-10.2) mg/dL
[2019-03-21] MEDS ORDERED: diphenhydrAMINE 25 MG CAP PO PRN (12:23)
[2019-03-21] MEDS: LACTATED RINGERS 1,000 ML IV SCH (14:34)
[2019-03-21] MEDS ORDERED: TAMSULOSIN 0.4 MG CAP.ER.24H PO STA (16:10)
[2019-03-21 17:25] VITALS: BMI 26.9
[2019-03-21] MEDS: METOCLOPRAMIDE 5 MG/ML 2 ML VIAL IVP SCH ×2 (17:29→22:53)
[2019-03-21] MEDS: GABAPENTIN 300 MG CAP PO SCH (21:45)
[2019-03-21] MEDS: HYDROmorphone PCA 10 MG/50 ML BAG IV PRN (23:34)
[2019-03-22] MEDS: SODIUM CHLORIDE 0.9% 1,000 ML IV SCH ×5 (03:43→21:45)
[2019-03-22] MEDS: SIMETHICONE 40 MG/0.6 ML DROPS 2,000 MG/30 ML BOTTLE PO SCH ×4 (05:21→23:23)
[2019-03-22] MEDS: ONDANSETRON 4 MG/2 ML VIAL IVP SCH ×4 (05:22→23:23)
[2019-03-22] MEDS: METOCLOPRAMIDE 5 MG/ML 2 ML VIAL IVP SCH ×4 (05:22→23:23)
[2019-03-22] MEDS ORDERED: BISACODYL 5 MG TABLET.DR PO PRN (08:00)
[2019-03-22] MEDS: GABAPENTIN 300 MG CAP PO SCH ×3 (10:27→21:52)
[2019-03-22] MEDS: TAMSULOSIN 0.4 MG CAP.ER.24H PO SCH (10:27)
[2019-03-22] MEDS: PANTOPRAZOLE 40 MG/10 ML VIAL IV SCH (10:27)
[2019-03-22] MEDS: HEPARIN SODIUM,PORCINE 5,000 UNIT/ML 1 ML VIAL SQ SCH ×2 (10:27→21:52)
--- NOTE | 2019-03-22 11:50 | P.PN ---
Progress Note - Text Progress Note Date: 03/22/19 The patient resting comfortably in her bed. She has had minimal flatus. She denies any significant abdominal pain. She has a mild incisional pain. On exam her vital signs are stable. Her abdomen soft. Patient will continue clear liquid diet. We will follow with you
[2019-03-22] MEDS: SODIUM FERRIC GLUCONAT-SUCROSE 125 MG in SODIUM CHLORIDE 0.9% 100 ML IVPB SCH (12:53)
[2019-03-23] MEDS: SIMETHICONE 40 MG/0.6 ML DROPS 2,000 MG/30 ML BOTTLE PO SCH ×4 (06:31→23:30)
[2019-03-23] MEDS: METOCLOPRAMIDE 5 MG/ML 2 ML VIAL IVP SCH ×4 (06:33→23:31)
[2019-03-23] MEDS: ONDANSETRON 4 MG/2 ML VIAL IVP SCH ×4 (06:33→23:31)
[2019-03-23] MEDS: SODIUM CHLORIDE 0.9% 1,000 ML IV SCH ×5 (06:42→21:15)
[2019-03-23] MEDS: HYDROmorphone PCA 10 MG/50 ML BAG IV PRN ×2 (07:44→22:42)
--- NOTE | 2019-03-23 10:41 | P.PN ---
Progress Note - Text Progress Note Date: 03/23/19 The patient feels well. She's had no significant bowel function. She denies any nausea. On exam her vital signs are stable. Her abdomen soft. Incision site is clean dry tach. Patient will have her diet advanced to full liquid diet.
[2019-03-23] MEDS: GABAPENTIN 300 MG CAP PO SCH ×3 (11:06→21:14)
[2019-03-23] MEDS: PANTOPRAZOLE 40 MG/10 ML VIAL IV SCH (11:06)
[2019-03-23] MEDS: HEPARIN SODIUM,PORCINE 5,000 UNIT/ML 1 ML VIAL SQ SCH ×2 (11:06→21:14)
[2019-03-23] MEDS: TAMSULOSIN 0.4 MG CAP.ER.24H PO SCH (11:07)
[2019-03-24] MEDS: SODIUM CHLORIDE 0.9% 1,000 ML IV SCH ×3 (05:27→20:51)
[2019-03-24] MEDS: SIMETHICONE 40 MG/0.6 ML DROPS 2,000 MG/30 ML BOTTLE PO SCH ×4 (05:30→23:50)
[2019-03-24] MEDS: ONDANSETRON 4 MG/2 ML VIAL IVP SCH ×4 (05:31→23:51)
[2019-03-24] MEDS: METOCLOPRAMIDE 5 MG/ML 2 ML VIAL IVP SCH ×4 (05:31→23:51)
[2019-03-24] MEDS: PANTOPRAZOLE 40 MG/10 ML VIAL IV SCH (08:19)
[2019-03-24] MEDS: GABAPENTIN 300 MG CAP PO SCH ×3 (08:19→21:14)
[2019-03-24] MEDS: TAMSULOSIN 0.4 MG CAP.ER.24H PO SCH (08:20)
[2019-03-24] MEDS: HEPARIN SODIUM,PORCINE 5,000 UNIT/ML 1 ML VIAL SQ SCH ×2 (08:20→21:14)
--- NOTE | 2019-03-24 13:44 | P.PN ---
Subjective Progress Note Date: 03/24/19 CHIEF COMPLAINT: Abdominal pain HISTORY OF PRESENT ILLNESS: Patient is status post open laparotomy for reduction of small bowel volvulus and internal hernia performed on 03/20/2019. Patient examined this morning the bedside. She reports feeling unwell this morning. She complains of abdominal pain, but states it is tolerable. She is utilizing a PIPE FITTER MAINTENANCE pump. Patient denies passing flatus or having a bowel movement since surgery. She reports belching. She is tolerating small amounts of full liquids. PHYSICAL EXAM: VITAL SIGNS: Reviewed. GENERAL: Well-developed in no acute distress. HEENT: No sclera icterus. Extraocular movements grossly intact. Moist buccal mucosa. Head is atraumatic, normocephalic. ABDOMEN: Soft. Nondistended. Nontender. PREVENA wound vac intact. NEUROLOGIC: Alert and oriented. Cranial nerves II through XII grossly intact. ASSESSMENT: 1. Small bowel volvulus and internal hernia, status post open laparotomy PLAN: 1. Continue liquid diet. Await bowel function 2. Pain control 3. Increase activity 4. Incentive spirometer Nurse practitioner note has been reviewed by physician. Signing provider agrees with the documented findings, assessment, and plan of care. Objective - Vital Signs Vital signs: Vital Signs Temp 98.5 F 03/24/19 07:00 Pulse 90 03/24/19 07:00 Resp 16 03/24/19 07:00 BP 147/84 03/24/19 07:00 Pulse Ox 97 03/24/19 07:00 Intake & Output 03/23/19 03/24/19 03/24/19 18:59 06:59 18:59 Other: Voiding Method Toilet Toilet - Labs CBC & Chem 7: 03/21/19 08:06 03/21/19 08:06
[2019-03-24] MEDS ORDERED: BISACODYL 5 MG TABLET.DR PO PRN (21:21)
[2019-03-25] MEDS: SODIUM CHLORIDE 0.9% 1,000 ML IV SCH ×3 (04:09→23:45)
[2019-03-25] MEDS: METOCLOPRAMIDE 5 MG/ML 2 ML VIAL IVP SCH ×4 (05:34→22:35)
[2019-03-25] MEDS: ONDANSETRON 4 MG/2 ML VIAL IVP SCH ×4 (05:34→23:44)
[2019-03-25] MEDS: SIMETHICONE 40 MG/0.6 ML DROPS 2,000 MG/30 ML BOTTLE PO SCH ×4 (05:35→23:43)
[2019-03-25] MEDS: TAMSULOSIN 0.4 MG CAP.ER.24H PO SCH (08:17)
[2019-03-25] MEDS: PANTOPRAZOLE 40 MG/10 ML VIAL IV SCH (08:17)
[2019-03-25] MEDS: GABAPENTIN 300 MG CAP PO SCH ×3 (08:17→21:04)
[2019-03-25] MEDS: HEPARIN SODIUM,PORCINE 5,000 UNIT/ML 1 ML VIAL SQ SCH ×2 (08:18→21:03)
[2019-03-25 10:03] LABS: African American GFR (CKD) >90 (>60 ml/min/1.73 sqM); Anion Gap 10 mmol/L; Blood Urea Nitrogen 2 mg/dL (7-17); Carbon Dioxide 21 mmol/L (22-30); Chloride 104 mmol/L (98-107); Glucose 118 mg/dL (74-99); Magnesium 1.5 mg/dL (1.6-2.3); Potassium 3.4 mmol/L (3.5-5.1); Sodium 135 mmol/L (137-145)
[2019-03-25 10:27] LABS: Anisocytosis Moderate; Basophils % (A) 0 %; Eosinophils # (A) 0.1 k/uL (0-0.7); Eosinophils % (A) 1 %; HCT 31.5 % (34.0-46.0); HGB 9.7 gm/dL (11.4-16.0); Hypochromasia Marked; Lymphocytes # (A) 0.6 k/uL (1.0-4.8); Lymphocytes % (A) 6 %; MCH 26.2 pg (25.0-35.0); MCHC 30.7 g/dL (31.0-37.0); MCV 85.2 fL (80.0-100.0); Mean Platelet Volume 6.1; Monocytes # (A) 0.4 k/uL (0-1.0); Monocytes % (A) 4 %; Neutrophils # (A) 8.9 k/uL (1.3-7.7); Neutrophils % (A) 88 %; Platelet Count 258 k/uL (150-450); Poikilocytosis Slight; RBC 3.69 m/uL (3.80-5.40); RDW 22.2 % (11.5-15.5); WBC 10.2 k/uL (3.8-10.6)
[2019-03-25] MEDS: POTASSIUM CHLORIDE ER 20 MEQ TAB.ER PO SCH ×3 (10:54→16:58)
[2019-03-25] MEDS: MAGNESIUM SULFATE-D5W PMX 1 GM in DEXTROSE/WATER 1 100ML.BAG IVPB SCH ×3 (10:55→14:14)
[2019-03-25 11:43] LABS: Appearance,Urine Clear (Clear); Bilirubin,Urine Negative (Negative); Blood,Urine Small (Negative); Color,Urine Light Yellow; Glucose,Urine (UA) Negative (Negative); Ketones,Urine 4+ (Negative); Leukocyte Esterase,Urine Negative (Negative); Mucus,Urine Rare /hpf; Nitrite,Urine Negative (Negative); Protein,Urine Negative (Negative); RBC,Urine 3 /hpf (0-5); Specific Gravity,Urine 1.007 (1.001-1.035); Squamous Epithelial Cell,Urine <1 /hpf (0-4); Urobilinogen,Urine <2.0 mg/dL (<2.0); WBC,Urine 1 /hpf (0-5)
[2019-03-25] MEDS: HYDROcodone/APAP 5-325MG 1 EACH TAB PO PRN ×3 (14:14→22:35)
--- NOTE | 2019-03-25 15:56 | P.PN ---
Subjective Progress Note Date: 03/25/19 CHIEF COMPLAINT: Abdominal pain HISTORY OF PRESENT ILLNESS: Patient is status post open laparotomy for reduction of small bowel volvulus and internal hernia performed on 03/20/2019. Patient examined this morning the bedside. She appears to be feeling better today compared to yesterday. She reports feeling bloated this morning that has improved with passing flatus. Tolerating full liquid diet. Denies nausea or vomiting. She reports some burning with urination this morning. She has been ambulating in the hallways. PHYSICAL EXAM: VITAL SIGNS: Reviewed. GENERAL: Well-developed in no acute distress. HEENT: No sclera icterus. Extraocular movements grossly intact. Moist buccal mucosa. Head is atraumatic, normocephalic. ABDOMEN: Soft. Nondistended. Mild tenderness. PREVENA wound vac intact. NEUROLOGIC: Alert and oriented. Cranial nerves II through XII grossly intact. ASSESSMENT: 1. Small bowel volvulus and internal hernia, status post open laparotomy PLAN: 1. Continue liquid diet. Await bowel function 2. Pain control 3. Increase activity as tolerated 4. Incentive spirometer 5. Replace potassium and magnesium 6. Obtain UA 7. Discontinue FIELD SALES ASSOCIATE pump 8. If patient does not show improvement by tomorrow, will obtain CT abdomen pelvis Nurse practitioner note has been reviewed by physician. Signing provider agrees with the documented findings, assessment, and plan of care. Objective - Vital Signs Vital signs: Vital Signs Temp 98.0 F 03/25/19 14:22 Pulse 102 H 03/25/19 14:22 Resp 18 03/25/19 14:22 BP 144/88 03/25/19 14:22 Pulse Ox 93 L 03/25/19 14:22 Intake & Output 03/24/19 03/25/19 03/25/19 18:59 06:59 18:59 Intake Total 750 210 Balance 750 210 Weight 73.482 kg Intake: Intake, IV Titration 750 Amount Sodium Chloride 0.9% 1, 750 000 ml @ 75 mls/hr IV . [id number] [facility] Rx#:[id number] Oral 210 Other: Voiding Method Toilet # Voids 3 - Labs CBC & Chem 7: 03/25/19 09:26 03/25/19 09:26 Labs: Abnormal Lab Results - Last 24 Hours (Table) 03/25/19 03/25/19 03/25/19 Range/Units 09:26 09:26 10:17 RBC 3.69 L (3.80-5.40) m/uL Hgb 9.7 L (11.4-16.0) gm/dL Hct 31.5 L (34.0-46.0) % MCHC 30.7 L (31.0-37.0) g/dL RDW 22.2 H (11.5-15.5) % Neutrophils # 8.9 H (1.3-7.7) k/uL Lymphocytes # 0.6 L (1.0-4.8) k/uL Sodium 135 L (137-145) mmol/L Potassium 3.4 L (3.5-5.1) mmol/L Carbon Dioxide 21 L (22-30) mmol/L BUN 2 L (7-17) mg/dL Creatinine 0.46 L (0.52-1.04) mg/dL Glucose 118 H (74-99) mg/dL Calcium 8.0 L (8.4-10.2) mg/dL Magnesium 1.5 L (1.6-2.3) mg/dL Urine Ketones 4+ H (Negative) Urine Blood Small H (Negative) Urine Mucus Rare H (None) /hpf
[2019-03-26] MEDS: HYDROcodone/APAP 5-325MG 1 EACH TAB PO PRN ×5 (02:46→21:47)
[2019-03-26] MEDS: METOCLOPRAMIDE 5 MG/ML 2 ML VIAL IVP SCH ×4 (05:31→23:51)
[2019-03-26] MEDS: ONDANSETRON 4 MG/2 ML VIAL IVP SCH ×4 (05:31→23:51)
[2019-03-26] MEDS: SIMETHICONE 40 MG/0.6 ML DROPS 2,000 MG/30 ML BOTTLE PO SCH ×4 (05:31→23:51)
[2019-03-26] MEDS: PANTOPRAZOLE 40 MG/10 ML VIAL IV SCH (07:33)
[2019-03-26] MEDS: TAMSULOSIN 0.4 MG CAP.ER.24H PO SCH (07:34)
[2019-03-26] MEDS: HEPARIN SODIUM,PORCINE 5,000 UNIT/ML 1 ML VIAL SQ SCH ×2 (07:34→21:48)
[2019-03-26] MEDS: GABAPENTIN 300 MG CAP PO SCH ×3 (07:34→21:48)
[2019-03-26 09:32] LABS: Anisocytosis Moderate; Basophils % (A) 0 %; Eosinophils # (A) 0.2 k/uL (0-0.7); Eosinophils % (A) 4 %; Hypochromasia Marked; Lymphocytes # (A) 1.2 k/uL (1.0-4.8); Lymphocytes % (A) 22 %; MCH 26.6 pg (25.0-35.0); MCHC 31.1 g/dL (31.0-37.0); MCV 85.7 fL (80.0-100.0); Mean Platelet Volume 6.2; Microcytosis Slight; Monocytes # (A) 0.3 k/uL (0-1.0); Monocytes % (A) 5 %; Neutrophils # (A) 3.8 k/uL (1.3-7.7); Neutrophils % (A) 67 %; Platelet Count 239 k/uL (150-450); Poikilocytosis Slight; RBC 3.39 m/uL (3.80-5.40); RDW 22.9 % (11.5-15.5); WBC 5.6 k/uL (3.8-10.6)
[2019-03-26 09:57] LABS: African American GFR (CKD) >90 (>60 ml/min/1.73 sqM); Anion Gap 7 mmol/L; Blood Urea Nitrogen 3 mg/dL (7-17); Calcium 7.8 mg/dL (8.4-10.2); Carbon Dioxide 23 mmol/L (22-30); Chloride 107 mmol/L (98-107); Glucose 97 mg/dL (74-99); Magnesium 1.8 mg/dL (1.6-2.3); Potassium 3.5 mmol/L (3.5-5.1); Sodium 137 mmol/L (137-145)
[2019-03-26] MEDS: IOPAMIDOL CONTRAST (ORAL USE) VIAL PO PRN ×2 (11:16→12:27)
[2019-03-26] MEDS: MAGNESIUM SULFATE-D5W PMX 1 GM in DEXTROSE/WATER 1 100ML.BAG IVPB SCH ×2 (11:36→13:45)
--- NOTE | 2019-03-26 13:38 | CT ---
EXAMINATION TYPE: CT abdomen pelvis w con DATE OF EXAM: 03/26/2019 HISTORY: Abd bloating, nausea. Ileus versus small bowel obstruction. Recent hernia repair surgery. CT DLP: 1235.4mGycm Automated Exposure Control for Dose Reduction was Utilized. CONTRAST: CT scan of the abdomen and pelvis is performed with oral and with IV Contrast, patient injected with 100 mL of Isovue 300. COMPARISON: CT abdomen and pelvis 6 days ago and older study March 11, 2019. FINDINGS: LUNG BASES: There are new small bilateral pleural effusions. There is new patchy bibasilar consolidat ion and/or atelectasis. LIVER/GB: Gallbladder not seen and presumed surgically absent. Small amount of adjacent ascites surro unds the liver. Liver somewhat small in size. PANCREAS: No significant abnormality is seen. SPLEEN: Is splenomegaly redemonstrated measuring 16.3 cm long axis coronal image 67 with trace surrou nding ascites. ADRENALS: No significant abnormality is seen. KIDNEYS: No significant abnormality is seen. BOWEL: Oral contrast does not reach the level of the terminal ileum. Surgical changes from gastric by pass procedure epigastric region redemonstrated. There is persistent dilated gastric body and duodena l sweep with contrast and air-fluid level on current study. This suggests retrograde flow of contrast at site of small bowel anastomosis or possible leak there are sutures in the epigastric region. More dense contrast is noted in duodenal sweep favoring retrograde flow. There are prominent contrast zulema led jejunal loops throughout the left abdomen. There is mild to moderate mesenteric edema. Fecal mate rial is seen in nondistended colon. Terminal ileum is decompressed in the right lower quadrant and pe lvis. There is gradual transition into nondilated contrast filled pelvic loops in the pelvis. UTERUS/ADNEXA: Some prominence of central endometrial fluid in the uterus remains present with slight arcuate type morphology noted on coronal image 64. Moderate to severe amount of free fluid in the pe lvic cul-de-sac with overall moderate pelvic ascites increased from prior. Small amount of fluid left paracolic and infracolic gutter with additional fluid right paracolic gutter slightly less prominent . No pneumoperitoneum presumed postsurgical anterior to liver image 18. LYMPH NODES: No greater than 1cm abdominal or pelvic lymph nodes are appreciated. OSSEOUS STRUCTURES: No significant abnormality is seen. OTHER: There is overlying drainage catheter in the anterior abdominal wall which does not penetrate t he skin surface. There is no vertical scar noted in the midline of the anterior abdominal wall with s ome mild subcutaneous fluid. IMPRESSION: 1. Interval hernia repair surgery since most recent CT. Overall nonspecific bowel gas pattern current ly. Findings favor some residual partial small bowel obstruction. There is dilated and prominent prox imal small bowel loops with transition into contrast-filled nondilated distal loops making complete o bstruction unlikely. 2. New pneumoperitoneum and small to moderate amount of abdominal and pelvic ascites with small bilat eral pleural effusions is suspected product of recent surgery and desired fluid overload state. 3. Persistent splenomegaly which may warrant further clinical workup. 4. Overlying drainage catheter of uncertain significance as to penetrate skin surface in the visualiz ed abdomen or pelvis. 5. Gastric bypass changes with suspected reflux of contrast into the afferent loop.
[2019-03-26] MEDS: SODIUM CHLORIDE 0.9% 1,000 ML IV SCH (13:45)
[2019-03-26] MEDS: POTASSIUM CHLORIDE ER 20 MEQ TAB.ER PO SCH ×2 (13:45→17:40)
--- NOTE | 2019-03-26 14:06 | P.PN ---
Subjective Progress Note Date: 03/26/19 CHIEF COMPLAINT: Abdominal pain HISTORY OF PRESENT ILLNESS: Patient is status post open laparotomy for reduction of small bowel volvulus and internal hernia performed on 03/20/2019. Patient examined this morning the bedside. Patient denies passing flatus. Denies BM. She reports eating some oatmeal this morning. Unable to tolerate protein shakes due to nausea. No emesis. Pain controlled. She reports feeling bloated. Hemoglobin 9.0. Potassium 3.5. Magnesium 1.8. PHYSICAL EXAM: VITAL SIGNS: Reviewed. GENERAL: Well-developed in no acute distress. HEENT: No sclera icterus. Extraocular movements grossly intact. Moist buccal mucosa. Head is atraumatic, normocephalic. ABDOMEN: Soft. Nondistended. Mild tenderness. PREVENA wound vac intact. NEUROLOGIC: Alert and oriented. Cranial nerves II through XII grossly intact. ASSESSMENT: 1. Small bowel volvulus and internal hernia, status post open laparotomy PLAN: 1. Continue liquid diet. Await bowel function 2. Pain control 3. Increase activity as tolerated 4. Incentive spirometer 5. Replace potassium and magnesium 6. Obtain CT abdomen pelvis with oral contrast Nurse practitioner note has been reviewed by physician. Signing provider agrees with the documented findings, assessment, and plan of care. Objective - Vital Signs Vital signs: Vital Signs Temp 97.9 F 03/26/19 07:00 Pulse 77 03/26/19 07:00 Resp 16 03/26/19 07:00 BP 124/78 03/26/19 07:00 Pulse Ox 96 03/26/19 07:00 Intake & Output 03/25/19 03/26/19 03/26/19 18:59 06:59 18:59 Intake Total 210 Balance 210 Weight 73.482 kg Intake: Oral 210 Other: Voiding Method Toilet Toilet - Labs CBC & Chem 7: 03/26/19 08:14 03/26/19 08:14 Labs: Abnormal Lab Results - Last 24 Hours (Table) 03/26/19 03/26/19 Range/Units 08:14 08:14 RBC 3.39 L (3.80-5.40) m/uL Hgb 9.0 L (11.4-16.0) gm/dL Hct 29.0 L (34.0-46.0) % RDW 22.9 H (11.5-15.5) % BUN 3 L (7-17) mg/dL Creatinine 0.41 L (0.52-1.04) mg/dL Calcium 7.8 L (8.4-10.2) mg/dL
[2019-03-26] MEDS ORDERED: NA PHOS,M-B/NA PHOS,DI-BA 133 ML ENEMA RECTAL ONE (21:00)
[2019-03-27] MEDS: HYDROcodone/APAP 5-325MG 1 EACH TAB PO PRN ×5 (02:11→20:02)
[2019-03-27] MEDS: SIMETHICONE 40 MG/0.6 ML DROPS 2,000 MG/30 ML BOTTLE PO SCH ×4 (05:36→23:11)
[2019-03-27] MEDS: ONDANSETRON 4 MG/2 ML VIAL IVP SCH ×4 (05:36→23:11)
[2019-03-27] MEDS: METOCLOPRAMIDE 5 MG/ML 2 ML VIAL IVP SCH ×4 (05:36→23:12)
[2019-03-27 08:04] LABS: Anisocytosis Moderate; Basophils % (A) 0 %; Eosinophils # (A) 0.3 k/uL (0-0.7); Eosinophils % (A) 5 %; HCT 30.6 % (34.0-46.0); HGB 9.1 gm/dL (11.4-16.0); Hypochromasia Marked; Lymphocytes # (A) 1.1 k/uL (1.0-4.8); Lymphocytes % (A) 21 %; MCH 25.5 pg (25.0-35.0); MCHC 29.6 g/dL (31.0-37.0); MCV 85.9 fL (80.0-100.0); Mean Platelet Volume 6.2; Microcytosis Slight; Monocytes # (A) 0.2 k/uL (0-1.0); Monocytes % (A) 5 %; Neutrophils # (A) 3.4 k/uL (1.3-7.7); Neutrophils % (A) 67 %; Platelet Count 270 k/uL (150-450); Poikilocytosis Slight; RBC 3.56 m/uL (3.80-5.40); RDW 23.3 % (11.5-15.5); WBC 5.1 k/uL (3.8-10.6)
[2019-03-27 08:19] LABS: African American GFR (CKD) >90 (>60 ml/min/1.73 sqM); Anion Gap 7 mmol/L; Blood Urea Nitrogen 2 mg/dL (7-17); Carbon Dioxide 26 mmol/L (22-30); Chloride 107 mmol/L (98-107); Glucose 77 mg/dL (74-99); Potassium 3.6 mmol/L (3.5-5.1); Sodium 140 mmol/L (137-145)
[2019-03-27] MEDS: TAMSULOSIN 0.4 MG CAP.ER.24H PO SCH (08:36)
[2019-03-27] MEDS: PANTOPRAZOLE 40 MG/10 ML VIAL IV SCH (08:37)
[2019-03-27] MEDS: HEPARIN SODIUM,PORCINE 5,000 UNIT/ML 1 ML VIAL SQ SCH ×2 (08:37→20:02)
[2019-03-27] MEDS: GABAPENTIN 300 MG CAP PO SCH ×3 (08:37→23:11)
[2019-03-27] MEDS ORDERED: BISACODYL 10 MG SUPP RECTAL STA (10:49)
[2019-03-27] MEDS: MAGNESIUM HYDROXIDE 2,400 MG/10 ML CUP PO SCH (11:02)
--- NOTE | 2019-03-27 14:13 | P.PN ---
Subjective Progress Note Date: 03/27/19 CHIEF COMPLAINT: Abdominal pain HISTORY OF PRESENT ILLNESS: Patient is status post open laparotomy for reduction of small bowel volvulus and internal hernia performed on 03/20/2019. Patient examined this morning the bedside. Patient reports her pain is controlled on oral medications. She is passing flatus this morning. Denies bowel movement. Denies nausea or vomiting. WBC 5.1. Hemoglobin 9.1. PHYSICAL EXAM: VITAL SIGNS: Reviewed. GENERAL: Well-developed in no acute distress. HEENT: No sclera icterus. Extraocular movements grossly intact. Moist buccal mucosa. Head is atraumatic, normocephalic. ABDOMEN: Soft. Nondistended. Nontender. Positive bowel sounds. NEUROLOGIC: Alert and oriented. Cranial nerves II through XII grossly intact. ASSESSMENT: 1. Small bowel volvulus and internal hernia, status post open laparotomy PLAN: 1. Continue liquid diet. Await bowel function. Continue Reglan. Dulcolax suppository 1. Begin Milk of magnesia daily. Possible advancement of diet this afternoon. 2. Pain control 3. Increase activity as tolerated 4. Incentive spirometer 5. Prevena DC at the bedside. Patient may shower. RN to place Optifoam to incision after patient showers 5. Possible discharge home tomorrow pending if patient has a bowel movement and is tolerating advancement of diet Nurse practitioner note has been reviewed by physician. Signing provider agrees with the documented findings, assessment, and plan of care. Objective - Vital Signs Vital signs: Vital Signs Temp 97.8 F 03/27/19 08:53 Pulse 75 03/27/19 08:53 Resp 16 03/27/19 08:53 BP 135/84 03/27/19 08:53 Pulse Ox 97 03/27/19 08:53 Intake & Output 03/26/19 03/27/19 03/27/19 18:59 06:59 18:59 Intake Total 180 Balance 180 Intake: Oral 180 Other: Voiding Method Toilet Toilet - Labs CBC & Chem 7: 03/27/19 07:12 03/27/19 07:12 Labs: Abnormal Lab Results - Last 24 Hours (Table) 03/27/19 03/27/19 Range/Units 07:12 07:12 RBC 3.56 L (3.80-5.40) m/uL Hgb 9.1 L (11.4-16.0) gm/dL Hct 30.6 L (34.0-46.0) % MCHC 29.6 L (31.0-37.0) g/dL RDW 23.3 H (11.5-15.5) % BUN 2 L (7-17) mg/dL Creatinine 0.47 L (0.52-1.04) mg/dL Calcium 8.0 L (8.4-10.2) mg/dL
[2019-03-27] MEDS: SODIUM CHLORIDE 0.9% 1,000 ML IV SCH ×2 (15:49→20:22)
[2019-03-28] MEDS: HYDROcodone/APAP 5-325MG 1 EACH TAB PO PRN ×4 (00:01→13:09)
[2019-03-28] MEDS: SIMETHICONE 40 MG/0.6 ML DROPS 2,000 MG/30 ML BOTTLE PO SCH ×2 (05:41→11:42)
[2019-03-28] MEDS: ONDANSETRON 4 MG/2 ML VIAL IVP SCH ×2 (05:41→11:40)
[2019-03-28] MEDS: METOCLOPRAMIDE 5 MG/ML 2 ML VIAL IVP SCH ×2 (05:41→11:43)
[2019-03-28] MEDS: PANTOPRAZOLE 40 MG/10 ML VIAL IV SCH (07:31)
[2019-03-28] MEDS: GABAPENTIN 300 MG CAP PO SCH ×2 (07:31→15:22)
[2019-03-28] MEDS: TAMSULOSIN 0.4 MG CAP.ER.24H PO SCH (07:31)
[2019-03-28] MEDS: MAGNESIUM HYDROXIDE 2,400 MG/10 ML CUP PO SCH (07:31)
[2019-03-28] MEDS: HEPARIN SODIUM,PORCINE 5,000 UNIT/ML 1 ML VIAL SQ SCH (07:31)
[2019-03-28 08:41] LABS: African American GFR (CKD) >90 (>60 ml/min/1.73 sqM); Anion Gap 9 mmol/L; Blood Urea Nitrogen 4 mg/dL (7-17); Calcium 8.5 mg/dL (8.4-10.2); Carbon Dioxide 27 mmol/L (22-30); Chloride 104 mmol/L (98-107); Glucose 113 mg/dL (74-99); Magnesium 2.1 mg/dL (1.6-2.3); Potassium 3.6 mmol/L (3.5-5.1); Sodium 140 mmol/L (137-145)
[2019-03-28 08:52] LABS: Anisocytosis Moderate; Basophils % (A) 1 %; Eosinophils # (A) 0.3 k/uL (0-0.7); Eosinophils % (A) 5 %; HCT 36.9 % (34.0-46.0); HGB 11.3 gm/dL (11.4-16.0); Hypochromasia Marked; Lymphocytes # (A) 1.5 k/uL (1.0-4.8); Lymphocytes % (A) 24 %; MCH 26.8 pg (25.0-35.0); MCHC 30.6 g/dL (31.0-37.0); MCV 87.7 fL (80.0-100.0); Mean Platelet Volume 5.7; Monocytes # (A) 0.3 k/uL (0-1.0); Monocytes % (A) 4 %; Neutrophils # (A) 3.9 k/uL (1.3-7.7); Neutrophils % (A) 64 %; Platelet Count 368 k/uL (150-450); Poikilocytosis Slight; RDW 22.2 % (11.5-15.5)
[2019-03-28] MEDS: SODIUM CHLORIDE 0.9% 1,000 ML IV SCH (11:45)
[2019-03-28 14:33] VITALS: BP 136/84; PULSE 83; RESP 15; TEMP 98.1
--- NOTE | 2019-03-28 14:33 | P.DS ---
Providers Date of admission: 03/20/19 10:20 Expected date of discharge: 03/28/19 Attending physician: Makenna Persaud Consults: 03/20/19 10:49 Consult Physician Routine Consulting Provider: [facility] Consult Reason/Comments: [facility] Do you want consulting provider notified?: Yes Primary care physician: Fadi Yen [facility] Course: Patient underwent open laparotomy for reduction of small bowel volvulus and internal hernia performed on 03/20/2019. She had a slow course postoperatively in regards to her bowels. She was started on clear liquid diet and advanced as tolerated. Eventually, patient began having flatus and bowel movements. Pain has been well controlled. Vital signs stable. She is stable for discharge home today. Please see EMR for further hospital course details. Discharge Diagnosis: 1. Small bowel volvulus and internal hernia, status post open laparotomy Nurse practitioner note has been reviewed by physician. Signing provider agrees with the documented findings, assessment, and plan of care. Patient Condition at Discharge: Stable Plan - Discharge Summary Discharge Rx Participant: No New Discharge Prescriptions: New HYDROcodone/APAP 5-325MG [[place] 5-325] 1 tab PO Q4HR PRN 3 Days #18 tab PRN Reason: Pain Bisacodyl [Dulcolax] 5 mg PO DAILY PRN #10 tablet. PRN Reason: Constipation Simethicone 40 mg/0.6 ml Drops [Mylicon Drops] 40 mg PO PCHS PRN #30 ml PRN Reason: Gas Ondansetron Odt [Zofran Odt] 4 mg PO Q8HR PRN #9 tab PRN Reason: Nausea Omeprazole 40 mg PO DAILY #30 capsule. Discontinued Omeprazole Magnesium [PriLOSEC OTC] 20 mg PO HS No Action Ondansetron Odt [Zofran Odt] 4 mg PO Q8HR PRN #9 tab PRN Reason: Nausea Acetaminophen Tab [Tylenol Tab] 500 mg PO Q6H PRN #30 tablet PRN Reason: Pain Multivitamins, Thera [Multivitamin (formulary)] 1 tab PO DAILY Discharge Medication List Acetaminophen Tab [Tylenol Tab] 500 mg PO Q6H PRN #30 tablet 03/15/19 [Rx] Ondansetron Odt [Zofran Odt] 4 mg PO Q8HR PRN #9 tab 03/15/19 [Rx] Multivitamins, Thera [Multivitamin (formulary)] 1 tab PO DAILY 03/20/19 [History] Bisacodyl [Dulcolax] 5 mg PO DAILY PRN #10 tablet. 03/21/19 [Rx] HYDROcodone/APAP 5-325MG [[place] 5-325] 1 tab PO Q4HR PRN 3 Days #18 tab 03/21/19 [Rx] Omeprazole 40 mg PO DAILY #30 capsule. 03/21/19 [Rx] Ondansetron Odt [Zofran Odt] 4 mg PO Q8HR PRN #9 tab 03/21/19 [Rx] Simethicone 40 mg/0.6 ml Drops [Mylicon Drops] 40 mg PO PCHS PRN #30 ml 03/21/19 [Rx] Follow up Appointment(s)/Referral(s): Fadi Hernandez III, MD [Primary Care Provider] - 04/03/19 2:00 pm [facility], [NON-STAFF] - 1 Week Bariatric [place], [place] [NON-STAFF] - 04/02/19 2:40 pm Patient Instructions/Handouts: Bowel Obstruction (DC), Abdominal Binder (DC) Activity/Diet/Wound Care/Special Instructions: No lifting over 4 pounds in 4 weeks, until April 20. May shower. No soaking in bath tubs until April 20. Continue to use incentive spirometry to prevent pneumonias. Please continue to ambulate at home to prevent blood clots in her legs. Discharge Disposition: HOME SELF-CARE
== END 2019-03-28 16:52 | disposition home health service (06) | DRG 356 ==
LOC: EC 07:14 → 4SSUR 10:20
PROVIDERS: ADMIT Surgery Plastic and Reconstructive Surgery; ATTEND Surgery Plastic and Reconstructive Surgery
PROC: 0DQV0ZZ Repair Mesentery, Open Approach (ICD-10-PCS; principal; 2019-03-20 07:30)
DX: K46.0 Unspecified abdominal hernia with obstruction, without gangrene (principal); K56.2 Volvulus; E87.2 Acidosis; K56.50 Intestinal adhesions [bands], unspecified as to partial versus complete obstruction; D50.9 Iron deficiency anemia, unspecified; D72.829 Elevated white blood cell count, unspecified; F41.9 Anxiety disorder, unspecified; G89.29 Other chronic pain; K21.9 Gastro-esophageal reflux disease without esophagitis; Z82.49 Family history of ischemic heart disease and other diseases of the circulatory system; Z83.3 Family history of diabetes mellitus; Z87.11 Personal history of peptic ulcer disease; Z87.891 Personal history of nicotine dependence; Z98.84 Bariatric surgery status; Z79.899 Other long term (current) drug therapy; Z88.8 Allergy status to other drugs, medicaments and biological substances; Z91.018 Allergy to other foods; E66.01 Morbid (severe) obesity due to excess calories; Z68.27 Body mass index [BMI] 27.0-27.9, adult
CPT/HCPCS: 36415; 74177; 80048; 80051; 80053; 81001; 81025; 82310; 82565; 83690; 83735; 84100; 84484; 84520; 85025; 85610; 85730; 86850; 86900; 86901; 93005; 94760; 94762; 96361; 96374; 96375; 99285

== ENCOUNTER → 2019-04-02 | Outpatient (CLI) | payer OTHER ==
[2019-04-02 15:26] VITALS: BP 139/92; PULSE 81; RESP 16; TEMP 98; BMI 25.4
--- NOTE | 2019-04-02 16:08 | P.PN ---
Subjective Progress Note Date: 04/02/19 She had a bowel movement. She has chronic constipation. Has fiber required. "I feel great" Reviewed of internal hernia pictures and described. She is doing much better. Dressing is removed. Objective - Vital Signs Vital signs: Vital Signs Temp 98 F 04/02/19 15:24 Pulse 81 04/02/19 15:24 Resp 16 04/02/19 15:24 BP 139/92 04/02/19 15:24 Pulse Ox Intake & Output 04/01/19 04/02/19 04/02/19 18:59 06:59 18:59 Weight 69.853 kg
== END | disposition home or self-care (01) ==
LOC: BARWHC3 14:36
PROVIDERS: ATTEND Surgery Plastic and Reconstructive Surgery
DX: K59.00 Constipation, unspecified (principal); K46.9 Unspecified abdominal hernia without obstruction or gangrene
CPT/HCPCS: 99211

== ENCOUNTER → 2019-04-16 | Outpatient (CLI) | payer OTHER ==
--- NOTE | 2019-04-16 13:26 | P.PN ---
Subjective Progress Note Date: 04/16/19 DATE OF SERVICE: 04/16/2019 CHIEF COMPLAINT: Bowel obstruction HISTORY OF PRESENT ILLNESS: Fozia Boucher is a 38-year-old female who is status post gastric bypass 04/08/2018. She is over 1 year out. She is status post lysis of adhesions, 03/14/19 and laparotomy 03/20/19. She reports feeling much better. No further abdominal pain. She is 1 month. Continue to wear abdominal binder. She can lift over 20 pounds. At her height of 5 foot 5.25 inches, her highest weight was 239 pounds lifetime. Initial body mass index was 39.6. Today she comes weighing 154 pounds unchanged, 2 weeks ago. Her BMI is 25.4. She has lost 85 pounds lifetime. [place] body weight is 149 pounds. Percent excess weight loss is 95 %. PHYSICAL EXAM: VITAL SIGNS: Height 5 foot 5.25 inches, weight 154 pounds. BMI 25.4 Vital Signs Temp 98.2 F 04/16/19 13:40 Pulse 90 04/16/19 13:40 Resp BP 185/111 04/16/19 13:40 Pulse Ox GENERAL: Well-developed female in no acute distress. HEENT: No scleral icterus. Extraocular movements grossly intact. Hears conversational speech. No nasal drainage. NECK: Supple without lymphadenopathy. CHEST: Nonlabored respirations with equal bilateral excursions. CARDIOVASCULAR: Regular rate. Distal 2+ pulses. ABDOMEN: Soft. Non-distended. Incisions is granulated. MUSCULOSKELETAL: No clubbing, cyanosis, or edema. NEURO: No focal or lateralizing signs. Cranial nerves 2 through 12 grossly within normal limits. PSYCH: Appropriate affect. Alert and oriented to person, place and time. SKIN: Good skin turgor. Well perfused. ASSESSMENT: 1. Morbid obesity due to excess calories 2. Body mass index initial of 39.6 to 25.4 3. Diabetes type 2, [id number], now resolved 4. Hypertensive heart disease. 5. Depression. 6. Seasonal ALLERGIES. 7. Panniculitis. 8. Gastroesophageal reflux disease. 9. Family history of morbid obesity. 10. Obstructive sleep apnea. 11. Gastroparesis 12. Status post gastric bypass. 13. Dysphagia 14. Panniculitis 15. Colitis 16. Vitamin A deficiency 17. Vitamin D deficiency 18. Secondary hyperparathyroidism secondary to an adequate calcium intake 19. Peritoneal adhesions. 20. Acute blood loss anemia 21. Severe iron deficiency anemia 22. Bowel obstruction PLAN: 1. Continue to wear abdominal binder. 2. She can lift over 20 pounds.
--- NOTE | 2019-04-16 13:31 | P.PN ---
Progress Note - Text Progress Note Date: 04/16/19 To whom it may concern: Fozia Boucher is under my surgical care. She may return to work without restrictions Sunday, April 21, 2019. Regards, Makenna Persaud MD FACS
[2019-04-16 13:42] VITALS: BP 185/111; PULSE 90; TEMP 98.2; BMI 25.4
== END | disposition home or self-care (01) ==
LOC: BARWHC3 13:03
PROVIDERS: ATTEND Surgery Plastic and Reconstructive Surgery
DX: E66.01 Morbid (severe) obesity due to excess calories (principal); F32.9 Major depressive disorder, single episode, unspecified; I11.9 Hypertensive heart disease without heart failure; M79.3 Panniculitis, unspecified; K21.9 Gastro-esophageal reflux disease without esophagitis; G47.33 Obstructive sleep apnea (adult) (pediatric); E11.43 Type 2 diabetes mellitus with diabetic autonomic (poly)neuropathy; K52.9 Noninfective gastroenteritis and colitis, unspecified; E50.9 Vitamin A deficiency, unspecified; E55.9 Vitamin D deficiency, unspecified; N25.81 Secondary hyperparathyroidism of renal origin; K66.0 Peritoneal adhesions (postprocedural) (postinfection); D62 Acute posthemorrhagic anemia; D50.9 Iron deficiency anemia, unspecified; K56.609 Unspecified intestinal obstruction, unspecified as to partial versus complete obstruction; R13.10 Dysphagia, unspecified; Z68.25 Body mass index [BMI] 25.0-25.9, adult; Z91.048 Other nonmedicinal substance allergy status; Z84.89 Family history of other specified conditions; Z98.84 Bariatric surgery status
CPT/HCPCS: 99211

== ENCOUNTER → 2020-04-12 | Outpatient (CLI) | payer OTHER | END | disposition home or self-care (01) | LOC: LABWHC1 12:57 | PROVIDERS: ATTEND Family Medicine | DX: R09.81 Nasal congestion (principal) | CPT/HCPCS: U0003; C9803 ==

== ENCOUNTER → 2021-05-24 | Outpatient (CLI) | payer OTHER | END | disposition home or self-care (01) | LOC: LABWHC1 13:15 | PROVIDERS: ATTEND Family Medicine | DX: Z20.822 Contact with and (suspected) exposure to COVID-19 (principal) | CPT/HCPCS: U0003; C9803 ==

== ENCOUNTER 2021-12-26 06:47 | Day surgery (SDC) | payer OTHER ==
[2021-12-23 11:23] VITALS: BMI 26.6
[2021-12-26] MEDS ORDERED: LACTATED RINGERS 1,000 ML IV SCH (07:22)
[2021-12-26 07:33] VITALS: TEMP 96.7
[2021-12-26] MEDS ORDERED: ONDANSETRON 4 MG/2 ML VIAL ONE (07:33)
--- NOTE | 2021-12-26 07:36 | P.GSHP ---
History of Present Illness H&P Date: 12/26/21 CHIEF COMPLAINT: GERD and colon screen HISTORY OF PRESENT ILLNESS: The patient is a 41-year-old female who presents with gastroesophageal reflux disease and need for colon screen. Upper and lower endoscopy were offered for further evaluation and management. PAST MEDICAL HISTORY: Please see list. PAST SURGICAL HISTORY: Please see list. MEDICATIONS: Please see list. ALLERGIES: Please see list. SOCIAL HISTORY: No illicit drug use FAMILY HISTORY: No reports of Crohn disease or ulcerative colitis. REVIEW OF ORGAN SYSTEMS: CONSTITUTIONAL: No reports of fevers or chills. GI: Denies any blood in stools or constipation. PHYSICAL EXAM: VITAL SIGNS: Stable GENERAL: Well-developed pleasant in no acute distress. HEENT: No scleral icterus. Extraocular movements grossly intact. Moist buccal mucosa. NECK: Supple without lymphadenopathy. CHEST: Unlabored respirations. Equal bilateral excursions. CARDIOVASCULAR: Regular rate and rhythm. Distal 2+ pulses. ABDOMEN: Soft, nondistended. MUSCULOSKELETAL: No clubbing, cyanosis, or edema. ASSESSMENT: 1. Gastroesophageal reflux disease 2. Colon screen. PLAN: 1. 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 , states diabetes resolved with wt loss and now "pre-diabetic , hx gastroparesis., neuropathy feet, UTI's, shingelles R ear with some hearing loss, seizure with fever as child., Iron def anemia., back pain, hx blood clot in her arm., diarrhea. History of Any Multi-Drug Resistant Organisms: None Reported Past Surgical History: Appendectomy, Bariatric Surgery, Bowel Resection, Section, Cholecystectomy, Hernia Repair, Tubal Ligation, Uterine Ablation Additional Past Surgical History / Comment(s): 03/13/19 hysteroscopy endometrial ablation D&C, 03/14/19 robotic lap lysis of adhesions/reduction small bowel volulus/reduction sigmoid volvulus and takedown internal hernia, 04/2018 rubens-e n-y gastric bypass, EGDs, EGD with dilation, EGD with hiatal hernia repair, L foot tendon repair, removal of one ovary/tube Past Anesthesia/Blood Transfusion Reactions: Previous Problems w/ Anesthesia, Motion Sickness, Postoperative Nausea & Vomiting (PONV) Additional Past Anesthesia/Blood Transfusion Reaction / Comment(s): Pt gets irritable when waking up after anesthetic, trouble urinating after anesthesia. Pt has received blood without reaction. Son -anaphylactic shock received propanol and versed thought he aspirated. ([facility] ) Past Psychological History: Anxiety Additional Psychological History / Comment(s): . Smoking Status: Former smoker Past Alcohol Use History: None Reported Additional Past Alcohol Use History / Comment(s): Pt started smoking in 2005 and quit in 2015. , hx of 1 ppd. Past Drug Use History: None Reported - Past Family History Mother Family Medical History: Hyperlipidemia, Thyroid Disorder Additional Family Medical History / Comment(s): hypothyroid Father Family Medical History: Diabetes Mellitus, Hypertension Sister(s) Family Medical History: Deep Vein Thrombosis (DVT), Pulmonary Embolus Additional Family Medical History / Comment(s): Arm and leg DVTs Medications and Allergies Home Medications Medication Instructions Recorded Confirmed Type Ondansetron Odt [Zofran Odt] 4 mg PO Q8HR PRN #9 tab 03/15/19 12/23/21 Rx Losartan Potassium 100 mg PO DAILY 11/23/21 12/23/21 History Omeprazole 20 mg PO DAILY 11/23/21 12/23/21 History Semaglutide [Ozempic] 0.5 mg SQ WEEKLY 11/23/21 12/23/21 History amLODIPine [Norvasc] 5 mg PO DAILY 11/23/21 12/23/21 History Acetaminophen [Tylenol Extra 1,000 mg PO DIRECTED PRN 12/23/21 12/23/21 History Strength] Bariatric Vitamin 1 dose PO DAILY 12/23/21 History Bismuth Subsalicylate 1 dose PO ONCE 12/23/21 12/23/21 History [Pepto-Bismol] Loperamide [Imodium] 2 mg PO DIRECTED PRN 12/23/21 12/23/21 History Allergies Allergy/AdvReac Type Severity Reaction Status Date / Time adhesive tape Allergy BLISTERS Verified 12/26/21 07:26 hydrochlorothiazide AdvReac MUSCLE Verified 12/26/21 07:26 PAINS chick peas Allergy Swelling Uncoded 12/26/21 07:26 Surgical - Exam Vital Signs Temp Pulse Resp BP Pulse Ox 96.7 F L 85 16 140/98 99 12/26/21 07:25 12/26/21 07:25 12/26/21 07:25 12/26/21 07:25 12/26/21 07:25
[2021-12-26] MEDS ORDERED: LIDOCAINE 1% (10MG/ML) FOR IV START INTRADERMA ONE (07:38)
[2021-12-26] MEDS ORDERED: ONDANSETRON 4 MG/2 ML VIAL IVP ONE (07:39)
[2021-12-26] MEDS ORDERED: PROPOFOL 10 MG/ML 20 ML VIAL IV ONE (07:42)
[2021-12-26] MEDS ORDERED: LIDOCAINE 2% INJ 20 MG/ML (2 ML VIAL) ONE (07:42)
--- NOTE | 2021-12-26 07:42 | P.HPADDEND ---
H&P Addendum H&P Addendum Date: 12/26/21 Patient reports chronic diarrhea including anemia for 1 year. Colonoscopy diagnostic. Patient also reports dysphagia. Upper endoscopy with dilation reviewed.
[2021-12-26 07:43] LABS: Glucose,Whole Blood 119 mg/dL (70-110)
--- NOTE | 2021-12-26 08:24 | P.PCN ---
Date of Procedure: 12/26/21 Description of Procedure: PREOPERATIVE DIAGNOSIS: Change in bowel habits Chronic diarrhea POSTOPERATIVE DIAGNOSIS: Poor prep Change in bowel habits Chronic diarrhea OPERATION: Colonoscopy with termination to the splenic flexure Colonoscopy with cold forceps biopsies for descending colon, sigmoid colon or colitis SURGEON: Makenna Persaud MD. ANESTHESIA: MAC. INDICATIONS: The patient is a 41-year-old female who presents with change in bowel habits. Benefits and risks were described and informed consent was obtained. DESCRIPTION OF PROCEDURE: The patient had undergone Miralax prep. The patient had been brought into the operating room and laid in the left lateral decubitus position. After adequate intravenous sedation, the rectum was examined with 2% lidocaine jelly. External hemorrhoids were encountered. The rectal tone was within normal limits. No lesions were palpated in the rectal vault. Semisolid stool was emanated from the rectum. An Olympus colonoscope was advanced to a tortuous sigmoid colon up to the splenic flexure. The prep was poor with semisolid stool. Cold forceps biopsies obtained of the remnant colon involving the descending and sigmoid colon. Retroflexion of the scope demonstrated grade 2 internal hemorrhoids without active bleeding or inflammation. The colon was desufflated. The patient had tolerated the procedure well. Withdrawal time was over 6 minutes. FINDINGS: Aronchick preparation quality scale 4 (1-5) Internal hemorrhoids, grade 2 External prolapsed hemorrhoids, grade 3 Unable to assess for arteriovenous malformations for the rest of the colon Unable to assess for adenomatous polyps for the rest of the colon. Random biopsies obtained of descending and sigmoid colon RECOMMENDATIONS: Extremely poor prep. Recommend three-day colonoscopy prep Recommend repeat colonoscopy for adequate diagnostic exam in 3 months, March 2022 Plan - Discharge Summary New Discharge Prescriptions: Continue Ondansetron Odt [Zofran ODT] 4 mg PO Q8HR PRN #9 tab PRN Reason: Nausea Semaglutide [Ozempic] 0.5 mg SQ WEEKLY Bariatric Vitamin 1 dose PO DAILY Omeprazole 20 mg PO DAILY amLODIPine [Norvasc] 5 mg PO DAILY Losartan Potassium 100 mg PO DAILY Bismuth Subsalicylate [Pepto-Bismol] 1 dose PO ONCE Loperamide [Imodium] 2 mg PO DIRECTED PRN PRN Reason: Diarrhea Acetaminophen [Tylenol Extra Strength] 1,000 mg PO DIRECTED PRN PRN Reason: Pain Discharge Medication List Ondansetron Odt [Zofran ODT] 4 mg PO Q8HR PRN #9 tab 03/15/19 [Rx] Losartan Potassium 100 mg PO DAILY 11/23/21 [History] Omeprazole 20 mg PO DAILY 11/23/21 [History] Semaglutide [Ozempic] 0.5 mg SQ WEEKLY 11/23/21 [History] amLODIPine [Norvasc] 5 mg PO DAILY 11/23/21 [History] Acetaminophen [Tylenol Extra Strength] 1,000 mg PO DIRECTED PRN 12/23/21 [History] Bariatric Vitamin 1 dose PO DAILY 12/23/21 [History] Bismuth Subsalicylate [Pepto-Bismol] 1 dose PO ONCE 12/23/21 [History] Loperamide [Imodium] 2 mg PO DIRECTED PRN 12/23/21 [History] [facility] up [facility]ment(s[facility] [place] [facility] [place] [facility] Patient Instructions/Handouts: *[facility] - (Anesthesia) Endoscopy Discharge Instructions, Colonoscopy (DC) Activity/Diet/Wound Care/Special Instructions: CAN HAVE ZOFRAN AGAIN AT 340PM Discharge Disposition: HOME SELF-CARE
--- NOTE | 2021-12-26 08:27 | P.PCN ---
Date of Procedure: 12/26/21 Description of Procedure: PREOPERATIVE DIAGNOSES: 1. Dysphagia 2. Nausea and vomiting. 3. History of gastric bypass. 4. History of gastric ulcers. 5. Epigastric abdominal pain POSTOPERATIVE DIAGNOSES: 1. Dysphagia 2. Nausea and vomiting. 3. History of gastric bypass. 4. History of gastric ulcers. 5. Epigastric abdominal pain 6. Foreign body, staple anastomosis PROCEDURE PERFORMED: 1. Esophagogastrojejunoscopy with cold forceps biopsies jejunum/gastric pouch SURGEON: Makenna Persaud MD ANESTHESIA: MAC. INDICATIONS: The patient is a 41-year-old male with prior history of Tristen-en-Y gastric bypass. She has intermittent nausea and vomiting, particularly of the epigastric abdominal pain. With history of Tristen-en-Y gastric bypass, upper endoscopy was offered for further evaluation and management. DESCRIPTION: Patient was brought to the endoscopy suite and laid in the left lateral decubitus position. After adequate IV sedation, a bite block was placed. An Olympus gastroscope was passed along the posterior oropharynx down to the distal esophagus where the squamocolumnar junction was found at approximately 38 cm from the incisors. Anastomosis was found at 44 cm, consistent with approximately 6 cm gastric pouch. The scope was advanced 60 cm from the incisors. A small staple was found along the anastomosis unable to be removed despite attempts. No gastrojejunal ulcerations were encountered. The GI tract was desufflated. The patient tolerated the procedure well. FINDINGS: 1. No acute gastrojejunal ulceration. 2. Gastric pouch, 6 cm 3. Anastomosis with remnant staple 4. Cold forceps biopsies obtained of jejunum and gastric pouch PLAN: 1. Recommend upper endoscopy as needed. 2. Recommend additional studies such as computed tomography scan of the abdomen and pelvis
[2021-12-26 08:36] VITALS: BP 136/85; PULSE 62; RESP 18
== END 2021-12-26 08:51 | disposition home or self-care (01) ==
LOC: ORWHC2ENDO 06:47
PROVIDERS: ATTEND Surgery Plastic and Reconstructive Surgery
DX: K95.89 Other complications of other bariatric procedure (principal); Q43.8 Other specified congenital malformations of intestine; K64.1 Second degree hemorrhoids; K64.4 Residual hemorrhoidal skin tags; K29.50 Unspecified chronic gastritis without bleeding; A04.8 Other specified bacterial intestinal infections; K52.9 Noninfective gastroenteritis and colitis, unspecified; K21.9 Gastro-esophageal reflux disease without esophagitis; H91.90 Unspecified hearing loss, unspecified ear; I10 Essential (primary) hypertension; R73.03 Prediabetes; E13.40 Other specified diabetes mellitus with diabetic neuropathy, unspecified; Z87.440 Personal history of urinary (tract) infections; Z86.19 Personal history of other infectious and parasitic diseases; D50.9 Iron deficiency anemia, unspecified; Z90.49 Acquired absence of other specified parts of digestive tract; Z98.891 History of uterine scar from previous surgery; Z98.51 Tubal ligation status; Z98.890 Other specified postprocedural states; F41.9 Anxiety disorder, unspecified; Z87.891 Personal history of nicotine dependence; Z83.438 Family history of other disorder of lipoprotein metabolism and other lipidemia; Z83.49 Family history of other endocrine, nutritional and metabolic diseases; Z83.3 Family history of diabetes mellitus; Z82.49 Family history of ischemic heart disease and other diseases of the circulatory system; Z79.899 Other long term (current) drug therapy; Z88.8 Allergy status to other drugs, medicaments and biological substances; Z91.018 Allergy to other foods; Z91.09 Other allergy status, other than to drugs and biological substances
CPT/HCPCS: 81025; 88305; 45380; 43239; J2405; J2704; J2001

== ENCOUNTER 2021-12-26 09:37 | Emergency (ER) | payer OTHER ==
[2021-12-26 09:41] VITALS: RESP 18
[2021-12-26 11:53] LABS: Albumin 4.6 g/dL (3.5-5.0); Carbon Dioxide 24 mmol/L (22-30); Chloride 107 mmol/L (98-107); Total Protein 7.3 g/dL (6.3-8.2)
[2021-12-26 11:54] LABS: ALT 24 U/L (4-34); African American GFR (CKD) >90 (>60 ml/min/1.73 sqM); Anion Gap 9 mmol/L; Blood Urea Nitrogen 6 mg/dL (7-17); Calcium 8.9 mg/dL (8.4-10.2); Glucose 124 mg/dL (74-99); Non-African American GFR(CKD) >90 (>60 ml/min/1.73 sqM); Sodium 140 mmol/L (137-145)
[2021-12-26 11:59] LABS: AST 35 U/L (14-36); Alkaline Phosphatase 104 U/L (38-126); Potassium 3.9 mmol/L (3.5-5.1)
[2021-12-26 12:08] LABS: Anisocytosis Slight; Basophils # (A) 0.1 k/uL (0-0.2); Basophils % (A) 1 %; Eosinophils # (A) 0.1 k/uL (0-0.7); Eosinophils % (A) 1 %; HGB 14.8 gm/dL (11.4-16.0); Lymphocytes # (A) 1.7 k/uL (1.0-4.8); Lymphocytes % (A) 20 %; MCH 30.4 pg (25.0-35.0); MCHC 33.6 g/dL (31.0-37.0); MCV 90.4 fL (80.0-100.0); Mean Platelet Volume 7.9; Monocytes # (A) 0.5 k/uL (0-1.0); Monocytes % (A) 6 %; Neutrophils # (A) 5.8 k/uL (1.3-7.7); Neutrophils % (A) 71 %; Platelet Count 198 k/uL (150-450); RBC 4.87 m/uL (3.80-5.40); RDW 16.1 % (11.5-15.5); WBC 8.2 k/uL (3.8-10.6)
[2021-12-26 13:05] VITALS: BP 131/91; PULSE 66; TEMP 97.9
--- NOTE | 2021-12-26 13:05 | CT ---
EXAMINATION TYPE: CT abdomen pelvis w con DATE OF EXAM: 12/26/2021 COMPARISON: CT 03/26/2019 HISTORY: Abdominal pain CT DLP: 1106.9 mGycm Automated exposure control for dose reduction was used. TECHNIQUE: Helical acquisition of images from the lung bases through the pelvis have been completed. CONTRAST: Performed without Oral Contrast and with IV Contrast, patient injected with 100 mL of Isovue 300. FINDINGS: Postop changes are noted to the stomach. Anterior abdominal wall hernia in the supraumbilic al location containing fat, laxity along the fashion 2. Is noted, colon is present at this level LUNG BASES: No significant abnormality is appreciated. AORTA: No significant abnormality is appreciated. LIVER/GB: Liver is enlarged. Patient is status post cholecystectomy. PANCREAS: No significant abnormality is seen. SPLEEN: Enlarged, suspect some varices in the hilum. ADRENALS: No significant abnormality is seen. KIDNEYS: No significant abnormality is seen. REPRODUCTIVE ORGANS: Uterus is somewhat bulky BOWEL: Postop changes are noted. Patient is post appendectomy. Fluid-filled loops of bowel are noted . (. FREE AIR: No Free Air visible. ASCITES: None visible. PELVIC ADENOPATHY: None visualized. RETROPERITONEAL ADENOPATHY: No Retroperitoneal Adenopathy visible. URINARY BLADDER: No significant abnormality is seen. OSSEOUS STRUCTURES: There is a spinal curvature. Degenerative disc changes in the left visualized sp ine. IMPRESSION: POSTOP CHANGES AND ADDITIONAL NONSPECIFIC FINDINGS DESCRIBED ABOVE. CORRELATE FOR HISTORY OF GASTRIC BYPASS. PERSISTENT SPLENOMEGALY. INTERVAL RESOLUTION OF PATIENT'S ASCITES. CORRELATE TO EXCLUDE ENTER ITIS. ABDOMINAL WALL HERNIAS DESCRIBED.
--- NOTE | 2021-12-26 13:27 | ED ---
General Adult HPI - General Chief complaint: Recheck/Abnormal Lab/Rx Stated complaint: Needs CT Time Seen by Provider: 12/26/21 10:05 Source: patient Mode of arrival: ambulatory Limitations: no limitations - History of Present Illness Initial comments: 41-year-old female with past history of gastric bypass, diabetes, small bowel obstruction presents to the emergency department from postop. She had an EGD colonoscopy with Dr. Luna earlier today. After the procedure was completed Dr. Luna stated that she would benefit from a CT of her abdomen and pelvis for further workup of her chronic anemia, chronic nausea and abdominal pain. She did not states that this study needed to be completed immediately however the patient figured that since she was artery at hospital that she would come to the emergency department for imaging. Colonoscopy was not adequate due to poor prep. She denies any current abdominal pain. No fevers. No constipation or diarrhea. No other alleviating, precipitating or modifying factors - Related Data Home Medications Medication Instructions Recorded Confirmed Losartan Potassium 100 mg PO DAILY 11/23/21 12/26/21 Omeprazole 20 mg PO DAILY 11/23/21 12/26/21 Semaglutide [Ozempic] 0.5 mg SQ WEEKLY 11/23/21 12/26/21 amLODIPine [Norvasc] 5 mg PO DAILY 11/23/21 12/26/21 Acetaminophen [Tylenol Extra 1,000 mg PO DIRECTED PRN 12/23/21 12/26/21 Strength] Bariatric Vitamin 1 dose PO DAILY 12/23/21 12/26/21 Bismuth Subsalicylate 1 dose PO ONCE 12/23/21 12/26/21 [Pepto-Bismol] Loperamide [Imodium] 2 mg PO DIRECTED PRN 12/23/21 12/26/21 Previous Rx's Medication Instructions Recorded Ondansetron Odt [Zofran ODT] 4 mg PO Q8HR PRN #9 tab 03/15/19 Allergies Allergy/AdvReac Type Severity Reaction Status Date / Time adhesive tape Allergy BLISTERS Verified 12/26/21 09:41 hydrochlorothiazide AdvReac MUSCLE Verified 12/26/21 09:41 PAINS chick peas Allergy Swelling Uncoded 12/26/21 09:41 Review of Systems ROS Statement: Those systems with pertinent positive or pertinent negative responses have been documented in the HPI. ROS Other: All systems not noted in ROS Statement are negative. 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 , states diabetes resolved with wt loss and now "pre-diabetic , hx gastroparesis., neuropathy feet, UTI's, shingelles R ear with some hearing loss, seizure with fever as child., Iron def anemia., back pain, hx blood clot in her arm., diarrhea. History of Any Multi-Drug Resistant Organisms: None Reported Past Surgical History: Appendectomy, Bariatric Surgery, Bowel Resection, Section, Cholecystectomy, Hernia Repair, Tubal Ligation, Uterine Ablation Additional Past Surgical History / Comment(s): 03/13/19 hysteroscopy endometrial ablation D&C, 03/14/19 robotic lap lysis of adhesions/reduction small bowel volulus/reduction sigmoid volvulus and takedown internal hernia, 04/2018 rubens-en-y gastric bypass, EGDs, EGD with dilation, EGD with hiatal hernia repair, L foot tendon repair, removal of one ovary/tube Past Anesthesia/Blood Transfusion Reactions: Previous Problems w/ Anesthesia, Motion Sickness, Postoperative Nausea & Vomiting (PONV) Additional Past Anesthesia/Blood Transfusion Reaction / Comment(s): Pt gets irritable when waking up after anesthetic, trouble urinating after anesthesia. Pt has received blood without reaction. Son -anaphylactic shock received propanol and versed thought he aspirated. ([facility] ) Past Psychological History: Anxiety Smoking Status: Former smoker Past Alcohol Use History: None Reported Past Drug Use History: None Reported - Past Family History Mother Family Medical History: Hyperlipidemia, Thyroid Disorder Additional Family Medical History / Comment(s): hypothyroid Father Family Medical History: Diabetes Mellitus, Hypertension Sister(s) Family Medical History: Deep Vein Thrombosis (DVT), Pulmonary Embolus Additional Family Medical History / Comment(s): Arm and leg DVTs General Exam Limitations: no limitations General appearance: alert, in no apparent distress Head exam: Present: atraumatic, normocephalic, normal inspection Eye exam: Present: normal appearance, PERRL, EOMI. Absent: scleral icterus, conjunctival injection, periorbital swelling ENT exam: Present: normal exam, mucous membranes moist Neck exam: Present: normal inspection. Absent: tenderness, meningismus, lymphadenopathy Respiratory exam: Present: normal lung sounds bilaterally. Absent: respiratory distress, wheezes, rales, rhonchi, stridor Cardiovascular Exam: Present: regular rate, normal rhythm, normal heart sounds. Absent: systolic murmur, diastolic murmur, rubs, gallop, clicks GI/Abdominal exam: Present: soft, normal bowel sounds. Absent: distended, tenderness, guarding, rebound, rigid Extremities exam: Present: normal inspection, full ROM, normal capillary refill. Absent: tenderness, pedal edema, joint swelling, calf tenderness Back exam: Present: normal inspection Neurological exam: Present: alert, oriented X3, CN II-XII intact Psychiatric exam: Present: normal affect, normal mood Skin exam: Present: warm, dry, intact, normal color. Absent: rash Course Vital Signs 12/26/21 12/26/21 09:38 13:05 Temperature 97.7 F 97.9 F Pulse Rate 67 66 Respiratory 18 18 Rate Blood Pressure 135/93 131/91 O2 Sat by Pulse 100 97 Oximetry Medical Decision Making - Medical Decision Making Upon arrival patient was placed into room 16. A thorough history and physical exam was performed. Laboratory studies were conducted and patient went for a CT for abdomen and pelvis which demonstrates postop changes however no acute abnormality. Patient will be discharged home. Instructed that Dr. Luna will have access to the results to further manage her condition. She is to return for any new or worsening symptoms. Patient agreed to the treatment plan she was discharged home in stable condition - Lab Data Result diagrams: 12/26/21 10:49 12/26/21 10:49 Lab Results 12/26/21 12/26/21 12/26/21 Range/Units 10:49 10:49 10:49 WBC 8.2 (3.8-10.6) k/uL RBC 4.87 (3.80-5.40) m/uL Hgb 14.8 (11.4-16.0) gm/dL Hct 44.0 (34.0-46.0) % MCV 90.4 (80.0-100.0) fL MCH 30.4 (25.0-35.0) pg MCHC 33.6 (31.0-37.0) g/dL RDW 16.1 H (11.5-15.5) % Plt Count 198 (150-450) k/uL MPV 7.9 Neutrophils % 71 % Lymphocytes % 20 % Monocytes % 6 % Eosinophils % 1 % Basophils % 1 % Neutrophils # 5.8 (1.3-7.7) k/uL Lymphocytes # 1.7 (1.0-4.8) k/uL Monocytes # 0.5 (0-1.0) k/uL Eosinophils # 0.1 (0-0.7) k/uL Basophils # 0.1 (0-0.2) k/uL Anisocytosis Slight Sodium 140 (137-145) mmol/L Potassium 3.9 (3.5-5.1) mmol/L Chloride 107 (98-107) mmol/L Carbon Dioxide 24 (22-30) mmol/L Anion Gap 9 mmol/L BUN 6 L (7-17) mg/dL Creatinine 0.62 (0.52-1.04) mg/dL Est GFR (CKD-EPI)AfAm >90 (>60 ml/min/1.73 sqM) Est GFR (CKD-EPI)NonAf >90 (>60 ml/min/1.73 sqM) Glucose 124 H (74-99) mg/dL Plasma Lactic Acid Dyllan 1.1 (0.7-2.0) mmol/L Calcium 8.9 (8.4-10.2) mg/dL Total Bilirubin 1.0 (0.2-1.3) mg/dL AST 35 (14-36) U/L ALT 24 (4-34) U/L Alkaline Phosphatase 104 (38-126) U/L Total Protein 7.3 (6.3-8.2) g/dL Albumin 4.6 (3.5-5.0) g/dL Disposition Clinical Impression: Obesity, Abdominal pain Disposition: HOME SELF-CARE Condition: Stable Instructions (If sedation given, give patient instructions): Abdominal Pain (ED) Additional Instructions: Please follow-up with Dr. Persaud for further management of your symptoms. Return for any new or worsening symptoms Is patient prescribed a controlled substance at d/c from ED?: No Referrals: Fadi Hernandez III, MD [Primary Care Provider] - 1-2 days Makenna Persaud MD [STAFF PHYSICIAN] - 1-2 days Time of Disposition: 13:27
== END 2021-12-26 13:40 | disposition home or self-care (01) ==
LOC: EC 09:37
DX: R10.9 Unspecified abdominal pain (principal); E66.9 Obesity, unspecified; E11.9 Type 2 diabetes mellitus without complications; K21.9 Gastro-esophageal reflux disease without esophagitis; I10 Essential (primary) hypertension; F41.9 Anxiety disorder, unspecified; Z87.891 Personal history of nicotine dependence; Z88.8 Allergy status to other drugs, medicaments and biological substances; Z88.2 Allergy status to sulfonamides; Z91.018 Allergy to other foods; Z79.899 Other long term (current) drug therapy
CPT/HCPCS: 36415; 80053; 83605; 85025; 74177; 99283; Q9967

== ENCOUNTER 2022-06-09 10:52 | Emergency (ER) | payer OTHER ==
[2022-06-09 10:56] VITALS: BP 131/88; PULSE 86; RESP 20; TEMP 98.4
--- NOTE | 2022-06-09 12:07 | XR ---
EXAMINATION TYPE: XR foot complete RT DATE OF EXAM: 06/09/2022 11:58 AM INDICATION: Patient age:Female; 41 years old; Reason for study: injury, swelling; PHH. COMPARISON: None TECHNIQUE: The right foot was examined in the AP, oblique, and lateral projections. FINDINGS: No evidence of any acute osseous pathology. Mild soft tissue swelling of the lateral aspect of the m idfoot. No gas identified. No radiopaque foreign body. Joints are preserved. Incidental note is made of symphalangism of the fifth distal interphalangeal joint. Posterior calcaneal enthesophyte. IMPRESSION: 1. No evidence of acute fracture. 2. Mild soft tissue swelling of the lateral aspect of the midfoot.
--- NOTE | 2022-06-09 12:07 | XR ---
EXAMINATION TYPE: XR ankle complete RT DATE OF EXAM: 06/09/2022 COMPARISON: NONE HISTORY: Pain FINDINGS: Three views of the ankle demonstrate the ankle mortise to be intact and symmetric. The joint spaces are preserved. The osseous structures are intact. Small calcaneal spur noted. IMPRESSION: 1. No definite acute fracture or dislocation, if symptoms persist follow-up study in 7 to 10 days wou ld be suggested.
--- NOTE | 2022-06-09 12:09 | XR ---
EXAMINATION TYPE: XR tibia fibula RT DATE OF EXAM: 06/09/2022 COMPARISON: NONE HISTORY: Pain TECHNIQUE: Two views are submitted. FINDINGS: The osseous structures are intact. The joint spaces are preserved. Mild narrowing of the medial and lateral compartments of the knee. IMPRESSION: 1. No acute osseous abnormality.
--- NOTE | 2022-06-09 13:08 | ED ---
General Adult HPI - General Chief complaint: Extremity Injury, Lower Stated complaint: Foot Injury Time Seen by Provider: 06/09/22 12:53 Source: patient Mode of arrival: ambulatory Limitations: no limitations - History of Present Illness Initial comments: Patient is a 41-year-old female presenting with chief complaint of right foot and ankle pain. Patient states that she injured herself on 05/28/22. Patient states that she fell wrong on her ankle. She states that on 05/31 she was seen at urgent care, was determined to have a sprain. Patient states pain is been worsening, there is bruising to the medial aspect of the foot. Patient also notices a bump near her jara. She is concerned because she has had a blood clot in the past. No swelling to the lower extremity. No chest pain or difficulty breathing. No discoloration of the extremity. No numbness or tingling. No joint redness or swelling. She admits to pain with weightbearing and a mbulation. - Related Data Home Medications Medication Instructions Recorded Confirmed Losartan Potassium 100 mg PO DAILY 11/23/21 02/15/22 Omeprazole 20 mg PO DAILY 11/23/21 02/15/22 Semaglutide [Ozempic] 0.5 mg SQ WEEKLY 11/23/21 02/15/22 amLODIPine [Norvasc] 5 mg PO DAILY 11/23/21 02/15/22 Acetaminophen [Tylenol Extra 1,000 mg PO DIRECTED PRN 12/23/21 02/15/22 Strength] Loperamide [Imodium] 2 mg PO DIRECTED PRN 12/23/21 02/15/22 Previous Rx's Medication Instructions Recorded Ondansetron Odt [Zofran ODT] 4 mg PO Q8HR PRN #9 tab 03/15/19 Nystatin 100,000 Unit/gm Powd 1 applic TOPICAL BID #60 gm 02/15/22 [Mycostatin Powder] Allergies Allergy/AdvReac Type Severity Reaction Status Date / Time adhesive tape Allergy BLISTERS Verified 12/26/21 09:41 NSAIDS (Non-Steroidal Allergy Unknown Verified 06/09/22 10:56 Anti-Inflamma hydrochlorothiazide AdvReac MUSCLE Verified 12/26/21 09:41 PAINS chick peas Allergy Swelling Uncoded 12/26/21 09:41 Review of Systems ROS Statement: Those systems with pertinent positive or pertinent negative responses have been documented in the HPI. ROS Other: All systems not noted in ROS Statement are negative. 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 , states diabetes resolved with wt loss and now "pre-diabetic , hx gastroparesis., neuropathy feet, UTI's, shingelles R ear with some hearing loss, seizure with fever as child., Iron def anemia., back pain, hx blood clot in her arm., diarrhea. History of Any Multi-Drug Resistant Organisms: None Reported Past Surgical History: Appendectomy, Bariatric Surgery, Bowel Resection, Section, Cholecystectomy, Hernia Repair, Tubal Ligation, Uterine Ablation Additional Past Surgical History / Comment(s): 03/13/19 hysteroscopy endometrial ablation D&C, 03/14/19 robotic lap lysis of adhesions/reduction small bowel volulus/reduction sigmoid volvulus and takedown internal hernia, 04/2018 rubnes-en-y gastric bypass, EGDs, EGD with dilation, EGD with hiatal hernia repair, L foot tendon repair, removal of one ovary/tube Past Anesthesia/Blood Transfusion Reactions: Previous Problems w/ Anesthesia, Motion Sickness, Postoperative Nausea & Vomiting (PONV) Additional Past Anesthesia/Blood Transfusion Reaction / Comment(s): Pt gets irritable when waking up after anesthetic, trouble urinating after anesthesia. Pt has received blood without reaction. Son -anaphylactic shock received propanol and versed thought he aspirated. ([facility] ) Past Psychological History: Anxiety Smoking Status: Former smoker Past Alcohol Use History: None Reported Past Drug Use History: None Reported - Past Family History Mother Family Medical History: Hyperlipidemia, Thyroid Disorder Additional Family Medical History / Comment(s): hypothyroid Father Family Medical History: Diabetes Mellitus, Hypertension Sister(s) Family Medical History: Deep Vein Thrombosis (DVT), Pulmonary Embolus Additional Family Medical History / Comment(s): Arm and leg DVTs General Exam Limitations: no limitations General appearance: alert, in no apparent distress Head exam: Present: atraumatic, normocephalic, normal inspection Eye exam: Present: normal appearance Neck exam: Present: normal inspection Extremities exam: Present: full ROM Right Ankle exam: Present: full ROM, tenderness, swelling (Swollen bump near the jara) Foot/Toe exam: Present: tenderness, swelling, ecchymosis Neurological exam: Present: alert, oriented X3, CN II-XII intact Psychiatric exam: Present: normal affect, normal mood Skin exam: Present: warm, dry, intact, normal color. Absent: rash Course Vital Signs 06/09/22 10:53 Temperature 98.4 F Pulse Rate 86 Respiratory 20 Rate Blood Pressure 131/88 O2 Sat by Pulse 100 Oximetry Medical Decision Making - Medical Decision Making Was pt. sent in by a medical professional or institution (, PA, CAFETERIA HELPER, urgent care, hospital, or care home...) When possible be specific @ -[No] Did you speak to anyone other than the patient for history (EMS, parent, family, police, friend...)? What history was obtained from this source @ -[No] Did you review nursing and triage notes (agree or disagree)? Why? @ -[I reviewed and agree with nursing and triage notes] Were old charts reviewed (outside hosp., previous admission, EMS record, old EKG, old radiological studies, urgent care reports/EKG's, care home records)? Report findings @ -[No old charts were reviewed] Differential Diagnosis (chest pain, altered mental status, abdominal pain women, abdominal pain men, vaginal bleeding, weakness, fever, dyspnea, syncope, he adache, dizziness, GI bleed, back pain, seizure, CVA, palpatations, mental health)? @ -Differential includes fracture, sprain, DVT, strain EKG interpreted by me (3pts min.). @ -None X-rays interpreted by me (1pt min.). @ -Yes, no acute fracture or dislocation CT interpreted by me (1pt min.). @ -[None done] U/S interpreted by me (1pt. min.). @ -No, radiologist report reviewed. Negative for DVT. There is a fluid collection that could represent a hematoma. States that small abscess or seroma is not excluded. What testing was considered but not performed or refused? (CT, X-rays, U/S, labs)? Why? @ -[None] What meds were considered but not given or refused? Why? @ -[None] Did you discuss the management of the patient with other professionals (professionals i.e. DrLisa, PA, CAFETERIA HELPER, lab, RT, psych nurse, vp digital marketing social media and crm, spray painting machine operator, teacher, inshore undersea warfare officer, family service caseworker)? Give summary @ -[No] Was smoking cessation discussed for >3mins.? @ -[No] Was critical care preformed (if so, how long)? @ -[No] Were there social determinants of health that impacted care today? How? (Homelessness, low income, unemployed, alcoholism, drug addiction, transportation, low edu. Level, literacy, decrease access to med. care, [facility], rehab)? @ -[No] Was there de-escalation of care discussed even if they declined (Discuss DNR or withdrawal of care, Hospice)? DNR status @ -[No] What co-morbidities impacted this encounter? (DM, HTN, Smoking, COPD, CAD, Cancer, CVA, ARF, Chemo, Hep., AIDS, mental health diagnosis, sleep apnea, morbid obesity)? @ -[None] Was patient admitted / discharged? Hospital course, mention meds given and route, prescriptions, significant lab abnormalities, going to OR and other pertinent info. @ -Patient presented to the ER for reevaluation of ankle injury. She is concerned due to continuing pain and a bump that has developed to the right lower leg. On physical examination there is some bruising and swelling noted. Patient has good range of motion. There is a small area of swelling. X-ray and ultrasound are ordered. X-ray shows no acute fracture or dislocation. U ltrasound shows no evidence of DVT, the area of swelling is likely a hematoma. I educated the patient on these findings. Educated on supportive treatment with rest, ice, compression, and elevation. Patient states that she has an upcoming appointment with orthopedics scheduled. I encouraged her to keep that appointment. Provided her with ankle stirrup splint. Discharged home. Follow- up with PCP. Report back to ER with any new or worsening symptoms. Discussed return parameters and answered all questions. Patient conveyed verbal understanding and agreed to the plan. I discussed this case in detail with my attending Dr. Hooper Undiagnosed new problem with uncertain prognosis? @ -[No] Drug Therapy requiring intensive monitoring for toxicity (Heparin, Nitro, Insulin, Cardizem)? @ -[No] Were any procedures done? @ -[No] Diagnosis/symptom? @ -[default] Acute, or Chronic, or Acute on Chronic? @ -[default] Uncomplicated (without systemic symptoms) or Complicated (systemic symptoms)? @ -[default] Side effects of treatment? @ -[No] Exacerbation, Progression, or Severe Exacerbation? @ -[No] Poses a threat to life or bodily function? How? (Chest pain, [place], [place], pneumonia, PE, COPD, DKA, ARF, appy, cholecystitis, CVA, Diverticulitis, Homicidal, Gentile icidal, threat to staff... and all critical care pts) @ -[No] Disposition Clinical Impression: Ankle sprain Disposition: HOME SELF-CARE Condition: Good Instructions (If sedation given, give patient instructions): Ankle Sprain (ED) Additional Instructions: Follow-up with PCP and orthopedics. Report back to ER with any new or worsening symptoms. Take Motrin and Tylenol as needed for pain control. Rest, ice, compress, and elevate the foot. Is patient prescribed a controlled substance at d/c from ED?: No Referrals: Fadi Hernandez III, MD [Primary Care Provider] - 1-2 days Time of Disposition: 13:56
--- NOTE | 2022-06-09 13:33 | US ---
EXAMINATION TYPE: US venous doppler duplex LE RT DATE OF EXAM: 06/09/2022 1:26 PM COMPARISON: CLINICAL HISTORY: injury, swelling. Patient states she tripped and felt a pop. No redness or swellin g. Patient states she feel a bulge at ankle. SIDE PERFORMED: Right TECHNIQUE: The lower extremity deep venous system is examined utilizing real time linear array sonog sahara with graded compression, doppler sonography and color-flow sonography. VESSELS IMAGED: Common Femoral Vein Deep Femoral Vein Greater Saphenous Vein * Femoral Vein Popliteal Vein Small Saphenous Vein * Proximal Calf Veins (* superficial vessels) Right Leg: Negative for DVT. Area of concern scanned at medial ankle, fluid collection seen = 2.8 x 1.8 x 0.5 cm IMPRESSION: 1. Grayscale, color doppler, spectral doppler imaging performed of the deep veins of the lower extrem ities. There is normal flow, compressibility, vascular waveforms. 2. Small 2.8 cm nonspecific fluid collection adjacent to the ankle correlate clinically. Could be on the basis of a hematoma. Small abscess or seroma not excluded
[2022-06-09] MEDS ORDERED: DEXAMETHASONE SOD PHOSPHATE 10 MG/ML 1 ML VIAL IM STA (13:59)
== END 2022-06-09 14:19 | disposition home or self-care (01) ==
LOC: EC 10:52
DX: S93.401A Sprain of unspecified ligament of right ankle, initial encounter (principal); E11.9 Type 2 diabetes mellitus without complications; K21.9 Gastro-esophageal reflux disease without esophagitis; I10 Essential (primary) hypertension; F41.9 Anxiety disorder, unspecified; Z87.891 Personal history of nicotine dependence; Z88.8 Allergy status to other drugs, medicaments and biological substances; Z91.018 Allergy to other foods; Z79.899 Other long term (current) drug therapy; W01.0XXA Fall on same level from slipping, tripping and stumbling without subsequent striking against object, initial encounter
CPT/HCPCS: 73590; 73610; 73630; 93971; 99283; 96372; J1100

== ENCOUNTER → 2023-06-01 | Outpatient (CLI) | payer OTHER, SELFPAY ==
--- NOTE | 2023-06-01 17:30 | XR ---
EXAMINATION TYPE: XR elbow limited RT DATE OF EXAM: 06/01/2023 5:07 PM CLINICAL INDICATION:Female, 42 years old with history of M54.2, M25.519, M25.521; [facility] COMPARISON: 06/20/2016 TECHNIQUE: XR elbow limited RT; elbow was examined in AP, lateral, and oblique projections. FINDINGS: No evidence of any acute osseous pathology, joint dislocation, or soft tissue swelling is n oted. No evidence of joint effusion is present. IMPRESSION: No evidence of acute fracture.
--- NOTE | 2023-06-01 17:59 | XR ---
EXAMINATION TYPE: XR cervical spine limited DATE OF EXAM: 06/01/2023 5:07 PM CLINICAL INDICATION:Female, 42 years old with history of M54.2, M25.519, M25.521; [facility] COMPARISON: None TECHNIQUE: The cervical spine was imaged in frontal, lateral, and odontoid. FINDINGS: The osseous structures show normal alignment without evidence of an acute fracture. There our small o steophytes noted throughout the cervical spine on the anterior and lateral aspects of the vertebral b odies. The intervertebral disk spaces are narrowed at multiple levels Pedicles are intact. Soft tiss ues are within normal limits. The odontoid appears intact. IMPRESSION: 1. No fracture or dislocation. 2. Mild degenerative disc disease changes of the cervical spine.
--- NOTE | 2023-06-01 18:04 | XR ---
EXAMINATION TYPE: XR shoulder limited RT DATE OF EXAM: 06/01/2023 5:07 PM CLINICAL INDICATION:Female, 42 years old with history of M54.2, M25.519, M25.521; [facility] COMPARISON: 06/20/2016. TECHNIQUE: XR shoulder limited RT; shoulder was examined in AP, internally rotated and scapular Y pr ojections. FINDINGS: No evidence of acute osseous pathology, joint dislocation, or soft tissue swelling. The remaining po rtions of the visualized chest are unremarkable. IMPRESSION: No acute osseous pathology.
--- NOTE | 2023-06-02 15:33 | MR ---
EXAMINATION TYPE: MR cervical spine wo con DATE OF EXAM: 06/01/2023 COMPARISON: None HISTORY: Neck pain, numbness into right shoulder and down arm to fingers since 2022 due to a n automatic entrance door at [employer] closing on right arm. CONTRAST: Performed utilizing 0 mL intravenous Gadavist gadolinium contrast. TECHNIQUE: Multiplanar multiecho imaging on a 3.0 Dana magnet is performed through the cervical spin e. FINDINGS: The craniovertebral junction is normal. Vertebral body alignment is normal. C7-T1: No focal disc herniation or significant disc bulge is evident. No spinal canal stenosis or n eural foraminal stenosis is present. C6-7: Broad-based disc bulge has mild to moderate anterior thecal sac compression. No cord contact is evident. No spinal canal stenosis is present. Severe left foraminal stenosis appears to be present.. C5-6: Disc bulge has mild anterior thecal sac compression. This is more focal in the right paracentra l region. This comes in close approximation with the spinal cord. No contact is evident although some flattening appears to be present. Neural foramen are patent.. C4-5: There is a large left paracentral disc protrusion with moderate anterior thecal sac compression . Cord contact and mild cord flattening is present. No AP spinal canal stenosis is present. Neural fo ramen are patent.. C3-4: There is a moderate size central protrusion with moderate anterior thecal sac compression. Cord contact is evident. Cord deformity is not clearly evident. Neural foramen are patent.. C2-3: There is a small left paracentral protrusion with anterior thecal sac compression. No cord cont act or spinal canal stenosis is present. Neural foramen are patent.. IMPRESSION: 1. Large broad paracentral disc protrusions. This includes moderate sized C3-4 Central protrusion wit h cord contact, large left paracentral protrusion see 45 with cord contact and cord flattening mild r ight paracentral C5-6 protrusion without cord contact although some cord flattening may be present 2. Central protrusion without cord contact C6-7, C2-3. 3. Severe left foraminal stenosis is present C6-7
--- NOTE | 2023-06-03 23:04 | MR ---
EXAMINATION TYPE: MR shoulder RT wo con DATE OF EXAM: 06/01/2023 COMPARISON: None HISTORY: Neck pain, numbness into right shoulder and down arm to fingers since 2022 due to a n automatic entrance door at [employer] closing on right arm. TECHNIQUE: Multiplanar, multisequence imaging of the right shoulder is performed without contrast. FINDINGS: SUPRASPINATUS: Mild increased signal in the supraspinatus, relating to tendinosis. No tear. INFRASPINATUS: Intact. SUBSCAPULARIS: Intact. TERES MINOR: Intact. BICEPS: Intact. Normal signal. Normal anchor in the supraglenoid tubercle. Extra-articular portion is appropriately positioned within the bicipital groove. GLENOHUMERAL JOINT: Normal alignment and joint space. Normal cartilage. No effusion. ACROMIOCLAVICULAR JOINT: Normal alignment and joint space. Normal subacromial space. No effusion. Inc reased signal involving the conoid ligament of the coracoclavicular joint, relates to grade 1 sprain. LABRUM: Normal, given the limitations of a non-arthrographic exam. SUBDELTOID BURSA: Normal. No increased fluid. MUSCLES: Normal. BONE MARROW: Normal. OTHER: No additional significant abnormality is appreciated. IMPRESSION: 1. Supraspinatus tendinosis. 2. Low-grade sprain of the conoid ligament of the coracoclavicular joint
--- NOTE | 2023-06-03 23:08 | MR ---
EXAMINATION TYPE: MR elbow RT wo con DATE OF EXAM: 06/01/2023 COMPARISON: Right elbow radiograph 06/01/2023 HISTORY: Neck pain, numbness into right shoulder and down arm to fingers since 2022 due to a n automatic entrance door at [employer] closing on right arm. TECHNIQUE: Multiplanar, multisequence images of the right elbow were acquired without contrast. FINDINGS: BONES/JOINTS: Slight degenerative subchondral cystic change in the ulna coronoid process and tiny mar ginal osteophytes in the ulnotrochlear joint. Joint spaces are maintained. Articular cartilage is nor mal. No joint effusion. LIGAMENTS: The medial ligamentous structures, including the ulnar collateral ligament, are intact. La teral ligamentous structures are intact. TENDONS: The distal biceps tendon and brachialis tendon are intact. Distal triceps tendon is intact. The common extensor tendon is normal. The common flexor tendon is normal. NEUROVASCULAR: Normal neurovascular structures. Cubital tunnel is normal. SOFT TISSUES: Normal. No bursal distention. IMPRESSION: Mild degenerative changes at the ulnotrochlear joint.
== END | disposition home or self-care (01) ==
LOC: RADMRIMAIN 16:29
PROVIDERS: ATTEND Physician Assistant
DX: M50.30 Other cervical disc degeneration, unspecified cervical region (principal); M99.71 Connective tissue and disc stenosis of intervertebral foramina of cervical region; M50.21 Other cervical disc displacement, high cervical region; M67.813 Other specified disorders of tendon, right shoulder; M24.811 Other specific joint derangements of right shoulder, not elsewhere classified; M19.021 Primary osteoarthritis, right elbow
CPT/HCPCS: 72040; 72141

== ENCOUNTER 2023-06-19 18:26 | Emergency (ER) | payer SELFPAY ==
[2023-06-19 18:59] VITALS: TEMP 96.7
--- NOTE | 2023-06-19 19:26 | ED ---
Dizziness HPI - General Chief Complaint: Dizziness Stated Complaint: Dizziness,Left Side Ear pain Time Seen by Provider: 06/19/23 19:26 Source: patient Mode of arrival: ambulatory Limitations: no limitations - History of Present Illness Initial Comments: Patient is a 42-year-old female presenting with chief complaint of dizziness. Patient has been experiencing congestion and headache since Sunday. Headache is located in the left parietal region and patient also admits to left-sided ear pain. She admits to dizziness with head motions. Patient states she was concerned because she has previously had shingles affecting the ear which resulted in some transient hearing loss. She denies any fever, chills, rash, chest pain, difficulty breathing, nausea, vomiting, abdominal pain, vision or hearing changes, numbness, tingling, weakness. - Related Data Home Medications Medication Instructions Recorded Confirmed Losartan Potassium 100 mg PO DAILY 11/23/21 03/20/23 Omeprazole 20 mg PO DAILY 11/23/21 03/20/23 Semaglutide [Ozempic] 0.5 mg SQ WEEKLY 11/23/21 03/20/23 amLODIPine [Norvasc] 5 mg PO DAILY 11/23/21 03/20/23 Acetaminophen [Tylenol Extra 1,000 mg PO DIRECTED PRN 12/23/21 03/20/23 Strength] Loperamide [Imodium] 2 mg PO DIRECTED PRN 12/23/21 03/20/23 Cyanocobalamin [Vitamin B-12 1,000 mcg SQ WEEKLY 11/28/22 03/20/23 Injection] methocarbamoL [Robaxin] 500 mg PO DIRECTED PRN 03/20/23 03/20/23 valACYclovir HCL [Valtrex] 500 mg PO DIRECTED 03/20/23 03/20/23 Previous Rx's Medication Instructions Recorded Ondansetron Odt [Zofran ODT] 4 mg PO Q8HR PRN #9 tab 03/15/19 Nystatin 100,000 Unit/gm Powd 1 applic TOPICAL BID #60 gm 02/15/22 [Mycostatin Powder] Acyclovir [Zovirax] 800 mg PO 5XD 7 Days #35 tab 06/19/23 Meclizine [Antivert] 25 mg PO BID PRN #20 tab 06/19/23 Allergies Allergy/AdvReac Type Severity Reaction Status Date / Time adhesive tape Allergy BLISTERS Verified 06/19/23 18:50 NSAIDS (Non-Steroidal Allergy Unknown Verified 06/19/23 18:50 Anti-Inflamma hydrochlorothiazide AdvReac MUSCLE Verified 06/19/23 18:50 PAINS chick peas Allergy Swelling Uncoded 06/19/23 18:50 Review of Systems ROS Statement: Those systems with pertinent positive or pertinent negative responses have been documented in the HPI. ROS Other: All systems not noted in ROS Statement are negative. 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 , states diabetes resolved with wt loss and now "pre-diabetic , hx gastroparesis., neuropathy feet, UTI's, shingelles R ear with some hearing loss, seizure with fever as child., Iron def anemia., back pain, hx blood clot in her arm., diarrhea. PAST PAINT TECHNICIAN HISTORY: She has no history of STDs. History of Any Multi-Drug Resistant Organisms: None Reported Past Surgical History: Appendectomy, Bariatric Surgery, Bowel Resection, Mark arean Section, Cholecystectomy, Hernia Repair, Tubal Ligation, Uterine Ablation Additional Past Surgical History / Comment(s): 03/13/19 hysteroscopy endometrial ablation D&C, 03/14/19 robotic lap lysis of adhesions/reduction small bowel volulus/reduction sigmoid volvulus and takedown internal hernia, 04/2018 rubens-en-y gastric bypass, EGDs, EGD with dilation, EGD with hiatal hernia repair, L foot tendon repair, myomectomy with left salpingo-oophorectomy 2011. section 3, tubal ligation with her third section. Past Anesthesia/Blood Transfusion Reactions: Previous Problems w/ Anesthesia, Motion Sickness, Postoperative Nausea & Vomiting (PONV) Additional Past Anesthesia/Blood Transfusion Reaction / Comment(s): Pt gets irritable when waking up after anesthetic, trouble urinating after anesthesia. Pt has received blood without reaction. Son -anaphylactic shock received propanol and versed thought he aspirated. ([facility] [address] ) Past Psychological History: Anxiety Smoking Status: Former smoker Past Alcohol Use History: None Reported Past Drug Use History: None Reported - Past Family History Mother Family Medical History: Hyperlipidemia, Thyroid Disorder Additional Family Medical History / Comment(s): hypothyroid. BRCA negative(done for her sister's history of breast cancer at age 39-patient's maternal aunt). Patient's maternal grandmother had colon cancer. Father Family Medical History: Diabetes Mellitus, Hypertension Sister(s) Family Medical History: Deep Vein Thrombosis (DVT), Pulmonary Embolus Additional Family Medical History / Comment(s): Arm and leg DVTs General Exam - General Exam Comments Initial Comments: Visual Physical Exam Vital signs reviewed General: Well-appearing, nontoxic, no acute distress. Head: Normocephalic, atraumatic Eyes: PERRLA, EOMI ENT: Airway patent Chest: Nonlabored breathing Skin: No visual rash, normal skin tone Neuro: Alert and oriented 3 Musculoskeletal: No gross abnormalities Limitations: no limitations General appearance: alert, in no apparent distress Head exam: Present: atraumatic, normocephalic, normal inspection Eye exam: Present: normal appearance, PERRL, EOMI ENT exam: Present: mucous membranes moist, TM's normal bilaterally Neck exam: Present: normal inspection Respiratory exam: Present: normal lung sounds bilaterally. Absent: respiratory distress, wheezes, rales, rhonchi, stridor Cardiovascular Exam: Present: regular rate, normal rhythm, normal heart sounds. Absent: systolic murmur, diastolic murmur, rubs, gallop, clicks Extremities exam: Present: normal inspection Neurological exam: Present: alert, oriented X3 Expanded Patient oriented to: Present: person, place, time Speech: Present: fluid speech Cranial nerves: EOM's Intact: Normal Eye Response: (4) open spontaneously Motor Response: (6) obeys commands Verbal Response: (5) oriented [place] Total: 15 Psychiatric exam: Present: normal affect, normal mood Skin exam: Present: warm, dry. Absent: rash Course Vital Signs 06/19/23 06/19/23 18:47 22:42 Temperature 96.7 F L Pulse Rate 84 78 Respiratory 18 19 Rate Blood Pressure 150/92 127/97 O2 Sat by Pulse 98 99 Oximetry Medical Decision Making - Medical Decision Making Was pt. sent in by a medical professional or institution (, PA, RADIO RIGGER, urgent care, hospital, or [facility]...) When possible be specific @ -No Did you speak to anyone other than the patient for history (EMS, parent, family, police, friend...)? What history was obtained from this source @ -No Did you review nursing and triage notes (agree or disagree)? Why? @ -I reviewed and agree with nursing and triage notes Were old charts reviewed (outside hosp., previous admission, EMS record, old EKG, old radiological studies, urgent care reports/EKG's, [facility] records)? Report findings @ -No old charts were reviewed Differential Diagnosis (chest pain, altered mental status, abdominal pain women, abdominal pain men, vaginal bleeding, weakness, fever, dyspnea, syncope, headache, dizziness, GI bleed, back pain, seizure, CVA, palpatations, mental health, musculoskeletal)? @ -MDM Differential Dizziness: Benign paroxysmal positional Vertigo, Menieres disease, otitis media, a coustic neuroma, vertebrobasilar insufficiency, cerebellar stroke, encephalitis, hypovolemic, arrhythmia, coronary artery syndrome, anemia this is not meant to be an all-inclusive list EKG interpreted by me (3pts min.). @ -As above X-rays interpreted by me (1pt min.). @ -None done CT interpreted by me (1pt min.). @ -None done U/S interpreted by me (1pt. min.). @ -None done What testing was considered but not performed or refused? (CT, X-rays, U/S, labs)? Why? @ -None What meds were considered but not given or refused? Why? @ -None Did you discuss the management of the patient with other professionals (professionals i.e. , PA, RADIO RIGGER, lab, RT, psych nurse, social service agency director, control officer manager, teacher, airfield engineer officer, major case detective)? Give summary @ -No Was smoking cessation discussed for >3mins.? @ -No Was critical care preformed (if so, how long)? @ -No Were there social determinants of health that impacted care today? How? (Homelessness, low income, unemployed, alcoholism, drug addiction, transportation, low edu. Level, literacy, decrease access to med. care, senior living, rehab)? @ -No Was there de-escalation of care discussed even if they declined (Discuss DNR or withdrawal of care, Hospice)? DNR status @ -No What co-morbidities impacted this encounter? (DM, HTN, Smoking, COPD, CAD, Cancer, CVA, ARF, Chemo, Hep., AIDS, mental health diagnosis, sleep apnea, morb id obesity)? @ -None Was patient admitted / discharged? Hospital course, mention meds given and route, prescriptions, significant lab abnormalities, going to OR and other pertinent info. @ -42-year-old female presenting with chief complaint of dizziness congestion and headache. History and physical exam were conducted. GCS 15. Patient is positive for Covid 19. No leukocytosis or anemia noted on lab work. Patient is educated on today's findings. Patient reports that she was concerned because the last time she had a similar headache and ear pain she ended up having shingles. I see no evidence of any vesicles at this time. She is provided with a prescription for acyclovir in the event that she does have a shingles breakout. Follow-up with PCP. Report back to ER with any new or worsening symptoms. Discussed return parameters and answered all questions. Patient conveyed verbal understanding and agreed to the plan. I discussed this case in detail with my attending Dr. [place] Undiagnosed new problem with uncertain prognosis? @ -No Drug Therapy requiring intensive monitoring for toxicity (Heparin, Nitro, Insulin, Cardizem)? @ -No Were any procedures done? @ -No Diagnosis/symptom? @ -COVID-19 Acute, or Chronic, or Acute on Chronic? @ -Acute Uncomplicated (without systemic symptoms) or Complicated (systemic symptoms)? @ -Uncomplicated Side effects of treatment? @ -No Exacerbation, Progression, or Severe Exacerbation? @ -No Poses a threat to life or bodily function? How? (Chest pain, [place], [place], pneumonia, PE, COPD, DKA, ARF, appy, cholecystitis, CVA, Diverticulitis, Homicidal, Suicidal, threat to staff... and all critical care pts) @ -No - Lab Data Result diagrams: 06/19/23 20:23 06/19/23 20:23 Lab Results 06/19/23 06/19/23 06/19/23 Range/Units 20:23 20:23 20:23 WBC 5.1 (3.8-10.6) k/uL RBC 4.64 (3.80-5.40) m/uL Hgb 15.1 (11.4-16.0) gm/dL Hct 42.4 (34.0-46.0) % MCV 91.4 (80.0-100.0) fL MCH 32.6 (25.0-35.0) pg MCHC 35.7 (31.0-37.0) g/dL RDW 12.6 (11.5-15.5) % Plt Count 199 (150-450) k/uL MPV 7.1 Neutrophils % 56 % Lymphocytes % 35 % Monocytes % 5 % Eosinophils % 2 % Basophils % 1 % Neutrophils # 2.8 (1.3-7.7) k/uL Lymphocytes # 1.8 (1.0-4.8) k/uL Monocytes # 0.3 (0-1.0) k/uL Eosinophils # 0.1 (0-0.7) k/uL Basophils # 0.0 (0-0.2) k/uL Sodium 140 (137-145) mmol/L Potassium 3.7 (3.5-5.1) mmol/L Chloride 108 H (98-107) mmol/L Carbon Dioxide 25 (22-30) mmol/L Anion Gap 7 mmol/L BUN 14 (7-17) mg/dL Creatinine 0.71 (0.52-1.04) mg/dL Est GFR (CKD-EPI)AfAm >90 (>60 ml/min/1.73 sqM) Est GFR (CKD-EPI)NonAf >90 (>60 ml/min/1.73 sqM) Glucose 109 H (74-99) mg/dL Calcium 8.9 (8.4-10.2) mg/dL Total Bilirubin 0.5 (0.2-1.3) mg/dL AST 21 (14-36) U/L ALT 23 (4-34) U/L Alkaline Phosphatase 97 (38-126) U/L Total Protein 6.8 (6.3-8.2) g/dL Albumin 4.1 (3.5-5.0) g/dL Influenza Type A (PCR) Not Detected (Not Detectd) Influenza Type B (PCR) Not Detected (Not Detectd) RSV (PCR) Not Detected (Not Detectd) SARS-CoV-2 (PCR) Detected A (Not Detectd) Disposition Clinical Impression: COVID Disposition: HOME SELF-CARE Condition: Good Instructions (If sedation given, give patient instructions): Dizziness (ED), COVID-19 (Coronavirus Disease 2019) (ED) Additional Instructions: Follow-up with PCP. Report back to ER with any new or worsening symptoms. Prescriptions: Meclizine [Antivert] 25 mg PO BID PRN #20 tab PRN Reason: Vertigo Acyclovir [Zovirax] 800 mg PO 5XD 7 Days #35 tab Is patient prescribed a controlled substance at d/c from ED?: No Referrals: aVl Moreno [Primary Care Provider] - 1-2 days Time of Disposition: 22:52
[2023-06-19] MEDS ORDERED: MECLIZINE 12.5 MG TAB PO STA (19:27)
[2023-06-19] MEDS ORDERED: guaiFENesin-DM 600/30MG 1 EACH TAB.ER.12H PO STA (19:27)
[2023-06-19 20:42] LABS: Basophils % (A) 1 %; Eosinophils # (A) 0.1 k/uL (0-0.7); Eosinophils % (A) 2 %; HCT 42.4 % (34.0-46.0); HGB 15.1 gm/dL (11.4-16.0); Lymphocytes # (A) 1.8 k/uL (1.0-4.8); Lymphocytes % (A) 35 %; MCH 32.6 pg (25.0-35.0); MCHC 35.7 g/dL (31.0-37.0); MCV 91.4 fL (80.0-100.0); Mean Platelet Volume 7.1; Monocytes # (A) 0.3 k/uL (0-1.0); Monocytes % (A) 5 %; Neutrophils # (A) 2.8 k/uL (1.3-7.7); Neutrophils % (A) 56 %; Platelet Count 199 k/uL (150-450); RBC 4.64 m/uL (3.80-5.40); RDW 12.6 % (11.5-15.5); WBC 5.1 k/uL (3.8-10.6)
[2023-06-19 20:57] LABS: ALT 23 U/L (4-34); AST 21 U/L (14-36); African American GFR (CKD) >90 (>60 ml/min/1.73 sqM); Albumin 4.1 g/dL (3.5-5.0); Alkaline Phosphatase 97 U/L (38-126); Anion Gap 7 mmol/L; Blood Urea Nitrogen 14 mg/dL (7-17); Calcium 8.9 mg/dL (8.4-10.2); Carbon Dioxide 25 mmol/L (22-30); Chloride 108 mmol/L (98-107); Glucose 109 mg/dL (74-99); Non-African American GFR(CKD) >90 (>60 ml/min/1.73 sqM); Potassium 3.7 mmol/L (3.5-5.1); Sodium 140 mmol/L (137-145); Total Bilirubin 0.5 mg/dL (0.2-1.3); Total Protein 6.8 g/dL (6.3-8.2)
[2023-06-19 22:51] VITALS: BP 127/97; PULSE 78; RESP 19
== END 2023-06-19 23:10 | disposition home or self-care (01) ==
LOC: EC 18:26
DX: U07.1 COVID-19 (principal); B02.9 Zoster without complications; E11.43 Type 2 diabetes mellitus with diabetic autonomic (poly)neuropathy; K31.84 Gastroparesis; I10 Essential (primary) hypertension; K21.9 Gastro-esophageal reflux disease without esophagitis; F41.9 Anxiety disorder, unspecified; Z79.85 Long-term (current) use of injectable non-insulin antidiabetic drugs; Z79.899 Other long term (current) drug therapy; Z88.5 Allergy status to narcotic agent; Z88.6 Allergy status to analgesic agent; Z91.018 Allergy to other foods; Z91.09 Other allergy status, other than to drugs and biological substances; Z87.891 Personal history of nicotine dependence
CPT/HCPCS: 36415; 80053; 85025; 87636; 99284

== ENCOUNTER → 2023-07-17 | Outpatient (CLI) | payer OTHER ==
--- NOTE | 2023-07-17 20:31 | CT ---
EXAMINATION TYPE: CT cervical spine wo con DATE OF EXAM: 07/17/2023 COMPARISON: CT 08/25/2018 HISTORY: 42-year-old female M54.2, right shoulder and neck pain since March 2023 TECHNIQUE: Contiguous axial scanning of the cervical spine without IV contrast. Coronal and sagittal reconstructions performed. CT DLP: 505 mGycm Automated exposure control for dose reduction was used. FINDINGS: No craniocervical junction anteriorly, predental space widening, or prevertebral soft tissue swelling . Reversal of the normal cervical lordosis with preserved alignment. Moderate distention degenerative changes especially C3-C5 levels. Uncovertebral joint arthropathy mid to lower lumbar spine. Changes result in variable moderate spinal canal stenosis throughout. AP canal dimension narrowed to 5 mm at C3-C4 and C4-C5. Other levels of mild spinal canal stenosis. At C3-C4, resulting in moderate right and mild left foraminal stenosis. At C5-C6, and is difficult and mild left neuroforaminal stenosis. At C6-C7, severe left and moderate right neural foraminal stenosis. At C7-T1, mild bilateral neuroforaminal stenosis. IMPRESSION: 1. MODERATE MULTILEVEL SPONDYLOTIC CHANGE. REVERSAL OF THE NORMAL CERVICAL LORDOSIS COULD BE POSITION AL OR DUE TO MUSCLE SPASM. NO MALALIGNMENT. 2. VARIABLE SPINAL CANAL STENOSES, MODERATE AT C3-C4 AND C4-C5 WITH AP CANAL DIMENSION NARROWING NARR OWED DOWN TO 5 MM. IF FURTHER DETAILED ASSESSMENT IS DESIRED OR IF THERE ARE ANY NEUROLOGIC CHANGES, CONSIDER MRI. 3. SEVERE LEFT AND MODERATE RIGHT NEUROFORAMINAL STENOSIS AT C6-C7.
== END | disposition home or self-care (01) ==
LOC: RADCTMAIN 16:21
PROVIDERS: ATTEND Orthopaedic Surgery
DX: M47.812 Spondylosis without myelopathy or radiculopathy, cervical region (principal); M48.02 Spinal stenosis, cervical region
CPT/HCPCS: 72125

== ENCOUNTER → 2023-07-24 | Outpatient (CLI) | payer OTHER ==
[2023-07-24 13:31] LABS: Chol/HDL Ratio 2.38 Ratio; LDL Cholesterol,Calculated 69.1 mg/dL (0.0-131.0)
== END | disposition home or self-care (01) ==
LOC: LABWHC1 07:09
PROVIDERS: ATTEND Student in an Organized Health Care Education/Training Program
DX: E11.9 Type 2 diabetes mellitus without complications (principal)
CPT/HCPCS: 36415; 80061; 82306; 83036

== ENCOUNTER → 2023-08-01 | Outpatient (CLI) | payer OTHER ==
--- NOTE | 2023-08-01 16:44 | P.BASOAP ---
Subjective Progress Note Date: 08/01/23 She was as low as 147 pounds. She has new doctors. She has new doctors. She was on ozempic for diabetes. Her A1c is too low. She is on ozempic. She has bulging. May need repeat CT scan. She has back pain. Pain from her pannus and has large hernia. CT reveiwed. Mill Roll Rewinder for skin removal. Abdominal wall reconstruction. Objective - Vital Signs Vital signs: Vital Signs Temp 97.7 F 08/01/23 16:29 Pulse 86 08/01/23 16:29 Resp BP 130/92 08/01/23 16:29 Pulse Ox FiO2 Intake & Output 07/31/23 08/01/23 08/01/23 18:59 06:59 18:59 Weight 74.389 kg Assessment/Plan Plan: Date: 08/01/23 Initial Weight: 99.79 kg Initial BMI: 36.3 Current Weight: 74.389 kg Current BMI: 27.1 Type of Surgery: Total Volume in Band: Previous Volume: Volume Removed: Volume Added: Band Size:
[2023-08-01 16:56] VITALS: BP 130/92; PULSE 86; TEMP 97.7; BMI 27.1
== END ==
LOC: BARWHC3 16:28
PROVIDERS: ATTEND Surgery Plastic and Reconstructive Surgery
DX: Z53.9 Procedure and treatment not carried out, unspecified reason (principal)
CPT/HCPCS: 99211

== ENCOUNTER 2023-08-17 09:37 | Emergency (ER) | payer SELFPAY, OTHER ==
[2023-08-17 09:47] VITALS: TEMP 97.5
--- NOTE | 2023-08-17 10:21 | ED ---
General Adult HPI - General Chief complaint: Back Pain/Injury Stated complaint: Back pain Time Seen by Provider: 08/17/23 09:52 Source: patient, RN notes reviewed Mode of arrival: ambulatory Limitations: no limitations - History of Present Illness Initial comments: 42-year-old female presents emergency department chief complaint of left flank pain, swelling. Patient states she noticed a lump there is some discomfort in the area she denies any injuries denies any rashes she states that she called her bariatric surgeon Dr. Persaud who recommended come to the emergency department. Patient denies any nausea vomit diarrhea constipation no dysuria no other associated symptoms. - Related Data Home Medications Medication Instructions Recorded Confirmed Losartan Potassium 100 mg PO DAILY 11/23/21 08/01/23 Omeprazole 20 mg PO DAILY 11/23/21 08/01/23 Semaglutide [Ozempic] 0.5 mg SQ WEEKLY 11/23/21 08/01/23 amLODIPine [Norvasc] 5 mg PO DAILY 11/23/21 08/01/23 Acetaminophen [Tylenol Extra 1,000 mg PO DIRECTED PRN 12/23/21 08/01/23 Strength] Loperamide [Imodium] 2 mg PO DIRECTED PRN 12/23/21 08/01/23 Cyanocobalamin [Vitamin B-12 1,000 mcg SQ QMONTHLY 11/28/22 08/01/23 Injection] methocarbamoL [Robaxin] 500 mg PO DIRECTED PRN 03/20/23 08/01/23 valACYclovir HCL [Valtrex] 500 mg PO DIRECTED 03/20/23 08/01/23 Previous Rx's Medication Instructions Recorded Ondansetron Odt [Zofran ODT] 4 mg PO Q8HR PRN #9 tab 03/15/19 Nystatin 100,000 Unit/gm Powd 1 applic TOPICAL BID #60 gm 02/15/22 [Mycostatin Powder] Acyclovir [Zovirax] 800 mg PO 5XD 7 Days #35 tab 06/19/23 Meclizine [Antivert] 25 mg PO BID PRN #20 tab 06/19/23 Allergies Allergy/AdvReac Type Severity Reaction Status Date / Time adhesive tape Allergy BLISTERS Verified 08/17/23 09:46 NSAIDS (Non-Steroidal Allergy Unknown Verified 08/17/23 09:46 Anti-Inflamma hydrochlorothiazide AdvReac MUSCLE Verified 08/17/23 09:46 PAINS chick peas Allergy Swelling Uncoded 08/17/23 09:46 Review of Systems ROS Statement: Those systems with pertinent positive or pertinent negative responses have been documented in the HPI. ROS Other: All systems not noted in ROS Statement are negative. 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 , states diabetes resolved with wt loss and now "pre-diabetic , hx gastroparesis., neuropathy feet, UTI's, shingelles R ear with some hearing loss, seizure with fever as child., Iron def anemia., back pain, hx blood clot in her arm., diarrh ea. PAST OFFICE SERVICE COORDINATOR HISTORY: She has no history of STDs. History of Any Multi-Drug Resistant Organisms: None Reported Past Surgical History: Appendectomy, Bariatric Surgery, Bowel Resection, Section, Cholecystectomy, Hernia Repair, Tubal Ligation, Uterine Ablation Additional Past Surgical History / Comment(s): 03/13/19 hysteroscopy endometrial ablation D&C, 03/14/19 robotic lap lysis of adhesions/reduction small bowel v olulus/reduction sigmoid volvulus and takedown internal hernia, 04/2018 rubens-en-y gastric bypass, EGDs, EGD with dilation, EGD with hiatal hernia repair, L foot tendon repair, myomectomy with left salpingo-oophorectomy 2011. section 3, tubal ligation with her third section. Past Anesthesia/Blood Transfusion Reactions: Previous Problems w/ Anesthesia, Mo tion Sickness, Postoperative Nausea & Vomiting (PONV) Additional Past Anesthesia/Blood Transfusion Reaction / Comment(s): Pt gets irritable when waking up after anesthetic, trouble urinating after anesthesia. Pt has received blood without reaction. Son -anaphylactic shock received propanol and versed thought he aspirated. ([facility] [address] ) Past Psychological History: Anxiety Smoking Status: Former smoker Past Alcohol Use History: None Reported Past Drug Use History: None Reported - Past Family History Mother Family Medical History: Hyperlipidemia, Thyroid Disorder Additional Family Medical History / Comment(s): hypothyroid. BRCA negative(done for her sister's history of breast cancer at age 39-patient's maternal aunt). Patient's maternal grandmother had colon cancer. Father Family Medical History: Diabetes Mellitus, Hypertension Sister(s) Family Medical History: Deep Vein Thrombosis (DVT), Pulmonary Embolus Additional Family Medical History / Comment(s): Arm and leg DVTs General Exam Limitations: no limitations General appearance: alert, in no apparent distress Head exam: Present: atraumatic, normocephalic, normal inspection Respiratory exam: Present: normal lung sounds bilaterally. Absent: respiratory distress, wheezes, rales, rhonchi, stridor Cardiovascular Exam: Present: regular rate, normal rhythm, normal heart sounds. Absent: systolic murmur, diastolic murmur, rubs, gallop, clicks GI/Abdominal exam: Present: soft, normal bowel sounds. Absent: distended, tenderness, guarding, rebound, rigid Back exam: Present: tenderness, CVA tenderness (L) (Left flank mass). Absent: normal inspection Neurological exam: Present: alert Course Vital Signs 08/17/23 08/17/23 09:42 12:42 Temperature 97.5 F L 97.5 F L Pulse Rate 94 77 Respiratory 18 20 Rate Blood Pressure 157/96 138/100 O2 Sat by Pulse 100 100 Oximetry Medical Decision Making - Medical Decision Making Was pt. sent in by a medical professional or institution (, PA, FOREST LOGISTICS MANAGER, urgent care, hospital, or longterm...) When possible be specific @ -Dr. Persaud Did you speak to anyone other than the patient for history (EMS, parent, family, police, friend...)? What history was obtained from this source @ -No Did you review nursing and triage notes (agree or disagree)? Why? @ -I reviewed and agree with nursing and triage notes Were old charts reviewed (outside hosp., previous admission, EMS record, old EKG, old radiological studies, urgent care reports/EKG's, longterm records)? Report findings @ -No old charts were reviewed Differential Diagnosis (chest pain, altered mental status, abdominal pain women, abdominal pain men, vaginal bleeding, weakness, fever, dyspnea, syncope, headache, dizziness, GI bleed, back pain, seizure, CVA, palpatations, mental health, musculoskeletal)? @ -Differential Abdominal Pain Women: Appendicitis, Cholecystitis, diverticulosis, ischemic bowel, pancreatitis, hepatitis, UTI, gastroenteritis, AAA, incarcerated hernia, bowel obstruction, constipation, inflammatory bowel, hepatitis, peptic ulcer disease, splenic infar ction, perforated viscus, vulvitis, ovarian torsion, PID, kidney stone, placenta abruption, this is not meant to be an all-inclusive list EKG interpreted by me (3pts min.). @ -[None none X-rays interpreted by me (1pt min.). @ -None done CT interpreted by me (1pt min.). @ -CT of the abdomen pelvis showing large lipoma U/S interpreted by me (1pt. min.). @ -None done What testing was considered but not performed or refused? (CT, X-rays, U/S, labs)? Why? @ -None What meds were considered but not given or refused? Why? @ -None Did you discuss the management of the patient with other professionals ( professionals i.e. , PA, FOREST LOGISTICS MANAGER, lab, RT, psych nurse, social service director, grants analyst, teacher, resident medical officer, case managers)? Give summary @ -No Was smoking cessation discussed for >3mins.? @ -No Was critical care preformed (if so, how long)? @ -No Were there social determinants of health that impacted care today? How? (Homelessness, low income, unemployed, alcoholism, drug addiction, transportation, low edu. Level, literacy, decrease access to med. care, snf, rehab)? @ -No Was there de-escalation of care discussed even if they declined (Discuss DNR or withdrawal of care, Hospice)? DNR status @ -No What co-morbidities impacted this encounter? (DM, HTN, Smoking, COPD, CAD, Cancer, CVA, ARF, Chemo, Hep., AIDS, mental health diagnosis, sleep apnea, morbid obesity)? @ -None Was patient admitted / discharged? Hospital course, mention meds given and route, prescriptions, significant lab abnormalities, going to OR and other pertinent info. @ -Just patient has a lipoma in her left flank region she will follow-up with her surgeon patient has no other acute findings. Undiagnosed new problem with uncertain prognosis? @ -No Drug Therapy requiring intensive monitoring for toxicity (Heparin, Nitro, Insu jena, Cardizem)? @ -No Were any procedures done? @ -No Diagnosis/symptom? @ -Lipoma Acute, or Chronic, or Acute on Chronic? @ -Acute Uncomplicated (without systemic symptoms) or Complicated (systemic symptoms)? @ -Uncomplicated Side effects of treatment? @ -No Exacerbation, Progression, or Severe Exacerbation? @ -No Poses a threat to life or bodily function? How? (Chest pain, USA, SC, pneumonia, PE, COPD, DKA, ARF, appy, cholecystitis, CVA, Diverticulitis, Homicidal, Suicidal, threat to staff... and all critical care pts) @ -No - Lab Data Result diagrams: 08/17/23 10:34 08/17/23 10:34 Lab Results 08/17/23 08/17/23 08/17/23 Range/Units 10:34 10:34 10:34 WBC 5.8 (3.8-10.6) k/uL RBC 4.40 (3.80-5.40) m/uL Hgb 13.7 (11.4-16.0) gm/dL Hct 40.0 (34.0-46.0) % MCV 91.0 (80.0-100.0) fL MCH 31.2 (25.0-35.0) pg MCHC 34.3 (31.0-37.0) g/dL RDW 12.7 (11.5-15.5) % Plt Count 169 (150-450) k/uL MPV 7.3 Neutrophils % 67 % Lymphocytes % 26 % Monocytes % 5 % Eosinophils % 1 % Basophils % 1 % Neutrophils # 3.9 (1.3-7.7) k/uL Lymphocytes # 1.5 (1.0-4.8) k/uL Monocytes # 0.3 (0-1.0) k/uL Eosinophils # 0.1 (0-0.7) k/uL Basophils # 0.0 (0-0.2) k/uL Poikilocytosis Slight Sodium 138 (137-145) mmol/L Potassium 4.0 (3.5-5.1) mmol/L Chloride 107 (98-107) mmol/L Carbon Dioxide 25 (22-30) mmol/L Anion Gap 6 mmol/L BUN 8 (7-17) mg/dL Creatinine 0.56 (0.52-1.04) mg/dL Est GFR (CKD-EPI)AfAm >90 (>60 ml/min/1.73 sqM) Est GFR (CKD-EPI)NonAf >90 (>60 ml/min/1.73 sqM) Glucose 115 H (74-99) mg/dL Calcium 8.8 (8.4-10.2) mg/dL Total Bilirubin 0.6 (0.2-1.3) mg/dL AST 20 (14-36) U/L ALT 18 (4-34) U/L Alkaline Phosphatase 98 (38-126) U/L Total Protein 6.8 (6.3-8.2) g/dL Albumin 4.2 (3.5-5.0) g/dL Lipase 141 (23-300) U/L Urine Color Colorless Urine Appearance Clear (Clear) Urine pH 6.0 (5.0-8.0) Ur Specific Leonard 1.001 (1.001-1.035) Urine Protein Negative (Negative) Urine Glucose (UA) Negative (Negative) Urine Ketones Negative (Negative) Urine Blood Negative (Negative) Urine Nitrite Negative (Negative) Urine Bilirubin Negative (Negative) Urine Urobilinogen <2.0 (<2.0) mg/dL Ur Leukocyte Esterase Negative (Negative) Disposition Clinical Impression: Lipoma Disposition: HOME SELF-CARE Condition: Stable Instructions (If sedation given, give patient instructions): Lipoma (ED) Additional Instructions: Please return to the Emergency Department if symptoms worsen or any other concerns. Is patient prescribed a controlled substance at d/c from ED?: No Referrals: None,Stated [Primary Care Provider] - 1-2 days Time of Disposition: 12:23
[2023-08-17] MEDS: SODIUM CHLORIDE 0.9% 500 ML 500 ML IV STA (10:40)
[2023-08-17 10:50] LABS: Basophils % (A) 1 %; Eosinophils # (A) 0.1 k/uL (0-0.7); Eosinophils % (A) 1 %; HGB 13.7 gm/dL (11.4-16.0); Lymphocytes # (A) 1.5 k/uL (1.0-4.8); Lymphocytes % (A) 26 %; MCH 31.2 pg (25.0-35.0); MCHC 34.3 g/dL (31.0-37.0); Mean Platelet Volume 7.3; Monocytes # (A) 0.3 k/uL (0-1.0); Monocytes % (A) 5 %; Neutrophils # (A) 3.9 k/uL (1.3-7.7); Neutrophils % (A) 67 %; Platelet Count 169 k/uL (150-450); Poikilocytosis Slight; RDW 12.7 % (11.5-15.5); WBC 5.8 k/uL (3.8-10.6)
[2023-08-17] MEDS: KETOROLAC 15 MG/ML 1 ML VIAL IVP STA (10:53)
[2023-08-17 11:09] LABS: ALT 18 U/L (4-34); AST 20 U/L (14-36); African American GFR (CKD) >90 (>60 ml/min/1.73 sqM); Albumin 4.2 g/dL (3.5-5.0); Alkaline Phosphatase 98 U/L (38-126); Anion Gap 6 mmol/L; Blood Urea Nitrogen 8 mg/dL (7-17); Calcium 8.8 mg/dL (8.4-10.2); Carbon Dioxide 25 mmol/L (22-30); Chloride 107 mmol/L (98-107); Glucose 115 mg/dL (74-99); Lipase 141 U/L (23-300); Non-African American GFR(CKD) >90 (>60 ml/min/1.73 sqM); Sodium 138 mmol/L (137-145); Total Bilirubin 0.6 mg/dL (0.2-1.3); Total Protein 6.8 g/dL (6.3-8.2)
[2023-08-17 11:20] LABS: Appearance,Urine Clear (Clear); Bilirubin,Urine Negative (Negative); Blood,Urine Negative (Negative); Color,Urine Colorless; Glucose,Urine (UA) Negative (Negative); Ketones,Urine Negative (Negative); Leukocyte Esterase,Urine Negative (Negative); Nitrite,Urine Negative (Negative); Protein,Urine Negative (Negative); Specific Gravity,Urine 1.001 (1.001-1.035); Urobilinogen,Urine <2.0 mg/dL (<2.0)
--- NOTE | 2023-08-17 11:50 | CT ---
EXAMINATION: CT ABDOMEN AND PELVIS WITH IV CONTRAST DATE OF EXAMINATION: 08/17/2023. COMPARISON: None available. INDICATION: Left flank mass. PROCEDURE: Axial CT of the abdomen and pelvis was performed with contrast and sagittal and coronal reformatted images were performed. CT dose lowering techniques were used, to include: automated expos ure control, adjustment for patient size, and/or use of iterative reconstruction. FINDINGS: LOWER CHEST : The visualized lung bases are clear. There are no pleural or pericardial effusions. ABDOMEN: Liver and Biliary system: Normal. Adrenal glands: Normal. Kidneys and ureters: Normal. Spleen: Normal. Pancreas: Normal. Gallbladder: Normal. Lymph nodes, Peritoneum and mesentery: There is no mesenteric or retroperitoneal lymphadenopathy. Gastrointestinal tract: There are no dilated loops of bowel or free intraperitoneal air. There ar e prior surgical changes seen within the stomach. Aorta/IVC: No aortic aneurysm. IVC normal. Abdominal wall: Normal. PELVIS: Fluid: There is no free fluid in the pelvis. Lymph Nodes: There is no pelvic or inguinal lymphadenopathy.. Urinary bladder: Normal. BONES: There are no osseous destructive lesions.. ADDITIONAL SIGNIFICANT FINDINGS: There appears to be a fat structure in the left flank region in th e superficial tissues of the subcutaneous fat measuring 11.0 x 4.4 cm which is likely a lipoma.. IMPRESSION: 1. Fat-containing mass within the left flank has no significant soft tissue centrally and is most lik radha a lipoma. 2. No acute intra-abdominal process.
[2023-08-17] MEDS: ACET/COD 300 MG/30 MG STARTER PACK 6 TAB BTL PO STA (12:27)
[2023-08-17 13:10] VITALS: BP 138/100; PULSE 77; RESP 20
== END 2023-08-17 12:44 | disposition home or self-care (01) ==
LOC: EC 09:37
DX: D17.20 Benign lipomatous neoplasm of skin and subcutaneous tissue of unspecified limb (principal); I10 Essential (primary) hypertension; E11.9 Type 2 diabetes mellitus without complications; K21.9 Gastro-esophageal reflux disease without esophagitis; F41.9 Anxiety disorder, unspecified; Z87.891 Personal history of nicotine dependence; Z79.899 Other long term (current) drug therapy; Z91.048 Other nonmedicinal substance allergy status; Z88.6 Allergy status to analgesic agent; Z88.8 Allergy status to other drugs, medicaments and biological substances; Z90.49 Acquired absence of other specified parts of digestive tract
CPT/HCPCS: 36415; 80053; 83690; 85025; 81003; 74177; 99284; 96374; 96361; J1885; Q9967

== ENCOUNTER → 2023-08-20 | Outpatient (CLI) | payer SELFPAY ==
--- NOTE | 2023-08-22 12:55 | MR ---
EXAMINATION TYPE: MR foot RT wo/w con DATE OF EXAM: 08/20/2023 COMPARISON: Old radiograph 06/09/2022 HISTORY: 42-year-old female R22.9 Mid foot lateral aspect lump Technique: Multiplanar, multisequence images of the right foot were obtained before and after adminis tration of 7 mL intravenous Gadavist gadolinium contrast. FINDINGS: Lateral flank subcutaneous soft tissue edema. Located along the lateral and plantar aspect of the fif th metatarsal base, there is a heterogeneous lesion measuring 3.0 cm wide by 1.9 cm long by 1.5 cm ca udal. This seems to show some internal areas of nonenhancement and there is a thickened peripheral en hancement. Some enhancement is noted of the surrounding subcutaneous adipose as well. There is no erosive change of the underlying bone. Some mild osteoarthritic change noted at the dorsal aspect of the second TMT joint with subchondral c ystic change. Origin of the plantar fascia and Achilles tendons are intact. Subtalar joint align. Scattered mild soft tissue edema. No acute or healing fracture. IMPRESSION: Complex, partially enhancing, partially cystic lesion overlying and wrapping around the lateral and p lantar aspect of the fifth metatarsal base. There is some enhancement of the adjacent subcutaneous ad ipose as well. No suspicious changes to the underlying bone. The area measures approximately 3.0 x 1. 9 x 1.5 cm. Etiology is unclear. Some differential considerations include but are not limited to gout , adventitial bursal formation, and nodular fasciitis.
== END | disposition home or self-care (01) ==
LOC: RADMRIMAIN 10:54
PROVIDERS: ATTEND Podiatrist
DX: M85.671 Other cyst of bone, right ankle and foot (principal); R22.41 Localized swelling, mass and lump, right lower limb
CPT/HCPCS: 73720; A9585

== ENCOUNTER → 2023-08-22 | Outpatient (CLI) | payer OTHER, SELFPAY ==
[2023-08-22 17:26] VITALS: BP 146/93; PULSE 76; RESP 16; TEMP 97.8; BMI 25.6
== END ==
LOC: BARWHC3 16:03
PROVIDERS: ATTEND Surgery Plastic and Reconstructive Surgery
DX: Z53.9 Procedure and treatment not carried out, unspecified reason (principal)
CPT/HCPCS: 99211

== ENCOUNTER → 2024-03-19 | Outpatient (CLI) | payer OTHER, SELFPAY ==
[2024-03-19 10:43] LABS: Microalbumin Creatinine Ratio <29 mg/g Cr (0-30)
[2024-03-19 15:38] LABS: Basophils # (A) 0.03 X 10*3/uL (0.00-0.10); Basophils % (A) 0.6 %; Eosinophils # (A) 0.07 X 10*3/uL (0.04-0.35); Eosinophils % (A) 1.3 %; HCT 33.4 % (37.2-46.3); HGB 10.5 g/dL (12.0-15.0); Lymphocytes # (A) 1.53 X 10*3/uL (0.90-5.00); Lymphocytes % (A) 28.3 %; MCH 27.1 pg (27.0-32.0); MCHC 31.4 g/dL (32.0-37.0); MCV 86.1 FL (80.0-97.0); Monocytes # (A) 0.49 X 10*3/uL (0.20-1.00); Monocytes % (A) 9.1 %; NRBC Per 100 WBC 0 X 10*3/uL (0.00-0.01); Neutrophils # (A) 3.27 X 10*3/uL (1.80-7.70); Neutrophils % (A) 60.5 %; Platelet Count 170 X 10*3/uL (140-440); RBC 3.88 X 10*6/uL (4.10-5.20); RDW 14.2 % (11.5-14.5)
[2024-03-19 15:44] LABS: % Iron Saturation 8.54 (12.00-45.00); Blood Urea Nitrogen 9.6 mg/dL (9.0-27.0); Chloride 106 mmol/L (96-109); Chol/HDL Ratio 2.62 Ratio; Glucose 143 mg/dL (70-110); Iron 27 UG/DL (50-170); Potassium 3.8 mmol/L (3.5-5.5); Sodium 140 mmol/L (135-145); Total Iron Binding Capacity 316 UG/DL (228-460); VLDL Calculation 16.34 mg/dL (5.00-40.00)
[2024-03-19 15:45] LABS: ALT 14 U/L (8-44); AST 15 U/L (13-35); Alkaline Phosphatase 103 U/L (41-126); Calcium 8.5 mg/dL (8.7-10.3); Carbon Dioxide 23.6 mmol/L (21.6-31.8); Globulin 2.1 g/dL (1.6-3.3); Total Bilirubin 0.3 mg/dL (0.3-1.2); Total Protein 6.1 g/dL (6.2-8.2)
== END | disposition home or self-care (01) ==
LOC: LABWHC1 07:36
PROVIDERS: ATTEND Nurse Practitioner Family
CPT/HCPCS: 36415; 80053; 80061; 82043; 82570; 82607; 83036; 83540; 83550; 85025

== ENCOUNTER → 2024-04-16 | Outpatient (CLI) | payer OTHER, SELFPAY ==
[2024-04-16 16:35] VITALS: BP 131/82; PULSE 62; RESP 16; TEMP 97.6; BMI 28.5
--- NOTE | 2024-04-16 16:36 | P.BASOAP ---
Subjective Progress Note Date: 04/16/24 She has heavy menstrual cycle. Robotic hysterectomy. She wants skin removal surgery. She has anemia. She has 1 ovary. Needs updated labs. SHe had xrays at [facility] with stomach and back pain. She has SOB. Images done 1 week ago. SHe is off ozempic. Objective - Vital Signs Vital signs: Intake & Output 04/15/24 04/16/24 04/16/24 18:59 06:59 18:59 Weight 78.471 kg Assessment/Plan Plan: Date: Initial Weight: 99.79 kg Initial BMI: Current Weight: 78.471 kg Current BMI: Type of Surgery: Total Volume in Band: Previous Volume: Volume Removed: Volume Added: Band Size:
== END ==
LOC: BARWHC3 15:07
PROVIDERS: ATTEND Surgery Plastic and Reconstructive Surgery
DX: E66.01 Morbid (severe) obesity due to excess calories (principal); D64.9 Anemia, unspecified; R06.02 Shortness of breath; M54.9 Dorsalgia, unspecified; Z91.048 Other nonmedicinal substance allergy status; Z90.710 Acquired absence of both cervix and uterus; Z88.8 Allergy status to other drugs, medicaments and biological substances; Z88.5 Allergy status to narcotic agent; Z91.018 Allergy to other foods; Z68.28 Body mass index [BMI] 28.0-28.9, adult; Z87.891 Personal history of nicotine dependence
CPT/HCPCS: 99211

== ENCOUNTER → 2024-10-06 | Outpatient (CLI) | payer OTHER ==
[2024-10-06 20:30] LABS: Iron 28 UG/DL (50-170)
[2024-10-06 20:31] LABS: ALT 21 U/L (8-44); AST 19 U/L (13-35); Albumin 4.2 g/dL (3.8-4.9); Albumin/Globulin Ratio 1.75 Ratio (1.60-3.17); Alkaline Phosphatase 117 U/L (41-126); BUN/Creat Ratio 11.71 Ratio (12.00-20.00); Blood Urea Nitrogen 8.2 mg/dL (9.0-27.0); Calcium 8.6 mg/dL (8.7-10.3); Carbon Dioxide 21.5 mmol/L (21.6-31.8); Chloride 107 mmol/L (96-109); Chol/HDL Ratio 2.53 Ratio; Ferritin 14.2 ng/mL (10.0-291.0); Globulin 2.4 g/dL (1.6-3.3); Glucose 228 mg/dL (70-110); LDL Cholesterol,Calculated 64.3 mg/dL (0.0-131.0); Potassium 4.1 mmol/L (3.5-5.5); Sodium 140 mmol/L (135-145); Total Bilirubin 0.3 mg/dL (0.3-1.2); Total Protein 6.6 g/dL (6.2-8.2); VLDL Calculation 16.66 mg/dL (5.00-40.00)
[2024-10-06 21:41] LABS: Basophils # (A) 0.06 X 10*3/uL (0.00-0.10); Basophils % (A) 1.1 %; Eosinophils # (A) 0.07 X 10*3/uL (0.04-0.35); Eosinophils % (A) 1.3 %; HCT 38.4 % (37.2-46.3); Lymphocytes # (A) 1.19 X 10*3/uL (0.90-5.00); Lymphocytes % (A) 21.3 %; MCH 27.1 pg (27.0-32.0); MCHC 31.3 g/dL (32.0-37.0); MCV 86.7 FL (80.0-97.0); Mean Platelet Volume 9.7 FL (9.5-12.2); Monocytes % (A) 5.4 %; NRBC Per 100 WBC 0 X 10*3/uL (0.00-0.01); Neutrophils # (A) 3.94 X 10*3/uL (1.80-7.70); Neutrophils % (A) 70.4 %; Platelet Count 204 X 10*3/uL (140-440); RBC 4.43 X 10*6/uL (4.10-5.20); RDW 13.4 % (11.5-14.5); WBC 5.59 X 10*3/uL (4.50-10.00)
== END | disposition home or self-care (01) ==
LOC: LABWHC1 14:55
PROVIDERS: ATTEND Nurse Practitioner Family
DX: D50.0 Iron deficiency anemia secondary to blood loss (chronic) (principal); E11.69 Type 2 diabetes mellitus with other specified complication; M62.838 Other muscle spasm; K90.9 Intestinal malabsorption, unspecified; G43.909 Migraine, unspecified, not intractable, without status migrainosus; Z79.4 Long term (current) use of insulin
CPT/HCPCS: 36415; 80053; 80061; 82306; 82728; 83036; 83540; 85025